=== PATIENT | male | born 1980 | race Caucasian/White ===

== ENCOUNTER 2020-07-13 15:04 | Emergency (ER) | payer MEDICAID, SELFPAY ==
[2020-07-13] VITALS (23 sets, daily range): BP systolic 122–146; BP diastolic 86–110; PULSE 111–144; RESP 13–23; TEMP 36.7; O2SAT 95–99
--- NOTE | 2020-07-13 15:00 | RT.EKG_ITS ---
APPROVED REPORT Exam: Resting ECG Patient Location: E HR:130 bpm ECG Measurements Heart Rate 130 AXIS IA 132 P 51 QRSd 95 QRS 12 QT 308 T 76 QTc 454 Conclusion Sinus tachycardia...rate> 99 I have reviewed and interpreted ECG and agree with software generated interpretation.
--- NOTE | 2020-07-13 15:04 | ED.GENADUL_ITS ---
Discharge Plan Disposition Patient Disposition: HOME Condition: Stable Discharge Details Clinical Impression: New onset seizure, Tachycardia Primary Care Provider: Unknown,Unknown ED Provider: Kylie Clark Home Meds and New Rx's Prescriptions: New permethrin 5 % cream 1 applic topical Q14D Qty: 60 RF: 0 Continued multivitamin Tablet 1 tab PO DAILY RF: 0 omeprazole 40 mg Capsule,Delayed Release(Dr/Ec) 40 mg PO DAILY RF: 0 escitalopram oxalate [Lexapro] 20 mg Tablet 20 mg PO DAILY RF: 0 emtricitabine-tenofovir (TDF) [Truvada] 200-300 mg Tablet 1 tab PO DAILY RF: 0 amitriptyline 25 mg Tablet 25 mg PO HS PRNRF: 0 Discharge Instructions Instructions: Epilepsy (ED), Tachycardia (ED) Additional Instructions: It appears that you likely had a seizure today. Drink plenty of fluids and get plenty of rest. You can take the Ativan as needed for sleep or if you have any further seizure activity. Stop taking the Lexapro today as that may have been a cause of your seizure. It is sometimes better for your depression to wean off of the lexapro by taking 1 tab every other day for the next week. Your amitriptyline may also be a cause of seizures but you should follow up with your doctor before stopping this medication. Call your primary care doctor at [facility] for referral to a neurology clinic for reevaluation and for outpatient EEG and possibly MRI of your brain. Your liver function tests were also elevated which may be a result of your medication Truvada. Follow-up with your primary care doctor for recheck of your liver enzymes. Return the Zio patch media monitor to the hospital as directed by respiratory therapy. Return immediately to the emergency department if you develop any worsening or new concerning symptoms. Referrals: Yoanna Cloud MD [ [facility] STAFF PHYSICIAN] - Discharge Data Discharge Date/Time-TO BE ENTERED AT DEPARTURE: 07/13/20 19:48 Discharge Physician: Kylie Clark Medical Decision Making 1510 -- 39-year-old male with a history of depression on Lexapro who presents to the ED status post new onset seizure. EKG on arrival notes a rate of 130, sinus tach, no-STEMI. Heart rate 130s. Blood pressure within normal limits. He is afebrile and appears nontoxic. He is answering questions appropriately. He has a hematoma to the right side of his head with a professional tongue laceration. He has a diffuse body rash which she states has been present for the past month. No cell ulitis. No evidence of extremity, chest, abdomen or back trauma. Will obtain screening labs, CT head and cervical spine, CT chest to rule out acute process. Presentation does not appear consistent with alcohol withdrawal seizure as patient and mom deny any heavy alcohol use. Review of patient's medications notes that Lexapro could be a cause of seizures. Patient later endorsed that he is on Truvada for preventative medication as he engages in same sex relationships. He later also endorses that he is on amitriptyline for sleep. Review of amitriptyline note that this could be a possible cause of seizures. Labs and imaging reviewed. Normal white blood cell count. Anion gap elevated at 17. Bicarb normal. Elevation of LFTs compared to previous which may be due to Truvada. Troponin normal. Salicylate and acetaminophen negative. CT head, cervical spine CT chest negative. 1620 -- Patient reassessed and he is still complaining of headache. Will give a dose of Toradol and additional fluids. 1730 -- Case discussed with [facility] neurology who did not recommend anticonvulsant medications at this time. If patient continues to do well, can plan for outpatient follow-up to the neuro clinic with plan for outpatient EEG and possible MRI. Also consider Zio patch for possible convulsive syncope. Recommend patient not drive and continue seizure and fall precautions. Also consider an HIV test for possible exposure. Patient denies any known HIV exposures. Patient is afebrile and appears nontoxic with a normal CT head, do not feel indication for LP at this time. 1800 -- Patient reassessed and he feels much better. He states he would prefer to go home. Heart rate remains low 100s and he appears anxious. He states he has not eaten all day. Will give patient something to eat, Ativan and place a media monitor. If patient continues to do well, will plan for outpatient neurology follow-up, outpatient EEG and possibly MRI. He states he will follow up with neurology at [facility] as he lives in [place]. 1920 -- Patient reassessed and he feels much better and is requesting to go home. His heart rate still remains tachycardic into the mid 100s. He states he is mainly anxious being in the emergency department. Patient offered to stay for admission overnight but declined. He expressed concern about his chronic pruritic rash to his entire body. He states he has been seen by dermatology and had a punch biopsy and diagnosed with contact dermatitis. He states his son has a similar rash. Will consider possible scabies and given a prescription for permethrin. Usual and customary return precautions given prior to discharge. Medical Records Medical records reviewed: Yes I reviewed the patient's medical records. Imaging Data Radiologic Study: Radiologist's impression: CT HEAD CERVICAL SPINE WO CLINICAL HISTORY: s/p fall, r/o acute skull fx, neck fx, bleed. TECHNIQUE: Imaging Protocol: Axial computed tomography images with coronal and sagittal reformatted images were created and reviewed COMPARISON: No exams were available for comparison FINDINGS: Head CT Ventricles and Extra axial spaces: Normal in size and morphology for the patient's age. Hemorrhage: None. Cerebral parenchyma: Normal. Midline shift: None. Brainstem/Cerebellum: Normal. Calvarium: Normal. Soft tissue swelling right parietal scalp Visualized Paranasal sinuses/Mastoids: Clear. Cervical Spine CT BONES: Vertebral body heights are maintained. Alignment is normal. There is no evidence of acute fracture. No significant degenerative disc changes and facet degenerative changes are seen . SOFT TISSUES: No paraspinal hematoma. The airway appears intact. No pneumothorax is seen at the lung apices. IMPRESSION: Head CT: Normal. C-spine CT: Normal. CT CHEST PE CTA CLINICAL HISTORY: seizure, syncopal episode, r/o PE, pneumonia. TECHNIQUE: Imaging Protocol: Axial CT angiography was performed with multi- slice acquisition and multi-planar and/or 3D reconstructions. CONTRAST MATERIAL: Intravenous: Omnipaque 350 Contrast volume:structured data in ml COMPARISON: No exams were available for comparison FINDINGS: Pulmonary Arteries: No evidence of filling defect to suggest pulmonary emboli. Tracheobronchial tree: Patent where visualized. Mediastinum and Madai: No dominant adenopathy or fluid collection. Pulmonary parenchyma: No consolidation or dominant measurable mass. No architectural distortion. Pleura: No effusion or pneumothorax. Heart: The heart is not dilated. No coronary artery calcifications are seen. Aorta: Thoracic aorta non-dilated. Upper abdomen: Enlarged liver with severe fatty infiltration. Status post cholecystectomy. Surgical clips near the GE junction and body of the stomach. Bones: Mild degenerative changes. IMPRESSION: No evidence of pulmonary embolism or other acute abnormality. Enlarged fatty liver.. Lab Data Lab results reviewed: Yes I reviewed the patient's lab results. Labs: Laboratory Tests Range/Units 07/13/20 07/13/20 07/13/20 15:25 15:25 15:25 WBC (4.4-10.8) 10^3/uL 6.71 RBC (4.36-5.78) 10^6/uL 4.16 L Hgb (13.5-17.5) g/dL 15.1 Hct (40.0-50.0) % 43.3 MCV (80-95) fL 104.1 H MCH (27.0-33.0) pg 36.3 H MCHC (32.0-36.0) % 34.9 RDW (11.8-14.1) % 14.1 Plt Count (130-400) 10^3/uL 221 MPV (8.0-11.0) fL 10.5 Immature Gran % 0.4 Neutrophils % 44.6 Lymphocytes % 37.7 Monocytes % 13.6 Eosinophils % 2.5 Basophils % 1.2 Nucleated RBC % % 0 Absolute Neutrophils (1.2-6.7) 10^3/uL 2.99 Absolute Lymphocytes (1.2-3.4) 10^3/uL 2.53 Absolute Monocytes (0.1-0.8) 10^3/uL 0.91 H Absolute Eosinophils (0.0-0.7) 10^3/uL 0.17 Absolute Basophils (0.0-0.2) 10^3/uL 0.08 PT (9.3-11.0) sec INR (0.9-1.1) APTT (21.0-27.5) sec Sodium (136-145) mmol/L 136 Potassium (3.5-5.1) mmol/L 3.5 Chloride (98-107) mmol/L 96 L Carbon Dioxide (21.0-32.0) mmol/L 22.2 Anion Gap (3-11) mmol/L 17.8 H BUN (7-18) mg/dL 9 Creatinine (0.70-1.30) mg/dL 1.2 Estimated GFR/1.73 m2 (mL/min/1.73m2) >= 60.00 Glucose (74-106) mg/dL 124 H Calcium (8.5-10.1) mg/dL 9.3 Magnesium (1.8-2.4) mg/dL 1.7 L Total Bilirubin (0.2-1.0) mg/dL 1.1 H AST (15-37) U/L 186 H ALT (16-63) U/L 120 H Alkaline Phosphatase (46-116) U/L 125 H Troponin I (<0.06) ng/mL < 0.05 Total Protein (6.4-8.2) g/dL 8.0 Albumin (3.4-5.0) g/dL 4.0 Urine Color (Yellow) Urine Clarity (Clear) Urine pH (5-8) Ur Specific [place] (1.005-1.025) Urine Protein (Negative) mg/dL Urine Ketones (Negative) mg/dL Urine Blood (Negative) Urine Nitrite (Negative) Urine Bilirubin (Negative) Urine Urobilinogen (Up TO 0.2) EU/dL Ur Leukocyte Esterase (Negative) Urine RBC (0-2) HPF Urine WBC (0-5) HPF Ur Epithelial Cells (Negative) HPF Urine Crystals (Negative) HPF Urine Bacteria (Negative) HPF Urine Casts (Negative) LPF Urine Mucus (Negative) Ur Culture Indicated? Urine Glucose (Negative) mg/dL Salicylates (<2.8) mg/dL < 2.8 Urine Opiates Screen (Negative) Urine Methadone Screen (Negative) Acetaminophen (10-30) ug/mL < 2 Ur Barbiturates Screen (Negative) Ur Tricyclics Screen (Negative) Ur Amphetamines Screen (Negative) U Benzodiazepines Scrn (Negative) Urine Cocaine Screen (Negative) Ur THC Screen (Negative) Range/Units 07/13/20 07/13/20 07/13/20 15:25 17:06 17:06 WBC (4.4-10.8) 10^3/uL RBC (4.36-5.78) 10^6/uL Hgb (13.5-17.5) g/dL Hct (40.0-50.0) % MCV (80-95) fL MCH (27.0-33.0) pg MCHC (32.0-36.0) % RDW (11.8-14.1) % Plt Count (130-400) 10^3/uL MPV (8.0-11.0) fL Immature Gran % Neutrophils % Lymphocytes % Monocytes % Eosinophils % Basophils % Nucleated RBC % % Absolute Neutrophils (1.2-6.7) 10^3/uL Absolute Lymphocytes (1.2-3.4) 10^3/uL Absolute Monocytes (0.1-0.8) 10^3/uL Absolute Eosinophils (0.0-0.7) 10^3/uL Absolute Basophils (0.0-0.2) 10^3/uL PT (9.3-11.0) sec 11.5 H INR (0.9-1.1) 1.1 APTT (21.0-27.5) sec 24.3 Sodium (136-145) mmol/L Potassium (3.5-5.1) mmol/L Chloride (98-107) mmol/L Carbon Dioxide (21.0-32.0) mmol/L Anion Gap (3-11) mmol/L BUN (7-18) mg/dL Creatinine (0.70-1.30) mg/dL Estimated GFR/1.73 m2 (mL/min/1.73m2) Glucose (74-106) mg/dL Calcium (8.5-10.1) mg/dL Magnesium (1.8-2.4) mg/dL Total Bilirubin (0.2-1.0) mg/dL AST (15-37) U/L ALT (16-63) U/L Alkaline Phosphatase (46-116) U/L Troponin I (<0.06) ng/mL Total Protein (6.4-8.2) g/dL Albumin (3.4-5.0) g/dL Urine Color (Yellow) Yellow Urine Clarity (Clear) Clear Urine pH (5-8) 7.0 Ur Specific [place] (1.005-1.025) 1.015 Urine Protein (Negative) mg/dL Negative Urine Ketones (Negative) mg/dL Negative Urine Blood (Negative) Trace-intact H Urine Nitrite (Negative) Negative Urine Bilirubin (Negative) Negative Urine Urobilinogen (Up TO 0.2) EU/dL 4.0 H Ur Leukocyte Esterase (Negative) Negative Urine RBC (0-2) HPF 0-2 Urine WBC (0-5) HPF Negative Ur Epithelial Cells (Negative) HPF Negative Urine Crystals (Negative) HPF Negative Urine Bacteria (Negative) HPF Negative Urine Casts (Negative) LPF 3-5 hyaline Urine Mucus (Negative) Negative Ur Culture Indicated? No Urine Glucose (Negative) mg/dL Negative Salicylates (<2.8) mg/dL Urine Opiates Screen (Negative) Negative Urine Methadone Screen (Negative) Negative Acetaminophen (10-30) ug/mL Ur Barbiturates Screen (Negative) Negative Ur Tricyclics Screen (Negative) Positive A Ur Amphetamines Screen (Negative) Negative U Benzodiazepines Scrn (Negative) Negative Urine Cocaine Screen (Negative) Negative Ur THC Screen (Negative) Negative ECG Data Attestation: I personally reviewed and interpreted this ECG (s) as follows: Interpretation: Rate of 130, sinus, no acute ST ovation or depression. MT 132. QRS 95. QTc 452. HPI General Mode of arrival: EMS . Date/Time Provider Initiated Documentation: 07/13/20 15:11 . Limitations to Documentation: no limitations . Information obtained by: patient and family . HPI Narrative: Patient is a 39-year-old male with a history of depression who presents for a seizure at [facility]. Patient does not recall the event but does remember coming into the ED by ambulance. Patient states he felt fine today. He denies any recent illnesses, new medications, alcohol or drug use. He denies any fever, recent travel, recent known sick contacts. He denies chest pain, shortness of breath, abdominal pain, neck pain, extremity pain. He did hit his head on the floor during the seizure and is complaining of headache. Case discussed with patient's mom over the phone who states that she was with patient in [facility] when she heard him call her name and she looked towards him and his eyes were rolling in the back of his head, his arm was twitching and he suddenly dropped to the ground hitting his head on the hard floor. She denies any known LOC. She states he then had full tonic-clonic body jerking for approximately 2 minutes. EMS states upon their arrival, patient appeared postictal but does appear more alert since arrival to the ED. Related Data Home Medications Medication Instructions Recorded Confirmed amitriptyline 25 mg PO HS PRN 07/13/20 07/13/20 emtricitabine-tenofovir (TDF) 1 tab PO DAILY 07/13/20 07/13/20 [Truvada] escitalopram oxalate [Lexapro] 20 mg PO DAILY 07/13/20 07/13/20 multivitamin 1 tab PO DAILY 07/13/20 07/13/20 omeprazole 40 mg PO DAILY 07/13/20 07/13/20 permethrin 1 applic TOPICAL Q14D #60 g 07/13/20 Previous Rx's Medication Instructions Recorded permethrin 1 applic TOPICAL Q14D #60 g 07/13/20 Allergies Allergy/AdvReac Type Severity Reaction Status Date / Time No Known Allergies Allergy Unverified 07/13/20 15:19 Review of Systems All systems reviewed & are unremarkable except as noted in HPI and below Constitutional Constitutional: Reports as per HPI, Denies chills and Denies fever(s) Eyes Eyes: Denies blurry vision ENT Ears, Nose, Mouth, and Throat: Denies dizziness, Denies sore throat and Denies throat swelling Cardiovascular Cardiovascular: Denies chest pain and Denies dyspnea Respiratory Respiratory: Denies cough and Denies dyspnea Gastrointestinal Gastrointestinal: Denies abdominal pain, Denies diarrhea and Denies vomiting Genitourinary Genitourinary: Denies hematuria and Denies dysuria Musculoskeletal Musculoskeletal: Denies back pain and Denies numbness Integumentary/Breasts Skin/Breast: Denies lesions and Denies rash Neurologic Neurologic: Denies dizziness, Denies localized weakness, Denies numbness and Reports convulsions Allergic/Immunologic Allergic/Immunologic: Denies throat swelling FORMERLY [facility], [facility]–1983 Medical History (Updated 07/13/20 @ 19:31 by Kylie Clark DO) Depression Surgical History (Updated 07/13/20 @ 15:38 by Kylie Clark DO) History of gastric bypass Gastric sleeve Social History Smoking/Tobacco Use Status: Never Smoking risk assessment performed?: Yes Substance use type: does not use Exam Const General: cooperative and healthy appearing Orientation: alert and awake HENDC Head: no raccoon eyes and No periorbital ecchymosis Head images: 1. 4 x 4 centimeter area of edema consistent with hematoma with superficial abrasion. Ears: hearing grossly normal bilaterally, external ears normal and TM's normal bilaterally General nose exam: external nose normal Face and sinus: normal facial exam Mouth: oral mucosae normal Mouth/tongue images: 1. Superficial tongue lacerations, ecchymoses. No gapping wounds. Teeth and gingiva: dentition normal Throat: posterior oropharynx normal Eyes General: appearance normal, both eyes and all related structures Eyelids: eyelids normal Pupils: PERRL EOM: EOM intact bilaterally Neck Neck: normal visual inspection Lymphatic: no lymphadenopathy noted Chest Chest: normal inspection of the chest Resp Effort & Inspection: normal respiratory effort and able to speak in complete sentences Auscultation: clear to auscultation bilaterally Cardio Rate: regular rate Rhythm: regular rhythm GI Inspection: normal to inspection Palpation: soft, not firm, no guarding, no hepatosplenomegaly, no masses and nontender Auscultation: normal bowel sounds Back/Spine/Pelvis Thoracic/Lumbar Spine: thoracic and lumbar spine normal to inspection, No thoracic spinal tenderness and No lumbar spinal tenderness Pelvis: no pain with anterior-posterior compression Skin General skin exam: excoriation (abdomen, back) Neuro General: patient alert, patient awake, patient oriented x3, moves all extremities, no meningeal signs and no focal motor deficits Cognition: normal cognition Speech: speech normal Gait: normal gait Motor: muscle tone normal throughout Sensory Exam: no sensory deficits noted Extrem General: normal to inspection, full ROM and capillary refill normal Other: no deformities Psych Appearance: grossly normal Mental Status: mental status grossly normal Speech and Movement: speech and movement normal Affect: normal affect Thought Process: normal
[2020-07-13 15:41] LABS: Abs Immature Grans 0.03 10^3/uL (0.0-0.06); Absolute Basophil Count 0.08 10^3/uL (0.0-0.2); Absolute Eosinophil Count 0.17 10^3/uL (0.0-0.7); Absolute Lymphocyte Count 2.53 10^3/uL (1.2-3.4); Absolute Monocyte Count 0.91 10^3/uL (0.1-0.8); Absolute Neutrophil Count 2.99 10^3/uL (1.2-6.7); Basophils % 1.2; Eosinophils % 2.5; HCT 43.3 % (40.0-50.0); HGB 15.1 g/dL (13.5-17.5); Immature Grans % 0.4; Lymphocytes % 37.7; MCH 36.3 pg (27.0-33.0); MCHC 34.9 % (32.0-36.0); MCV 104.1 fL (80-95); MPV 10.5 fL (8.0-11.0); Monocytes % 13.6; Neutrophils % 44.6; Nucleated RBC 0 %; Platelet Count 221 10^3/uL (130-400); RBC 4.16 10^6/uL (4.36-5.78); RDW 14.1 % (11.8-14.1); RDW-SD 54.8 fL; WBC 6.71 10^3/uL (4.4-10.8)
[2020-07-13 15:47] LABS: INR 1.1 (0.9-1.1); PTT Activated 24.3 sec (21.0-27.5); Prothrombin Time 11.5 sec (9.3-11.0)
[2020-07-13 15:50] LABS: ALT 120 U/L (16-63); AST 186 U/L (15-37); Alkaline Phosphatase 125 U/L (46-116); Anion Gap 17.8 mmol/L (3-11); BUN 9 mg/dL (7-18); Bilirubin, Total 1.1 mg/dL (0.2-1.0); CO2 22.2 mmol/L (21.0-32.0); CREATININE 1.2 mg/dL (0.70-1.30); Calcium 9.3 mg/dL (8.5-10.1); Chloride 96 mmol/L (98-107); Glucose 124 mg/dL (74-106); Magnesium 1.7 mg/dL (1.8-2.4); Potassium 3.5 mmol/L (3.5-5.1); Sodium 136 mmol/L (136-145)
[2020-07-13 15:52] LABS: Salicylate < 2.8 mg/dL (<2.8); Troponin I < 0.05 ng/mL (<0.06)
[2020-07-13 15:53] LABS: Acetaminophen < 2 ug/mL (10-30)
[2020-07-13] MEDS: ACETAMINOPHEN 1,000 MG/100 ML BTL 400 MG IVPB (16:02)
[2020-07-13] MEDS: Normal Saline 1,000 ML 1000 ML IV ×2 (16:02→17:05)
--- NOTE | 2020-07-13 16:04 | DI.CT_ITS ---
EXAM: CT CHEST PE CTA CLINICAL HISTORY: seizure, syncopal episode, r/o PE, pneumonia. TECHNIQUE: Imaging Protocol: Axial CT angiography was performed with multi-slice acquisition and mu lti-planar and/or 3D reconstructions. CONTRAST MATERIAL: Intravenous: Omnipaque 350 Contrast volume:structured data in ml COMPARISON: No exams were available for comparison FINDINGS: Pulmonary Arteries: No evidence of filling defect to suggest pulmonary emboli. Tracheobronchial tree: Patent where visualized. Mediastinum and Madai: No dominant adenopathy or fluid collection. Pulmonary parenchyma: No consolidation or dominant measurable mass. No architectural distortion. Pleura: No effusion or pneumothorax. Heart: The heart is not dilated. No coronary artery calcifications are seen. Aorta: Thoracic aorta non-dilated. Upper abdomen: Enlarged liver with severe fatty infiltration. Status post cholecystectomy. Surgica l clips near the GE junction and body of the stomach. Bones: Mild degenerative changes. IMPRESSION: No evidence of pulmonary embolism or other acute abnormality. Enlarged fatty liver.. RADIATION DOSE DELIVERED: 399.26mGy.cm Total DLP DATA REPOSITORY: All CT scans at this facility are submitted to the National Radiology Data Registry (NRDR) Dose Index Registry (DIR) with the [employer] ([employer]). RADIATION OPTIMIZATION: All CT scans at this facility use at least one of these dose optimization te chniques: automated exposure control; mA and/or kV adjustment per patient size (includes targeted exa ms where dose is matched to clinical indication); or iterative reconstruction.
--- NOTE | 2020-07-13 16:04 | DI.CT_ITS ---
EXAM: CT HEAD CERVICAL SPINE WO CLINICAL HISTORY: s/p fall, r/o acute skull fx, neck fx, bleed. TECHNIQUE: Imaging Protocol: Axial computed tomography images with coronal and sagittal reformatted images were created and reviewed COMPARISON: No exams were available for comparison FINDINGS: Head CT Ventricles and Extra axial spaces: Normal in size and morphology for the patient's age. Hemorrhage: None. Cerebral parenchyma: Normal. Midline shift: None. Brainstem/Cerebellum: Normal. Calvarium: Normal. Soft tissue swelling right parietal scalp Visualized Paranasal sinuses/Mastoids: Clear. Cervical Spine CT BONES: Vertebral body heights are maintained. Alignment is normal. There is no evidence of acute frac ture. No significant degenerative disc changes and facet degenerative changes are seen . SOFT TISSUES: No paraspinal hematoma. The airway appears intact. No pneumothorax is seen at the lung apices. IMPRESSION: Head CT: Normal. C-spine CT: Normal. RADIATION DOSE DELIVERED: LINK-TO-SR Total DLP DATA REPOSITORY: All CT scans at this facility are submitted to the National Radiology Data Registry (NRDR) Dose Index Registry (DIR) with the [employer] (ACR). RADIATION OPTIMIZATION: All CT scans at this facility use at least one of these dose optimization te chniques: automated exposure control; mA and/or kV adjustment per patient size (includes targeted exa ms where dose is matched to clinical indication); or iterative reconstruction.
[2020-07-13] MEDS: Omnipaque 350 MG/ML 100 ML BTL IJ (16:05)
[2020-07-13] MEDS: Normal Saline - Diluent 50 ML VIAL IV (16:05)
[2020-07-13] MEDS: Ketorolac 30 MG/ML VIAL IVP (16:42)
[2020-07-13 17:21] LABS: Bilirubin Negative (Negative); Blood Trace-intact (Negative); Clarity Clear (Clear); Glucose Negative (Negative); Ketones Negative (Negative); Leukocyte Esterase Negative (Negative); Nitrite Negative (Negative); Specific Gravity 1.015 (1.005-1.025)
[2020-07-13 17:31] LABS: Bacteria Negative HPF (Negative); C & S Indicated? No; Casts 3-5 Hyaline LPF (Negative); Crystals Negative HPF (Negative); Epithelial Cells Negative HPF (Negative); Mucus Negative (Negative); RBC 0-2 HPF (0-2); WBC Negative HPF (0-5)
[2020-07-13 17:32] LABS: *AMPHETAMINES SCREEN URINE Negative (Negative); *BARBITURATES SCREEN URINE Negative (Negative); *BENZODIAZEPINES SCREEN URINE Negative (Negative); Cannabinoids THC Negative (Negative); Cocaine Screen,Urine Negative (Negative); METHADONE URINE SCREEN Negative (Negative); OPIATES URINE SCREEN Negative (Negative)
[2020-07-13 17:37] LABS: Tricyclic Antidepressants POSITIVE (Negative)
[2020-07-13] MEDS: LORazepam 2 MG/ML VIAL 1 MG IVP ×2 (18:05→19:14)
[2020-07-13] MEDS: LORazepam 0.5 MG TAB 1 MG PO (19:44)
--- NOTE | 2020-07-14 10:10 | NUR.NOTE ---
Addendum entered by Miri Álvarez 07/14/20 10:13: [facility] Neurology Original Note: Nursing Note: Theresa Canales, mother, called with patient in the room. Asking about follow up with Neurology. Our neurologist is going on vacation as of today. They did state that they would follow up with [facility]. After speaking with Dr. Clark I called [facility] Neurology and faxed all the visit information to them along with sending the images electronically. They will call [facility] for the appt. Miri Álvarez
--- NOTE | 2020-07-15 08:54 | NUR.NOTE ---
Nursing Note: Patient called stating that he called [facility] Neurology to try and get an appt. and was told that they had not received the referral yet. I called [facility] Neurology and they stated that it takes 24 hrs. to get the information into the system, it has to be reviewed, and then they will call the patient with an appt. They stated to put urgent on the request. I refaxed all the information again to [facility] Neurology with URGENT on the fax cover sheet. Patient was called and given this information. Miri Álvarez
[2020-07-15 10:11] LABS: HIV-1/2 Ag & Ab Screen Negative (Negative)
--- NOTE | 2020-08-12 09:11 | W.ZIOMONITOR ---
Date of service: 08/12/20 Time of Service: 09:11 14 Day Social Work Job Titles Referring Provider:: jolly Indications:: syncope Note: This is a 14-day monitor order for indication of syncope. ?The patient was in normal sinus rhythm for the majority of the recording with an average heart rate of 85 bpm. ?There were no PVCs and rare PACs. There were 2 episodes of supraventricular tachycardia the longest lasting 4 beats. Neither of these were symptomatic. ?There were no episodes of atrial fibrillation, no pauses greater than 3 seconds and no evidence of high degree heart block. ?There were 5 patient triggered events none of which were associated with any significant arrhythmia.
== END 2020-07-13 19:48 | disposition home or self-care (01) ==
PROVIDERS: Emergency Provider Physician Assistant
DX: R56.9 Unspecified convulsions (principal); R00.0 Tachycardia, unspecified; R51.9 Headache, unspecified; R21 Rash and other nonspecific skin eruption; Z79.811 Long term (current) use of aromatase inhibitors; Z79.899 Other long term (current) drug therapy
CPT/HCPCS: 36416; 71275; 80053; 80307; 82962; 87389; 90471; 93005; 93246; 96361; 96365; 96375; 99285; 70450; 72125; 80329; 81003; 81015; 83735; 84484; 85025; 85610; 85730; 93010; 99284; J0131; J1885; J2060; J3490

== ENCOUNTER 2020-12-29 10:03 | Outpatient (REF) | payer MEDICAID, SELFPAY ==
[2020-12-29 14:19] LABS: Abs Immature Grans 0.01 10^3/uL (0.0-0.06); Absolute Basophil Count 0.05 10^3/uL (0.0-0.2); Absolute Eosinophil Count 0.06 10^3/uL (0.0-0.7); Absolute Lymphocyte Count 1.71 10^3/uL (1.2-3.4); Absolute Monocyte Count 0.64 10^3/uL (0.1-0.8); Absolute Neutrophil Count 1.72 10^3/uL (1.2-6.7); Basophils % 1.2; Eosinophils % 1.4; HCT 42.6 % (40.0-50.0); HGB 14.1 g/dL (13.5-17.5); Immature Grans % 0.2; Lymphocytes % 40.8; MCH 34.9 pg (27.0-33.0); MCHC 33.1 % (32.0-36.0); MCV 105.4 fL (80-95); MPV 11.6 fL (8.0-11.0); Monocytes % 15.3; Neutrophils % 41.1; Nucleated RBC 0 %; Platelet Count 321 10^3/uL (130-400); RBC 4.04 10^6/uL (4.36-5.78); RDW 12.5 % (11.8-14.1); RDW-SD 49.1 fL; WBC 4.19 10^3/uL (4.4-10.8)
[2020-12-29 14:31] LABS: ALT 54 U/L (16-63); AST 39 U/L (15-37); Albumin 4.1 g/dL (3.4-5.0); Alkaline Phosphatase 48 U/L (46-116); Anion Gap 9.9 mmol/L (3-11); BUN 14 mg/dL (7-18); Bilirubin, Total 0.3 mg/dL (0.2-1.0); CO2 27.1 mmol/L (21.0-32.0); CREATININE 0.8 mg/dL (0.70-1.30); Calcium 9.7 mg/dL (8.5-10.1); Calculated LDL 79 mg/dL (<100); Chloride 107 mmol/L (98-107); Cholesterol 153 mg/dL (<200); Glucose 79 mg/dL (74-106); HDL Cholesterol 56 mg/dL (40-60); Potassium 4.8 mmol/L (3.5-5.1); Sodium 144 mmol/L (136-145); Total Protein 7.4 g/dL (6.4-8.2); Triglyceride 90 mg/dL (<150)
== END 2020-12-29 10:04 | disposition home or self-care (01) ==
LOC: NCHCN 10:03
PROVIDERS: Visit Provider Physician Assistant
DX: K21.9 Gastro-esophageal reflux disease without esophagitis (principal); R56.9 Unspecified convulsions; Z13.220 Encounter for screening for lipoid disorders
CPT/HCPCS: 80053; 80061; 85025

== ENCOUNTER 2021-04-29 15:19 | Emergency (ER) | payer MEDICAID, SELFPAY ==
[2021-04-29] VITALS (58 sets, daily range): BP systolic 115–137; BP diastolic 79–101; PULSE 102–158; RESP 18–58; TEMP 36.8–37.8; O2SAT 87–97
--- NOTE | 2021-04-29 15:15 | RT.EKG_ITS ---
APPROVED REPORT Exam: Resting ECG Reason for Exam: seizure Patient Location: E HR:128 bpm ECG Measurements Heart Rate 128 AXIS AK 144 P 42 QRSd 86 QRS -1 QT 313 T 18 QTc 458 Conclusion Sinus tachycardia...rate> 99. Sinus. No STEMI. I have reviewed and interpreted ECG and agree with software generated interpretation.
--- NOTE | 2021-04-29 15:30 | ED.GENADUL_ITS ---
Discharge Plan Disposition Patient Disposition: HOME Condition: Improving Discharge Details Clinical Impression: Seizure, Hypokalemia, Vomiting and diarrhea, Transaminitis, Tongue laceration Primary Care Provider: Unknown,Unknown ED Provider: Kylie Clark Home Meds and New Rx's Prescriptions: New penicillin V potassium 500 mg tablet 500 mg PO QID 7 Days Qty: 28 RF: 0 levetiracetam [Keppra] 500 mg tablet 1,000 mg PO BID 30 Days Qty: 120 RF: 0 ondansetron 4 mg tablet,disintegrating 4 mg PO TID PRN (Reason: nausea and vomiting) Qty: 6 RF: 0 Continued omeprazole 40 mg Capsule,Delayed Release(Dr/Ec) 40 mg PO DAILY RF: 0 Discontinued cholecalciferol (vitamin D3) 25 mcg (1,000 unit) capsule 25 mcg PO DAILY RF: 0 cyanocobalamin (vitamin B-12) 500 mcg lozenge 500 mcg PO DAILY RF: 0 levetiracetam [Keppra] 500 mg tablet 500 mg PO BID RF: 0 multivitamin Tablet 1 tab PO DAILY RF: 0 amitriptyline 25 mg Tablet 25 mg PO HS PRNRF: 0 Discharge Instructions Instructions: Hypokalemia (ED), Gastroenteritis (ED), Recurrent Seizures in Adults (ED) Additional Instructions: Your lab work today showed evidence of low potassium and magnesium. This likely could be associated with diet in addition to your vomiting and diarrhea. You were given potassium here in the emergency department and will be sent home with 3 tabs of potassium to take 1 tab once daily for the next 3 days. Your liver function tests were also elevated today. It is important to follow- up with your primary care doctor for recheck of these in the next 1 to 2 weeks. Drink plenty of fluids and get plenty of rest. [facility] neurology is recommending increasing your Keppra from 500 mg twice daily to 1000 mg twice daily. A prescription for Keppra 1000 mg twice daily has been sent electronically to your pharmacy to start tomorrow. Call [facility] neurology on Sunday morning to schedule a follow-up appointment for reevaluation. Prescriptions for Keppra for your seizures, Zofran for your nausea and vomiting and Penicillin to prevent infection at the site of your tongue laceration have been sent electronically to your pharmacy. You do not need to take your next dose of Keppra until tomorrow morning. Follow-up with your primary care doctor in 1 week for re-evaluation and for recheck of your liver function tests. Return to the emergency department with any worsening or new concerning symptoms. Referrals: Bandar Richardson [ CONSULTING PHYSICIAN] - Discharge Data Discharge Physician: Kylie Clark Medical Decision Making 1545 -- 40-year-old male with a history of seizure disorder diagnosed in June 2020 started on Keppra at a hospital in [place] status post seizure presents today for 3 unwitnessed seizures in addition to vomiting and diarrhea since this morning. EMS reported a temp of 101.3. Oral temp 100.1 here. Heart rate 130s, may be a combination postictal, anxiety, fever. Patient is awake and alert and oriented x3 but no meningeal signs. He has a tremor to his right hand and tongue with tension which he states is new today. He has been taking his Keppra as directed. He is no longer taking Truvada as of a few months ago. He states he has only taking omeprazole and Keppra at this time. Consider viral illness which may be lowered his seizure threshold. As he has no focal deficits and had a previous normal CT head in June and no report of head injury, do not see an indication for repeat head imaging. Report from neurology in July 2020 noted that he had a normal EEG. He was referred for outpatient MRI brain but per [facility] records does not appear to have been completed. We will place an IV, bolus IV fluids, screening labs, Keppra level, Covid, fluids, Ativan and continue to monitor. Will consult [facility] neurology for recommendations. 1630 --labs reviewed. Normal white blood cell count at 7. Lactate 2. Potassium 3.6 and magnesium 1.3, will replete. Elevation of LFTs compared to previous baseline. Troponin negative. Covid swab negative. 170 --Case discussed with [facility] neurology --recommend loading patient with 1 g of Keppra and increasing his Keppra from 500 mg twice daily to 1000 mg twice daily. 1844 --patient reassessed and he feels better. Heart rate 100s. Patient states he would like to go home. We will send a urine and stool sample. 2044 --repeat lactate normalized. Repeat potassium level only reported minimally improved at 2.7 but nurse reported that pt took the oral potassium only shortly before repeat lab draw. Liver enzymes improved on repeat lab draw. Pt appears much more comfortable and would like to go home. Will send with a few tabs of potassium to go for the next 3 days. Advised he could supplement potassium in the diet as well. We will also start penicillin prophylactically for tongue laceration. A prescription for zofran and a new prescription for Keppra 1000 mg twice daily also provided. Advised to follow-up with [facility] neurology for reevaluation and with his PCP for reevaluation and recheck of his liver enzymes. Usual and customary return precautions given prior to discharge. Medical Records Medical records reviewed: Yes I reviewed the patient's medical records. Lab Data Lab results reviewed: Yes I reviewed the patient's lab results. Labs: 04/29/21 16:03 Blood Blood Culture - Pending 04/29/21 15:55 Blood Blood Culture - Pending Laboratory Tests Range/Units 04/29/21 04/29/21 04/29/21 15:26 15:40 15:40 WBC (4.4-10.8) 10^3/uL 7.90 RBC (4.36-5.78) 10^6/uL 3.94 L Hgb (13.5-17.5) g/dL 13.8 Hct (40.0-50.0) % 39.2 L MCV (80-95) fL 99.5 H MCH (27.0-33.0) pg 35.0 H MCHC (32.0-36.0) % 35.2 RDW (11.8-14.1) % 11.9 Plt Count (130-400) 10^3/uL 143 MPV (8.0-11.0) fL 9.9 Immature Gran % 0.3 Neutrophils % 77.0 Lymphocytes % 12.9 Monocytes % 9.1 Eosinophils % 0.1 Basophils % 0.6 Nucleated RBC % % 0 Absolute Neutrophils (1.2-6.7) 10^3/uL 6.08 Absolute Lymphocytes (1.2-3.4) 10^3/uL 1.02 L Absolute Monocytes (0.1-0.8) 10^3/uL 0.72 Absolute Eosinophils (0.0-0.7) 10^3/uL 0.01 Absolute Basophils (0.0-0.2) 10^3/uL 0.05 VBG Lactate (0.6-1.4) mmol/L 2.0 H Sodium (136-145) mmol/L 138 Potassium (3.5-5.1) mmol/L 2.6 L* Chloride (98-107) mmol/L 98 Carbon Dioxide (21.0-32.0) mmol/L 22.4 Anion Gap (3-11) mmol/L 17.6 H BUN (7-18) mg/dL 9 Creatinine (0.70-1.30) mg/dL 0.5 L Estimated GFR/1.73 m2 (mL/min/1.73m2) >= 60.00 Glucose (74-106) mg/dL 124 H Calcium (8.5-10.1) mg/dL 8.0 L Magnesium (1.8-2.4) mg/dL 1.3 L Total Bilirubin (0.2-1.0) mg/dL 1.7 H AST (15-37) U/L 321 H ALT (16-63) U/L 105 H Alkaline Phosphatase (46-116) U/L 148 H Troponin I (<0.06) ng/mL < 0.05 Total Protein (6.4-8.2) g/dL 7.6 Albumin (3.4-5.0) g/dL 4.0 Urine Color (Yellow) Urine Clarity (Clear) Urine pH (5-8) Ur Specific [place] (1.005-1.025) Urine Protein (Negative) mg/dL Urine Ketones (Negative) mg/dL Urine Blood (Negative) Urine Nitrite (Negative) Urine Bilirubin (Negative) Urine Urobilinogen (Up TO 0.2) EU/dL Ur Leukocyte Esterase (Negative) Urine RBC (0-2) HPF Urine WBC (0-5) HPF Ur Epithelial Cells (Negative) HPF Urine Crystals (Negative) HPF Urine Bacteria (Negative) HPF Urine Casts (Negative) LPF Urine Mucus (Negative) Urine Other (Negative) Ur Culture Indicated? Urine Glucose (Negative) mg/dL Stl C.difficile Tox PCR (Negative) COVID-19 Source SARS-CoV-2 (PCR) (Negative) Range/Units 04/29/21 04/29/21 04/29/21 16:05 19:30 19:30 WBC (4.4-10.8) 10^3/uL RBC (4.36-5.78) 10^6/uL Hgb (13.5-17.5) g/dL Hct (40.0-50.0) % MCV (80-95) fL MCH (27.0-33.0) pg MCHC (32.0-36.0) % RDW (11.8-14.1) % Plt Count (130-400) 10^3/uL MPV (8.0-11.0) fL Immature Gran % Neutrophils % Lymphocytes % Monocytes % Eosinophils % Basophils % Nucleated RBC % % Absolute Neutrophils (1.2-6.7) 10^3/uL Absolute Lymphocytes (1.2-3.4) 10^3/uL Absolute Monocytes (0.1-0.8) 10^3/uL Absolute Eosinophils (0.0-0.7) 10^3/uL Absolute Basophils (0.0-0.2) 10^3/uL VBG Lactate (0.6-1.4) mmol/L Sodium (136-145) mmol/L 139 Potassium (3.5-5.1) mmol/L 2.7 L* Chloride (98-107) mmol/L 102 Carbon Dioxide (21.0-32.0) mmol/L 25.4 Anion Gap (3-11) mmol/L 11.6 H BUN (7-18) mg/dL 5 L Creatinine (0.70-1.30) mg/dL 0.5 L Estimated GFR/1.73 m2 (mL/min/1.73m2) >= 60.00 Glucose (74-106) mg/dL 90 Calcium (8.5-10.1) mg/dL 7.1 L Magnesium (1.8-2.4) mg/dL Total Bilirubin (0.2-1.0) mg/dL 1.6 H AST (15-37) U/L 255 H ALT (16-63) U/L 86 H Alkaline Phosphatase (46-116) U/L 123 H Troponin I (<0.06) ng/mL Total Protein (6.4-8.2) g/dL 6.5 Albumin (3.4-5.0) g/dL 3.4 Urine Color (Yellow) Urine Clarity (Clear) Urine pH (5-8) Ur Specific [place] (1.005-1.025) Urine Protein (Negative) mg/dL Urine Ketones (Negative) mg/dL Urine Blood (Negative) Urine Nitrite (Negative) Urine Bilirubin (Negative) Urine Urobilinogen (Up TO 0.2) EU/dL Ur Leukocyte Esterase (Negative) Urine RBC (0-2) HPF Urine WBC (0-5) HPF Ur Epithelial Cells (Negative) HPF Urine Crystals (Negative) HPF Urine Bacteria (Negative) HPF Urine Casts (Negative) LPF Urine Mucus (Negative) Urine Other (Negative) Ur Culture Indicated? Urine Glucose (Negative) mg/dL Stl C.difficile Tox PCR (Negative) Negative COVID-19 Source Nasal/Nares SARS-CoV-2 (PCR) (Negative) Negative Range/Units 04/29/21 04/29/21 19:30 20:15 WBC (4.4-10.8) 10^3/uL RBC (4.36-5.78) 10^6/uL Hgb (13.5-17.5) g/dL Hct (40.0-50.0) % MCV (80-95) fL MCH (27.0-33.0) pg MCHC (32.0-36.0) % RDW (11.8-14.1) % Plt Count (130-400) 10^3/uL MPV (8.0-11.0) fL Immature Gran % Neutrophils % Lymphocytes % Monocytes % Eosinophils % Basophils % Nucleated RBC % % Absolute Neutrophils (1.2-6.7) 10^3/uL Absolute Lymphocytes (1.2-3.4) 10^3/uL Absolute Monocytes (0.1-0.8) 10^3/uL Absolute Eosinophils (0.0-0.7) 10^3/uL Absolute Basophils (0.0-0.2) 10^3/uL VBG Lactate (0.6-1.4) mmol/L 0.8 Sodium (136-145) mmol/L Potassium (3.5-5.1) mmol/L Chloride (98-107) mmol/L Carbon Dioxide (21.0-32.0) mmol/L Anion Gap (3-11) mmol/L BUN (7-18) mg/dL Creatinine (0.70-1.30) mg/dL Estimated GFR/1.73 m2 (mL/min/1.73m2) Glucose (74-106) mg/dL Calcium (8.5-10.1) mg/dL Magnesium (1.8-2.4) mg/dL Total Bilirubin (0.2-1.0) mg/dL AST (15-37) U/L ALT (16-63) U/L Alkaline Phosphatase (46-116) U/L Troponin I (<0.06) ng/mL Total Protein (6.4-8.2) g/dL Albumin (3.4-5.0) g/dL Urine Color (Yellow) Yellow Urine Clarity (Clear) Clear Urine pH (5-8) 7.0 Ur Specific [place] (1.005-1.025) 1.025 Urine Protein (Negative) mg/dL 30 H Urine Ketones (Negative) mg/dL 80 H Urine Blood (Negative) Trace-intact H Urine Nitrite (Negative) Negative Urine Bilirubin (Negative) Small H Urine Urobilinogen (Up TO 0.2) EU/dL 0.2 Ur Leukocyte Esterase (Negative) Negative Urine RBC (0-2) HPF 3-5 H Urine WBC (0-5) HPF 3-5 Ur Epithelial Cells (Negative) HPF Few Urine Crystals (Negative) HPF Negative Urine Bacteria (Negative) HPF Negative Urine Casts (Negative) LPF Negative Urine Mucus (Negative) Negative Urine Other (Negative) Negative Ur Culture Indicated? No Urine Glucose (Negative) mg/dL Negative Stl C.difficile Tox PCR (Negative) COVID-19 Source SARS-CoV-2 (PCR) (Negative) HPI General Mode of arrival: ambulatory . Date/Time Provider Initiated Documentation: 04/29/21 15:22 . Limitations to Documentation: no limitations . Information obtained by: patient . HPI Narrative: Patient is a 40-year-old male with a history of depression and seizure disorder diagnosed in June 2020 currently on Keppra presents for fever and 3 seizures today. EMS reported a temp of 101.3 in route. Patient states that he felt his normal self yesterday but since awakening this morning he has had 6 episodes of bilious vomiting and a few episodes of watery brown diarrhea. He states he had 3 seizures within a 2- hour period while laying in bed today. He states the last time it thinks he may pass out. He states he has visual abnormalities/aura prior to the seizure episode which happened this time today. He states he now has a left-sided headache which is his usual after a seizure. Patient was first seen here for seizures in June 2020 and after speaking with neurology at that time, was no t started on anticonvulsant medication. Patient was evaluated by [facility] neurology in July 2020 and had a normal EEG and not started on seizure medication. Patient reports that 3 months ago while driving down to [place] he had a seizure on the highway and was taken to a local hospital where he remained for 1 week. He was started on Keppra at that time and has been on 500 mg twice daily since then. He states he has been having 1 seizure monthly occurring over the last few months. He states seizure today is similar to previous seizures but has never had more than 1 and 1.. Patient was unaware of having a fever. Patient states he is fully vaccinated for Covid and denies any known exposure to coronavirus but states his young nephew lives with him where there have been cases at his school. He was unaware of having a fever. He denies any chest pain, shortness of breath, abdominal pain, urinary symptoms. Patient denies any recent alcohol or drug use, new medications or prescriptions or change in his medications. He had been taking Truvada for prophylactic HIV medication but st opped this 3 months ago on his own. He states he is currently only taking Keppra and omeprazole. Related Data Home Medications Medication Instructions Recorded Confirmed omeprazole 40 mg PO DAILY 07/13/20 04/29/21 levetiracetam [Keppra] 1,000 mg PO BID 30 Days #120 tab 04/29/21 ondansetron 4 mg PO TID PRN #6 tab 04/29/21 penicillin V potassium 500 mg PO QID 7 Days #28 tab 04/29/21 Previous Rx's Medication Instructions Recorded levetiracetam [Keppra] 1,000 mg PO BID 30 Days #120 tab 04/29/21 ondansetron 4 mg PO TID PRN #6 tab 04/29/21 penicillin V potassium 500 mg PO QID 7 Days #28 tab 04/29/21 Allergies Allergy/AdvReac Type Severity Reaction Status Date / Time No Known Allergies Allergy Unverified 04/29/21 15:30 General Stated Complaint: Seizure EMIL: 3 Review of Systems All systems reviewed & are unremarkable except as noted in HPI and below Constitutional Constitutional: Reports as per HPI, Denies chills and Reports fever(s) Eyes Eyes: Denies blurry vision ENT Ears, Nose, Mouth, and Throat: Denies dizziness, Denies sore throat and Denies throat swelling Cardiovascular Cardiovascular: Denies chest pain and Denies dyspnea Respiratory Respiratory: Denies cough and Denies dyspnea Gastrointestinal Gastrointestinal: Denies abdominal pain, Denies diarrhea and Denies vomiting Genitourinary Genitourinary: Denies hematuria and Denies dysuria Musculoskeletal Musculoskeletal: Denies back pain and Denies numbness Integumentary/Breasts Skin/Breast: Denies lesions and Denies rash Neurologic Neurologic: Denies dizziness, Denies localized weakness, Denies numbness and Reports seizure-like activity Allergic/Immunologic Allergic/Immunologic: Denies throat swelling PFSH All Active Problems (Updated 04/29/21 @ 20:13 by Kylie Clark DO) Seizure (Acute) Hypokalemia (Acute) Vomiting and diarrhea (Acute) Transaminitis (Acute) Tongue laceration (Acute) Medical History (Updated 04/29/21 @ 20:13 by Kylie Clark DO) Anxiety disorder Depression GERD (gastroesophageal reflux disease) Lipid screening Mood disorder Seizure disorder Surgical History (Updated 01/03/21 @ 13:42 by Aubree Darden) History of appendectomy History of cholecystectomy History of gastric bypass Gastric sleeve Social History Smoking/Tobacco Use Status: Never Smoking risk assessment performed?: Yes Substance use type: does not use Do you feel safe at home: Yes Do you feel safe in your relationship?: Yes Exam Const General: cooperative and no acute distress HENMT Head: normal to inspection Ears: hearing grossly normal bilaterally and external ears normal Face and sinus: normal facial exam Mouth: moist mucous membranes Mouth/tongue images: 1. 2cm Superficial laceration, bleeding controlled 2. 1cm Superficial laceration, bleeding controlled Throat: posterior oropharynx normal Eyes General: appearance normal, both eyes and all related structures Pupils: PERRL EOM: EOM intact bilaterally Neck Neck: normal visual inspection and No submandibular swelling Lymphatic: no lymphadenopathy noted Chest Chest: normal inspection of the chest and no tenderness Resp Effort & Inspection: normal respiratory effort and able to speak in complete sentences Auscultation: clear to auscultation bilaterally Cardio Rate: regular rate Rhythm: regular rhythm GI Inspection: normal to inspection Palpation: soft, not firm, not rigid and nontender Auscultation: normal bowel sounds Back/Spine/Pelvis Thoracic/Lumbar Spine: thoracic and lumbar spine normal to inspection, No thoracic spinal tenderness and No lumbar spinal tenderness Pelvis: no pain with anterior-posterior compression Skin General skin exam: no rashes or lesions noted Neuro General: patient alert, patient awake and patient oriented x3 Cognition: normal cognition Speech: speech normal Motor: muscle tone normal throughout and tremor (Right hand/upper extremity, tongue, with intention) Sensory Exam: no sensory deficits noted Extrem General: normal to inspection, full ROM, capillary refill normal, no calf tenderness bilaterally and no edema Psych Appearance: grossly normal Mental Status: mental status grossly normal Speech and Movement: speech and movement normal Affect: normal affect Course Vital Signs Vital signs: Vital Signs Temperature 98.2 F 04/29/21 15:27 Pulse 131 H 04/29/21 15:27 Respiratory Rate 20 04/29/21 15:27 Blood Pressure 137/91 H 04/29/21 15:27 Pulse Oximetry 96 04/29/21 15:27 Temperature 98.2 F 04/29/21 15:27 Temperature Source Temporal Artery Scan 04/29/21 15:27 Pulse 131 H 04/29/21 15:27 Respiratory Rate 20 04/29/21 15:27 Blood Pressure 137/91 H 04/29/21 15:27 Pulse Oximetry 96 04/29/21 15:27 Pain Level 2 04/29/21 15:27 Lab/Test Results Lab/Test Results: 04/29/21 15:26 Blood Blood Culture - Pending 04/29/21 15:26 Blood Blood Culture - Pending
[2021-04-29 15:47] LABS: Abs Immature Grans 0.02 10^3/uL (0.0-0.06); Absolute Basophil Count 0.05 10^3/uL (0.0-0.2); Absolute Eosinophil Count 0.01 10^3/uL (0.0-0.7); Absolute Lymphocyte Count 1.02 10^3/uL (1.2-3.4); Absolute Monocyte Count 0.72 10^3/uL (0.1-0.8); Absolute Neutrophil Count 6.08 10^3/uL (1.2-6.7); Basophils % 0.6; Eosinophils % 0.1; HCT 39.2 % (40.0-50.0); HGB 13.8 g/dL (13.5-17.5); Immature Grans % 0.3; Lymphocytes % 12.9; MCHC 35.2 % (32.0-36.0); MCV 99.5 fL (80-95); MPV 9.9 fL (8.0-11.0); Monocytes % 9.1; Nucleated RBC 0 %; Platelet Count 143 10^3/uL (130-400); RBC 3.94 10^6/uL (4.36-5.78); RDW 11.9 % (11.8-14.1); RDW-SD 43.6 fL
[2021-04-29 16:03] LABS: ALT 105 U/L (16-63); AST 321 U/L (15-37); Alkaline Phosphatase 148 U/L (46-116); Anion Gap 17.6 mmol/L (3-11); BUN 9 mg/dL (7-18); Bilirubin, Total 1.7 mg/dL (0.2-1.0); CO2 22.4 mmol/L (21.0-32.0); CREATININE 0.5 mg/dL (0.70-1.30); Chloride 98 mmol/L (98-107); Glucose 124 mg/dL (74-106); Magnesium 1.3 mg/dL (1.8-2.4); Sodium 138 mmol/L (136-145); Total Protein 7.6 g/dL (6.4-8.2); Troponin I < 0.05 ng/mL (<0.06)
[2021-04-29 16:04] LABS: Potassium 2.6 mmol/L (3.5-5.1)
[2021-04-29] MEDS: LORazepam 2 MG/ML VIAL 0.5 MG IVP (16:07)
[2021-04-29] MEDS: Normal Saline 1,000 ML 1000 ML IV ×2 (16:09→18:36)
[2021-04-29 16:10] LABS: Source Nasal/Nares
[2021-04-29 17:03] LABS: COVID-19 PCR Negative (Negative)
[2021-04-29] MEDS: MAGNESIUM SULFATE 2 GM/50 ML BAG IVPB (17:15)
[2021-04-29] MEDS: POTASSIUM CHLORIDE 20 MEQ/100 ML BAG 50 MEQ IVPB (17:31)
[2021-04-29] MEDS: ACETAMINOPHEN 1,000 MG/100 ML BTL 400 MG IVPB (17:38)
[2021-04-29] MEDS: levETIRAcetam 1,000 MG in Normal Saline 100 ML 400 MG IVPB (18:09)
[2021-04-29] MEDS: LORazepam 1 MG TAB PO (18:30)
[2021-04-29] MEDS: Potassium Chloride 20 MEQ TABCR 40 MEQ PO (19:11)
[2021-04-29 19:53] LABS: Bilirubin Small (Negative); Blood Trace-intact (Negative); Clarity Clear (Clear); Glucose Negative (Negative); Ketones 80 mg/dL (Negative); Leukocyte Esterase Negative (Negative); Nitrite Negative (Negative); Specific Gravity 1.025 (1.005-1.025); Urobilinogen 0.2 EU/dL (Up TO 0.2)
[2021-04-29 19:56] LABS: ALT 86 U/L (16-63); AST 255 U/L (15-37); Albumin 3.4 g/dL (3.4-5.0); Alkaline Phosphatase 123 U/L (46-116); Anion Gap 11.6 mmol/L (3-11); BUN 5 mg/dL (7-18); Bilirubin, Total 1.6 mg/dL (0.2-1.0); CO2 25.4 mmol/L (21.0-32.0); CREATININE 0.5 mg/dL (0.70-1.30); Calcium 7.1 mg/dL (8.5-10.1); Chloride 102 mmol/L (98-107); Glucose 90 mg/dL (74-106); Sodium 139 mmol/L (136-145); Total Protein 6.5 g/dL (6.4-8.2)
[2021-04-29 19:58] LABS: Bacteria Negative HPF (Negative); C & S Indicated? No; Casts Negative LPF (Negative); Crystals Negative HPF (Negative); Epithelial Cells Few HPF (Negative); Mucus Negative (Negative); Other Cells Negative (Negative); Potassium 2.7 mmol/L (3.5-5.1)
[2021-04-29 20:19] LABS: Lactate 0.8 mmol/L (0.6-1.4)
[2021-04-29 20:29] LABS: C Diff PCR Negative (Negative)
[2021-04-29] MEDS: Penicillin V POTASSIUM 500 MG TAB, 4 TABS/BTL PO (21:19)
[2021-04-29] MEDS: Ondansetron O.D.T. 4 MG TABEF, 3 TABS/BTL PO (21:19)
[2021-04-29] MEDS: Potassium Chloride 10 MEQ TABCR 30 MEQ PO (21:20)
[2021-05-01 22:19] LABS: Campylobacter PCR Negative (Negative); Salmonella PCR Negative (Negative); Shiga Toxin PCR Negative (Negative); Shigella/Enteroinvasive Ecoli Negative (Negative)
[2021-05-03 11:44] LABS: Levetiracetam 7.7 mcg/mL
== END 2021-04-29 21:24 | disposition home or self-care (01) ==
PROVIDERS: Emergency Provider Physician Assistant
DX: G40.909 Epilepsy, unspecified, not intractable, without status epilepticus (principal); R11.2 Nausea with vomiting, unspecified; E87.6 Hypokalemia; R74.01 Elevation of levels of liver transaminase levels; S01.512A Laceration without foreign body of oral cavity, initial encounter; X58.XXXA Exposure to other specified factors, initial encounter; R50.9 Fever, unspecified; R19.7 Diarrhea, unspecified
CPT/HCPCS: 36415; 80053; 87040; 87493; 87505; 87635; 93005; 96361; 96365; 96366; 96368; 96375; 99284; 80177; 81003; 81015; 83605; 83735; 84132; 84484; 85025; 93010; J0131; J1953; J2060; J3480

== ENCOUNTER 2021-09-24 01:58 | Emergency (ER) | payer MEDICAID, SELFPAY ==
[2021-09-24] VITALS (22 sets, daily range): BP systolic 107–147; BP diastolic 75–101; PULSE 74–109; RESP 12–35; TEMP 37.4; O2SAT 94–98
--- NOTE | 2021-09-24 02:00 | RT.EKG_ITS ---
APPROVED REPORT Exam: Resting ECG Reason for Exam: CHEST PAIN Patient Location: E HR:82 bpm ECG Measurements Heart Rate 82 AXIS NV 143 P 43 QRSd 102 QRS -3 QT 357 T 46 QTc 417 Conclusion Sinus rhythm...normal P axis, V-rate 60- 99
--- NOTE | 2021-09-24 02:15 | DI.RAD_ITS ---
Exam(s) XR RIBS LT W PA LAT CHEST EXAM: XR RIBS LT W PA LAT CHEST CLINICAL HISTORY: pain left chest, fall 2 days ago TECHNIQUE: COMPARISON: No exams were available for comparison FINDINGS: PA and lateral views of the chest and 4 additional views of the ribs were obtained. The heart is not enlarged and the lungs are clear. No pleural effusion or pneumothorax seen. A marker is placed over the lower ribs. There is no evidence of fracture. IMPRESSION: RADIATION DOSE DELIVERED: Total DLP
--- NOTE | 2021-09-24 02:18 | ED.GENADUL_ITS ---
Discharge Plan Disposition Patient Disposition: HOME Condition: Stable Discharge Details Clinical Impression: Contusion of rib on left side, Conjunctivitis, Fall Primary Care Provider: Shekhar Lanza ED Provider: Teo York Home Meds and New Rx's Prescriptions: New erythromycin 5 mg/gram (0.5 %) ointment 0.5 inch ophthalmic (eye) QID Qty: 3.5 0RF Rx Instructions: both eyes Continued ondansetron 4 mg tablet,disintegrating 4 mg PO TID PRN (Reason: nausea and vomiting) Qty: 6 0RF omeprazole 40 mg Capsule,Delayed Release(Dr/Ec) 40 mg PO DAILY Discharge Instructions Instructions: Erythromycin (Into the eye), Rib Contusion (ED), Conjunctivitis (ED) Additional Instructions: Please take ibuprofen over the counter. Take 600mg by mouth every 6 hours as needed for pain. Apply 0.5 inch ribbon to both eyes 4 times a day for the next week. Please follow-up with an eye field care advocate.. Please contact your primary care physician to arrange follow-up. Return to the ER immediately for any worsening or new concerning symptoms. Referrals: [facility] [Outside] Shekhar Lanza [Primary Care Provider] - Discharge Data Discharge Date/Time-TO BE ENTERED AT DEPARTURE: 09/24/21 04:43 Medical Decision Making 225 --40-year-old male here with worsening left-sided pleuritic chest pain that started today after falling down a hill. Patient is saturating well and in no respiratory distress. Pain is reproducible on palpation of anterior lateral chest as well as with deep inspiration. Abdominal exam benign. Concern for potential pneumothorax versus rib contusion versus other. Plan to obtain chest x-ray with rib series. Will apply lidocaine patch. -- Chest x-ray was reviewed and interpreted by me: No pneumothorax, no apparent rib fracture. I will treat for rib contusion with Toradol 30 mg IM. -- Patient also noting bilateral eye discharge for the past 1.5 weeks. No known exposure. Has tried eye drops for allergy without relief. He does not wear contacts. Plan to initiate treatment with erythrmycin and advised him follow-up with technical training specialist. Imaging Data Radiologic Study: Imaging: X-Ray (chest) Radiologist's impression: IMPRESSION: No acute findings HPI General Mode of arrival: ambulatory . Date/Time Provider Initiated Documentation: 09/24/21 02:15 . Limitations to Documentation: no limitations . Information obtained by: patient . HPI Narrative: 40-year-old male with history of epilepsy presents with chief complaint of left- sided chest pain. Patient notes that 2 days ago on he was carrying a heavy object and fell and tumbled down a hill. He notes that during this episode he had a seizure and was unconscious for a couple minutes. Fall was witnessed. He did not have any immediate pain post fall that day but developed pain in his left anterior chest the following day around 12 PM. Pain was initially mild and has progressed and is now severe. Pain is described as a stabbing and localized to left anterior chest. Pain is worse on palpation and also with deep breath. Patient denies abdominal pain. No shortness of breath. No headache. Related Data Home Medications Medication Instructions Recorded Confirmed omeprazole 40 mg capsule,delayed 40 mg PO DAILY 07/13/20 04/29/21 release ondansetron 4 mg disintegrating 4 mg PO TID PRN nausea and 04/29/21 tablet vomiting #6 tabs erythromycin 5 mg/gram (0.5 %) eye 0.5 inch ophthalmic (eye) QID #3.5 09/24/21 ointment grams Previous Rx's Medication Instructions Recorded ondansetron 4 mg disintegrating 4 mg PO TID PRN nausea and 04/29/21 tablet vomiting #6 tabs erythromycin 5 mg/gram (0.5 %) eye 0.5 inch ophthalmic (eye) QID #3.5 09/24/21 ointment grams Allergies Allergy/AdvReac Type Severity Reaction Status Date / Time No Known Allergies Allergy Unverified 04/29/21 15:30 General Stated Complaint: Chest/Rib EMIL: 2 Review of Systems All systems reviewed & are unremarkable except as noted in HPI and below Cardiovascular Cardiovascular: Reports as per HPI and Denies dyspnea Respiratory Respiratory: Denies dyspnea PFSH All Active Problems (Updated 09/24/21 @ 04:19 by Teo York MD) Seizure (Acute) Hypokalemia (Acute) Vomiting and diarrhea (Acute) Transaminitis (Acute) Tongue laceration (Acute) Contusion of rib on left side (Acute) Conjunctivitis (Acute) Fall (Acute) Medical History Anxiety disorder Depression GERD (gastroesophageal reflux disease) Lipid screening Mood disorder Seizure disorder Surgical History History of appendectomy History of cholecystectomy History of gastric bypass Gastric sleeve Social History Smoking/Tobacco Use Status: Never Smoking risk assessment performed?: Yes Alcohol Intake: former Substance use type: does not use Do you feel safe at home: Yes Do you feel safe in your relationship?: Yes Exam Const General: cooperative and no acute distress HENMT Head: normocephalic and atraumatic Mouth: moist mucous membranes Eyes Conjunctivae: conjunctival abnormality bilaterally discharge purulent Sclera: normal sclerae Pupils: PERRL EOM: EOM intact bilaterally Neck Neck: trachea midline and supple Resp Auscultation: clear to auscultation bilaterally, no rales, no rhonchi and no wheezes Cardio Rate: regular rate and not tachycardic Rhythm: regular rhythm Heart Sounds: no gallops, no murmurs and no rubs GI Palpation: soft, not firm, no guarding, no masses, not rigid and nontender Skin General skin exam: no rashes or lesions noted Neuro General: patient alert, patient awake and tone normal Speech: speech normal Extrem General: no calf tenderness and no edema Psych Appearance: grossly normal Mental Status: mental status grossly normal Course Vital Signs Vital signs: Vital Signs Temperature 37.4 C 09/24/21 02:03 Pulse 97 H 09/24/21 02:03 Respiratory Rate 35 H 09/24/21 02:03 Blood Pressure 147/101 H 09/24/21 02:03 Pulse Oximetry 97 09/24/21 02:03 Temperature 37.4 C 09/24/21 02:03 Temperature Source Oral 09/24/21 02:03 Pulse 97 H 09/24/21 02:03 Respiratory Rate 35 H 09/24/21 02:03 Blood Pressure 147/101 H 09/24/21 02:03 Blood Pressure Position Sitting 09/24/21 02:03 Pulse Oximetry 97 09/24/21 02:03 Oxygen Delivery Method Room Air 09/24/21 02:03 Oxygen Flow Rate 0 09/24/21 02:03 Pain Level 10 09/24/21 02:03
[2021-09-24] MEDS: Lidocaine 5% Patch 1 PATCH TP (02:49)
--- NOTE | 2021-09-24 04:15 | DI.VRAD_ITS ---
PROCEDURE INFORMATION: Exam: XR Left Ribs Exam date and time: 09/24/2021 2:47 AM Age: 40 years old Clinical indication: Left-sided; Chest wall pain; Additional info: Left chest pain, fall 2 days ago TECHNIQUE: Imaging protocol: XR Left ribs. Views: 2 views. COMPARISON: CT CHEST PE CTA 07/13/2020 3:46 PM FINDINGS: Bones/joints: No displaced rib fractures. Soft tissues: Normal. IMPRESSION: No acute findings. PROCEDURE INFORMATION: Exam: XR Chest Exam date and time: 09/24/2021 2:47 AM Age: 40 years old Clinical indication: Left-sided; Chest wall pain; Additional info: Left chest pain, fall 2 days ago TECHNIQUE: Imaging protocol: XR of the chest. Views: 2 views. COMPARISON: CT CHEST PE CTA 07/13/2020 3:46 PM FINDINGS: Lungs: Unremarkable. No consolidation. Pleural spaces: Unremarkable. No pleural effusion. No pneumothorax. Heart/Mediastinum: Unremarkable. No cardiomegaly. Bones/joints: Mild degenerative changes of the thoracic spine. Intraperitoneal space: Surgical clips in the upper abdomen. IMPRESSION: No acute findings. Dictated and Authenticated by: Kathleen Shankar MD. Ordering:HEIDI Bruce MD
[2021-09-24] MEDS: Ketorolac 30 MG/ML VIAL IM (04:19)
[2021-09-24] MEDS: Erythromycin Ophth Oint 3.5 GM TUBE OU (04:20)
== END 2021-09-24 04:43 | disposition home or self-care (01) ==
PROVIDERS: Emergency Provider Student in an Organized Health Care Education/Training Program; PCP Physician Assistant
DX: S20.212A Contusion of left front wall of thorax, initial encounter (principal); W17.81XA Fall down embankment (hill), initial encounter; R07.9 Chest pain, unspecified; H10.33 Unspecified acute conjunctivitis, bilateral
CPT/HCPCS: 93005; 96372; 99284; 71046; 71100; 93010; 99283; J1885

== ENCOUNTER 2021-09-26 16:29 | Outpatient (REF) | payer MEDICAID, SELFPAY ==
[2021-09-28 11:19] LABS: Hepatitis B Surface Ag Negative (Negative)
[2021-09-28 11:29] LABS: HIV-1/2 Ag & Ab Screen Negative (Negative)
[2021-09-28 11:51] LABS: Hepatitis C Ab w Rflx HCV PCR Negative (Negative)
== END 2021-09-26 16:30 | disposition home or self-care (01) ==
LOC: NCHCN 16:29
PROVIDERS: PCP Physician Assistant; Visit Provider Physician Assistant
DX: Z20.2 Contact with and (suspected) exposure to infections with a predominantly sexual mode of transmission (principal); Z11.4 Encounter for screening for human immunodeficiency virus [HIV]; Z11.59 Encounter for screening for other viral diseases
CPT/HCPCS: 86803; 87340; 87389

== ENCOUNTER → 2021-11-23 01:40 | Outpatient (CLI) | payer MEDICAID, SELFPAY ==
--- NOTE | 2021-11-23 | DI.MRI_ITS ---
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 Pre and post contrast images were also performed. 16 mL Dotarem IV COMPARISON: No exams were available for comparison FINDINGS: VENTRICLES AND EXTRA AXIAL SPACES: Normal in size and morphology for the patient's age. HEMORRHAGE: Subdural collection over the right frontal parietal lobes is of CSF attenuation, consiste nt old subdural hematoma. It measures 11 millimeters in maximal thickness. There is some mass effec t on adjacent sulci. CEREBRAL PARENCHYMA: There is atrophy which is somewhat disproportionate to the patient's age. No foc us of restricted diffusion to suggest acute infarct. No mass lesion identified. MIDLINE SHIFT: 2-3 millimeter [id number] midline shift BRAINSTEM/CEREBELLUM: Normal. VISUALIZED PARANASAL SINUSES/MASTOIDS: Clear. Vascular flow voids: Intact. ORBITS: The globes are intact. The retrobulbar fat is unremarkable. Extraocular muscles are unremark able. No abnormal signal in the intraconal fat. OPTIC NERVES: The intracranial and extracranial portions of the optic nerves are within normal limits . Optic chiasm is within normal limits. No MRI evidence of optic neuritis identified. SOFT TISSUES: The superior opthalmic veins are unremarkable. Remaining soft tissues are unremarkable. IMPRESSION: Old right-sided subdural hematoma causing mild right to left midline shift.. No evidence of optic ne rve abnormality. Results of this exam have been verbally communicated with Dr. Shekhar Lanza. The patient apparentl y has history of previous trauma and imaging at outside institution.. DATA REPOSITORY:
[2021-11-23] MEDS: Normal Saline Flush 10 ML SYR IVP (13:50)
== END ==
PROVIDERS: PCP Physician Assistant; Visit Provider Physician Assistant
DX: H47.093 Other disorders of optic nerve, not elsewhere classified, bilateral (principal)
CPT/HCPCS: 70553; 70543

== ENCOUNTER 2021-12-05 10:57 | Emergency (ER) | payer MEDICAID, SELFPAY ==
[2021-12-05 11:11] VITALS: BP 129/91; PULSE 117; TEMP 37.2; O2SAT 97
[2021-12-05 11:14] VITALS: BP 129/87; PULSE 110; RESP 18; TEMP 37.7; O2SAT 95
--- NOTE | 2021-12-05 11:15 | RT.EKG_ITS ---
APPROVED REPORT Exam: Resting ECG Reason for Exam: tachycardia Patient Location: E HR:106 bpm ECG Measurements Heart Rate 106 AXIS GA 135 P 61 QRSd 101 QRS -11 QT 341 T 25 QTc 454 Conclusion Sinus tachycardia...rate> 99 sinus tachycardia at 106, normal axis, no STEMI
[2021-12-05 11:29] LABS: Abs Immature Grans 0.02 10^3/uL (0.0-0.06); Absolute Basophil Count 0.03 10^3/uL (0.0-0.2); Absolute Monocyte Count 0.56 10^3/uL (0.1-0.8); Absolute Neutrophil Count 3.92 10^3/uL (1.2-6.7); Basophils % 0.6; HCT 39.1 % (40.0-50.0); HGB 13.9 g/dL (13.5-17.5); Immature Grans % 0.4; Lymphocytes % 9.9; MCH 37.3 pg (27.0-33.0); MCHC 35.5 % (32.0-36.0); MCV 105 fL (80-95); MPV 10.3 fL (8.0-11.0); Monocytes % 11.1; Platelet Count 153 10^3/uL (130-400); RBC 3.73 10^6/uL (4.36-5.78); RDW 13.7 % (11.8-14.1); WBC 5.03 10^3/uL (4.4-10.8)
[2021-12-05 11:42] LABS: ALT 159 U/L (16-63); AST 380 U/L (15-37); Albumin 3.6 g/dL (3.4-5.0); Alkaline Phosphatase 215 U/L (46-116); BUN 7 mg/dL (7-18); Bilirubin, Total 4.5 mg/dL (0.2-1.0); CREATININE 0.7 mg/dL (0.70-1.30); Calcium 8.8 mg/dL (8.5-10.1); Chloride 96 mmol/L (98-107); Glucose 115 mg/dL (74-106); Magnesium 1.4 mg/dL (1.8-2.4); Potassium 3.4 mmol/L (3.5-5.1); Sodium 133 mmol/L (136-145); Total Protein 7.6 g/dL (6.4-8.2)
--- NOTE | 2021-12-05 11:45 | DI.US_ITS ---
Exam(s) US ABDOMEN LIMITED EXAM: US ABDOMEN LIMITED CLINICAL HISTORY: elevated LFTs TECHNIQUE: Ultrasound abdomen performed using standard protocol. COMPARISON: CT CT CHEST PE CTA from 07/13/2020 FINDINGS: LIVER: Enlarged. Severe fatty infiltration. Posterior portions of the liver are not well seen.. No fo glenna liver lesions are seen.. GALLBLADDER: Status post cholecystectomy.. BILIARY SYSTEM: No intrahepatic or extrahepatic biliary ductal dilation. RIGHT KIDNEY: Normal size. No evidence of renal calculi. No evidence of hydronephrosis. No suspicious renal mass. No cyst identified. PANCREAS: Normal where visualized. ABDOMINAL AORTA AND IVC: Visualized portions normal caliber. ASCITES: None seen. IMPRESSION: Enlarged liver with severe fatty infiltration. No biliary dilatation. Status post cholecystectomy. DATA REPOSITORY:
[2021-12-05 12:00] VITALS: BP 120/78; PULSE 109; RESP 16; O2SAT 97
[2021-12-05 12:12] LABS: TSH (W/Ref FT4) 2.73 uIU/mL (0.36-3.74)
[2021-12-05 12:28] LABS: INR 1.3 (0.9-1.1); Prothrombin Time 13.1 sec (9.3-11.0)
[2021-12-05] MEDS: Ondansetron 4 MG/2 ML VIAL IVP (12:37)
[2021-12-05] MEDS: MAGNESIUM SULFATE 2 GM/50 ML BAG IVPB (12:38)
[2021-12-05] MEDS: Normal Saline 1,000 ML 1000 ML IV (12:39)
[2021-12-05] MEDS: LORazepam 20 MG/10 ML VIAL IVP (12:46)
--- NOTE | 2021-12-05 13:31 | ED.GENADUL_ITS ---
Discharge Plan Disposition Patient Disposition: HOME Condition: Stable Discharge Details Clinical Impression: Seizure, Transaminitis Primary Care Provider: Shekhar Lanza ED Provider: Ariane York Home Meds and New Rx's Prescriptions: Discontinued emtricitabine-tenofovir (TDF) [Truvada] 200-300 mg Tablet 1 tab PO DAILY No Action omeprazole 40 mg Capsule,Delayed Release(Dr/Ec) 40 mg PO DAILY erythromycin 5 mg/gram (0.5 %) ointment 0.5 inch ophthalmic (eye) QID Qty: 3.5 0RF Rx Instructions: both eyes allopurinol 100 mg Tablet levetiracetam [Keppra] 1,000 mg Tablet 1,000 mg PO BID Discharge Instructions Instructions: Epilepsy (ED) Additional Instructions: Please return immediately to the emergency department if you develop any new or worsening symptoms, if your condition does not improve as expected, or if you become otherwise concerned. It is extremely important that you call soon as possible to make an appointment to be seen in follow-up for this visit by your primary care doctor and with the gastroenterology clinic at [facility]. Please stop taking your Truvada until you are cleared to do so by either your primary care doctor or gastroenterology department. Referrals: Shekhar Lanza [Primary Care Provider] - Discharge Data Discharge Date/Time-TO BE ENTERED AT DEPARTURE: 12/05/21 15:20 Medical Decision Making Rasta Canales is a 41-year-old man with h/o epilepsy, transaminitis presenting to the emergency department with seizure. Pt reports that he is taking keppra and has occasional breakthrough seizures. He states that he had a breathrough seizure last night, and most recent seizure prior to last night was three weeks ago. Pt reports that after his seizure 3 weeks ago his keppra was increased from 500mg BID to 1000mg BID by his PCP. Pt reports that he has been taking this medication as prescribed. Pt states that he has not seen his neurologist at [facility] in approximately one year. Pt reports that last night at 11pm he was laying in bed watching TV when he had his typical pre-seizure aura, consisting of seeing brown rings of light and then head deviation to the left, followed by loss of consciousness. When Pt woke up he was in bed and had bitten his tongue. No incontinence. He states that after regaining consciousness he had several episodes of vomiting, which typically occurs for him after seizures. He states that he then went to bed. Pt reports that upon waking this am he felt tremulous all over, which has also been occurring after he has seizures. Pt reports that with his last few seizures vomiting and tremulousness seem to be worsening. He denies any current pain other than to his tongue, any known recent seizure trigger, fever, diarrhea, constipation, numbness, weakness, current vision changes, SOB, cough. Pt reports that yesterday he was well and in his usual state of health. Pt reports that he presented to the ED today because tremulousness was concerning him and because he feels overall somewhat generally unwell. Has been eating and drinking as usual. Denies recent EtOH. On exam Pt is well and non-toxic appearing. Tachycardia 110. Non-focal neuro exam. Fine tremor throughout. Concern for dehydration, metabolic/lyte derangement, breakthrough seizure of unclear etiology, other. Exam/hx at this time not c/w sepsis, ACS, acute emergent intracranial bleed, intracranial mass, encephalitis, meningitis, CVA. Plan for IV placement, IVF hydration, IV ativan, screening labs, EKG neuro consult. Will monitor and reassess. Labs reviewed, WBC 5.03, Hgb 13.9, Plt 153, Na 133, K 3.4, AG 13, Mg 1.4, Tbili 4.5, AST 380, ALT 159, Alk Phos 215. Will add lactate, INR. Plan for RUQ US, neuro, GI consults. US shows hepatic steatosis. Pt reassessed, states that he feels improved and back to baseline after fluids, meds. 1332: [facility] transfer center contacted 1350: discussed Pt presentation and results with Dr. Snow of neurology at [facility], who states unclear reason for breakthrough seizure, possibly related to abnormal LFTs but unclear at this time, recommends no med changes, outpt f/u with neuro. I discussed Pt presention and results with Dr. Del Real of GI. He recommends acute viral panel, hold truvada, outpt f/u with PCP and GI clinic at [facility], no further recommendations at this time, no admission indicated from their perspective. I discussed results at length with Pt. Pt takes truvada as prep, plan to hold this med until cleared by GI. Plan for outpt f/u with PCP, neuro, GI. Pt is amenable to this plan. Pt placed on care management list for PCP/GI/neuro f/u. Pt taking PO in ED without issue. I had a discussion with Patient regarding return to emergency department precautions, home care, and importance of outpatient follow-up. Pt verbalizes understanding of the plan and is amenable. Patient discharged to home with clear plan for outpatient follow-up. All questions were answered. Disposition decision was made weighing the risks and benefits of hospitalization versus outpatient treatment, the risk for further decompensation, and the patient's wishes. Medical Records Medical records reviewed: Yes I reviewed the patient's medical records. Lab Data Lab results reviewed: Yes I reviewed the patient's lab results. Labs: Laboratory Tests Range/Units 12/05/21 12/05/21 12/05/21 11:15 11:15 11:15 WBC (4.4-10.8) 10^3/uL 5.03 RBC (4.36-5.78) 10^6/uL 3.73 L Hgb (13.5-17.5) g/dL 13.9 Hct (40.0-50.0) % 39.1 L MCV (80-95) fL 105 H MCH (27.0-33.0) pg 37.3 H MCHC (32.0-36.0) % 35.5 RDW (11.8-14.1) % 13.7 Plt Count (130-400) 10^3/uL 153 MPV (8.0-11.0) fL 10.3 Immature Gran % 0.4 Neutrophils % 78.0 Lymphocytes % 9.9 Monocytes % 11.1 Eosinophils % 0.0 Basophils % 0.6 Nucleated RBC % (0.0-0.3) % 0.0 Absolute Neutrophils (1.2-6.7) 10^3/uL 3.92 Absolute Lymphocytes (1.2-3.4) 10^3/uL 0.50 L Absolute Monocytes (0.1-0.8) 10^3/uL 0.56 Absolute Eosinophils (0.0-0.7) 10^3/uL 0.00 Absolute Basophils (0.0-0.2) 10^3/uL 0.03 PT (9.3-11.0) sec INR (0.9-1.1) VBG Lactate (0.6-1.4) mmol/L Sodium (136-145) mmol/L 133 L Potassium (3.5-5.1) mmol/L 3.4 L Chloride (98-107) mmol/L 96 L Carbon Dioxide (21.0-32.0) mmol/L 24.0 Anion Gap (3-11) mmol/L 13.0 H BUN (7-18) mg/dL 7 Creatinine (0.70-1.30) mg/dL 0.7 Estimated GFR/1.73 m2 (mL/min/1.73m2) >= 60.00 Glucose (74-106) mg/dL 115 H Calcium (8.5-10.1) mg/dL 8.8 Magnesium (1.8-2.4) mg/dL 1.4 L Cancelled Total Bilirubin (0.2-1.0) mg/dL 4.5 H AST (15-37) U/L 380 H ALT (16-63) U/L 159 H Alkaline Phosphatase (46-116) U/L 215 H Ammonia (11-32) umol/L Total Protein (6.4-8.2) g/dL 7.6 Albumin (3.4-5.0) g/dL 3.6 TSH (0.36-3.74) uIU/mL Urine Color (Yellow) Urine Clarity (Clear) Urine pH (5-8) Ur Specific [place] (1.005-1.025) Urine Protein (Negative) mg/dL Urine Ketones (Negative) mg/dL Urine Blood (Negative) Urine Nitrite (Negative) Urine Bilirubin (Negative) Urine Urobilinogen (Up TO 0.2) EU/dL Ur Leukocyte Esterase (Negative) Urine Glucose (Negative) mg/dL COVID-19 Source SARS-CoV-2 (PCR) Hepatitis A IgM Ab (Negative) Hep Bs Antigen (Negative) Hep B Core Total Ab (Negative) Hepatitis C Antibody (Negative) Range/Units 12/05/21 12/05/21 12/05/21 11:15 11:44 12:10 WBC (4.4-10.8) 10^3/uL RBC (4.36-5.78) 10^6/uL Hgb (13.5-17.5) g/dL Hct (40.0-50.0) % MCV (80-95) fL MCH (27.0-33.0) pg MCHC (32.0-36.0) % RDW (11.8-14.1) % Plt Count (130-400) 10^3/uL MPV (8.0-11.0) fL Immature Gran % Neutrophils % Lymphocytes % Monocytes % Eosinophils % Basophils % Nucleated RBC % (0.0-0.3) % Absolute Neutrophils (1.2-6.7) 10^3/uL Absolute Lymphocytes (1.2-3.4) 10^3/uL Absolute Monocytes (0.1-0.8) 10^3/uL Absolute Eosinophils (0.0-0.7) 10^3/uL Absolute Basophils (0.0-0.2) 10^3/uL PT (9.3-11.0) sec 13.1 H INR (0.9-1.1) 1.3 H VBG Lactate (0.6-1.4) mmol/L Sodium (136-145) mmol/L Potassium (3.5-5.1) mmol/L Chloride (98-107) mmol/L Carbon Dioxide (21.0-32.0) mmol/L Anion Gap (3-11) mmol/L BUN (7-18) mg/dL Creatinine (0.70-1.30) mg/dL Estimated GFR/1.73 m2 (mL/min/1.73m2) Glucose (74-106) mg/dL Calcium (8.5-10.1) mg/dL Magnesium (1.8-2.4) mg/dL Total Bilirubin (0.2-1.0) mg/dL AST (15-37) U/L ALT (16-63) U/L Alkaline Phosphatase (46-116) U/L Ammonia (11-32) umol/L Total Protein (6.4-8.2) g/dL Albumin (3.4-5.0) g/dL TSH (0.36-3.74) uIU/mL 2.73 Urine Color (Yellow) Urine Clarity (Clear) Urine pH (5-8) Ur Specific [place] (1.005-1.025) Urine Protein (Negative) mg/dL Urine Ketones (Negative) mg/dL Urine Blood (Negative) Urine Nitrite (Negative) Urine Bilirubin (Negative) Urine Urobilinogen (Up TO 0.2) EU/dL Ur Leukocyte Esterase (Negative) Urine Glucose (Negative) mg/dL COVID-19 Source Cancelled SARS-CoV-2 (PCR) Cancelled Hepatitis A IgM Ab (Negative) Hep Bs Antigen (Negative) Hep B Core Total Ab (Negative) Hepatitis C Antibody (Negative) Range/Units 12/05/21 12/05/21 12/05/21 13:29 13:49 13:49 WBC (4.4-10.8) 10^3/uL RBC (4.36-5.78) 10^6/uL Hgb (13.5-17.5) g/dL Hct (40.0-50.0) % MCV (80-95) fL MCH (27.0-33.0) pg MCHC (32.0-36.0) % RDW (11.8-14.1) % Plt Count (130-400) 10^3/uL MPV (8.0-11.0) fL Immature Gran % Neutrophils % Lymphocytes % Monocytes % Eosinophils % Basophils % Nucleated RBC % (0.0-0.3) % Absolute Neutrophils (1.2-6.7) 10^3/uL Absolute Lymphocytes (1.2-3.4) 10^3/uL Absolute Monocytes (0.1-0.8) 10^3/uL Absolute Eosinophils (0.0-0.7) 10^3/uL Absolute Basophils (0.0-0.2) 10^3/uL PT (9.3-11.0) sec INR (0.9-1.1) VBG Lactate (0.6-1.4) mmol/L 1.3 Sodium (136-145) mmol/L Potassium (3.5-5.1) mmol/L Chloride (98-107) mmol/L Carbon Dioxide (21.0-32.0) mmol/L Anion Gap (3-11) mmol/L BUN (7-18) mg/dL Creatinine (0.70-1.30) mg/dL Estimated GFR/1.73 m2 (mL/min/1.73m2) Glucose (74-106) mg/dL Calcium (8.5-10.1) mg/dL Magnesium (1.8-2.4) mg/dL Total Bilirubin (0.2-1.0) mg/dL AST (15-37) U/L ALT (16-63) U/L Alkaline Phosphatase (46-116) U/L Ammonia (11-32) umol/L < 10 L Total Protein (6.4-8.2) g/dL Albumin (3.4-5.0) g/dL TSH (0.36-3.74) uIU/mL Urine Color (Yellow) Dark Yellow Urine Clarity (Clear) Clear Urine pH (5-8) 8.5 H Ur Specific [place] (1.005-1.025) 1.015 Urine Protein (Negative) mg/dL Negative Urine Ketones (Negative) mg/dL Negative Urine Blood (Negative) Negative Urine Nitrite (Negative) Negative Urine Bilirubin (Negative) Small H Urine Urobilinogen (Up TO 0.2) EU/dL 4.0 H Ur Leukocyte Esterase (Negative) Negative Urine Glucose (Negative) mg/dL Negative COVID-19 Source SARS-CoV-2 (PCR) Hepatitis A IgM Ab (Negative) Hep Bs Antigen (Negative) Hep B Core Total Ab (Negative) Hepatitis C Antibody (Negative) Range/Units 12/05/21 14:40 WBC (4.4-10.8) 10^3/uL RBC (4.36-5.78) 10^6/uL Hgb (13.5-17.5) g/dL Hct (40.0-50.0) % MCV (80-95) fL MCH (27.0-33.0) pg MCHC (32.0-36.0) % RDW (11.8-14.1) % Plt Count (130-400) 10^3/uL MPV (8.0-11.0) fL Immature Gran % Neutrophils % Lymphocytes % Monocytes % Eosinophils % Basophils % Nucleated RBC % (0.0-0.3) % Absolute Neutrophils (1.2-6.7) 10^3/uL Absolute Lymphocytes (1.2-3.4) 10^3/uL Absolute Monocytes (0.1-0.8) 10^3/uL Absolute Eosinophils (0.0-0.7) 10^3/uL Absolute Basophils (0.0-0.2) 10^3/uL PT (9.3-11.0) sec INR (0.9-1.1) VBG Lactate (0.6-1.4) mmol/L Sodium (136-145) mmol/L Potassium (3.5-5.1) mmol/L Chloride (98-107) mmol/L Carbon Dioxide (21.0-32.0) mmol/L Anion Gap (3-11) mmol/L BUN (7-18) mg/dL Creatinine (0.70-1.30) mg/dL Estimated GFR/1.73 m2 (mL/min/1.73m2) Glucose (74-106) mg/dL Calcium (8.5-10.1) mg/dL Magnesium (1.8-2.4) mg/dL Total Bilirubin (0.2-1.0) mg/dL AST (15-37) U/L ALT (16-63) U/L Alkaline Phosphatase (46-116) U/L Ammonia (11-32) umol/L Total Protein (6.4-8.2) g/dL Albumin (3.4-5.0) g/dL TSH (0.36-3.74) uIU/mL Urine Color (Yellow) Urine Clarity (Clear) Urine pH (5-8) Ur Specific [place] (1.005-1.025) Urine Protein (Negative) mg/dL Urine Ketones (Negative) mg/dL Urine Blood (Negative) Urine Nitrite (Negative) Urine Bilirubin (Negative) Urine Urobilinogen (Up TO 0.2) EU/dL Ur Leukocyte Esterase (Negative) Urine Glucose (Negative) mg/dL COVID-19 Source SARS-CoV-2 (PCR) Hepatitis A IgM Ab (Negative) Negative Hep Bs Antigen (Negative) Negative Hep B Core Total Ab (Negative) Negative Hepatitis C Antibody (Negative) Negative ECG Data Attestation: I personally reviewed and interpreted this ECG (s) as follows: Interpretation: EKG shows sinus tachycardia at 106, normal axis, no STEMI HPI General Mode of arrival: EMS . Date/Time Provider Initiated Documentation: 12/05/21 11:21 . Limitations to Documentation: no limitations . Information obtained by: patient, RN notes reviewed and old records reviewed . HPI Narrative: Rasta Canales is a 41-year-old man with h/o epilepsy, transaminitis presenting to the emergency department with seizure. Pt reports that he is taking keppra and has occasional breakthrough seizures. He states that he had a breathrough seizure last night, and most recent seizure prior to last night was three weeks ago. Pt reports that after his seizure 3 weeks ago his keppra was increased from 500mg BID to 1000mg BID by his PCP. Pt reports that he has been taking this medication as prescribed. Pt states that he has not seen his neurologist at [facility] in approximately one year. Pt reports that last night at 11pm he was laying in bed watching TV when he had his typical pre-seizure aura, consisting of seeing brown rings of light and then head deviation to the left, followed by loss of consciousness. When Pt woke up he was in bed and had bitten his tongue. No incontinence. He states that after regaining consciousness he had several episodes of vomiting, which typically occurs for him after seizures. He states that he then went to bed. Pt reports that upon waking this am he felt tremulous all over, which has also been occurring after he has seizures. Pt reports that with his last few seizures vomiting and tremulousness seem to be worsening. He denies any current pain other than to his tongue, any known recent seizure trigger, fever, diarrhea, constipation, numbness, weakness, current vision changes, SOB, cough. Pt reports that yesterday he was well and in his usual state of health. Pt reports that he presented to the ED today because tremulousness was concerning him and because he feels overall somewhat generally unwell. Has been eating and drinking as usual. Denies recent EtOH. Related Data Home Medications Medication Instructions Recorded Confirmed omeprazole 40 mg capsule,delayed 40 mg PO DAILY 07/13/20 12/05/21 release erythromycin 5 mg/gram (0.5 %) eye 0.5 inch ophthalmic (eye) QID #3.5 09/24/21 12/05/21 ointment grams allopurinol 100 mg tablet mg 12/05/21 levetiracetam 1,000 mg tablet 1,000 mg PO BID 12/05/21 12/05/21 (Keppra) Previous Rx's Medication Instructions Recorded erythromycin 5 mg/gram (0.5 %) eye 0.5 inch ophthalmic (eye) QID #3.5 09/24/21 ointment grams Allergies Allergy/AdvReac Type Severity Reaction Status Date / Time No Known Allergies Allergy Unverified 12/05/21 11:21 General Stated Complaint: Seizure EMIL: 3 Review of Systems Narrative: Constitutional: denies fevers Eyes: denies eye pain ENT: denies ear pain, dental pain, sore throat, reports tongue pain at site of laceration Cardiovascular: denies chest pain, edema Respiratory: denies SOB, cough GI: denies abdominal pain, vomiting, diarrhea : denies flank pain MSK: denies back pain, neck pain, arthralgias, myalgias Skin: denies rash Neuro: denies headaches, numbness, weakness, reports tremulousness PFSH All Active Problems Seizure (Acute) Hypokalemia (Acute) Vomiting and diarrhea (Acute) Transaminitis (Acute) Tongue laceration (Acute) Medical History Anxiety disorder Depression GERD (gastroesophageal reflux disease) Lipid screening Mood disorder Seizure disorder Surgical History History of appendectomy History of cholecystectomy History of gastric bypass Gastric sleeve Social History Smoking/Tobacco Use Status: Never Smoking risk assessment performed?: Yes Alcohol Intake: former Substance use type: does not use Do you feel safe at home: Yes (living in hotel) Do you feel safe in your relationship?: Yes Exam Narrative Exam Narrative: Constitutional: well and [id number], pleasant, conversing normally HENT: head atraumatic/normocephalic/normal inspection, mucous membranes somewhat dry, superficial tongue laceration to right lateral aspect, no active bleeding, no other intra-oral lesion Eyes: conjunctiva normal, sclera normal, pupils 3mm b/l ERRLA, EOMI, no nystagmus Neck: no stridor, normal ROM, trachea midline Chest: normal inspection Resp: normal work of breathing, speaking in full sentences Cardio: tachycardic rate, normal rhythm, no murmur appreciated GI: abdomen soft, non-tender, non-distended Skin: warm, dry, normal color, no rash Neuro: alert, not altered, crimper operator 2/12 intact, motor 5/5 throughout, normal tone, fine tremor of the upper extremities, fine tremor of the lower extremities (with legs raised in air), no asterixis Ext: no edema Psych: normal mood, normal affect, normal behavior Course Vital Signs Vital signs: Vital Signs Temperature 37.2 C 12/05/21 11:11 Pulse 117 H 12/05/21 11:11 Blood Pressure 129/91 H 12/05/21 11:11 Pulse Oximetry 97 12/05/21 11:11 Temperature 37.7 C H 12/05/21 11:14 Temperature Source Skin 12/05/21 11:14 Pulse 110 H 12/05/21 11:14 Respiratory Rate 18 12/05/21 11:14 Respiratory Effort Non-Labored 12/05/21 11:27 Respiratory Depth Normal 12/05/21 11:27 Respiratory Pattern Normal 12/05/21 11:27 Blood Pressure 129/87 12/05/21 11:14 Blood Pressure Position Supine 12/05/21 11:14 Pulse Oximetry 95 12/05/21 11:14 Oxygen Delivery Method Room Air 12/05/21 11:14 Oxygen Flow Rate 0 12/05/21 11:14 Pain Level 0 12/05/21 11:14 Lab/Test Results Lab/Test Results: Laboratory Tests Range/Units 12/05/21 12/05/21 12/05/21 11:15 11:15 11:15 WBC (4.4-10.8) 10^3/uL 5.03 RBC (4.36-5.78) 10^6/uL 3.73 L Hgb (13.5-17.5) g/dL 13.9 Hct (40.0-50.0) % 39.1 L MCV (80-95) fL 105 H MCH (27.0-33.0) pg 37.3 H MCHC (32.0-36.0) % 35.5 RDW (11.8-14.1) % 13.7 Plt Count (130-400) 10^3/uL 153 MPV (8.0-11.0) fL 10.3 Immature Gran % 0.4 Neutrophils % 78.0 Lymphocytes % 9.9 Monocytes % 11.1 Eosinophils % 0.0 Basophils % 0.6 Nucleated RBC % (0.0-0.3) % 0.0 Absolute Neutrophils (1.2-6.7) 10^3/uL 3.92 Absolute Lymphocytes (1.2-3.4) 10^3/uL 0.50 L Absolute Monocytes (0.1-0.8) 10^3/uL 0.56 Absolute Eosinophils (0.0-0.7) 10^3/uL 0.00 Absolute Basophils (0.0-0.2) 10^3/uL 0.03 PT (9.3-11.0) sec INR (0.9-1.1) Sodium (136-145) mmol/L 133 L Potassium (3.5-5.1) mmol/L 3.4 L Chloride (98-107) mmol/L 96 L Carbon Dioxide (21.0-32.0) mmol/L 24.0 Anion Gap (3-11) mmol/L 13.0 H BUN (7-18) mg/dL 7 Creatinine (0.70-1.30) mg/dL 0.7 Estimated GFR/1.73 m2 (mL/min/1.73m2) >= 60.00 Glucose (74-106) mg/dL 115 H Calcium (8.5-10.1) mg/dL 8.8 Magnesium (1.8-2.4) mg/dL 1.4 L Cancelled Total Bilirubin (0.2-1.0) mg/dL 4.5 H AST (15-37) U/L 380 H ALT (16-63) U/L 159 H Alkaline Phosphatase (46-116) U/L 215 H Total Protein (6.4-8.2) g/dL 7.6 Albumin (3.4-5.0) g/dL 3.6 TSH (0.36-3.74) uIU/mL Range/Units 12/05/21 12/05/21 11:15 12:10 WBC (4.4-10.8) 10^3/uL RBC (4.36-5.78) 10^6/uL Hgb (13.5-17.5) g/dL Hct (40.0-50.0) % MCV (80-95) fL MCH (27.0-33.0) pg MCHC (32.0-36.0) % RDW (11.8-14.1) % Plt Count (130-400) 10^3/uL MPV (8.0-11.0) fL Immature Gran % Neutrophils % Lymphocytes % Monocytes % Eosinophils % Basophils % Nucleated RBC % (0.0-0.3) % Absolute Neutrophils (1.2-6.7) 10^3/uL Absolute Lymphocytes (1.2-3.4) 10^3/uL Absolute Monocytes (0.1-0.8) 10^3/uL Absolute Eosinophils (0.0-0.7) 10^3/uL Absolute Basophils (0.0-0.2) 10^3/uL PT (9.3-11.0) sec 13.1 H INR (0.9-1.1) 1.3 H Sodium (136-145) mmol/L Potassium (3.5-5.1) mmol/L Chloride (98-107) mmol/L Carbon Dioxide (21.0-32.0) mmol/L Anion Gap (3-11) mmol/L BUN (7-18) mg/dL Creatinine (0.70-1.30) mg/dL Estimated GFR/1.73 m2 (mL/min/1.73m2) Glucose (74-106) mg/dL Calcium (8.5-10.1) mg/dL Magnesium (1.8-2.4) mg/dL Total Bilirubin (0.2-1.0) mg/dL AST (15-37) U/L ALT (16-63) U/L Alkaline Phosphatase (46-116) U/L Total Protein (6.4-8.2) g/dL Albumin (3.4-5.0) g/dL TSH (0.36-3.74) uIU/mL 2.73
[2021-12-05 13:39] LABS: Bilirubin Small (Negative); Blood Negative (Negative); Clarity Clear (Clear); Glucose Negative (Negative); Ketones Negative (Negative); Leukocyte Esterase Negative (Negative); Nitrite Negative (Negative); Specific Gravity 1.015 (1.005-1.025); pH 8.5 (5-8)
[2021-12-05 13:54] LABS: Lactate 1.3 mmol/L (0.6-1.4)
[2021-12-05 14:06] LABS: Ammonia < 10 umol/L (11-32)
--- NOTE | 2021-12-05 14:56 | NUR.NOTE ---
Nursing Note: Referral given to Care Management for [facility]; elevated liver enzyme tests, in 1 week.
[2021-12-05 15:17] VITALS: BP 120/78; PULSE 109; RESP 16; O2SAT 97
[2021-12-06 10:20] LABS: Hepatitis A Antibody IgM Negative (Negative); Hepatitis B Core Antibody Negative (Negative); Hepatitis B surface Ag Negative (Negative); Hepatitis C Ab w Rflx HCV PCR Negative (Negative)
--- NOTE | 2022-02-21 13:00 | CMACTNOTE_ITS ---
- If Service Date Differs Date of service: 02/21/22 Time of Service: 13:00 Care Management Activity Note Rasta was seen in the ED on 12/05/21 for transaminitis. At the request of ED provider, CM coordinated a referral to [facility] on 12/06/2021. A follow-up call to [facility] reveals that patient was given an appointment on 02/14/2022, which patient later cancelled and did not wish to reschedule.
--- NOTE | 2022-02-21 13:00 | PDOC.ERCMACT ---
- If Service Date Differs Date of service: 02/21/22 Time of Service: 13:00 Care Management Activity Note Rasta was seen in the ED on 12/05/21 for transaminitis. At the request of ED provider, CM coordinated a referral to [facility] on 12/06/2021. A follow-up call to [facility] reveals that patient was given an appointment on 02/14/2022, which patient later cancelled and did not wish to reschedule.
== END 2021-12-05 15:20 | disposition home or self-care (01) ==
PROVIDERS: Emergency Provider Student in an Organized Health Care Education/Training Program; PCP Physician Assistant
DX: G40.909 Epilepsy, unspecified, not intractable, without status epilepticus (principal); R74.01 Elevation of levels of liver transaminase levels; R79.89 Other specified abnormal findings of blood chemistry; R00.0 Tachycardia, unspecified
CPT/HCPCS: 36415; 80053; 86704; 86709; 86803; 87340; 87635; 93005; 96361; 96365; 96375; 99284; 76705; 81003; 82140; 83605; 83735; 84443; 85025; 85610; 93010; J2405; J3490

== ENCOUNTER 2022-01-02 14:57 | Outpatient (REF) | payer MEDICAID, SELFPAY ==
[2022-01-02 18:25] LABS: ALT 60 U/L (16-63); AST 107 U/L (15-37); Albumin 3.1 g/dL (3.4-5.0); Alkaline Phosphatase 146 U/L (46-116); Bilirubin, Direct 0.3 mg/dL (0.0-0.2); Bilirubin, Total 0.7 mg/dL (0.2-1.0)
== END 2022-01-02 14:58 | disposition home or self-care (01) ==
LOC: NCHCN 14:57
PROVIDERS: PCP Physician Assistant; Visit Provider Physician Assistant
DX: F10.20 Alcohol dependence, uncomplicated (principal)
CPT/HCPCS: 80076

== ENCOUNTER 2022-03-13 10:12 | Emergency (ER) | payer MEDICAID, SELFPAY ==
[2022-03-13] VITALS (24 sets, daily range): BP systolic 110–123; BP diastolic 76–86; PULSE 89–132; RESP 12–21; TEMP 37.2; O2SAT 97–100
--- NOTE | 2022-03-13 11:13 | ED.GENADUL_ITS ---
Discharge Plan Disposition Patient Disposition: HOME Condition: Improving Discharge Details Clinical Impression: Alcohol withdrawal, History of alcohol abuse Primary Care Provider: Shekahr Lanza ED Provider: Kylie Clark Home Meds and New Rx's Prescriptions: Continued omeprazole 40 mg Capsule,Delayed Release(Dr/Ec) 40 mg PO DAILY erythromycin 5 mg/gram (0.5 %) ointment 0.5 inch ophthalmic (eye) QID Qty: 3.5 0RF Rx Instructions: both eyes allopurinol 100 mg Tablet levetiracetam [Keppra] 1,000 mg Tablet 1,000 mg PO BID Discharge Instructions Instructions: Alcohol Withdrawal (ED) Additional Instructions: Your blood tests today are reassuring and show no evidence of acute concerning or significant findings. Follow-up with leadership coach and [facility] for their rehabilitation program. Follow-up with your primary care doctor in 1 week. Return to the emergency department with any worsening or new concerning symptoms. Discharge Data Discharge Date/Time-TO BE ENTERED AT DEPARTURE: 03/13/22 16:12 Discharge Physician: Kylie Clark Medical Decision Making 1040 -- 41-year-old male with a history of daily alcohol abuse, seizure disorder, history of alcohol withdrawal seizures, GERD, anxiety and depression presents for concern for alcohol withdrawal and requesting to go to [place]. Last drink at 2 AM. Heart rate 130s and appears sinus on the monitor. Remainder of vitals within normal limits. Patient is moderately tremulous. Suspect alcohol withdrawal. Will obtain screening labs, and give IV fluids, banana bag, IV Ativan and reassess. Labs reviewed. White blood cell count 3. AST elevated 111. Normal ALT. Lipase within normal limits. Alcohol 52. 1300 --patient evaluated by leadership coach and referrals to [facility] have been placed. They potentially have a bed available today. 1500 --patient reassessed and he feels much better and would like to go home. His heart rate and blood pressure are within normal limits. quality assurance coach will be in contact with patient regarding transfer to [facility]. Case was discussed with care management who asked that the providers note and test results here today for [facility]. We will give 3 tabs of Ativan to go for home as needed for withdrawal symptoms. Advised to follow up with the primary care doctor for re-evaluation. Usual and customary return precautions given prior to discharge. 1600 --spoke with Fransisco Hein with care management --likely no bed available at [facility] today but they will be in contact with him for potential bed tomorrow. Medical Records Medical records reviewed: Yes I reviewed the patient's medical records. Lab Data Lab results reviewed: Yes I reviewed the patient's lab results. Labs: Laboratory Tests Range/Units 03/13/22 03/13/22 03/13/22 11:37 11:37 11:37 WBC (4.4-10.8) 10^3/uL 3.07 L RBC (4.36-5.78) 10^6/uL 4.07 L Hgb (13.5-17.5) g/dL 13.7 Hct (40.0-50.0) % 37.3 L MCV (80-95) fL 92 MCH (27.0-33.0) pg 33.7 H MCHC (32.0-36.0) % 36.7 H RDW (11.8-14.1) % 12.9 Plt Count (130-400) 10^3/uL 126 L MPV (8.0-11.0) fL 10.3 Immature Gran % 0.0 Neutrophils % 43.6 Lymphocytes % 40.4 Monocytes % 14.3 Eosinophils % 1.0 Basophils % 0.7 Nucleated RBC % (0.0-0.3) % 0.0 Absolute Neutrophils (1.2-6.7) 10^3/uL 1.34 Absolute Lymphocytes (1.2-3.4) 10^3/uL 1.24 Absolute Monocytes (0.1-0.8) 10^3/uL 0.44 Absolute Eosinophils (0.0-0.7) 10^3/uL 0.03 Absolute Basophils (0.0-0.2) 10^3/uL 0.02 Sodium Cancelled 141 Potassium Cancelled 3.6 Chloride Cancelled 102 Carbon Dioxide Cancelled 26.0 Anion Gap Cancelled 13.0 H BUN Cancelled 5 L Creatinine Cancelled 0.8 Est GFR (CKD-EPI 2020) Cancelled 112.61 Glucose Cancelled 98 Calcium Cancelled 9.4 Total Bilirubin Cancelled 0.7 AST Cancelled 111 H ALT Cancelled 51 Alkaline Phosphatase Cancelled 147 H Total Protein Cancelled 8.3 H Albumin Cancelled 4.3 Lipase (73-393) U/L 124 Ethyl Alcohol (<10) mg/dL 52.7 H ECG Data Attestation: I personally reviewed and interpreted this ECG (s) as follows: Interpretation: Rate of 95, sinus, peaked T waves anterior leads, no STEMI. HPI General Mode of arrival: ambulatory . Date/Time Provider Initiated Documentation: 03/13/22 10:40 . Limitations to Documentation: no limitations . Information obtained by: patient . HPI Narrative: Patient is a 41-year-old male with a history of daily alcohol abuse and seizures with history of previous alcohol withdrawal seizure, anxiety, depression, GERD who presents for concern for alcohol withdrawal. He states he usually drinks a half bottle of vodka daily. He states his last drink was 2 AM. He states he called his primary care doctor's office today with concern for withdrawal due to shaking, nausea and vomiting and [facility] Patient states he often does vomit approximately 5 times which is mainly bilious while drinking alcohol and when stopping drinking. He denies any drug use. He states he has been taking his Keppra and his last dose was this morning. His mother at bedside states that he has missed some doses of his Keppra. His mother also states that he has voiced thoughts of wanting to harm himself when he is intoxicated the patient denies this at present. Patient states he would like to go to [place] for rehabilitation. Related Data Home Medications Medication Instructions Recorded Confirmed omeprazole 40 mg capsule,delayed 40 mg PO DAILY 07/13/20 12/05/21 release erythromycin 5 mg/gram (0.5 %) eye 0.5 inch ophthalmic (eye) QID #3.5 09/24/21 12/05/21 ointment grams allopurinol 100 mg tablet mg 12/05/21 levetiracetam 1,000 mg tablet 1,000 mg PO BID 12/05/21 12/05/21 (Keppra) Previous Rx's Medication Instructions Recorded erythromycin 5 mg/gram (0.5 %) eye 0.5 inch ophthalmic (eye) QID #3.5 09/24/21 ointment grams Allergies Allergy/AdvReac Type Severity Reaction Status Date / Time No Known Allergies Allergy Unverified 12/05/21 11:21 General Stated Complaint: ETOHWithdr EMIL: 3 Review of Systems All systems reviewed & are unremarkable except as noted in HPI and below Constitutional Constitutional: Reports as per HPI, Denies chills and Denies fever(s) Eyes Eyes: Denies blurry vision ENT Ears, Nose, Mouth, and Throat: Denies dizziness, Denies sore throat and Denies throat swelling Cardiovascular Cardiovascular: Denies chest pain and Denies dyspnea Respiratory Respiratory: Denies cough and Denies dyspnea Gastrointestinal Gastrointestinal: Denies abdominal pain, Denies diarrhea, Reports nausea and Reports vomiting Genitourinary Genitourinary: Denies hematuria and Denies dysuria Musculoskeletal Musculoskeletal: Denies back pain and Denies numbness Integumentary/Breasts Skin/Breast: Denies lesions and Denies rash Neurologic Neurologic: Denies dizziness, Denies localized weakness and Denies numbness Allergic/Immunologic Allergic/Immunologic: Denies throat swelling PFSH All Active Problems (Updated 03/13/22 @ 15:58 by Kylie Clark DO) Seizure (Acute) Hypokalemia (Acute) Vomiting and diarrhea (Acute) Transaminitis (Acute) Tongue laceration (Acute) Alcohol withdrawal (Acute) History of alcohol abuse (Acute) Medical History Anxiety disorder Depression GERD (gastroesophageal reflux disease) Lipid screening Mood disorder Seizure disorder Surgical History History of appendectomy History of cholecystectomy History of gastric bypass Gastric sleeve Social History Smoking/Tobacco Use Status: Never Smoking risk assessment performed?: Yes Alcohol Intake: current Alcohol Intake frequency: 0-2 drinks per day Alcohol type: hard liquor Drug use: Never Substance use type: does not use Do you feel safe at home: Yes (living in hotel) Do you feel safe in your relationship?: Yes Exam Const General: cooperative and anxious Orientation: alert, awake and oriented x3 HENMT Head: normal to inspection Face and sinus: normal facial exam Eyes General: appearance normal, both eyes and all related structures Pupils: PERRL EOM: EOM intact bilaterally Neck Neck: normal visual inspection and No submandibular swelling Lymphatic: no lymphadenopathy noted Chest Chest: normal inspection of the chest and no tenderness Resp Effort & Inspection: normal respiratory effort and able to speak in complete sentences Auscultation: clear to auscultation bilaterally Cardio Rate: tachycardic Rhythm: regular rhythm GI Inspection: normal to inspection Palpation: soft, not firm, not rigid and nontender Auscultation: normal bowel sounds Skin General skin exam: no rashes or lesions noted Neuro General: patient alert, patient awake, patient oriented x3, moves all extremities, no meningeal signs and other (mild shaking, tremulous) Cranial Nerves: CN's II-XI intact bilaterally Cognition: normal cognition Speech: speech normal Motor: muscle tone normal throughout and strength 5/5 throughout Sensory Exam: no sensory deficits noted Extrem General: normal to inspection, full ROM, capillary refill normal, no calf tenderness bilaterally and no edema Psych Appearance: grossly normal Mental Status: mental status grossly normal Speech and Movement: speech and movement normal Affect: normal affect Course Vital Signs Vital signs: Vital Signs Temperature 99.0 F 03/13/22 10:27 Pulse 132 H 03/13/22 10:27 Respiratory Rate 20 03/13/22 10:27 Blood Pressure 122/85 03/13/22 10:27 Pulse Oximetry 97 03/13/22 10:27 Temperature 99.0 F 03/13/22 10:27 Temperature Source Tympanic 03/13/22 10:27 Pulse 132 H 03/13/22 10:27 Respiratory Rate 20 03/13/22 10:27 Respiratory Effort Non-Labored 03/13/22 10:31 Blood Pressure 122/85 03/13/22 10:27 Blood Pressure Position Sitting 03/13/22 10:27 Pulse Oximetry 97 03/13/22 10:27 Oxygen Delivery Method Room Air 03/13/22 10:27 Oxygen Flow Rate 0 03/13/22 10:27 PAWSS Have you Been Recently Intoxicated or Drunk Within the Last 30 days?: Yes Have you Ever Experienced Previous Episodes of Alcohol Withdrawal?: Yes Have you ever Experienced Withdrawal Seizures?: Yes Have you ever Experienced Delirium Tremens(DT)s?: Yes Have you ever undergone Alcohol Rehabilitation Treatment (i.e, inpt ot outpatient treatment programs)?: Yes Have you ever Experienced Blackouts?: Yes Have you ever Combined Alcohol with other Downers within the last 90 days?: No Have you ever Combined Alcohol with any other Substance of Abuse during the last 90 days?: Yes Positive Blood Alcohol level on Presentation? [PCS.BAL]: No Evidence of Increased Autonomic Activity (i.e. HR>120, tremor, sweating, agitation, nausea)?: Yes Result: 9
[2022-03-13] MEDS: Normal Saline 1,000 ML 1000 ML IV ×2 (11:47→13:50)
[2022-03-13] MEDS: LORazepam 2 MG/ML VIAL 0.5 MG IVP ×2 (11:47→13:20)
[2022-03-13 11:48] LABS: Absolute Basophil Count 0.02 10^3/uL (0.0-0.2); Absolute Eosinophil Count 0.03 10^3/uL (0.0-0.7); Absolute Lymphocyte Count 1.24 10^3/uL (1.2-3.4); Absolute Monocyte Count 0.44 10^3/uL (0.1-0.8); Absolute Neutrophil Count 1.34 10^3/uL (1.2-6.7); Basophils % 0.7; HCT 37.3 % (40.0-50.0); HGB 13.7 g/dL (13.5-17.5); Lymphocytes % 40.4; MCH 33.7 pg (27.0-33.0); MCHC 36.7 % (32.0-36.0); MCV 92 fL (80-95); MPV 10.3 fL (8.0-11.0); Monocytes % 14.3; Neutrophils % 43.6; Platelet Count 126 10^3/uL (130-400); RBC 4.07 10^6/uL (4.36-5.78); RDW 12.9 % (11.8-14.1); RDW-SD 42.5 fL; WBC 3.07 10^3/uL (4.4-10.8)
--- NOTE | 2022-03-13 12:00 | RT.EKG_ITS ---
APPROVED REPORT Exam: Resting ECG Reason for Exam: tachycardia Patient Location: E HR:95 bpm ECG Measurements Heart Rate 95 AXIS [place] 134 P 50 QRSd 89 QRS -9 QT 348 T 53 QTc 438 Conclusion Sinus rhythm...normal P axis, V-rate 60- 99. Sinus. No STEMI. I have reviewed and interpreted ECG and agree with software generated interpretation.
[2022-03-13 12:04] LABS: ALT 51 U/L (16-63); AST 111 U/L (15-37); Albumin 4.3 g/dL (3.4-5.0); Alkaline Phosphatase 147 U/L (46-116); BUN 5 mg/dL (7-18); Bilirubin, Total 0.7 mg/dL (0.2-1.0); CREATININE 0.8 mg/dL (0.70-1.30); Calcium 9.4 mg/dL (8.5-10.1); Chloride 102 mmol/L (98-107); ETHANOL BLOOD 52.7 mg/dL (<10); Estimated GFR 112.61 (mL/min/1.73m2); Glucose 98 mg/dL (74-106); Lipase 124 U/L (73-393); Potassium 3.6 mmol/L (3.5-5.1); Sodium 141 mmol/L (136-145); Total Protein 8.3 g/dL (6.4-8.2)
[2022-03-13] MEDS: MAGNESIUM SULFATE 8.12 MEQ, MULTIVITAMIN 10 ML, THIAMINE 100 MG, FOLIC ACID 1 MG in Nor... 168.867 MG IV (12:25)
[2022-03-13] MEDS: Pantoprazole 40 MG VIAL IVP (13:38)
[2022-03-13] MEDS: Ondansetron 4 MG/2 ML VIAL IVP (14:10)
[2022-03-13] MEDS: LORazepam 0.5 MG TAB 2 MG PO (16:18)
== END 2022-03-13 16:12 | disposition home or self-care (01) ==
PROVIDERS: Emergency Provider Physician Assistant; PCP Physician Assistant
DX: F10.239 Alcohol dependence with withdrawal, unspecified (principal); R00.0 Tachycardia, unspecified; Y90.2 Blood alcohol level of 40-59 mg/100 ml
CPT/HCPCS: 80053; 83690; 93005; 96361; 96365; 96366; 96375; 96376; 99284; 80320; 85025; 93010; J2060; J2405

== ENCOUNTER 2022-04-03 15:18 | Emergency (ER) | payer MEDICAID, SELFPAY ==
--- NOTE | 2022-04-03 15:00 | RT.EKG_ITS ---
APPROVED REPORT Exam: Resting ECG Reason for Exam: seizure? Patient Location: E HR:73 bpm ECG Measurements Heart Rate 73 AXIS [place] 149 P 33 QRSd 98 QRS -15 QT 391 T 4 QTc 431 Conclusion Sinus rhythm...normal P axis, V-rate 60- 99
[2022-04-03 15:18] VITALS: BP 113/76; PULSE 77; RESP 18; O2SAT 98
--- NOTE | 2022-04-03 15:30 | DI.CT_ITS ---
Exam(s) CT HEAD WO EXAM: CT HEAD WO CLINICAL HISTORY: seizure. TECHNIQUE: Imaging Protocol: Axial computed tomography images with coronal and sagittal reformatted images were created and reviewed COMPARISON: CT CT HEAD CERVICAL SPINE WO from 07/13/2020 MR MR BRAIN ORBIT FACE NECK WO/W from 11/23/2021 FINDINGS: Ventricles and Extra axial spaces: Normal in size and morphology for the patient's age. Hemorrhage: No acute hemorrhage. Small old subdural hematoma over the right superior parietal region . This is not cause significant mass effect. It measures 8 millimeters in maximal thickness by 4.5 cm AP by roughly 7 cm AP. Cerebral parenchyma: Normal. Midline shift: None. Brainstem/Cerebellum: Normal. Calvarium: Normal. Visualized Paranasal sinuses/Mastoids: Mild mucosal thickening floor right maxillary and left sphenoi d sinuses. Soft Tissues: Unremarkable. IMPRESSION: Old high right parietal subdural collection without mass effect. No acute intracranial process. The findings were called to Dr. Ruffin of the emergency department. RADIATION DOSE DELIVERED: 854.53mGy.cm Total DLP DATA REPOSITORY: All CT scans at this facility are submitted to the National Radiology Data Registry (NRDR) Dose Index Registry (DIR) with the [employer] (ACR). RADIATION OPTIMIZATION: All CT scans at this facility use at least one of these dose optimization te chniques: automated exposure control; mA and/or kV adjustment per patient size (includes targeted exa ms where dose is matched to clinical indication); or iterative reconstruction.
[2022-04-03] MEDS: LORazepam 2 MG/ML VIAL (15:31)
--- NOTE | 2022-04-03 15:40 | ED.GENADUL_ITS ---
Discharge Plan Disposition Patient Disposition: HOME Condition: Stable Discharge Details Clinical Impression: Seizure, Alcohol abuse Primary Care Provider: Shekhar Lanza ED Provider: Nahid Ruffin Home Meds and New Rx's Prescriptions: Continued omeprazole 40 mg Capsule,Delayed Release(Dr/Ec) 40 mg PO DAILY levetiracetam [Keppra] 1,000 mg Tablet 1,000 mg PO BID Discharge Instructions Instructions: Abuse of Alcohol (ED), Recurrent Seizures in Adults (ED) Additional Instructions: follow up with your primary care provider within a week if you feel more ill, have repeated seizures or severe headache return to the emergency department do not drive or operative heavy machinery or swim/bathe by your self until cleared by your primary care provider Medical Decision Making 41 yo male with hx of epilepsy on levetiracetam comes in with ems after a reported seizure. He was in the parking lot of a theater in the area when he started to have visual auras which he states he gets before seizures, then reportedly per ems after talking with bystanders had what sounds like tonic clonic seizure lasting a few minutes. He was stable on ems transport but then when he arrived he reportedly had a seizure witnessed by nursing but had stopped by the time I arrived in the room, they also report tonic clonic seizure lasting approximately 30 seconds. He has a history of alcohol abuse but states it's been well over a week since having a drink as he got out of [facility] yesterday for alcohol addiction treatment. He denies any falls, trauma, fevers, chills, chest pain, headaches, abdominal pain, weakness. He is caox4 on my exam, mildly drowsy but had been given 2mg of IV ativan. He has no focal motor or sensation deficit, CN II-XII intact, clear speech. Given the presentation seems consistent with likely break through seizures, he denies missing any doses of his keppra. 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 Suspect his chronic alcohol use is contributing to it taking long to resolve. He is ambulating without assistance, caox4 and clinically sober requesting d/c. I did discuss trying to refrain from drinking, he will f/u with his pcp, return precautions given Differential Diagnosis Differential Diagnosis: seizure, epilepsy, electrolyte abnormality Medical Records Medical records reviewed: Yes I reviewed the patient's medical records. Imaging Data Radiologic Study: Attestation: I personally reviewed and interpreted this imaging study as follows: Imaging: CT Scan Lab Data Lab results reviewed: Yes I reviewed the patient's lab results. ECG Data Attestation: I personally reviewed and interpreted this ECG (s) as follows: Prior ECG tracings: available for review Interpretation: sinus rhythm, rate of 73, qtc 431, no acute ischemic findings HPI General Mode of arrival: EMS . Date/Time Provider Initiated Documentation: 04/03/22 15:26 . Limitations to Documentation: no limitations . Information obtained by: patient . History of Present Illness 41 year old M presents to the emergency department with the chief complaint of seizure, described as moderate, Patient started experiencing this hour(s) (1) and it has been constant. No relieving factors improve symptom(s), No exacerbating factors reported . Patient notes denies chest pain, headaches and nausea/vomiting. Patient did receive the following treatments prior to arrival, none Related Data Home Medications Medication Instructions Recorded Confirmed omeprazole 40 mg capsule,delayed 40 mg PO DAILY 07/13/20 04/03/22 release levetiracetam 1,000 mg tablet 1,000 mg PO BID 12/05/21 04/03/22 (Keppra) Allergies Allergy/AdvReac Type Severity Reaction Status Date / Time No Known Allergies Allergy Unverified 04/03/22 15:39 General Stated Complaint: Seizure EMIL: 3 Review of Systems All systems reviewed & are unremarkable except as noted in HPI and below Constitutional Constitutional: Denies chills, Denies fever(s) and Denies weakness Eyes Eyes: Denies loss of vision Cardiovascular Cardiovascular: Denies chest pain and Denies dyspnea Respiratory Respiratory: Denies cough and Denies dyspnea Gastrointestinal Gastrointestinal: Denies abdominal pain, Denies nausea and Denies vomiting Musculoskeletal Musculoskeletal: Denies joint swelling Neurologic Neurologic: Denies loss of vision and Denies weakness PFSH All Active Problems Seizure (Acute) Hypokalemia (Acute) Vomiting and diarrhea (Acute) Transaminitis (Acute) Tongue laceration (Acute) Alcohol withdrawal (Acute) History of alcohol abuse (Acute) Alcohol abuse (Chronic) Medical History Anxiety disorder Depression GERD (gastroesophageal reflux disease) Lipid screening Mood disorder Seizure disorder Surgical History History of appendectomy History of cholecystectomy History of gastric bypass Gastric sleeve Social History Smoking/Tobacco Use Status: Never Smoking risk assessment performed?: Yes Alcohol Intake: current Alcohol Intake frequency: a few times a month Alcohol type: hard liquor Drug use: Never Substance use type: does not use Do you feel safe at home: Yes (living in hotel) Do you feel safe in your relationship?: Yes Exam Const General: no acute distress Orientation: alert HENMT Head: normal to inspection Ears: external ears normal General nose exam: external nose normal Mouth: moist mucous membranes Eyes General: appearance normal, both eyes and all related structures Neck Neck: normal visual inspection Resp Effort & Inspection: normal respiratory effort and able to speak in complete sentences Cardio Rate: regular rate Skin General skin exam: no rashes or lesions noted Neuro General: patient alert, patient oriented x3 and moves all extremities Cranial Nerves: CN's II-XI intact bilaterally and PERRL Speech: speech normal Gait: normal gait Motor: muscle tone normal throughout Sensory Exam: no sensory deficits noted Extrem General: normal to inspection Psych Mental Status: mental status grossly normal Course Vital Signs Vital signs: Vital Signs Pulse 77 04/03/22 15:18 Respiratory Rate 18 04/03/22 15:18 Blood Pressure 113/76 04/03/22 15:18 Pulse Oximetry 98 04/03/22 15:18 Temperature Source Tympanic 04/03/22 15:18 Pulse 77 04/03/22 15:18 Respiratory Rate 18 04/03/22 15:18 Blood Pressure 113/76 04/03/22 15:18 Blood Pressure Position Supine 04/03/22 15:18 Pulse Oximetry 98 04/03/22 15:18 Oxygen Delivery Method Nasal Cannula 04/03/22 15:18 Oxygen Flow Rate 3 04/03/22 15:18
[2022-04-03] MEDS: Normal Saline 1,000 ML 1000 ML IV (15:58)
[2022-04-03] MEDS: levETIRAcetam 1,000 MG in Normal Saline 100 ML 400 MG IVPB (15:58)
[2022-04-03 16:00] LABS: Abs Immature Grans 0.02 10^3/uL (0.0-0.06); Absolute Basophil Count 0.06 10^3/uL (0.0-0.2); Absolute Eosinophil Count 0.02 10^3/uL (0.0-0.7); Absolute Lymphocyte Count 2.63 10^3/uL (1.2-3.4); Absolute Monocyte Count 0.79 10^3/uL (0.1-0.8); Absolute Neutrophil Count 1.86 10^3/uL (1.2-6.7); Basophils % 1.1; Eosinophils % 0.4; HGB 12.1 g/dL (13.5-17.5); Immature Grans % 0.4; Lactate 1.4 mmol/L (0.6-1.4); Lymphocytes % 48.9; MCH 33.8 pg (27.0-33.0); MCHC 34.6 % (32.0-36.0); MCV 98 fL (80-95); MPV 10.2 fL (8.0-11.0); Monocytes % 14.7; Neutrophils % 34.5; Platelet Count 264 10^3/uL (130-400); RBC 3.58 10^6/uL (4.36-5.78); RDW 13.7 % (11.8-14.1); RDW-SD 49.6 fL; WBC 5.38 10^3/uL (4.4-10.8)
[2022-04-03 16:02] LABS: BE (Venous) 5 mmol/L (-2-3); HCO3 (Venous) 30 mmol/L (23-28); O2 Sat (Venous) 74 %; TCO2 (Venous) 28 mmol/L (24-29); pCO2 (Venous) 53 mmHg (41-51); pH (Venous) 7.36 (7.31-7.41); pO2 (Venous) 44 mmHg
[2022-04-03 16:33] LABS: ALT 46 U/L (16-63); AST 63 U/L (15-37); Alkaline Phosphatase 102 U/L (46-116); Anion Gap 5.8 mmol/L (3-11); BUN 11 mg/dL (7-18); Bilirubin, Total 0.3 mg/dL (0.2-1.0); CO2 31.2 mmol/L (21.0-32.0); CREATININE 0.7 mg/dL (0.70-1.30); Calcium 8.3 mg/dL (8.5-10.1); Chloride 109 mmol/L (98-107); ETHANOL BLOOD 279.9 mg/dL (<10); Estimated GFR 117.25 (mL/min/1.73m2); Glucose 95 mg/dL (74-106); Magnesium 1.4 mg/dL (1.8-2.4); Potassium 3.8 mmol/L (3.5-5.1); Sodium 146 mmol/L (136-145); TSH (W/Ref FT4) 0.71 uIU/mL (0.36-3.74); Total Protein 6.6 g/dL (6.4-8.2); Troponin I < 50 ng/L (<or=60)
[2022-04-03 16:51] LABS: Salicylate < 2.8 mg/dL (<2.8)
[2022-04-03 16:52] LABS: Acetaminophen < 2 ug/mL (10-30)
[2022-04-03] MEDS: MAGNESIUM SULFATE 2 GM/50 ML BAG IVPB (16:55)
== END 2022-04-03 18:58 | disposition home or self-care (01) ==
PROVIDERS: Emergency Provider Emergency Medicine; PCP Physician Assistant
DX: F10.10 Alcohol abuse, uncomplicated (principal); G40.909 Epilepsy, unspecified, not intractable, without status epilepticus; Y90.8 Blood alcohol level of 240 mg/100 ml or more
CPT/HCPCS: 80053; 82805; 93005; 96361; 96365; 96366; 96367; 99284; 70450; 80320; 80329; 83605; 83735; 84443; 84484; 85025; 93010; 99285; J1953; J2060

== ENCOUNTER 2022-04-19 22:17 | Emergency (ER) | payer MEDICAID, SELFPAY ==
[2022-04-19] VITALS (12 sets, daily range): BP systolic 123–133; BP diastolic 72–96; PULSE 90–107; RESP 0–21; TEMP 37; O2SAT 92–96
--- NOTE | 2022-04-19 22:30 | DI.CT_ITS ---
Exam(s) CT HEAD WO EXAM: CT HEAD WO CLINICAL HISTORY: ams. TECHNIQUE: Imaging Protocol: Axial computed tomography images with coronal and sagittal reformatted images were created and reviewed COMPARISON: CT CT HEAD WO from 04/03/2022 FINDINGS: There is mild cerebral atrophy unusual for this age group.. A previously described right subdural hematoma measuring up to about 9 millimeters in thickness is ag ain seen and unchanged in size in comparison with prior examination of April 03.. The orbital structures are unremarkable. The temporal bone structures appear intact. Calvarium: Normal. Visualized Paranasal sinuses/Mastoids: Clear. IMPRESSION: No change in right-sided subdural hematoma since April 03 scan. RADIATION DOSE DELIVERED: 825.54mGy.cm Total DLP 825.54mGy.cm Total DLP DATA REPOSITORY: All CT scans at this facility are submitted to the National Radiology Data Registry (NRDR) Dose Index Registry (DIR) with the [employer] (ACR). RADIATION OPTIMIZATION: All CT scans at this facility use at least one of these dose optimization te chniques: automated exposure control; mA and/or kV adjustment per patient size (includes targeted exa ms where dose is matched to clinical indication); or iterative reconstruction.
[2022-04-19] MEDS: LORazepam 2 MG/ML VIAL (22:35)
--- NOTE | 2022-04-19 22:46 | NUR.NOTE ---
Nursing Note: 2237: PT BEGAN SEIZING, PT PLACED ON SIDE, 2 MG ATIVAN GIVEN IV
[2022-04-19] MEDS: Normal Saline 1,000 ML 1000 ML IV (23:12)
[2022-04-19] MEDS: Ondansetron 4 MG/2 ML VIAL IVP (23:13)
[2022-04-19] MEDS: levETIRAcetam 1,000 MG in Normal Saline 100 ML 400 MG IVPB (23:13)
[2022-04-19 23:31] LABS: ETHANOL BLOOD 302.5 mg/dL (<10)
--- NOTE | 2022-04-19 23:58 | DI.VRAD_ITS ---
PROCEDURE INFORMATION: Exam: CT Head Without Contrast Exam date and time: 04/19/2022 11:39 PM Age: 41 years old Clinical indication: Altered mental status/memory loss; Confusion or disorientation; Additional info: AMS TECHNIQUE: Imaging protocol: Computed tomography of the head without contrast. Radiation optimization: All CT scans at this facility use at least one of these dose optimization techniques: automated exposure control; mA and/or kV adjustment per patient size (includes targeted exams where dose is matched to clinical indication); or iterative reconstruction. COMPARISON: CT HEAD WO 04/03/2022 4:15 PM FINDINGS: Brain: There is continued evolution of right subdural hematoma measuring up to 9 mm, similar to prior examination. Cerebral ventricles: No ventriculomegaly. Paranasal sinuses: Visualized sinuses are unremarkable. No fluid levels. Mastoid air cells: Visualized mastoid air cells are well aerated. Bones/joints: No acute fracture. Soft tissues: Unremarkable. IMPRESSION: Similar appearance of right subdural hematoma. No significant mass effect or midline shift. No new hemorrhage. Dictated and Authenticated by: Mary Ann Mccarthy MD. Ordering:PRECIOUS Suresh MD
[2022-04-20] VITALS (53 sets, daily range): BP systolic 106–124; BP diastolic 67–89; PULSE 80–103; RESP 2–25; O2SAT 89–98
--- NOTE | 2022-04-20 00:34 | W.ED.GENAD ---
Discharge Plan Disposition Patient Disposition: Home Condition: Improving Discharge Details Clinical Impression: Alcoholism, Seizure, Noncompliance with medication regimen Primary Care Provider: Shekhar Lanza ED Provider: Kylie Clark Home Meds and New Rx's Prescriptions: Continued omeprazole 40 mg Capsule,Delayed Release(Dr/Ec) 40 mg PO DAILY levetiracetam [Keppra] 1,000 mg Tablet 1,000 mg PO BID Discharge Instructions Instructions: Recurrent Seizures in Adults (ED), Alcohol Use Disorder (ED) Additional Instructions: Drink plenty of fluids and get plenty of rest. Follow-up with tin recovery worker regarding referrals for outpatient rehab. Follow-up with your primary care doctor in 1 week. Return to the emergency department with any worsening or new concerning symptoms. Discharge Data Discharge Date/Time-TO BE ENTERED AT DEPARTURE: 04/20/22 08:33 Discharge Physician: Kylie Clark Medical Decision Making <JENNIFER Mauricio - Last Filed: 04/22/22 15:01> Patient is pleasant, he smells of alcohol Has a history of alcohol withdrawal He is not exhibiting signs or symptoms right now on his blood alcohol is [address] scan secondary to a reported episode of unresponsiveness and for CT shows a chronic subdural hematoma that is similar to prior assessment, patient denies any headache Patient denies any chest pain, shortness of breath Unfortunately patient did have a seizure while in the emergency department, he received Ativan and seizure resolved immediately He received thousand of Keppra which is his reported dose Has not had a repeat seizure since that time, he is alert and oriented and has slightly slurred speech but is otherwise neurologically intact at this time He will need to be observed for period of time as he does not have transportation home He will need to be monitored from a [facility] perspective, but will likely be stable for discharge home when clinically sober Care be transitioned to pending possible behavioral health/umbrella assessment and observation Medical Records Medical records reviewed: Yes I reviewed the patient's medical records. Lab Data Lab results reviewed: Yes I reviewed the patient's lab results. <Kylie Clark DO - Last Filed: 04/20/22 07:57> JENNIFER Hightower Patient is pleasant, he smells of alcohol Has a history of alcohol withdrawal He is not exhibiting signs or symptoms right now on his blood alcohol is [address] scan secondary to a reported episode of unresponsiveness and for CT shows a chronic subdural hematoma that is similar to prior assessment, patient denies any headache Patient denies any chest pain, shortness of breath Unfortunately patient did have a seizure while in the emergency department, he received Ativan and seizure resolved immediately He received thousand of Keppra which is his reported dose Has not had a repeat seizure since that time, he is alert and oriented and has slightly slurred speech but is otherwise neurologically intact at this time He will need to be observed for period of time as he does not have transportation home He will need to be monitored from a [facility] perspective, but will likely be stable for discharge home when clinically sober Care be transitioned to pending possible behavioral health/umbrella assessment and observation. Dr. Clark 0030 -- Please see JENNIFER Hightower note for initial presentation, exam and plan. Case endorsed to follow up on labs with likely plan for home in the later morning once pt able to get a ride home. 0130 -- labs and imaging reviewed. Magnesium 1.5, will replete. Liver enzymes elevated but decreased compared to prior. 0500 -- patient sleeping most of the night. He appears to desaturate to mid 80s while sleeping and was placed on nasal cannula oxygen. Nursing was having to continue to adjust his mouth and nasal cannula so respiratory called and they applied CPAP at bedside which patient is tolerating well. 0700 -- Pt still sleeping. Will continue to monitor until more awake and able to ambulate and get a ride home. 0745 -- Patient able to ambulate and appears clinically sober and would like to go home. Patient states he has information at home regarding tin recovery worker and rehabilitation centers. He is advised to follow-up with his primary care doctor for reevaluation and for referral for sleep study for diagnosis of sleep apnea and to consider CPAP at home. Usual and customary return precautions given prior to discharge. Imaging Data Radiologic Study: Radiologist's impression: CT Head Without Contrast Exam date and time: 04/19/2022 11:39 PM Age: 41 years old Clinical indication: Altered mental status/memory loss; Confusion or disorientation; Additional info: AMS TECHNIQUE: Imaging protocol: Computed tomography of the head without contrast. Radiation optimization: All CT scans at this facility use at least one of these dose optimization techniques: automated exposure control; mA and/or kV adjustment per patient size (includes targeted exams where dose is matched to clinical indication); or iterative reconstruction. COMPARISON: CT HEAD WO 04/03/2022 4:15 PM FINDINGS: Brain: There is continued evolution of right subdural hematoma measuring up to 9 mm, similar to prior examination. Cerebral ventricles: No ventriculomegaly. Paranasal sinuses: Visualized sinuses are unremarkable. No fluid levels. Mastoid air cells: Visualized mastoid air cells are well aerated. Bones/joints: No acute fracture. Soft tissues: Unremarkable. IMPRESSION: Similar appearance of right subdural hematoma.? No significant mass effect or midline shift.? No new hemorrhage. Lab Data Labs: Laboratory Tests Range/Units 04/19/22 04/20/22 04/20/22 23:06 00:50 00:50 WBC (4.4-10.8) 10^3/uL 4.55 RBC (4.36-5.78) 10^6/uL 3.85 L Hgb (13.5-17.5) g/dL 12.8 L Hct (40.0-50.0) % 36.6 L MCV (80-95) fL 95 MCH (27.0-33.0) pg 33.2 H MCHC (32.0-36.0) % 35.0 RDW (11.8-14.1) % 13.6 Plt Count (130-400) 10^3/uL 141 MPV (8.0-11.0) fL 10.1 Immature Gran % 0.0 Neutrophils % 46.5 Lymphocytes % 42.9 Monocytes % 7.7 Eosinophils % 2.2 Basophils % 0.7 Nucleated RBC % (0.0-0.3) % 0.0 Absolute Neutrophils (1.2-6.7) 10^3/uL 2.12 Absolute Lymphocytes (1.2-3.4) 10^3/uL 1.95 Absolute Monocytes (0.1-0.8) 10^3/uL 0.35 Absolute Eosinophils (0.0-0.7) 10^3/uL 0.10 Absolute Basophils (0.0-0.2) 10^3/uL 0.03 Sodium (136-145) mmol/L 138 Potassium (3.5-5.1) mmol/L 3.5 Chloride (98-107) mmol/L 101 Carbon Dioxide (21.0-32.0) mmol/L 26.6 Anion Gap (3-11) mmol/L 10.4 BUN (7-18) mg/dL 6 L Creatinine (0.70-1.30) mg/dL 0.7 Est GFR (CKD-EPI 2020) (mL/min/1.73m2) 117.25 Glucose (74-106) mg/dL 86 Calcium (8.5-10.1) mg/dL 7.7 L Magnesium (1.8-2.4) mg/dL Total Bilirubin (0.2-1.0) mg/dL 0.4 AST (15-37) U/L 99 H ALT (16-63) U/L 67 H Alkaline Phosphatase (46-116) U/L 134 H Total Protein (6.4-8.2) g/dL 6.9 Albumin (3.4-5.0) g/dL 3.4 Ethyl Alcohol (<10) mg/dL 302.5 H Range/Units 04/20/22 00:50 WBC (4.4-10.8) 10^3/uL RBC (4.36-5.78) 10^6/uL Hgb (13.5-17.5) g/dL Hct (40.0-50.0) % MCV (80-95) fL MCH (27.0-33.0) pg MCHC (32.0-36.0) % RDW (11.8-14.1) % Plt Count (130-400) 10^3/uL MPV (8.0-11.0) fL Immature Gran % Neutrophils % Lymphocytes % Monocytes % Eosinophils % Basophils % Nucleated RBC % (0.0-0.3) % Absolute Neutrophils (1.2-6.7) 10^3/uL Absolute Lymphocytes (1.2-3.4) 10^3/uL Absolute Monocytes (0.1-0.8) 10^3/uL Absolute Eosinophils (0.0-0.7) 10^3/uL Absolute Basophils (0.0-0.2) 10^3/uL Sodium (136-145) mmol/L Potassium (3.5-5.1) mmol/L Chloride (98-107) mmol/L Carbon Dioxide (21.0-32.0) mmol/L Anion Gap (3-11) mmol/L BUN (7-18) mg/dL Creatinine (0.70-1.30) mg/dL Est GFR (CKD-EPI 2020) (mL/min/1.73m2) Glucose (74-106) mg/dL Calcium (8.5-10.1) mg/dL Magnesium (1.8-2.4) mg/dL 1.5 L Total Bilirubin (0.2-1.0) mg/dL AST (15-37) U/L ALT (16-63) U/L Alkaline Phosphatase (46-116) U/L Total Protein (6.4-8.2) g/dL Albumin (3.4-5.0) g/dL Ethyl Alcohol (<10) mg/dL <Timbo Birmingham MD - Last Filed: 04/20/22 09:07> JENNIFER Hightower Patient is pleasant, he smells of alcohol Has a history of alcohol withdrawal He is not exhibiting signs or symptoms right now on his blood alcohol is [address] scan secondary to a reported episode of unresponsiveness and for CT shows a chronic subdural hematoma that is similar to prior assessment, patient denies any headache Patient denies any chest pain, shortness of breath Unfortunately patient did have a seizure while in the emergency department, he received Ativan and seizure resolved immediately He received thousand of Keppra which is his reported dose Has not had a repeat seizure since that time, he is alert and oriented and has slightly slurred speech but is otherwise neurologically intact at this time He will need to be observed for period of time as he does not have transportation home He will need to be monitored from a [facility] perspective, but will likely be stable for discharge home when clinically sober Care be transitioned to pending possible behavioral health/umbrella assessment and observation. Dr. Clark 0030 -- Please see JENNIFER Hightower note for initial presentation, exam and plan. Case endorsed to follow up on labs with likely plan for home in the later morning once pt able to get a ride home. 0130 -- labs and imaging reviewed. Magnesium 1.5, will replete. Liver enzymes elevated but decreased compared to prior. 0500 -- patient sleeping most of the night. He appears to desaturate to mid 80s while sleeping and was placed on nasal cannula oxygen. Nursing was having to continue to adjust his mouth and nasal cannula so respiratory called and they applied CPAP at bedside which patient is tolerating well. 0700 -- Pt still sleeping. Will continue to monitor until more awake and able to ambulate and get a ride home. 0745 -- Patient able to ambulate and appears clinically sober and would like to go home. Patient states he has information at home regarding tin recovery worker and rehabilitation centers. He is advised to follow-up with his primary care doctor for reevaluation and for referral for sleep study for diagnosis of sleep apnea and to consider CPAP at home. Usual and customary return precautions given prior to discharge. Pt not seen by me. RTaylor Sign Out No HPI <JENNIFER Mauricio - Last Filed: 04/22/22 15:01> General Date/Time Provider Initiated Documentation: 04/19/22 22:37. HPI Narrative: This 41-year-old male presents with EMS for report of an unresponsive episode likely secondary to acute alcohol intoxication, found by his mom. History of seizures, history of alcoholism but states he has not drank for the past month. He has been on alcohol binge for the past 3 weeks per patient. He denies any vomiting today. He denies any headache. He denies any vision change. He is unsure as to when he last took his Keppra, he thinks a couple days ago per patient. He denies any additional illicit drug use. He states that he has been depressed. Denies suicidal ideation at this time. Does not recall the events of today per patient. Related Data Home Medications Medication Instructions Recorded Confirmed omeprazole 40 mg capsule,delayed 40 mg PO DAILY 07/13/20 04/03/22 release levetiracetam 1,000 mg tablet 1,000 mg PO BID 12/05/21 04/03/22 (Keppra) Allergies Allergy/AdvReac Type Severity Reaction Status Date / Time No Known Allergies Allergy Unverified 04/03/22 15:39 General Stated Complaint: Seizure EMIL: 3 Review of Systems <JENNIFER Mauricio - Last Filed: 04/22/22 15:01> All systems reviewed & are unremarkable except as noted in HPI and below PFSH <JENNIFER Mauricio - Last Filed: 04/22/22 15:01> All Active Problems (Updated 04/20/22 @ 07:10 by Kylie Clark DO) Seizure (Acute) Hypokalemia (Acute) Vomiting and diarrhea (Acute) Transaminitis (Acute) Tongue laceration (Acute) Alcohol abuse (Chronic) Alcoholism (Acute) Seizure (Acute) Noncompliance with medication regimen (Acute) Medical History Anxiety disorder Depression GERD (gastroesophageal reflux disease) Lipid screening Mood disorder Seizure disorder Surgical History History of appendectomy History of cholecystectomy History of gastric bypass Gastric sleeve Social History Smoking/Tobacco Use Status: Never Smoking risk assessment performed?: Yes Alcohol Intake: current Alcohol Intake frequency: a few times a month Alcohol type: hard liquor Drug use: Never Substance use type: does not use Do you feel safe at home: Yes (living in hotel) Do you feel safe in your relationship?: Yes Exam <JENNIFER Mauricio - Last Filed: 04/22/22 15:01> Const General: cooperative, comfortable and no acute distress HENMT Head: normal to inspection Mouth: oral mucosae normal Other: Uvula midline Eyes Pupils: PERRL Neck Other: No midline tenderness Resp Effort & Inspection: normal respiratory effort Auscultation: clear to auscultation bilaterally Other: No visible sign of trauma Cardio Rate: regular rate Rhythm: regular rhythm GI Inspection: normal to inspection Skin General skin exam: no rashes or lesions noted Neuro General: patient alert, patient oriented x3 and CN's II-XI intact bilaterally Cranial Nerves: CN's II-XI intact bilaterally and tongue midline Cognition: normal cognition Speech: speech normal Sensory Exam: no sensory deficits noted Extrem General: normal to inspection Course <JENNIFER Mauricio - Last Filed: 04/22/22 15:01> Vital Signs Vital signs: Vital Signs Temperature 37 C 04/19/22 22:18 Pulse 107 H 04/19/22 22:18 Respiratory Rate 18 04/19/22 22:18 Blood Pressure 127/72 04/19/22 22:18 Pulse Oximetry 96 04/19/22 22:18 Temperature 37 C 04/19/22 22:18 Temperature Source Oral 04/19/22 22:18 Pulse 96 H 04/20/22 00:01 Pulse 96 H 04/20/22 00:01 Respiratory Rate 18 04/20/22 00:01 Respiratory Effort 04/19/22 22:34 Respiratory Depth Normal 04/19/22 22:34 Respiratory Pattern Normal 04/19/22 22:34 Blood Pressure 119/89 04/20/22 00:01 Blood Pressure Mean 96 04/20/22 00:01 Blood Pressure Position Sitting 04/19/22 22:18 Pulse Oximetry 93 04/20/22 00:01 Oxygen Delivery Method Room Air 04/19/22 22:18 Oxygen Flow Rate 0 04/19/22 22:18 Pain Level 0 04/19/22 22:18 Lab/Test Results Lab/Test Results: Laboratory Tests Range/Units 04/19/22 23:06 Ethyl Alcohol (<10) mg/dL 302.5 H PAWSS <JENNIFER Mauricio - Last Filed: 04/22/22 15:01> Have you Been Recently Intoxicated or Drunk Within the Last 30 days?: Yes Have you Ever Experienced Previous Episodes of Alcohol Withdrawal?: Yes Have you ever Experienced Withdrawal Seizures?: Yes Have you ever Experienced Delirium Tremens(DT)s?: Yes Have you ever undergone Alcohol Rehabilitation Treatment (i.e, inpt ot outpatient treatment programs)?: Yes Have you ever Experienced Blackouts?: Yes Have you ever Combined Alcohol with other Downers within the last 90 days?: Yes Have you ever Combined Alcohol with any other Substance of Abuse during the last 90 days?: No Positive Blood Alcohol level on Presentation? [PCS.BAL]: Yes Evidence of Increased Autonomic Activity (i.e. HR>120, tremor, sweating, agitation, nausea)?: No Result: 7 <Kylie Clark DO - Last Filed: 04/20/22 07:57> Result: 7 <Timbo Birmingham MD - Last Filed: 04/20/22 09:07> Result: 7
[2022-04-20 00:56] LABS: Absolute Basophil Count 0.03 10^3/uL (0.0-0.2); Absolute Lymphocyte Count 1.95 10^3/uL (1.2-3.4); Absolute Monocyte Count 0.35 10^3/uL (0.1-0.8); Absolute Neutrophil Count 2.12 10^3/uL (1.2-6.7); Basophils % 0.7; Eosinophils % 2.2; HCT 36.6 % (40.0-50.0); HGB 12.8 g/dL (13.5-17.5); Lymphocytes % 42.9; MCH 33.2 pg (27.0-33.0); MCV 95 fL (80-95); MPV 10.1 fL (8.0-11.0); Monocytes % 7.7; Neutrophils % 46.5; Platelet Count 141 10^3/uL (130-400); RBC 3.85 10^6/uL (4.36-5.78); RDW 13.6 % (11.8-14.1); RDW-SD 47.4 fL; WBC 4.55 10^3/uL (4.4-10.8)
[2022-04-20 01:11] LABS: ALT 67 U/L (16-63); AST 99 U/L (15-37); Albumin 3.4 g/dL (3.4-5.0); Alkaline Phosphatase 134 U/L (46-116); Anion Gap 10.4 mmol/L (3-11); BUN 6 mg/dL (7-18); Bilirubin, Total 0.4 mg/dL (0.2-1.0); CO2 26.6 mmol/L (21.0-32.0); CREATININE 0.7 mg/dL (0.70-1.30); Calcium 7.7 mg/dL (8.5-10.1); Chloride 101 mmol/L (98-107); Estimated GFR 117.25 (mL/min/1.73m2); Glucose 86 mg/dL (74-106); Potassium 3.5 mmol/L (3.5-5.1); Sodium 138 mmol/L (136-145); Total Protein 6.9 g/dL (6.4-8.2)
[2022-04-20 01:19] LABS: Magnesium 1.5 mg/dL (1.8-2.4)
[2022-04-20] MEDS: MAGNESIUM SULFATE 2 GM/50 ML BAG IVPB (01:57)
--- NOTE | 2022-04-20 03:57 | NUR.NOTE ---
Nursing Note: CPAP applied by RT
[2022-04-20 07:25] LABS: Bilirubin Negative (Negative); Blood Negative (Negative); Clarity Clear (Clear); Glucose Negative (Negative); Ketones Negative (Negative); Leukocyte Esterase Negative (Negative); Nitrite Negative (Negative); Specific Gravity >= 1.030 (1.005-1.025); Urobilinogen 0.2 EU/dL (Up TO 0.2)
[2022-04-20 07:35] LABS: *AMPHETAMINES SCREEN URINE Negative (Negative); *BARBITURATES SCREEN URINE Negative (Negative); *BENZODIAZEPINES SCREEN URINE Positive (Negative); Cannabinoids THC Negative (Negative); Cocaine Screen,Urine Negative (Negative); METHADONE URINE SCREEN Negative (Negative); OPIATES URINE SCREEN Negative (Negative)
[2022-04-20 07:37] LABS: Tricyclic Antidepressants Negative (Negative)
--- NOTE | 2022-04-20 17:32 | NUR.NOTE ---
Nursing Note: Accessed patient chart to determine how many EKG orders were in the chart from the ED. There was an outstanding EKG in ordered status. There are no EKG's in the [facility] system that are outstanding. EKG order was deleted.
== END 2022-04-20 08:33 | disposition home or self-care (01) ==
PROVIDERS: Physician Assistant; Emergency Provider Physician Assistant; PCP Physician Assistant
DX: F10.20 Alcohol dependence, uncomplicated (principal); Y90.8 Blood alcohol level of 240 mg/100 ml or more; R56.9 Unspecified convulsions; Z91.14 Patient's other noncompliance with medication regimen; R41.82 Altered mental status, unspecified; I62.03 Nontraumatic chronic subdural hemorrhage
CPT/HCPCS: 36416; 80053; 80307; 82962; 96361; 96365; 96366; 96367; 99284; 70450; 80320; 81003; 83735; 85025; J1953; J2060; J2405

== ENCOUNTER 2022-07-16 11:59 | Emergency (ER) | payer MEDICAID, SELFPAY ==
[2022-07-16 15:32] LABS: BUN 11 mg/dL (7-18); CREATININE 0.8 mg/dL (0.70-1.30); Calcium 8.7 mg/dL (8.5-10.1); Estimated GFR 112.61 (mL/min/1.73m2); Glucose 89 mg/dL (74-106); Potassium 3.5 mmol/L (3.5-5.1); Sodium 146 mmol/L (136-145)
[2022-07-16 15:33] LABS: Anion Gap 8.1 mmol/L (3-11); CO2 29.9 mmol/L (21.0-32.0); Chloride 108 mmol/L (98-107); ETHANOL BLOOD 307.8 mg/dL (<10); HGB 15.8 g/dL (13.5-17.5); MCH 33.8 pg (27.0-33.0); MCHC 34.3 % (32.0-36.0); MCV 99 fL (80-95); RBC 4.67 10^6/uL (4.36-5.78); RDW-SD 47.4 fL; WBC 5.44 10^3/uL (4.4-10.8)
[2022-07-16 15:34] LABS: Abs Immature Grans 0.02 10^3/uL (0.0-0.06); Absolute Basophil Count 0.05 10^3/uL (0.0-0.2); Absolute Eosinophil Count 0.04 10^3/uL (0.0-0.7); Absolute Lymphocyte Count 1.96 10^3/uL (1.2-3.4); Absolute Monocyte Count 0.29 10^3/uL (0.1-0.8); Absolute Neutrophil Count 3.08 10^3/uL (1.2-6.7); Basophils % 0.9; Eosinophils % 0.7; Immature Grans % 0.4; MPV 10.2 fL (8.0-11.0); Monocytes % 5.3; Neutrophils % 56.7; Platelet Count 328 10^3/uL (130-400); RDW 13.1 % (11.8-14.1)
--- NOTE | 2022-07-19 11:38 | NUR.NOTE ---
Nursing Note: Patient called asking if we had his wallet and citation here in the ED. I asked [employer] and they do not have the wallet. I told the patient and he is going to call P.
== END 2022-07-16 13:50 ==
PROVIDERS: Emergency Provider Emergency Medicine; PCP Physician Assistant
DX: Z53.21 Procedure and treatment not carried out due to patient leaving prior to being seen by health care provider (principal)
CPT/HCPCS: 80048; 80320; 85025

== ENCOUNTER 2022-10-16 19:31 | Inpatient (IN) | payer MEDICAID, SELFPAY ==
[2022-10-16] VITALS (45 sets, daily range): BP systolic 89–136; BP diastolic 64–104; PULSE 79–130; RESP 7–26; TEMP 36–36.5; O2SAT 81–100
--- NOTE | 2022-10-16 19:30 | RT.EKG_ITS ---
APPROVED REPORT Exam: Resting ECG Reason for Exam: seizure Patient Location: E HR:101 bpm ECG Measurements Heart Rate 101 AXIS MN 172 P 44 QRSd 105 QRS -19 QT 351 T 45 QTc 456 Conclusion Sinus tachycardia...rate> 99 Physician: no stemI
--- NOTE | 2022-10-16 19:30 | DI.CT_ITS ---
Exam(s) CT HEAD WO EXAM: CT HEAD WO CLINICAL HISTORY: Seizure, AMS. TECHNIQUE: Imaging Protocol: Axial computed tomography images with coronal and sagittal reformatted images were created and reviewed COMPARISON: CT CT HEAD WO from 04/19/2022 FINDINGS: There are no skull fractures. There is no fluid in the visualized paranasal sinuses. There is no evidence of acute intracranial hemorrhage, new mass effect, or shift of midline structure s. Previously present right convexity subdural hematoma has mostly resolved. A very thin stripe of hyperdensity over the right convexity is noted noted measuring only 2 millimeters thick. No intra-ax ial hemorrhage. IMPRESSION: Significant improvement from 04/19/2022 with almost complete resolution of the right convexity subdur al hematoma. No new significant intracranial findings. RADIATION DOSE DELIVERED: 912.92mGy.cm Total DLP DATA REPOSITORY: All CT scans at this facility are submitted to the National Radiology Data Registry (NRDR) Dose Index Registry (DIR) with the [employer] ([employer]). RADIATION OPTIMIZATION: All CT scans at this facility use at least one of these dose optimization te chniques: automated exposure control; mA and/or kV adjustment per patient size (includes targeted exa ms where dose is matched to clinical indication); or iterative reconstruction.
--- NOTE | 2022-10-16 19:37 | DI.RAD_ITS ---
Exam(s) XR CHEST 1V IN DI DEPT EXAM: XR CHEST 1V IN DI DEPT CLINICAL HISTORY: Seizure. TECHNIQUE: 2D digital imaging was performed. COMPARISON: CR,XR XR RIBS LT W PA LAT CHEST from 09/24/2021 FINDINGS: Single AP portable view. Heart size is upper normal. The mediastinum is not widened. Left lung is clear. Increased markings in the medial aspect of the lower right lung noted but may ju st represent vascular markings. No pleural effusions. IMPRESSION: As above. Recommend nonportable PA and lateral views when clinically possible. DATA REPOSITORY: RADIATION DOSE DELIVERED:
[2022-10-16] MEDS: LORazepam 2 MG/ML VIAL 1 MG IVP (19:44)
[2022-10-16] MEDS: Ondansetron 4 MG/2 ML VIAL IVP (19:45)
[2022-10-16 19:46] LABS: Abs Immature Grans 0.01 10^3/uL (0.0-0.06); Absolute Basophil Count 0.05 10^3/uL (0.0-0.2); Absolute Eosinophil Count 0.03 10^3/uL (0.0-0.7); Absolute Lymphocyte Count 3.01 10^3/uL (1.2-3.4); Absolute Monocyte Count 0.55 10^3/uL (0.1-0.8); Absolute Neutrophil Count 1.93 10^3/uL (1.2-6.7); Basophils % 0.9; Eosinophils % 0.5; HCT 42.9 % (40.0-50.0); HGB 15.2 g/dL (13.5-17.5); Immature Grans % 0.2; Lymphocytes % 53.9; MCH 34.9 pg (27.0-33.0); MCHC 35.4 % (32.0-36.0); MCV 98 fL (80-95); MPV 10.3 fL (8.0-11.0); Monocytes % 9.9; Neutrophils % 34.6; Platelet Count 161 10^3/uL (130-400); RBC 4.36 10^6/uL (4.36-5.78); RDW 12.4 % (11.8-14.1); RDW-SD 45.1 fL; WBC 5.58 10^3/uL (4.4-10.8)
[2022-10-16] MEDS: levETIRAcetam 2,000 MG in Normal Saline 100 ML 400 MG IVPB (20:01)
[2022-10-16] MEDS: LORazepam 2 MG/ML VIAL (20:08)
[2022-10-16 20:14] LABS: ALT 80 U/L (16-63); AST 209 U/L (15-37); Albumin 4.3 g/dL (3.4-5.0); Alkaline Phosphatase 166 U/L (46-116); BUN 4 mg/dL (7-18); Bilirubin, Total 1.1 mg/dL (0.2-1.0); CREATININE 0.8 mg/dL (0.70-1.30); Calcium 8.4 mg/dL (8.5-10.1); Chloride 103 mmol/L (98-107); Estimated GFR 112.61 (mL/min/1.73m2); Glucose 100 mg/dL (74-106); Magnesium 1.4 mg/dL (1.8-2.4); Sodium 146 mmol/L (136-145)
[2022-10-16 20:18] LABS: ETHANOL BLOOD 460.5 mg/dL (<10)
[2022-10-16 20:19] LABS: Potassium 2.9 mmol/L (3.5-5.1)
[2022-10-16 20:33] LABS: Bilirubin Negative (Negative); Blood Negative (Negative); Clarity Clear (Clear); Glucose Negative (Negative); Ketones Negative (Negative); Leukocyte Esterase Negative (Negative); Nitrite Negative (Negative)
[2022-10-16] MEDS: POTASSIUM CHLORIDE 20 MEQ/100 ML BAG 50 MEQ IVPB (20:47)
[2022-10-16 20:48] LABS: *AMPHETAMINES SCREEN URINE Negative (Negative); *BARBITURATES SCREEN URINE Negative (Negative); *BENZODIAZEPINES SCREEN URINE Negative (Negative); Cannabinoids THC Negative (Negative); Cocaine Screen,Urine Negative (Negative); METHADONE URINE SCREEN Negative (Negative); OPIATES URINE SCREEN Negative (Negative)
[2022-10-16 20:50] LABS: Tricyclic Antidepressants Negative (Negative)
--- NOTE | 2022-10-16 20:58 | DI.VRAD_ITS ---
PROCEDURE INFORMATION: Exam: CT Head Without Contrast Exam date and time: 10/16/2022 8:31 PM Age: 41 years old Clinical indication: Altered mental status/memory loss and other: Seizure; Patient HX: Seizure, AMS TECHNIQUE: Imaging protocol: Computed tomography of the head without contrast. COMPARISON: CT HEAD WO 04/19/2022 11:39 PM FINDINGS: Brain: Cerebrum is unremarkable. Campbell-white matter differentiation is intact. No mass lesion is seen. No mass effect or midline shift. Thalamus is unremarkable. No evidence of hemorrhage. Cerebellum is unremarkable. No posterior fossa mass lesion or mass effect. No pathologic edema. No evidence of cerebellar hemorrhage. Brainstem is unremarkable. No evidence of pontine hemorrhage. No mass effect on the brainstem. Cerebral ventricles: No ventriculomegaly. Paranasal sinuses: Visualized sinuses are unremarkable. No fluid levels. Mastoid air cells: Visualized mastoid air cells are well aerated. Bones/joints: Unremarkable. No acute fracture. Soft tissues: Unremarkable. IMPRESSION: No evidence of pathology. Dictated and Authenticated by: Pamela Ramos MD. Ordering:KELSI Feldman MD
--- NOTE | 2022-10-16 21:01 | DI.VRAD_ITS ---
PROCEDURE INFORMATION: Exam: XR Chest Exam date and time: 10/16/2022 8:37 PM Age: 41 years old Clinical indication: Other: Seizure, AMS TECHNIQUE: Imaging protocol: Radiologic exam of the chest. Views: 1 view. COMPARISON: CR XR RIBS LT W PA LAT CHEST 09/24/2021 2:47 AM FINDINGS: Lungs: No infiltrates. No mass lesion or nodule seen. Pleural spaces: Unremarkable. No pleural effusion. No pneumothorax. Heart/Mediastinum: Unremarkable. No cardiomegaly. Bones/joints: Unremarkable. IMPRESSION: No evidence of pathology. Dictated and Authenticated by: Pamela Ramos MD. Ordering:KELSI Feldman MD
[2022-10-16] MEDS: MAGNESIUM SULFATE 2 GM/50 ML BAG IVPB (21:27)
--- NOTE | 2022-10-16 21:37 | ED.GENADUL_ITS ---
Discharge Plan Disposition Patient Disposition: Admit to [facility] Condition: Serious Discharge Details Clinical Impression: Seizure, Acute hypokalemia, Hypomagnesemia, Elevated ETOH level, History of medication noncompliance Primary Care Provider: Shekhar Lanza ED Provider: Pantera Penaloza Home Meds and New Rx's Prescriptions: No Action omeprazole 40 mg Capsule,Delayed Release(Dr/Ec) 40 mg PO DAILY levetiracetam [Keppra] 1,000 mg Tablet 1,000 mg PO BID Medical Decision Making 41-year-old male with a past medical history of daily alcohol abuse, seizure disorder on Keppra, alcohol withdrawal seizures as well, GERD, depression, anxiety, who presents today for evaluation of seizure. Per the patient he has been drinking regularly and heavily over the last few days. He has not taken any of his Keppra over the last 2 to 3 days secondary to the pharmacy being out. He was found by family having a seizure, which includes symptoms of tension, and diminished responsiveness for brief periods of time which is standard for his normal seizures. Family called EMS, patient was brought here for further assessment. Patient is notably intoxicated but otherwise has no other complaints. Exam demonstrates an intoxicated male. No focal neurologic deficits though. After my initial assessment he did have 1 brief seizure here. Notable tension, brief episode of unresponsiveness with the tension. Tension and spasm state that resolved and he was able to interact in a postictal manner. Concern for alcohol related seizure as well as medical noncompliance seizure. However due to the events that he has been having we will evaluate for electrolyte abnormality, aspiration or intracranial etiology. We will monitor closely and reassess. We will give 2 g of Keppra and 2 mg of IV Ativan 9:49 PM Laboratory work-up shows evidence of no white count. Sodium 146, potassium low at 2.9, magnesium slightly low at 1.4. Minimal anion gap. Transaminases are elevated which is chronic for the patient. Urinalysis negative for drugs. Alcohol level 460 which is fairly high. CT scan is negative for acute process. Patient has been stable since his last seizure. I do feel that with his alcoholism, his medication noncompliance, that he would benefit from admission and continued monitoring and treatment of his seizures. We will admit to the ICU, monitor closely. 10:51 PM I discussed the case with the hospitalist. He agrees with the assessment and plan. I have extensively reviewed the treatment plan with the patient. I have addressed all patient concerns at this time. I have also discussed the plan with the admitting physician and they agree with the current assessment and plan and have agreed to assume responsibility for the patient. All parties demonstrate verbal understanding and agreement with our assessment and plan at this time. The documentation in this chart was dictated using [employer] dictation software. Please excuse any dictation errors. FINDINGS: Lungs: No infiltrates. No mass lesion or nodule seen. Pleural spaces: Unremarkable. No pleural effusion. No pneumothorax. Heart/Mediastinum: Unremarkable. No cardiomegaly. Bones/joints: Unremarkable. IMPRESSION: No evidence of pathology. Thank you for allowing us to participate in the care of your patient. Dictated and Authenticated by: Pamela Ramos MD 10/16/2022 9:00 PM Eastern Time ([place] & [place]) FINDINGS: Brain: Cerebrum is unremarkable. Campbell-white matter differentiation is intact. No mass lesion is seen. No mass effect or midline shift. Thalamus is unremarkable. No evidence of hemorrhage. Cerebellum is unremarkable. No posterior fossa mass lesion or mass effect. No pathologic edema. No evidence of cerebellar hemorrhage. Brainstem is unremarkable. No evidence of pontine hemorrhage. No mass effect on the brainstem. Cerebral ventricles: No ventriculomegaly. Paranasal sinuses: Visualized sinuses are unremarkable. No fluid levels. Mastoid air cells: Visualized mastoid air cells are well aerated. Bones/joints: Unremarkable. No acute fracture. Soft tissues: Unremarkable. IMPRESSION: No evidence of pathology. Thank you for allowing us to participate in the care of your patient. Dictated and Authenticated by: Pamela Ramos MD [facility] General Date/Time Provider Initiated Documentation: 10/16/22 19:37 . HPI Narrative: 41-year-old male with a past medical history of daily alcohol abuse, seizure disorder on Keppra, alcohol withdrawal seizures as well, GERD, depression, anxiety, who presents today for evaluation of seizure. Per the patient he has been drinking regularly and heavily over the last few days. He has not taken any of his Keppra over the last 2 to 3 days secondary to the pharmacy being out. He was found by family having a seizure, which includes symptoms of tension, and diminished responsiveness for brief periods of time which is standard for his normal seizures. Family called EMS, patient was brought here for further assessment. Patient is notably intoxicated but otherw ise has no other complaints. Related Data Home Medications Medication Instructions Recorded Confirmed omeprazole 40 mg capsule,delayed 40 mg PO DAILY 07/13/20 10/16/22 release levetiracetam 1,000 mg tablet 1,000 mg PO BID 12/05/21 10/16/22 (Keppra) Allergies Allergy/AdvReac Type Severity Reaction Status Date / Time No Known Allergies Allergy Unverified 10/16/22 19:38 General Stated Complaint: Seizure EMIL: 3 Review of Systems All systems reviewed & are unremarkable except as noted in HPI and below PFSH All Active Problems (Updated 10/16/22 @ 21:54 by Pantera Penaloza DO) Seizure (Acute) Hypokalemia (Acute) Vomiting and diarrhea (Acute) Transaminitis (Acute) Tongue laceration (Acute) Acute hypokalemia (Acute) Hypomagnesemia (Acute) Elevated ETOH level (Acute) History of medication noncompliance (Acute) Medical History Anxiety disorder Depression GERD (gastroesophageal reflux disease) Lipid screening Mood disorder Seizure disorder Surgical History History of appendectomy History of cholecystectomy History of gastric bypass Gastric sleeve Social History Smoking/Tobacco Use Status: Never Smoking risk assessment performed?: Yes Alcohol Intake: current Alcohol Intake frequency: a few times a month Alcohol type: hard liquor Drug use: Never Substance use type: does not use Do you feel safe at home: Yes (living in hotel) Do you feel safe in your relationship?: Yes Exam Narrative Exam Narrative: 1.Const: Well-nourished, Well-developed, appearing stated age 2.Eyes: PERRL, no conjunctival injection, and symmetrical lids. 3.ENT: Atraumatic external nose and ears. Dry MM. Neck: Symmetric, trachea midline, No thyromegaly. There is no evidence of raccoon eyes, melendez sign, CSF rhinorrhea, mastoid tenderness, cranial crepitus, hemotympanum, exophthalmos, or hyphema. Patient demonstrates intact dentition with no signs of tooth avulsion or fracture, no signs of jaw deformity, no evidence of a LeFort's fracture, with an intact palate, nose and orbital region. There is no evidence of a nasal septal hematoma. No proptosis. Jaw closes symmetrically. Airway is clear. 4.CVS: +S1/S2, No murmurs or gallops. Peripheral pulses 2+ and equal in all extremities. Brisk capillary refill in all extremities. 5.RESP: Unlabored respiratory effort. Clear to auscultation bilaterally. No wheezes rales or rhonchi 6.GI: Soft, Nontender/Nondistended, No hepatosplenomegaly. No guarding or rebound. 7.MSK: Normocephalic/Atraumatic, Extremities w/o deformity or ttp No cyanosis or clubbing, Normal movement of all extremities 8.Skin: Warm, Dry. No rashes or lesions. 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 Sensation grossly intact, no focal neurologic deficits. 10.Psych: (AAO) x2. Notably intoxicated Course Vital Signs Vital signs: Vital Signs Pulse 110 H 10/16/22 19:34 Respiratory Rate 18 10/16/22 19:34 Blood Pressure 135/104 H 10/16/22 19:34 Pulse Oximetry 96 10/16/22 19:34 Temperature 36.0 C L 10/16/22 19:48 Temperature Source Skin 10/16/22 19:48 Pulse 95 H 10/16/22 20:52 Pulse 107 H 10/16/22 21:00 Respiratory Rate 25 H 10/16/22 21:00 Respiratory Effort Normal, Non-Labored 10/16/22 19:45 Respiratory Depth Normal 10/16/22 19:45 Respiratory Pattern Normal 10/16/22 19:45 Blood Pressure 109/81 10/16/22 20:52 Blood Pressure Mean 87 10/16/22 20:52 Pulse Oximetry 98 10/16/22 20:52 Oxygen Delivery Method Room Air 10/16/22 19:34 Oxygen Flow Rate 0 10/16/22 19:34 Lab/Test Results Lab/Test Results: Laboratory Tests Range/Units 10/16/22 10/16/22 10/16/22 19:37 19:37 20:15 WBC (4.4-10.8) 10^3/uL 5.58 RBC (4.36-5.78) 10^6/uL 4.36 Hgb (13.5-17.5) g/dL 15.2 Hct (40.0-50.0) % 42.9 MCV (80-95) fL 98 H MCH (27.0-33.0) pg 34.9 H MCHC (32.0-36.0) % 35.4 RDW (11.8-14.1) % 12.4 Plt Count (130-400) 10^3/uL 161 MPV (8.0-11.0) fL 10.3 Immature Gran % 0.2 Neutrophils % 34.6 Lymphocytes % 53.9 Monocytes % 9.9 Eosinophils % 0.5 Basophils % 0.9 Nucleated RBC % (0.0-0.3) % 0.0 Absolute Neutrophils (1.2-6.7) 10^3/uL 1.93 Absolute Lymphocytes (1.2-3.4) 10^3/uL 3.01 Absolute Monocytes (0.1-0.8) 10^3/uL 0.55 Absolute Eosinophils (0.0-0.7) 10^3/uL 0.03 Absolute Basophils (0.0-0.2) 10^3/uL 0.05 Sodium (136-145) mmol/L 146 H Potassium (3.5-5.1) mmol/L 2.9 L Chloride (98-107) mmol/L 103 Carbon Dioxide (21.0-32.0) mmol/L 31.0 Anion Gap (3-11) mmol/L 12.0 H BUN (7-18) mg/dL 4 L Creatinine (0.70-1.30) mg/dL 0.8 Est GFR (CKD-EPI 2020) (mL/min/1.73m2) 112.61 Glucose (74-106) mg/dL 100 Calcium (8.5-10.1) mg/dL 8.4 L Magnesium (1.8-2.4) mg/dL 1.4 L Total Bilirubin (0.2-1.0) mg/dL 1.1 H AST (15-37) U/L 209 H ALT (16-63) U/L 80 H Alkaline Phosphatase (46-116) U/L 166 H Total Protein (6.4-8.2) g/dL 8.0 Albumin (3.4-5.0) g/dL 4.3 Urine Color (Yellow) Urine Clarity (Clear) Urine pH (5-8) Ur Specific [place] (1.005-1.025) Urine Protein (Negative) mg/dL Urine Ketones (Negative) mg/dL Urine Blood (Negative) Urine Nitrite (Negative) Urine Bilirubin (Negative) Urine Urobilinogen (Up to 0.2) mg/dL Ur Leukocyte Esterase (Negative) Urine Glucose (Negative) mg/dL Urine Opiates Screen (Negative) Negative Urine Methadone Screen (Negative) Negative Ur Barbiturates Screen (Negative) Negative Ur Tricyclics Screen (Negative) Negative Ur Amphetamines Screen (Negative) Negative U Benzodiazepines Scrn (Negative) Negative Urine Cocaine Screen (Negative) Negative Ur THC Screen (Negative) Negative Ethyl Alcohol (<10) mg/dL 460.5 H Range/Units 10/16/22 20:15 WBC (4.4-10.8) 10^3/uL RBC (4.36-5.78) 10^6/uL Hgb (13.5-17.5) g/dL Hct (40.0-50.0) % MCV (80-95) fL MCH (27.0-33.0) pg MCHC (32.0-36.0) % RDW (11.8-14.1) % Plt Count (130-400) 10^3/uL MPV (8.0-11.0) fL Immature Gran % Neutrophils % Lymphocytes % Monocytes % Eosinophils % Basophils % Nucleated RBC % (0.0-0.3) % Absolute Neutrophils (1.2-6.7) 10^3/uL Absolute Lymphocytes (1.2-3.4) 10^3/uL Absolute Monocytes (0.1-0.8) 10^3/uL Absolute Eosinophils (0.0-0.7) 10^3/uL Absolute Basophils (0.0-0.2) 10^3/uL Sodium (136-145) mmol/L Potassium (3.5-5.1) mmol/L Chloride (98-107) mmol/L Carbon Dioxide (21.0-32.0) mmol/L Anion Gap (3-11) mmol/L BUN (7-18) mg/dL Creatinine (0.70-1.30) mg/dL Est GFR (CKD-EPI 2020) (mL/min/1.73m2) Glucose (74-106) mg/dL Calcium (8.5-10.1) mg/dL Magnesium (1.8-2.4) mg/dL Total Bilirubin (0.2-1.0) mg/dL AST (15-37) U/L ALT (16-63) U/L Alkaline Phosphatase (46-116) U/L Total Protein (6.4-8.2) g/dL Albumin (3.4-5.0) g/dL Urine Color (Yellow) Yellow Urine Clarity (Clear) Clear Urine pH (5-8) 7.0 Ur Specific [place] (1.005-1.025) 1.010 Urine Protein (Negative) mg/dL Negative Urine Ketones (Negative) mg/dL Negative Urine Blood (Negative) Negative Urine Nitrite (Negative) Negative Urine Bilirubin (Negative) Negative Urine Urobilinogen (Up to 0.2) mg/dL 1.0 H Ur Leukocyte Esterase (Negative) Negative Urine Glucose (Negative) mg/dL Negative Urine Opiates Screen (Negative) Urine Methadone Screen (Negative) Ur Barbiturates Screen (Negative) Ur Tricyclics Screen (Negative) Ur Amphetamines Screen (Negative) U Benzodiazepines Scrn (Negative) Urine Cocaine Screen (Negative) Ur THC Screen (Negative) Ethyl Alcohol (<10) mg/dL Critical Care Time Critical Care Time Critical Care Time: Yes Total Critical Care Time: 45 Attestation: Upon my evaluation, this patient had a high probability of imminent or life- threatening deterioration, which required my direct attention, intervention, and personal management. I have personally provided 45 minutes of critical care time exclusive of time spent on separately billable procedures. Time includes review of laboratory data, radiology results, discussion with consultants, and monitoring for potential decompensation. Interventions were performed as documented. PAWSS Have you Been Recently Intoxicated or Drunk Within the Last 30 days?: Yes Have you Ever Experienced Previous Episodes of Alcohol Withdrawal?: Yes Have you ever Experienced Withdrawal Seizures?: Unable to Obtain Have you ever Experienced Delirium Tremens(DT)s?: Unable to Obtain Have you ever undergone Alcohol Rehabilitation Treatment (i.e, inpt ot outpatient treatment programs)?: Unable to Obtain Have you ever Experienced Blackouts?: Yes Have you ever Combined Alcohol with other Downers within the last 90 days?: Unable to Obtain Have you ever Combined Alcohol with any other Substance of Abuse during the last 90 days?: Unable to Obtain Positive Blood Alcohol level on Presentation? [PCS.BAL]: Yes Evidence of Increased Autonomic Activity (i.e. HR>120, tremor, sweating, agitation, nausea)?: No Result: 4
--- NOTE | 2022-10-16 22:41 | W.PM.HP.N ---
Date of service: 10/16/22 Time of Service: 22:41 Assessment and Plan Assessment and plan (1) Seizure: Status: Acute Assessment and plan: These seizures are probably related to his noncompliance with taking his Keppra for the last few days. He has been given a loading dose of Keppra here in the department. he will be admitted to intensive care unit for further monitoring tonight. (2) Hypokalemia: Status: Acute Assessment and plan: He has been given intravenous potassium supplementation. This will be continued and the potassium level be rechecked tomorrow. (3) Hypomagnesemia: Status: Acute Assessment and plan: He is receiving magnesium intravenously and this level be rechecked tomorrow. (4) Elevated ETOH level: Status: Acute Assessment and plan: He will be monitored for alcohol withdrawal. Lorazepam has been ordered to be used as needed. I do not suspect he will have a alcohol withdrawal seizures tonight because of his elevated alcohol level at this time. History of Present Illness History of Present Illness Chief Complaint: seizure and alcohol intoxication Narrative: This 41-year-old male was brought into the hospital because of seizure. He had a seizure at home and has a history of seizure disorder. He apparently has not been taking his Keppra for the last few days because it was reported that the pharmacy was out of this medicine. It is not known if this was a trigger situation. He has a history of alcohol abuse and he presented here with alcohol level of 460. He had another seizure here and was given 2 g of Keppra intravenously. He was found to have hypokalemia and hypomagnesemia. His brother recently of an apparent overdose and his brothers son is approximately 17 years old and he is to help take care of his nephew. He lives with his nephew at the present time. Patient cannot give me any history at this time because of his somnolence due to his alcohol intoxication and postictal state. He was also given lorazepam intravenously to treat the seizure. Review of systems is not possible at this time due to the somnolence. It is not clear at this time if he has sought any treatment for his alcohol addiction. PFSH All Active Problems (Updated 10/16/22 @ 21:54 by Pantera Penaloza DO) Seizure (Acute) Hypokalemia (Acute) Vomiting and diarrhea (Acute) Transaminitis (Acute) Tongue laceration (Acute) Acute hypokalemia (Acute) Hypomagnesemia (Acute) Elevated ETOH level (Acute) History of medication noncompliance (Acute) Medical History Anxiety disorder Depression GERD (gastroesophageal reflux disease) Lipid screening Mood disorder Seizure disorder Surgical History History of appendectomy History of cholecystectomy History of gastric bypass Gastric sleeve Social History Smoking/Tobacco Use Status: Never Smoking risk assessment performed?: Yes Alcohol Intake: current Alcohol Intake frequency: a few times a month Alcohol type: hard liquor Drug use: Never Substance use type: does not use Do you feel safe at home: Yes (living in hotel) Do you feel safe in your relationship?: Yes Meds Allergies and Home Medications Allergies Allergy/AdvReac Type Severity Reaction Status Date / Time No Known Allergies Allergy Unverified 10/16/22 19:38 Home Medications Medication Instructions Recorded Confirmed Type omeprazole 40 mg capsule,delayed 40 mg PO DAILY 07/13/20 10/16/22 History release levetiracetam 1,000 mg tablet 1,000 mg PO BID 12/05/21 10/16/22 History (Nehemias) Exam Const General: no acute distress, intoxicated appearing and lethargic Nutritional Appearance: overweight Eyes General: appearance normal, both eyes and all related structures Neck Neck: normal visual inspection, no lymphadenopathy and no JVD Resp Auscultation: clear to auscultation bilaterally, no rales, no rhonchi and no wheezes Cardio Rate: regular rate Rhythm: regular rhythm GI Palpation: soft, no hepatosplenomegaly, not firm, no guarding and nontender Skin Other: Multiple areas of first-degree sunburn on his arms. Neuro General: not oriented x3, moves all extremities and unable to assess gait Extrem General: normal to inspection and no clubbing, cyanosis or edema Results Labs 10/16/22 19:37 10/16/22 19:37 Labs: Laboratory Results - last 24 hr 10/16/22 10/16/22 10/16/22 19:37 19:37 20:15 WBC 5.58 RBC 4.36 Hgb 15.2 Hct 42.9 MCV 98 H MCH 34.9 H MCHC 35.4 RDW 12.4 Plt Count 161 MPV 10.3 Immature Gran % 0.2 Neutrophils % 34.6 Lymphocytes % 53.9 Monocytes % 9.9 Eosinophils % 0.5 Basophils % 0.9 Nucleated RBC % 0.0 Absolute Neutrophils 1.93 Absolute Lymphocytes 3.01 Absolute Monocytes 0.55 Absolute Eosinophils 0.03 Absolute Basophils 0.05 Sodium 146 H Potassium 2.9 L Chloride 103 Carbon Dioxide 31.0 Anion Gap 12.0 H BUN 4 L Creatinine 0.8 Est GFR (CKD-EPI 2020) 112.61 Glucose 100 Calcium 8.4 L Magnesium 1.4 L Total Bilirubin 1.1 H AST 209 H ALT 80 H Alkaline Phosphatase 166 H Total Protein 8.0 Albumin 4.3 Urine Color Urine Clarity Urine pH Ur Specific [place] Urine Protein Urine Ketones Urine Blood Urine Nitrite Urine Bilirubin Urine Urobilinogen Ur Leukocyte Esterase Urine Glucose Urine Opiates Screen Negative Urine Methadone Screen Negative Ur Barbiturates Screen Negative Ur Tricyclics Screen Negative Ur Amphetamines Screen Negative U Benzodiazepines Scrn Negative Urine Cocaine Screen Negative Ur THC Screen Negative Ethyl Alcohol 460.5 H 10/16/22 20:15 WBC RBC Hgb Hct MCV MCH MCHC RDW Plt Count MPV Immature Gran % Neutrophils % Lymphocytes % Monocytes % Eosinophils % Basophils % Nucleated RBC % Absolute Neutrophils Absolute Lymphocytes Absolute Monocytes Absolute Eosinophils Absolute Basophils Sodium Potassium Chloride Carbon Dioxide Anion Gap BUN Creatinine Est GFR (CKD-EPI 2020) Glucose Calcium Magnesium Total Bilirubin AST ALT Alkaline Phosphatase Total Protein Albumin Urine Color Yellow Urine Clarity Clear Urine pH 7.0 Ur Specific [place] 1.010 Urine Protein Negative Urine Ketones Negative Urine Blood Negative Urine Nitrite Negative Urine Bilirubin Negative Urine Urobilinogen 1.0 H Ur Leukocyte Esterase Negative Urine Glucose Negative Urine Opiates Screen Urine Methadone Screen Ur Barbiturates Screen Ur Tricyclics Screen Ur Amphetamines Screen U Benzodiazepines Scrn Urine Cocaine Screen Ur THC Screen Ethyl Alcohol Last Vital Signs Temp 36.0 C L 10/16/22 19:48 Pulse 83 10/16/22 22:16 Resp 16 10/16/22 22:23 BP 112/78 10/16/22 22:16 Pulse Ox 100 10/16/22 22:23 PAWSS Have you Been Recently Intoxicated or Drunk Within the Last 30 days?: Yes Have you Ever Experienced Previous Episodes of Alcohol Withdrawal?: Yes Have you ever Experienced Withdrawal Seizures?: Unable to Obtain Have you ever Experienced Delirium Tremens(DT)s?: Unable to Obtain Have you ever undergone Alcohol Rehabilitation Treatment (i.e, inpt ot outpatient treatment programs)?: Unable to Obtain Have you ever Experienced Blackouts?: Yes Have you ever Combined Alcohol with other Downers within the last 90 days?: Unable to Obtain Have you ever Combined Alcohol with any other Substance of Abuse during the last 90 days?: Unable to Obtain Positive Blood Alcohol level on Presentation? [PCS.BAL]: Yes Evidence of Increased Autonomic Activity (i.e. HR>120, tremor, sweating, agitation, nausea)?: No Result: 4 Time Spent Time spent with Patient: 40-54 minutes Time was spent: preparing to see the patient(eg.review tests), ordering medications,tests, procedures and referring, communicating with other health long term care pharmacist
[2022-10-17] VITALS (71 sets, daily range): BP systolic 91–117; BP diastolic 58–82; PULSE 74–108; RESP 9–25; TEMP 36.1–36.6; O2SAT 84–99
[2022-10-17] MEDS: THIAMINE 100 MG in Normal Saline 100 ML 200 MG IVPB (00:38)
[2022-10-17] MEDS: POTASSIUM CHLORIDE/D5-0.45NACL 1,000 ML 150 MEQ IV ×2 (00:39→06:52)
[2022-10-17] MEDS: Enoxaparin 40 MG/0.4 ML SYR SC (00:39)
[2022-10-17] MEDS: Normal Saline Flush 10 ML SYR IVP (00:43)
[2022-10-17] MEDS: LORazepam 2 MG/ML VIAL IVP (03:34)
--- NOTE | 2022-10-17 04:10 | NUR.NOTE ---
Nursing Note: Patient spontaneously sat up in bed stating he wanted to sign out AMA. Although patient is now alert and oriented, he remains in the ICU under close observation, and treatment. Education provided regarding plan of care, and current status. Dr. Linder came to bedside to reiterate plan of care, and recommend patient to remain in ICU at this time. CIWA noted to be 11. Patient was agreeable to remain in ICU until the am. Ativan prn, based on CIWA score was discussed with patient, and he requested same be given. After 3 mg Ativan IVP, per CIWA protocol, patient is calm, relaxed, and resting with eyes closed.
--- NOTE | 2022-10-17 08:33 | INITIAL_ITS ---
Date of service: 10/17/22 Time of Service: 08:34 Care Management Initial Assmt Initial Assessment REASON FOR HOSPITALIZATION:: Elevated ETOH level, Hypomagnesemia, Hypokalemia PREVIOUS FUNCTIONAL STATUS/SOCIAL/FAMILY SUPPORTS:: Rasta resides at the [facility] in [facility] with his 14 year old son. His mother is very supportive, lives locally and is staying with his son while he is in the hospital. He does not drive and uses [facility] or his family for transportation. Rasta shares that prior to moving to [facility] he was homeless and found a lot of support by going to the [facility]. He is now connected to food and housing and is working on getting disability through his PCP. CURRENT FUNCTIONAL STATUS:: Rasta was lying in bed when CM met with him. He is awake and engages in conversation. He is agreeable to meeting with a baseball coach to learn more about community supports. Per pt, he's gone to [facility] in the past and would not go back. Per pt, it's his Birthday and he is ready to go home. ADVANCE DIRECTIVES:: None on file Has patient been provided with info about the portal/API?: Yes Did the patient sign up for the portal?: Yes (Prior to admission) CODE STATUS:: Full Code INSURANCE COVERAGE / FINANCIAL ISSUES:: Medicaid CURRENT HOME/COMMUNITY SERVICES/EQUIPMENT:: [facility] [employer] Applying for SSDI PRIMARY CARE PHYSICIAN:: Shekhar Lanza POTENTIAL DISCHARGE NEEDS:: Outpatient follow up with [facility] and PCP PATIENT/FAMILY EDUCATION NEEDS:: Review discharge instructions, limitations and plan to follow up with community providers and [facility]. Discuss ask me three. ANTICIPATED BARRIERS TO DISCHARGE:: None identified TRANSPORTATION:: Walk PLAN:: Anticipate, Rasta will walk home when medically ready for discharge. He will follow up with community providers and [facility], as discussed. PFSH All Active Problems (Updated 10/17/22 @ 12:18 by Iam Braun MD) Seizure (Acute) Vomiting and diarrhea (Acute) Transaminitis (Acute) Tongue laceration (Acute) Acute hypokalemia (Acute) Hypomagnesemia (Acute) Elevated ETOH level (Acute) History of medication noncompliance (Acute) Medical History Anxiety disorder Depression GERD (gastroesophageal reflux disease) Lipid screening Mood disorder Seizure disorder Surgical History History of appendectomy History of cholecystectomy History of gastric bypass Gastric sleeve Social History Smoking/Tobacco Use Status: Never Smoking risk assessment performed?: Yes Alcohol Intake: current Alcohol Intake frequency: a few times a month Alcohol type: hard liquor Drug use: Never Substance use type: does not use Do you feel safe at home: Yes (living in hotel) Do you feel safe in your relationship?: Yes
[2022-10-17] MEDS: Multivitamin TAB 1 TAB PO (08:51)
[2022-10-17] MEDS: Thiamine 100 MG TAB PO (08:51)
[2022-10-17] MEDS: Folic Acid 1 MG TAB PO (08:51)
[2022-10-17] MEDS: levETIRAcetam 500 MG TAB 1000 MG PO (08:51)
[2022-10-17] MEDS: Omeprazole 20 MG CAPCR 40 MG PO (08:51)
[2022-10-17 10:07] LABS: HCT 36.4 % (40.0-50.0); HGB 12.8 g/dL (13.5-17.5); MCH 35.2 pg (27.0-33.0); MCHC 35.2 % (32.0-36.0); MCV 100 fL (80-95); MPV 10.6 fL (8.0-11.0); Platelet Count 125 10^3/uL (130-400); RBC 3.64 10^6/uL (4.36-5.78); RDW 12.5 % (11.8-14.1); RDW-SD 46.4 fL; WBC 2.45 10^3/uL (4.4-10.8)
[2022-10-17 10:43] LABS: ALT 70 U/L (16-63); AST 192 U/L (15-37); Albumin 3.4 g/dL (3.4-5.0); Alkaline Phosphatase 135 U/L (46-116); Anion Gap 10.5 mmol/L (3-11); BUN 4 mg/dL (7-18); Bilirubin, Total 1.1 mg/dL (0.2-1.0); CO2 28.5 mmol/L (21.0-32.0); CREATININE 0.5 mg/dL (0.70-1.30); Calcium 7.7 mg/dL (8.5-10.1); Chloride 107 mmol/L (98-107); Estimated GFR 128.98 (mL/min/1.73m2); Glucose 103 mg/dL (74-106); Magnesium 1.7 mg/dL (1.8-2.4); Potassium 3.5 mmol/L (3.5-5.1); Sodium 146 mmol/L (136-145); Total Protein 6.7 g/dL (6.4-8.2)
--- NOTE | 2022-10-17 11:08 | W.PM.PROGNOT ---
Date of Service Date of service: 10/17/22 Time of Service: 11:08 Assessment and Plan Assessment and plan (1) Seizure: Status: Acute Assessment and plan: These seizures are probably related to his noncompliance with taking his Keppra for the last few days. Patient had 2 gm loading dose of Keppra last night and currently is back on his home dose of Keppra 1 gm po bid. He has not required any further lorazepam since last night around 3 am. I ordered an EEG however, RT tech not available to perform today. I have also put in a consult to Dr. Cloud to assist w/ managment, but I think that his case is rather straight forward. As he was very intoxicated at AMANDO of 460 at the time, it is unlikely his seizures yesterday were from withdrawal but more likely med noncompliance (although he says that the pharmaccy had to order in his Keppra, but I reminded him that it is his responsibility to check his supply and to not run out before requesting refills. (2) Hypokalemia: Status: Resolved Assessment and plan: He has been repleted and K now at 3.5.. (3) Hypomagnesemia: Status: Acute Assessment and plan: Patient was given iv magnesium last night for level of 1.4 which is now up to 1.7. I have added oral magnesium to his medications (4) Elevated ETOH level: Status: Acute Assessment and plan: Patient had CIWA score of up to 11 last night which resulted in additional lorazepam 3 mg IV, however, none since then and his CIWA is now 3. He does not seem to be exhibiting acute withdrawal symptoms now, however, if he remains hospitalized beyond today, he may withdraw. his AMANDO is still in the intoxicated range at 143. I will repeat his level later this afternoon and if below 80 and still not withdrawing then I will dc him. Alcohol rehab cryolite recovery operator has been assigned to him per . Subjective Subjective Interval history since last seen: Patient feels much better. He states that he ran out of his Keppra and missed couple days worth. He admits to drinking heavily over the weekend, consuming at least as much as 4 large hard ciders per day. His last seizure was about 8 months ago. He voluntarily gave up his drivers license d/t his seizures. He is unsure how much of his seizures is from his alcohol abuse and how much is from a remote TBI. He currently denies anxiousness, hallucinations, tremors or sweats. Exam Narrative Exam Narrative: Rasta is calm. He just got off the phone w/ his mother who is taking care of his adopted 14 yr old while Rasta is hospitalized He has no tremors, no asterixis, and no diaphoresis. He is alert, oriented and w/ appropriate conversation Objective Last Vital Signs Temp 36.1 C L 10/17/22 03:55 Pulse 84 10/17/22 10:01 Resp 18 10/17/22 10:01 BP 91/63 L 10/17/22 10:01 Pulse Ox 91 L 10/17/22 10:01 Laboratory Results - last 24 hr 10/16/22 10/16/22 10/16/22 19:37 19:37 20:15 WBC 5.58 RBC 4.36 Hgb 15.2 Hct 42.9 MCV 98 H MCH 34.9 H MCHC 35.4 RDW 12.4 Plt Count 161 MPV 10.3 Immature Gran % 0.2 Neutrophils % 34.6 Lymphocytes % 53.9 Monocytes % 9.9 Eosinophils % 0.5 Basophils % 0.9 Nucleated RBC % 0.0 Absolute Neutrophils 1.93 Absolute Lymphocytes 3.01 Absolute Monocytes 0.55 Absolute Eosinophils 0.03 Absolute Basophils 0.05 Sodium 146 H Potassium 2.9 L Chloride 103 Carbon Dioxide 31.0 Anion Gap 12.0 H BUN 4 L Creatinine 0.8 Est GFR (CKD-EPI 2020) 112.61 Glucose 100 Calcium 8.4 L Magnesium 1.4 L Total Bilirubin 1.1 H AST 209 H ALT 80 H Alkaline Phosphatase 166 H Total Protein 8.0 Albumin 4.3 Urine Color Urine Clarity Urine pH Ur Specific [place] Urine Protein Urine Ketones Urine Blood Urine Nitrite Urine Bilirubin Urine Urobilinogen Ur Leukocyte Esterase Urine Glucose Urine Opiates Screen Negative Urine Methadone Screen Negative Ur Barbiturates Screen Negative Ur Tricyclics Screen Negative Ur Amphetamines Screen Negative U Benzodiazepines Scrn Negative Urine Cocaine Screen Negative Ur THC Screen Negative Ethyl Alcohol 460.5 H 10/16/22 10/17/22 10/17/22 20:15 09:30 09:30 WBC 2.45 L RBC 3.64 L Hgb 12.8 L D Hct 36.4 L MCV 100 H MCH 35.2 H MCHC 35.2 RDW 12.5 Plt Count 125 L MPV 10.6 Immature Gran % Neutrophils % Lymphocytes % Monocytes % Eosinophils % Basophils % Nucleated RBC % Absolute Neutrophils Absolute Lymphocytes Absolute Monocytes Absolute Eosinophils Absolute Basophils Sodium 146 H Potassium 3.5 Chloride 107 Carbon Dioxide 28.5 Anion Gap 10.5 BUN 4 L Creatinine 0.5 L Est GFR (CKD-EPI 2020) 128.98 Glucose 103 Calcium 7.7 L Magnesium 1.7 L Total Bilirubin 1.1 H AST 192 H ALT 70 H Alkaline Phosphatase 135 H Total Protein 6.7 Albumin 3.4 Urine Color Yellow Urine Clarity Clear Urine pH 7.0 Ur Specific [place] 1.010 Urine Protein Negative Urine Ketones Negative Urine Blood Negative Urine Nitrite Negative Urine Bilirubin Negative Urine Urobilinogen 1.0 H Ur Leukocyte Esterase Negative Urine Glucose Negative Urine Opiates Screen Urine Methadone Screen Ur Barbiturates Screen Ur Tricyclics Screen Ur Amphetamines Screen U Benzodiazepines Scrn Urine Cocaine Screen Ur THC Screen Ethyl Alcohol PAWSS Have you Been Recently Intoxicated or Drunk Within the Last 30 days?: Yes Have you Ever Experienced Previous Episodes of Alcohol Withdrawal?: Yes Have you ever Experienced Withdrawal Seizures?: Yes Have you ever Experienced Delirium Tremens(DT)s?: Unable to Obtain Have you ever undergone Alcohol Rehabilitation Treatment (i.e, inpt ot outpatient treatment programs)?: Unable to Obtain Have you ever Experienced Blackouts?: Unable to Obtain Have you ever Combined Alcohol with other Downers within the last 90 days?: Unable to Obtain Have you ever Combined Alcohol with any other Substance of Abuse during the last 90 days?: Unable to Obtain Positive Blood Alcohol level on Presentation? [PCS.BAL]: Yes Evidence of Increased Autonomic Activity (i.e. HR>120, tremor, sweating, agitation, nausea)?: No Result: 4 Time Spent with Patient Time Spent with Patient: 35-49 minutes Time was spent: preparing to see the patient(eg.review tests), ordering medications,tests, procedures, referring, communicating with other health medication care manager, indepentently interpreting results, counseling the patient and care coordination
[2022-10-17 11:35] LABS: ETHANOL BLOOD 143.7 mg/dL (<10)
[2022-10-17] MEDS: Magnesium Gluconate 500 MG TAB PO (13:49)
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
[2022-10-17 16:35] LABS: ETHANOL BLOOD < 3.0 mg/dL (<10)
--- NOTE | 2022-10-17 18:52 | W.PM.DS.N ---
Date of service: 10/17/22 Time of Service: 18:52 DS: Diagnosis Discharge Diagnosis (1) Seizure: Status: Acute (2) Hypokalemia: Status: Resolved (3) Hypomagnesemia: Status: Acute (4) Elevated ETOH level: Status: Acute Discharge Plan Disposition Patient Disposition: Home Condition: Serious Condition: Good Discharge Details Reason For Visit: Alcohol Intoxication,Seizures Admit Date/Time: 10/16/22 22:27 Admit Provider: Yovany Linder Attending Provider: Yovany Linder Primary Care Provider: Shekhar Lanza Hospital Course Hospital Course: 42 yr old male w/ known seizure disorder who has hx of alcoholism and presented to the ED from home after family found him to be post ictal after seizure disorder. Patient reportedly has not had seizure for past several months. He ran out of his Keppra and when he requested refills states he was told that it would have to be reordered into the pharmacy . He estimates he was off his Keppra for couple days. He had been drinking more heavily over the weekend in celebration of his birthday. When he was brought to the E.D. his blood alcohol level (AMANDO) was 460 mg/dL. While in the ED he had another seizure. CT head noncontrast was done and showed no acute abnormalities. His prior right subdural hematoma from 04/19/22 was resolved. He was loaded w/ iv Keppra 2 gm and admitted to the hospital . He received further ativan for agitation. He was monitored overnight for acute alcohol withdrawal but exhibited none. Repeat AMANDO the next morning was still elevated at 143 although he was thinking clearly and showing no signs or symptoms of either intoxication nor alcohol withdrawal. An EEG was ordered but could not be completed d/t staffing/scheduliing issues. Neurology consult was requested from Dr. Cloud who saw him later in the day of 10/17/22. She recommended an increase of his depakote to 1500 mg bid. His repeat AMANDO in the afternoon of 09/3022 was now down to <3. He was cleared for discharge home. He was told that he should not drive nor participate in any tub baths or swimming nor any other activities that could jeopardize his condition should he have another seizure. He is recommended to follow up w/ Dr. Cloud in the next month. She will arrange office follow up and outpatient EEG. Magnesium and potassium levels were low on admission but were corrected w/ supplements. A repeat BMP and magnesium is recommended but has not been ordered, left to PCP to follow up. Home Meds and New Rx's Prescriptions: New magnesium citrate 125 mg capsule 125 mg PO DAILY Qty: 30 0RF Continued omeprazole 40 mg Capsule,Delayed Release(Dr/Ec) 40 mg PO DAILY Changed levetiracetam [Keppra] 1,000 mg Tablet 1,500 mg PO BID Qty: 90 0RF Discharge Instructions Instructions: Alcohol Use Disorder (DC), Generalized Tonic Clonic Seizures (DC) Additional Instructions: Please increase your Keppra to 1,500 mg twice a day (that is 1 and 1/2 of your 1000 mg tablets twice a day). Follow up w/ your PCP in the next week; follow up w/ Dr. Cloud in the next month Activity:: Activity as Tolerated Equipment/Supplies:: No Equipment Needed Diet:: As Tolerated Discharge Orders Discharge Orders: Discharge Order (Routine); Ordered 10/17/22 Ordered By: Iam Braun Discharge Data Discharge Date/Time-TO BE ENTERED AT DEPARTURE: 10/17/22 19:30 Discharge Comment: Patient left by wheelchair. Discharge Physician: Iam Braun DS: Summary Time Spent with Patient providing and/or coordinating discharge services: Greater than 30 minutes Status at Discharge Functional status at discharge: independent ambulation Overall status at discharge: patient is back to baseline Mental Status: mental status grossly normal Speech and Movement: speech and movement normal Mood: congruent mood Affect: normal affect Exam Narrative Exam Narrative: Rasta is alert and oriented, no signs of acute alcohol withdrawal, i.e. no tremors, shakes, diaphoresis, agitation or tachycardia and no hallucinations. He wants to return home tonight. Dr. Cloud saw him and recommended increasing his Keppra to 1500 mg bid. EEG could not be done in house today d/t staffing issues. She indicated she will order as outpatient upon follow up w/ her. Psych Mental Status: mental status grossly normal Speech and Movement: speech and movement normal Mood: congruent mood Affect: normal affect DS: Data Vitals/I&O Vitals and I&O: Vital Signs Temperature 36.1 C L 10/17/22 03:55 Temperature Source Temporal Artery Scan 10/17/22 08:30 Pulse 94 H 10/17/22 13:39 Pulse Rhythm Regular 10/16/22 23:20 Pulse 96 H 10/17/22 13:39 Respiratory Rate 23 10/17/22 13:39 Respiratory Effort Normal, Non-Labored 10/17/22 08:30 Respiratory Depth Normal 10/17/22 08:30 Respiratory Pattern Normal 10/17/22 08:30 Blood Pressure 117/75 10/17/22 13:39 Blood Pressure Mean 85 10/17/22 13:39 Pulse Oximetry 95 10/17/22 13:39 Oxygen Delivery Method Room Air 10/17/22 08:30 Oxygen Flow Rate 0 10/17/22 08:30 Pain Level 0 10/17/22 08:30 Intake & Output 10/16/22 10/17/22 10/17/22 23:59 11:59 23:59 Intake Total 120 / 120 1533.5 / 2533.5 1000 / 2533.5 Output Total 350 / 350 Balance 120 / 120 1183.5 / 2183.5 1000 / 2183.5 Weight 81.5 kg 81.5 kg Intake: IV 120 / 120 1033.5 / 2033.5 1000 / 2033.5 Oral 500 / 500 Output: Urine 350 / 350 Other: Urine Color Dark Brit Urine Appearance Clear Urine Odor Normal Comment No void at this assesment. Voiding Methods Urinal Data Completed and Pending Labs on day of discharge: Labs from last 24 hours 10/17/22 10/17/22 10/17/22 16:02 09:30 09:30 WBC 2.45 L RBC 3.64 L Hgb 12.8 L D Hct 36.4 L MCV 100 H MCH 35.2 H MCHC 35.2 RDW 12.5 Plt Count 125 L MPV 10.6 Immature Gran % Neutrophils % Lymphocytes % Monocytes % Eosinophils % Basophils % Nucleated RBC % Absolute Neutrophils Absolute Lymphocytes Absolute Monocytes Absolute Eosinophils Absolute Basophils Sodium Potassium Chloride Carbon Dioxide Anion Gap BUN Creatinine Est GFR (CKD-EPI 2020) Glucose Calcium Magnesium Total Bilirubin AST ALT Alkaline Phosphatase Total Protein Albumin Urine Color Urine Clarity Urine pH Ur Specific [place] Urine Protein Urine Ketones Urine Blood Urine Nitrite Urine Bilirubin Urine Urobilinogen Ur Leukocyte Esterase Urine Glucose Urine Opiates Screen Urine Methadone Screen Ur Barbiturates Screen Ur Tricyclics Screen Ur Amphetamines Screen U Benzodiazepines Scrn Urine Cocaine Screen Ur THC Screen Ethyl Alcohol < 3.0 143.7 H 10/17/22 10/16/22 10/16/22 09:30 20:15 20:15 WBC RBC Hgb Hct MCV MCH MCHC RDW Plt Count MPV Immature Gran % Neutrophils % Lymphocytes % Monocytes % Eosinophils % Basophils % Nucleated RBC % Absolute Neutrophils Absolute Lymphocytes Absolute Monocytes Absolute Eosinophils Absolute Basophils Sodium 146 H Potassium 3.5 Chloride 107 Carbon Dioxide 28.5 Anion Gap 10.5 BUN 4 L Creatinine 0.5 L Est GFR (CKD-EPI 2020) 128.98 Glucose 103 Calcium 7.7 L Magnesium 1.7 L Total Bilirubin 1.1 H AST 192 H ALT 70 H Alkaline Phosphatase 135 H Total Protein 6.7 Albumin 3.4 Urine Color Yellow Urine Clarity Clear Urine pH 7.0 Ur Specific [place] 1.010 Urine Protein Negative Urine Ketones Negative Urine Blood Negative Urine Nitrite Negative Urine Bilirubin Negative Urine Urobilinogen 1.0 H Ur Leukocyte Esterase Negative Urine Glucose Negative Urine Opiates Screen Negative Urine Methadone Screen Negative Ur Barbiturates Screen Negative Ur Tricyclics Screen Negative Ur Amphetamines Screen Negative U Benzodiazepines Scrn Negative Urine Cocaine Screen Negative Ur THC Screen Negative Ethyl Alcohol 10/16/22 10/16/22 19:37 19:37 WBC 5.58 RBC 4.36 Hgb 15.2 Hct 42.9 MCV 98 H MCH 34.9 H MCHC 35.4 RDW 12.4 Plt Count 161 MPV 10.3 Immature Gran % 0.2 Neutrophils % 34.6 Lymphocytes % 53.9 Monocytes % 9.9 Eosinophils % 0.5 Basophils % 0.9 Nucleated RBC % 0.0 Absolute Neutrophils 1.93 Absolute Lymphocytes 3.01 Absolute Monocytes 0.55 Absolute Eosinophils 0.03 Absolute Basophils 0.05 Sodium 146 H Potassium 2.9 L Chloride 103 Carbon Dioxide 31.0 Anion Gap 12.0 H BUN 4 L Creatinine 0.8 Est GFR (CKD-EPI 2020) 112.61 Glucose 100 Calcium 8.4 L Magnesium 1.4 L Total Bilirubin 1.1 H AST 209 H ALT 80 H Alkaline Phosphatase 166 H Total Protein 8.0 Albumin 4.3 Urine Color Urine Clarity Urine pH Ur Specific [place] Urine Protein Urine Ketones Urine Blood Urine Nitrite Urine Bilirubin Urine Urobilinogen Ur Leukocyte Esterase Urine Glucose Urine Opiates Screen Urine Methadone Screen Ur Barbiturates Screen Ur Tricyclics Screen Ur Amphetamines Screen U Benzodiazepines Scrn Urine Cocaine Screen Ur THC Screen Ethyl Alcohol 460.5 H PFSH All Active Problems (Updated 10/17/22 @ 21:33 by Yoanna Cloud MD) H/O subdural hemorrhage (Acute) Seizure (Acute) Vomiting and diarrhea (Acute) Transaminitis (Acute) Tongue laceration (Acute) Acute hypokalemia (Acute) Hypomagnesemia (Acute) Elevated ETOH level (Acute) History of medication noncompliance (Acute) Medical History Anxiety disorder Depression GERD (gastroesophageal reflux disease) Lipid screening Mood disorder Seizure disorder Surgical History History of appendectomy History of cholecystectomy History of gastric bypass Gastric sleeve Social History Smoking/Tobacco Use Status: Never Smoking risk assessment performed?: Yes Alcohol Intake: current Alcohol Intake frequency: a few times a month Alcohol type: hard liquor Drug use: Never Substance use type: does not use Do you feel safe at home: Yes (living in hotel) Do you feel safe in your relationship?: Yes Time Spent with Patient Time Spent with Patient: <45 minutes Time was spent: preparing to see the patient(eg.review tests), ordering medications,tests, procedures, referring, communicating with other health urgent care physician assistant (Dr. Cloud), counseling the patient and care coordination
[2022-10-17] MEDS: levETIRAcetam 500 MG TAB 1500 MG PO (19:18)
== END 2022-10-17 19:30 | disposition home or self-care (01) | DRG 101 ==
LOC: ER 22:51 → ICU 23:06
PROVIDERS: Internal Medicine; Registered Nurse Emergency; Admitting Provider Family Medicine; Emergency Provider Student in an Organized Health Care Education/Training Program; PCP Physician Assistant; Visit Provider Family Medicine
DX: G40.909 Epilepsy, unspecified, not intractable, without status epilepticus (principal); K21.9 Gastro-esophageal reflux disease without esophagitis; F41.9 Anxiety disorder, unspecified; E83.42 Hypomagnesemia; E87.6 Hypokalemia; F10.229 Alcohol dependence with intoxication, unspecified; R74.01 Elevation of levels of liver transaminase levels; Z98.84 Bariatric surgery status; T42.6X6A Underdosing of other antiepileptic and sedative-hypnotic drugs, initial encounter; Y90.8 Blood alcohol level of 240 mg/100 ml or more; Z87.820 Personal history of traumatic brain injury; Z79.899 Other long term (current) drug therapy
CPT/HCPCS: 36415; 80053; 80307; 85027; 93005; J1650; 70450; 71045; 80320; 81003; 83735; 85025; 93010; 99223; 99232; 99239; J1953; J2060; J2405; J3480

== ENCOUNTER 2023-01-10 11:47 | Emergency (ER) | payer MEDICAID, SELFPAY ==
[2023-01-10 11:54] VITALS: BP 128/97; PULSE 125; RESP 25; TEMP 37.7; O2SAT 98
--- NOTE | 2023-01-10 13:15 | DI.RAD_ITS ---
Exam(s) XR HIP RT COMPLETE AP PELVIS EXAM: XR HIP RT COMPLETE AP PELVIS CLINICAL HISTORY: Fall, right hip pain. TECHNIQUE: 2D digital imaging was performed of the right hip. Two images were obtained. AP pelvis a nd lateral right hip views were obtained. COMPARISON: No exams were available for comparison FINDINGS: BONES: No acute fracture is present. No bony destructive lesion is seen. JOINTS: No dislocation present. SOFT TISSUE: Normal. IMPRESSION: Unremarkable radiographs of the right hip. Unremarkable radiographs of the pelvis. DATA REPOSITORY: RADIATION DOSE DELIVERED:
--- NOTE | 2023-01-10 13:15 | DI.CT_ITS ---
Exam(s) CT HEAD WO EXAM: CT HEAD WO CLINICAL HISTORY: Fall yesterday, LOC, [place]. TECHNIQUE: Imaging Protocol: Axial computed tomography images with coronal and sagittal reformatted images were created and reviewed COMPARISON: CT CT HEAD WO from 10/16/2022 FINDINGS: The examination is limited due to patient motion artifact. Ventricles and Extra axial spaces: Normal in size and morphology for the patient's age. Hemorrhage: None. Cerebral parenchyma: Normal. Midline shift: None. Brainstem/Cerebellum: Normal. Calvarium: Normal. Visualized Paranasal sinuses/Mastoids: Clear. Soft Tissues: Unremarkable. IMPRESSION: 1. No acute intracranial process. 2. Findings were discussed with the emergency department at 2:39 p.m. on 01/10/2023. RADIATION DOSE DELIVERED: 766mGy.cm Total DLP DATA REPOSITORY: All CT scans at this facility are submitted to the National Radiology Data Registry (NRDR) Dose Index Registry (DIR) with the [employer] ([employer]). RADIATION OPTIMIZATION: All CT scans at this facility use at least one of these dose optimization te chniques: automated exposure control; mA and/or kV adjustment per patient size (includes targeted exa ms where dose is matched to clinical indication); or iterative reconstruction.
--- NOTE | 2023-01-10 13:20 | W.ED.GENAD ---
Discharge Plan Disposition Patient Disposition: Home Condition: Improving Discharge Details Clinical Impression: Alcohol withdrawal syndrome, Hypomagnesemia Primary Care Provider: Shekhar Lanza ED Provider: Francia Whiteside Home Meds and New Rx's Prescriptions: New chlordiazepoxide HCl 25 mg capsule 25 mg PO Q6-12H PRN (Reason: alcohol withdrawal) Qty: 11 0RF Rx Instructions: Day 1:Take one tab 4 times a day as needed for symptoms. Day 2: Take one tab 3 times a day as needed. Day 3: Take one tab twice daily as needed. Then take one tab daily as needed x 2 days. No Action escitalopram oxalate [Lexapro] 10 mg tablet 10 mg PO DAILY zolpidem 10 mg tablet 10 mg PO QHS Patient Comments: TAKE ONE TABLET BY MOUTH AT BEDTIME levetiracetam [Keppra] 1,000 mg tablet 1,500 mg PO BID Qty: 270 3RF potassium 20 mg Tablet,Chewable 20 mg PO DAILY omeprazole 40 mg Capsule,Delayed Release(Dr/Ec) 40 mg PO DAILY magnesium citrate 125 mg capsule 125 mg PO DAILY Qty: 30 0RF Discharge Instructions Instructions: Alcohol Withdrawal (ED), Hypomagnesemia (ED) Additional Instructions: Please follow-up as discussed with a trampoline team coach. [facility] with [facility]. Take the Librium as instructed and as needed for symptoms. If you do not have symptoms you do not need to take the medication. Do not drink alcohol with the Librium. This may make you sleepy. Hold for any increased or moderate sedation. Follow up with primary care provider in 3-5 days. Return to ED sooner if any worsening or concerns. Increase oral fluids. May also take the nausea medication as prescribed as needed for vomiting. Please stay away from Tylenol. Please take Ibuprofen with food every 4-6 hours as needed for pain and swelling. Referrals: [facility] [Outside] - 3 days Shekhar Lanza [Primary Care Provider] - 3 days Discharge Data Discharge Date/Time-TO BE ENTERED AT DEPARTURE: 01/10/23 17:07 Medical Decision Making 42-year-old male presents to the ER with chief complaint of alcohol withdrawal symptoms. Patient last drink alcohol approximately 48 hours ago. He does have tremors noted to his upper and lower extremities he is complaining of nausea and vomiting bile with mild headache seeing tracers and spots. Denies any chest pain no diarrhea. Initial CIWA score calculated approximately 11. He is on Keppra he did take it this morning. He is complaining of nausea. He also reports that he fell yesterday he reports that he blacked out so unsure if he hit his head he does have bruising noted to his right arm. He is moving his right arm within normal limits. Denies any neck or back pain no chest pain. He is also complaining of some right hip pain pain with ambulation. CBC shows no leukocytosis, red blood cells 4.23, MCV MCH elevated, CMP shows an anion gap of 12.9 BUN to creatinine 0.5 which is low, magnesium 1.3 which is low patient is on a magnesium supplement however he has been vomiting. Bilirubin 1.9 AST is 168 ALT 126 alk phos is 231. Patient given 1 mg of Ativan IV, normal saline 1 L and Zofran 4 mg. Initial CIWA score 11. He is currently on Keppra. As per HPI. He reports that he is going to call the [facility] today for rehab. CT head without contrast ordered due to fall with loss of consciousness yesterday and hip and pelvis x-ray. 1559: assistant field hockey coach called Pamela Weems will come to speak with patient. He reports that he did speak with [facility] he has an appointment on the . I did discuss Librium taper with him and his mother who is at bedside they are comfortable going home with this. At this time he is not tachycardic blood pressure within normal limits. He reports feeling somewhat better after the milligram of Ativan. We will also send him home with some Zofran. This text was generated using [employer] system, please disregard any oddities of phrase or misspellings. Medical Records Medical records reviewed: Yes I reviewed the patient's medical records. Imaging Data Radiologic Study: Imaging: CT Scan Radiologist's impression: CLINICAL HISTORY: ? Fall yesterday, LOC, WEISS. ? TECHNIQUE:? Imaging Protocol: Axial computed tomography images with coronal and sagittal reformatted images were created and reviewed COMPARISON:? CT CT HEAD WO from 10/16/2022 FINDINGS: The examination is limited due to patient motion artifact. Ventricles and Extra axial spaces: Normal in size and morphology for the patient's age. Hemorrhage: None. Cerebral parenchyma: Normal. Midline shift: None. Brainstem/Cerebellum: Normal. Calvarium: Normal. Visualized Paranasal sinuses/Mastoids: Clear. Soft Tissues: Unremarkable. IMPRESSION: 1. No acute intracranial process.? 2. Findings were discussed with the emergency department at 2:39 p.m. on 01/10/2023. Radiologic Study #2: Imaging: X-Ray Radiologist's impression: EXAM:? XR HIP RT COMPLETE ? AP PELVIS CLINICAL HISTORY: ? Fall, right hip pain.? TECHNIQUE:? 2D digital imaging was performed of the right hip. Two images were obtained.? AP pelvis and lateral right hip? views were obtained. COMPARISON:? No exams were available for comparison FINDINGS: BONES: No acute fracture is present. No bony destructive lesion is seen. JOINTS: No dislocation present. SOFT TISSUE: Normal. IMPRESSION: Unremarkable radiographs of the right hip. Unremarkable radiographs of the pelvis. Lab Data Lab results reviewed: Yes I reviewed the patient's lab results. Labs: Laboratory Tests Range/Units 01/10/23 01/10/23 14:00 14:00 WBC (4.4-10.8) 10^3/uL 5.92 RBC (4.36-5.78) 10^6/uL 4.23 L Hgb (13.5-17.5) g/dL 14.7 Hct (40.0-50.0) % 41.6 MCV (80-95) fL 98 H MCH (27.0-33.0) pg 34.8 H MCHC (32.0-36.0) % 35.3 RDW (11.8-14.1) % 13.2 Plt Count (130-400) 10^3/uL 297 MPV (8.0-11.0) fL 9.7 Immature Gran % 0.2 Neutrophils % 70.8 Lymphocytes % 15.5 Monocytes % 12.2 Eosinophils % 0.5 Basophils % 0.8 Nucleated RBC % (0.0-0.3) % 0.0 Absolute Neutrophils (1.2-6.7) 10^3/uL 4.19 Absolute Lymphocytes (1.2-3.4) 10^3/uL 0.92 L Absolute Monocytes (0.1-0.8) 10^3/uL 0.72 Absolute Eosinophils (0.0-0.7) 10^3/uL 0.03 Absolute Basophils (0.0-0.2) 10^3/uL 0.05 Sodium (136-145) mmol/L 137 Potassium (3.5-5.1) mmol/L 3.5 Chloride (98-107) mmol/L 102 Carbon Dioxide (21.0-32.0) mmol/L 22.1 Anion Gap (3-11) mmol/L 12.9 H BUN (7-18) mg/dL 2 L Creatinine (0.70-1.30) mg/dL 0.5 L Est GFR (CKD-EPI 2020) (mL/min/1.73m2) 128.98 Glucose (74-106) mg/dL 97 Calcium (8.5-10.1) mg/dL 8.7 Magnesium (1.8-2.4) mg/dL 1.3 L Total Bilirubin (0.2-1.0) mg/dL 1.9 H AST (15-37) U/L 168 H ALT (16-63) U/L 126 H Alkaline Phosphatase (46-116) U/L 231 H Total Protein (6.4-8.2) g/dL 7.2 Albumin (3.4-5.0) g/dL 3.7 HPI General Mode of arrival: ambulatory. Date/Time Provider Initiated Documentation: 01/10/23 12:01. Limitations to Documentation: no limitations. Information obtained by: patient, RN notes reviewed and old records reviewed. HPI Narrative: 42-year-old male presents to the ER with chief complaint of alcohol withdrawal symptoms. Patient last drink alcohol approximately 48 hours ago. He does have tremors noted to his upper and lower extremities he is complaining of nausea and vomiting bile with mild headache seeing tracers and spots. Denies any chest pain no diarrhea. Initial CIWA score calculated approximately 11. He is on Keppra he did take it this morning. He is complaining of nausea. He also reports that he fell yesterday he reports that he blacked out so unsure if he hit his head he does have bruising noted to his right arm. He is moving his right arm within normal limits. Denies any neck or back pain no chest pain. He is also complaining of some right hip pain pain with ambulation. Related Data Home Medications Medication Instructions Recorded Confirmed omeprazole 40 mg capsule,delayed 40 mg PO DAILY 07/13/20 01/10/23 release magnesium citrate 125 mg capsule 125 mg PO DAILY #30 caps 10/17/22 01/10/23 escitalopram oxalate 10 mg tablet 10 mg PO DAILY 12/13/22 01/10/23 (Lexapro) levetiracetam 1,000 mg tablet 1,500 mg PO BID #270 tabs 12/13/22 01/10/23 (Keppra) zolpidem 10 mg tablet 10 mg PO QHS 12/13/22 01/10/23 chlordiazepoxide HCl 25 mg capsule 25 mg PO Q6-12H PRN alcohol 01/10/23 withdrawal #11 caps potassium 20 mg chewable tablet 20 mg PO DAILY 01/10/23 01/10/23 Previous Rx's Medication Instructions Recorded magnesium citrate 125 mg capsule 125 mg PO DAILY #30 caps 10/17/22 levetiracetam 1,000 mg tablet 1,500 mg PO BID #270 tabs 12/13/22 (Keppra) chlordiazepoxide HCl 25 mg capsule 25 mg PO Q6-12H PRN alcohol 01/10/23 withdrawal #11 caps Allergies Allergy/AdvReac Type Severity Reaction Status Date / Time No Known Allergies Allergy Unverified 01/10/23 11:52 General Stated Complaint: Fall/Non TraumaCriteria EMIL: 3 Review of Systems All systems reviewed & are unremarkable except as noted in HPI and below Constitutional Constitutional: Reports as per HPI and Reports headache(s) ENT Ears, Nose, Mouth, and Throat: Reports headache(s) and Reports disequilibrium Gastrointestinal Gastrointestinal: Denies diarrhea, Reports nausea and Reports vomiting Neurologic Neurologic: Reports as per HPI, Reports headache(s), Reports other visual disturbances and Reports disequilibrium PFSH All Active Problems (Updated 01/10/23 @ 16:11 by Francia Whiteside NP) Alcohol withdrawal syndrome (Acute) H/O subdural hemorrhage (Acute) Seizure (Acute) Vomiting and diarrhea (Acute) Transaminitis (Acute) Tongue laceration (Acute) Hypomagnesemia (Acute) Elevated ETOH level (Acute) History of medication noncompliance (Acute) Medical History Anxiety disorder Depression GERD (gastroesophageal reflux disease) Lipid screening Mood disorder Seizure disorder Surgical History History of appendectomy History of cholecystectomy History of gastric bypass Gastric sleeve Social History Smoking/Tobacco Use Status: Never Smoking risk assessment performed?: Yes Alcohol Intake: current Alcohol Intake frequency: 3 or more drinks per day Alcohol type: hard liquor Drug use: Never Substance use type: does not use Housing: house Do you feel safe at home: Yes (living in hotel) Do you feel safe in your relationship?: Yes Exam Narrative Exam Narrative: Constitutional: Alert and oriented x3. Appears stated age. Normal body habitus. Head: Normocephalic, no trauma. Eyes: Pupils PERRL, Red reflex noted, EOM's intact. Eyelids symmetrical without lesions, discharge, or swelling. ENT: Bilateral TM's WNL, External ear normal to inspection, no mastoid TTP, swelling, or erythema, Nasal turbinates WNL, no nasal discharge. Normal dentition, Posterior pharynx WNL, no exudate. Chest: RRR, Normal S1, S2, distal pulses intact. Resp: Lungs clear to auscultation bilaterally, no wheezes, rales, or rhonchi. Abdomen: Soft, non-distended, Normoactive bowel sounds all 4 quads. Musculoskeletal: 5/5 strength to all four extremities. Skin: No suspicious rashes or lesions. Capillary refill less than 2 sec. he does have a healing contusion noted to his right dorsal forearm full range of motion noted. Neurologic: Cranial nerves II-XII intact. Alert and oriented x 3. Motor: No deficits noted. Sensory: Intact bilaterally all 4 extremities. Tremors noted upper extremities and lower extremities upon initial presentation. Hematologic/Lymphatic: No ecchymosis, no lymphadenopathy. Course Vital Signs Vital signs: Vital Signs Temperature 37.7 C H 01/10/23 11:54 Pulse 125 H 01/10/23 11:54 Respiratory Rate 25 H 01/10/23 11:54 Blood Pressure 128/97 H 01/10/23 11:54 Pulse Oximetry 98 01/10/23 11:54 Temperature 37.7 C H 01/10/23 11:54 Temperature Source Temporal Artery Scan 01/10/23 11:54 Pulse 125 H 01/10/23 11:54 Respiratory Rate 25 H 01/10/23 11:54 Respiratory Effort Normal 01/10/23 12:02 Blood Pressure 128/97 H 01/10/23 11:54 Blood Pressure Position Sitting 01/10/23 11:54 Pulse Oximetry 98 01/10/23 11:54 Oxygen Delivery Method Room Air 01/10/23 11:54 Oxygen Flow Rate 0 01/10/23 11:54 Pain Level 8 01/10/23 11:54 PAWSS Have you Been Recently Intoxicated or Drunk Within the Last 30 days?: Yes Have you Ever Experienced Previous Episodes of Alcohol Withdrawal?: Yes Have you ever Experienced Withdrawal Seizures?: No Have you ever Experienced Delirium Tremens(DT)s?: Yes Have you ever undergone Alcohol Rehabilitation Treatment (i.e, inpt ot outpatient treatment programs)?: No Have you ever Experienced Blackouts?: Yes Have you ever Combined Alcohol with other Downers within the last 90 days?: No Have you ever Combined Alcohol with any other Substance of Abuse during the last 90 days?: No Result: 4
[2023-01-10] MEDS: LORazepam 1 MG TAB PO/SL (14:06)
[2023-01-10] MEDS: Ondansetron 4 MG/2 ML VIAL IVP (14:06)
[2023-01-10 14:08] LABS: Abs Immature Grans 0.01 10^3/uL (0.0-0.06); Absolute Basophil Count 0.05 10^3/uL (0.0-0.2); Absolute Eosinophil Count 0.03 10^3/uL (0.0-0.7); Absolute Lymphocyte Count 0.92 10^3/uL (1.2-3.4); Absolute Monocyte Count 0.72 10^3/uL (0.1-0.8); Absolute Neutrophil Count 4.19 10^3/uL (1.2-6.7); Basophils % 0.8; Eosinophils % 0.5; HCT 41.6 % (40.0-50.0); HGB 14.7 g/dL (13.5-17.5); Immature Grans % 0.2; Lymphocytes % 15.5; MCH 34.8 pg (27.0-33.0); MCHC 35.3 % (32.0-36.0); MCV 98 fL (80-95); MPV 9.7 fL (8.0-11.0); Monocytes % 12.2; Neutrophils % 70.8; Platelet Count 297 10^3/uL (130-400); RBC 4.23 10^6/uL (4.36-5.78); RDW 13.2 % (11.8-14.1); RDW-SD 47.5 fL; WBC 5.92 10^3/uL (4.4-10.8)
[2023-01-10] MEDS: Normal Saline 1,000 ML 1000 ML IV (14:15)
[2023-01-10 14:23] LABS: ALT 126 U/L (16-63); AST 168 U/L (15-37); Albumin 3.7 g/dL (3.4-5.0); Alkaline Phosphatase 231 U/L (46-116); Anion Gap 12.9 mmol/L (3-11); BUN 2 mg/dL (7-18); Bilirubin, Total 1.9 mg/dL (0.2-1.0); CO2 22.1 mmol/L (21.0-32.0); CREATININE 0.5 mg/dL (0.70-1.30); Calcium 8.7 mg/dL (8.5-10.1); Chloride 102 mmol/L (98-107); Estimated GFR 128.98 (mL/min/1.73m2); Glucose 97 mg/dL (74-106); Magnesium 1.3 mg/dL (1.8-2.4); Potassium 3.5 mmol/L (3.5-5.1); Sodium 137 mmol/L (136-145); Total Protein 7.2 g/dL (6.4-8.2)
[2023-01-10] MEDS: MAGNESIUM SULFATE 1 GM/100 ML BAG IVPB (15:10)
[2023-01-10 15:52] LABS: *AMPHETAMINES SCREEN URINE Negative (Negative); *BARBITURATES SCREEN URINE Negative (Negative); *BENZODIAZEPINES SCREEN URINE Negative (Negative); Cannabinoids THC Negative (Negative); Cocaine Screen,Urine Negative (Negative); METHADONE URINE SCREEN Negative (Negative); OPIATES URINE SCREEN Negative (Negative)
[2023-01-10 15:54] LABS: Tricyclic Antidepressants Negative (Negative)
[2023-01-10 16:58] VITALS: BP 125/90; PULSE 107; RESP 16; O2SAT 982
[2023-01-10] MEDS: Ondansetron O.D.T. 4 MG TABEF, 3 TABS/BTL PO (17:04)
== END 2023-01-10 17:07 | disposition home or self-care (01) ==
PROVIDERS: Emergency Provider Registered Nurse Emergency; PCP Physician Assistant
DX: R55 Syncope and collapse (principal); F10.130 Alcohol abuse with withdrawal, uncomplicated; E83.42 Hypomagnesemia; G40.909 Epilepsy, unspecified, not intractable, without status epilepticus; Z98.84 Bariatric surgery status; Z79.899 Other long term (current) drug therapy
CPT/HCPCS: 80053; 80307; 96361; 96374; 96375; 99284; 70450; 73502; 83735; 85025; J2405; J3475

== ENCOUNTER 2023-02-24 10:22 | Emergency (ER) | payer MEDICAID, SELFPAY ==
[2023-02-24] VITALS (31 sets, daily range): BP systolic 121–149; BP diastolic 85–109; PULSE 85–115; RESP 20; TEMP 36.5; O2SAT 82–99
--- NOTE | 2023-02-24 10:30 | DI.CT_ITS ---
Exam(s) CT BRAIN CTA EXAM: CT BRAIN CTA CLINICAL HISTORY: Hallucinations. TECHNIQUE: Imaging Protocol: Axial CT angiography was performed with multi-slice acquisition and mu lti-planar and/or 3D reconstructions. CONTRAST MATERIAL: Intravenous: Omnipaque 350 contrast volume:85 mL COMPARISON: CT CT HEAD WO from 01/10/2023 FINDINGS: CT Head W and w/O: Ventricles and Extra axial spaces: Normal in size and morphology for the patient's age. Hemorrhage: None. Cerebral parenchyma: Normal. Midline shift: None. Brainstem/Cerebellum: Normal. Calvarium: Normal. Visualized Paranasal sinuses/Mastoids: Clear. Soft Tissues: Unremarkable. Enhancement: Unremarkable. CTA Brain W: Internal Carotid Arteries: No aneurysm, occlusion or significant stenosis. Anterior Cerebral Arteries: Right: No aneurysm, occlusion or significant stenosis. Left: No aneurysm, occlusion or significant stenosis. Middle Cerebral Arteries: Right: No aneurysm, occlusion or significant stenosis. Left: No aneurysm, occlusion or significant stenosis. Posterior cerebral Arteries: Right: No aneurysm, occlusion or significant stenosis. Left: No aneurysm, occlusion or significant stenosis. Vertebral Arteries: Right: No aneurysm, occlusion or significant stenosis. There is a prominent right posterior communic ating artery. This is a normal variant. Left: No aneurysm, occlusion or significant stenosis. Basilar Artery: No aneurysm, occlusion or significant stenosis. IMPRESSION: 1. No evidence of large vessel occlusion or significant stenosis on the CT angiography of the head. 2. No acute intracranial process. RADIATION DOSE DELIVERED: 1,929.46mGy.cm Total DLP DATA REPOSITORY: All CT scans at this facility are submitted to the National Radiology Data Registry (NRDR) Dose Index Registry (DIR) with the [employer] (ACR). RADIATION OPTIMIZATION: All CT scans at this facility use at least one of these dose optimization te chniques: automated exposure control; mA and/or kV adjustment per patient size (includes targeted exa ms where dose is matched to clinical indication); or iterative reconstruction.
[2023-02-24] MEDS: Normal Saline 1,000 ML 1000 ML IV (10:58)
[2023-02-24 11:01] LABS: Abs Immature Grans 0.01 10^3/uL (0.0-0.06); Absolute Basophil Count 0.03 10^3/uL (0.0-0.2); Absolute Eosinophil Count 0.03 10^3/uL (0.0-0.7); Absolute Lymphocyte Count 1.35 10^3/uL (1.2-3.4); Absolute Monocyte Count 0.64 10^3/uL (0.1-0.8); Absolute Neutrophil Count 3.04 10^3/uL (1.2-6.7); Basophils % 0.6; Eosinophils % 0.6; HCT 37.4 % (40.0-50.0); HGB 13.5 g/dL (13.5-17.5); Immature Grans % 0.2; Lymphocytes % 26.5; MCH 33.5 pg (27.0-33.0); MCHC 36.1 % (32.0-36.0); MCV 93 fL (80-95); MPV 9.9 fL (8.0-11.0); Monocytes % 12.5; Neutrophils % 59.6; Platelet Count 155 10^3/uL (130-400); RBC 4.03 10^6/uL (4.36-5.78); RDW 12.4 % (11.8-14.1); RDW-SD 42.9 fL
[2023-02-24 11:08] LABS: Ammonia 44 umol/L (11-32)
[2023-02-24 11:13] LABS: ALT 42 U/L (16-63); AST 65 U/L (15-37); Albumin 3.9 g/dL (3.4-5.0); Alkaline Phosphatase 118 U/L (46-116); Anion Gap 10.3 mmol/L (3-11); BUN 9 mg/dL (7-18); CO2 26.7 mmol/L (21.0-32.0); CREATININE 0.7 mg/dL (0.70-1.30); Calcium 8.8 mg/dL (8.5-10.1); Chloride 99 mmol/L (98-107); Estimated GFR 116.52 (mL/min/1.73m2); Glucose 132 mg/dL (74-106); Magnesium 1.1 mg/dL (1.8-2.4); Sodium 136 mmol/L (136-145); Total Protein 7.3 g/dL (6.4-8.2)
[2023-02-24 11:14] LABS: ETHANOL BLOOD < 3.0 mg/dL (<10)
[2023-02-24 11:15] LABS: Potassium 2.9 mmol/L (3.5-5.1)
[2023-02-24] MEDS: Normal Saline - Diluent 50 ML VIAL IJ (11:19)
[2023-02-24] MEDS: Normal Saline Flush 10 ML SYR IVP (11:20)
[2023-02-24] MEDS: Omnipaque 350 MG/ML 100 ML BTL IJ (11:22)
[2023-02-24] MEDS: Potassium Chloride 20 MEQ TABCR 40 MEQ PO (11:50)
[2023-02-24] MEDS: MAGNESIUM SULFATE 4 GM/100 ML BAG IVPB (11:50)
--- NOTE | 2023-02-24 11:51 | ED.GENADUL_ITS ---
Discharge Plan Disposition Patient Disposition: Home Discharge Details Clinical Impression: Hallucination, visual, Hypomagnesemia, Hypokalemia Primary Care Provider: Shekhar Lanza ED Provider: Armando Cooley Home Meds and New Rx's Prescriptions: New magnesium oxide [MgO] 400 mg (241.3 mg magnesium) tablet 400 mg PO DAILY Qty: 14 0RF potassium chloride 20 mEq tablet,ER particles/crystals 20 meq PO DAILY Qty: 7 0RF Continued escitalopram oxalate [Lexapro] 10 mg tablet 10 mg PO DAILY levetiracetam [Keppra] 1,000 mg tablet 1,500 mg PO BID Qty: 270 3RF chlordiazepoxide HCl 25 mg capsule 25 mg PO Q6-12H PRN (Reason: alcohol withdrawal) Qty: 11 0RF Rx Instructions: Day 1:Take one tab 4 times a day as needed for symptoms. Day 2: Take one tab 3 times a day as needed. Day 3: Take one tab twice daily as needed. Then take one tab daily as needed x 2 days. omeprazole 40 mg Capsule,Delayed Release(Dr/Ec) 40 mg PO DAILY Held zolpidem 10 mg tablet 10 mg PO QHS Hold Instructions: Until follow-up with primary care provider Patient Comments: TAKE ONE TABLET BY MOUTH AT BEDTIME Discontinued potassium 20 mg Tablet,Chewable 20 mg PO DAILY magnesium citrate 125 mg capsule 125 mg PO DAILY Qty: 30 0RF Discharge Instructions Instructions: Hypokalemia (ED), Hypomagnesemia (ED) Additional Instructions: At this time it is recommended that you hold both your sertraline and your Ambien as they may be causing your hallucinations. Continue to monitor your symptoms and if you have any new or significant worsening of your condition retu rn to the emergency department for reassessment. It is important that you follow-up with your primary care provider for recheck of your symptoms and any further medication adjustments as needed and recheck of your labs given that you had low magnesium and potassium. Referrals: Shekhar Lanza [Primary Care Provider] - 1 week Discharge Data Discharge Date/Time-TO BE ENTERED AT DEPARTURE: 02/24/23 15:39 Medical Decision Making Patient presenting to the emergency department for chief complaint of visual hallucinations. He states that these have been going on for the past 3 days. Patient denies all other symptoms and states that he has been alcohol free for the past month, has not had any other drugs of abuse, was started on sertraline 2 weeks ago that has caused some diarrhea but otherwise has been taking all of his other meds as prescribed with no other changes noted. Patient denies any chest pain shortness of breath cold symptoms, severe anxiety or psychiatric complaints. Patient has no suicidal or homicidal ideations and states that hallucinations are only visual. Patient has past medical history of alcoholism but again just finished rehab does have history of anxiety and subdural hemorrhage. Physical exam is unremarkable for any focal findings. We will plan on checking patient's labs including toxicology screen and CT imaging of the head. Pending results will give IV fluids Reviewed patient's labs and CBC is overall nondiagnostic, CMP does show low potassium at 2.9, magnesium at 1.1 which we will replete IV and oral repletion for the potassium. Patient does have elevated bilirubin of 2.0 which is near his patient's baseline, AST is 65 and alk phos is 118 again all which have been elevated in the past. Ammonia is slightly elevated at 44 but I do not feel this is the direct cause of patient's hallucinations. Patient has no alcohol noted in system at this time. CT imaging of the head showed no acute findings. Still pending urinalysis and UDS Pending results did review patient's medications and did note that the on the sertraline he has also been taking Ambien. There is a potential interaction between these medications causing a slower metabolism of the Ambien. I did call and speak to the hospitalist in regards to potential observation of the patient while holding his medication. After full discussion of the case they recommended that patient be discharged with cessation of the sertraline and Ambien and monitoring symptoms with return precautions. Discussed this with patient and patient was agreeable to this plan of care. Was unable to obtain urinalysis or UDS but I do not feel that this is directly contributory to his hallucinations. Patient does state that he has family at home and that he feels safe in that environment. After discussion of diagnosis and plan of care patient has no further needs, questions, or concerns and states clear understanding to return to the emergency department for any worsening symptoms. This documentation was generated using [employer] system, please disregard any oddities of phrase or misspellings. Imaging Data Radiologic Study: Imaging: CT Scan Radiologist's impression: Exam(s) PROCEDURE INFORMATION: Exam: CTA Head With Contrast, Arteriography Exam date and time: 02/24/2023 11:30 AM Age: 42 years old Clinical indication: Other: Hallucinations TECHNIQUE: Imaging protocol: Computed tomographic angiography of the head with contrast. Exam focused on the arteries. 3D rendering (Not supervised by radiologist): MIP and/or 3D reconstructed images were created by the technologist. Contrast material: OMNI 350; Contrast volume: 85 ml; Contrast route: INTRAVENOUS (IV); COMPARISON: CT HEAD WO 01/10/2023 2:07 PM FINDINGS: ANTERIOR CIRCULATION: Right internal carotid artery: Intracranial segment is patent with no significant stenosis. No aneurysm. Ophthalmic artery identified. Prominent right PCOM Right middle cerebral artery: No occlusion or significant stenosis. No aneurysm. Right anterior cerebral artery: No occlusion or significant stenosis. No aneurysm. Left internal carotid artery: Intracranial segment is patent with no significant stenosis. No aneurysm. Left middle cerebral artery: No occlusion or significant stenosis. No aneurysm. Left anterior cerebral artery: No occlusion or significant stenosis. No aneurysm. POSTERIOR CIRCULATION: Right vertebral artery: No occlusion or significant stenosis. No aneurysm. Left vertebral artery: No occlusion or significant stenosis. No aneurysm. Basilar artery: No occlusion or significant stenosis. No aneurysm. Superior cerebellar arteries identified. Right posterior cerebral artery: No occlusion or significant stenosis. No aneurysm. Prominent right PCOM, small right P1 segment. Left posterior cerebral artery: No occlusion or significant stenosis. No aneurysm. There are no findings to suggest acute dural sinus thrombosis. Brain: Ventricles, sulci are within normal limits, unchanged. There is no evidence of hemorrhage. There is no mass or shift. There is no acute cortical or major vascular territory infarct. Cerebral ventricles: No significant ventricular enlargement/hydrocephalus.. Bones/joints: Unremarkable. No acute fracture. Soft tissues: Unremarkable. IMPRESSION: No acute findings No large vessel stenosis or occlusion. Lab Data Lab results reviewed: Yes I reviewed the patient's lab results. HPI General Mode of arrival: ambulatory . Date/Time Provider Initiated Documentation: 02/24/23 10:23 . Limitations to Documentation: no limitations . Information obtained by: patient and RN notes reviewed . History of Present Illness 42 year old M presents to the emergency department with the chief complaint of Visual hallucinations, described as moderate and severe, Patient started experiencing this day(s) (3) and it has been constant. No relieving factors improve symptom(s), No exacerbating factors reported . Patient notes no other symptoms.. Patient did receive the following treatments prior to arrival, none Related Data Home Medications Medication Instructions Recorded Confirmed omeprazole 40 mg capsule,delayed 40 mg PO DAILY 07/13/20 02/24/23 release escitalopram oxalate 10 mg tablet 10 mg PO DAILY 12/13/22 02/24/23 (Lexapro) levetiracetam 1,000 mg tablet 1,500 mg PO BID #270 tabs 12/13/22 02/24/23 (Keppra) zolpidem 10 mg tablet 10 mg PO QHS 12/13/22 02/24/23 chlordiazepoxide HCl 25 mg capsule 25 mg PO Q6-12H PRN alcohol 01/10/23 02/24/23 withdrawal #11 caps magnesium oxide 400 mg (241.3 mg 400 mg PO DAILY #14 tabs 02/24/23 magnesium) tablet (MgO) potassium chloride 20 mEq 20 meq PO DAILY #7 tabs 02/24/23 tablet,extended release(part/cryst) Previous Rx's Medication Instructions Recorded levetiracetam 1,000 mg tablet 1,500 mg PO BID #270 tabs 12/13/22 (Keppra) chlordiazepoxide HCl 25 mg capsule 25 mg PO Q6-12H PRN alcohol 01/10/23 withdrawal #11 caps magnesium oxide 400 mg (241.3 mg 400 mg PO DAILY #14 tabs 02/24/23 magnesium) tablet (MgO) potassium chloride 20 mEq 20 meq PO DAILY #7 tabs 02/24/23 tablet,extended release(part/cryst) Allergies Allergy/AdvReac Type Severity Reaction Status Date / Time No Known Allergies Allergy Unverified 01/10/23 11:52 General Stated Complaint: GenMedical EMIL: 3 Review of Systems Constitutional Constitutional: Denies chills and Denies fever(s) ENT Ears, Nose, Mouth, and Throat: Denies neck pain Cardiovascular Cardiovascular: Denies chest pain and Denies dyspnea Respiratory Respiratory: Denies dyspnea Gastrointestinal Gastrointestinal: Reports diarrhea (After starting sertraline) Musculoskeletal Musculoskeletal: Denies back pain, Denies myalgias, Denies muscle cramps and Denies neck pain Neurologic Neurologic: Denies paresthesias Psychiatric Psychiatric: Reports as per HPI, Denies anxiety, Denies paranoia, Reports visual hallucinations, Reports hallucinations, Denies tactile hallucinations, Denies homicidal ideation and Denies suicidal ideation PFSH All Active Problems (Updated 02/24/23 @ 15:09 by Armando Cooley NP) Hallucination, visual (Acute) Hypokalemia (Acute) H/O subdural hemorrhage (Acute) Seizure (Acute) Vomiting and diarrhea (Acute) Transaminitis (Acute) Tongue laceration (Acute) Hypomagnesemia (Acute) Elevated ETOH level (Acute) History of medication noncompliance (Acute) Medical History Anxiety disorder Depression GERD (gastroesophageal reflux disease) Lipid screening Mood disorder Seizure disorder Surgical History History of appendectomy History of cholecystectomy History of gastric bypass Gastric sleeve Social History Smoking/Tobacco Use Status: Never Smoking risk assessment performed?: Yes Alcohol Intake: current Alcohol Intake frequency: 3 or more drinks per day Alcohol type: hard liquor Drug use: Never Substance use type: does not use Housing: house Do you feel safe at home: Yes (living in hotel) Do you feel safe in your relationship?: Yes Exam Const General: cooperative, healthy appearing, no acute distress and well groomed Orientation: alert, awake and oriented x3 HENMT Head: normal to inspection Ears: hearing grossly normal bilaterally and TM's normal bilaterally Mouth: oral mucosae normal and moist mucous membranes Throat: posterior oropharynx normal Eyes Visual Contreras: normal visual contreras by confrontation Alignment and Position: alignment normal Periorbital: periorbital findings normal Eyelids: eyelids normal Sclera: sclerae normal Cornea: corneas normal Pupils: PERRL EOM: EOM intact bilaterally Neck Neck: normal visual inspection, full ROM and no meningeal signs Resp Effort & Inspection: normal respiratory effort and able to speak in complete sentences Auscultation: clear to auscultation bilaterally Cardio Rate: regular rate Rhythm: regular rhythm Heart Sounds: S1 normal and S2 normal Neuro General: patient alert, patient awake, patient oriented x3, gait normal, tone normal, moves all extremities, CN's II-XI intact bilaterally and not confused Cognition: normal cognition Speech: speech normal Motor: muscle tone normal throughout, strength 5/5 throughout, no pronator drift, no movement abnormalities noted and no fasciculations Sensory Exam: no sensory deficits noted Coordination: [id number] test normal, Does not sway with eyes open, rapid alternating movement UE normal and rapid alternating movement LE normal Course Vital Signs Vital signs: Vital Signs Temperature 36.5 C 02/24/23 10:24 Pulse 115 H 02/24/23 10:24 Respiratory Rate 20 02/24/23 10:24 Blood Pressure 141/109 H 02/24/23 10:24 Pulse Oximetry 97 02/24/23 10:24 Temperature 36.5 C 02/24/23 10:24 Pulse 115 H 02/24/23 10:24 Respiratory Rate 20 02/24/23 10:24 Respiratory Effort Normal 02/24/23 10:56 Respiratory Depth Normal 02/24/23 10:56 Respiratory Pattern Normal 02/24/23 10:56 Blood Pressure 141/109 H 02/24/23 10:24 Pulse Oximetry 97 02/24/23 10:24 Oxygen Delivery Method Room Air 02/24/23 10:24 Oxygen Flow Rate 0 02/24/23 10:24 Lab/Test Results Lab/Test Results: Laboratory Tests Range/Units 02/24/23 02/24/23 02/24/23 10:40 10:53 10:53 WBC (4.4-10.8) 10^3/uL RBC (4.36-5.78) 10^6/uL Hgb (13.5-17.5) g/dL Hct (40.0-50.0) % MCV (80-95) fL MCH (27.0-33.0) pg MCHC (32.0-36.0) % RDW (11.8-14.1) % Plt Count (130-400) 10^3/uL MPV (8.0-11.0) fL Immature Gran % Neutrophils % Lymphocytes % Monocytes % Eosinophils % Basophils % Nucleated RBC % (0.0-0.3) % Absolute Neutrophils (1.2-6.7) 10^3/uL Absolute Lymphocytes (1.2-3.4) 10^3/uL Absolute Monocytes (0.1-0.8) 10^3/uL Absolute Eosinophils (0.0-0.7) 10^3/uL Absolute Basophils (0.0-0.2) 10^3/uL Sodium Cancelled 136 Potassium Cancelled 2.9 L Chloride Cancelled 99 Carbon Dioxide Cancelled 26.7 Anion Gap Cancelled 10.3 BUN Cancelled 9 Creatinine Cancelled 0.7 Est GFR (CKD-EPI 2020) Cancelled 116.52 Glucose Cancelled 132 H Calcium Cancelled 8.8 Magnesium Cancelled 1.1 L Total Bilirubin Cancelled 2.0 H AST Cancelled 65 H ALT Cancelled 42 Alkaline Phosphatase Cancelled 118 H Ammonia (11-32) umol/L 44 H Total Protein Cancelled 7.3 Albumin Cancelled 3.9 Ethyl Alcohol (<10) mg/dL < 3.0 Range/Units 02/24/23 10:53 WBC (4.4-10.8) 10^3/uL 5.10 RBC (4.36-5.78) 10^6/uL 4.03 L Hgb (13.5-17.5) g/dL 13.5 Hct (40.0-50.0) % 37.4 L MCV (80-95) fL 93 MCH (27.0-33.0) pg 33.5 H MCHC (32.0-36.0) % 36.1 H RDW (11.8-14.1) % 12.4 Plt Count (130-400) 10^3/uL 155 MPV (8.0-11.0) fL 9.9 Immature Gran % 0.2 Neutrophils % 59.6 Lymphocytes % 26.5 Monocytes % 12.5 Eosinophils % 0.6 Basophils % 0.6 Nucleated RBC % (0.0-0.3) % 0.0 Absolute Neutrophils (1.2-6.7) 10^3/uL 3.04 Absolute Lymphocytes (1.2-3.4) 10^3/uL 1.35 Absolute Monocytes (0.1-0.8) 10^3/uL 0.64 Absolute Eosinophils (0.0-0.7) 10^3/uL 0.03 Absolute Basophils (0.0-0.2) 10^3/uL 0.03 Sodium Potassium Chloride Carbon Dioxide Anion Gap BUN Creatinine Est GFR (CKD-EPI 2020) Glucose Calcium Magnesium Total Bilirubin AST ALT Alkaline Phosphatase Ammonia (11-32) umol/L Total Protein Albumin Ethyl Alcohol (<10) mg/dL
--- NOTE | 2023-02-24 12:02 | DI.VRAD_ITS ---
PROCEDURE INFORMATION: Exam: CTA Head With Contrast, Arteriography Exam date and time: 02/24/2023 11:30 AM Age: 42 years old Clinical indication: Other: Hallucinations TECHNIQUE: Imaging protocol: Computed tomographic angiography of the head with contrast. Exam focused on the arteries. 3D rendering (Not supervised by radiologist): MIP and/or 3D reconstructed images were created by the technologist. Contrast material: OMNI 350; Contrast volume: 85 ml; Contrast route: INTRAVENOUS (IV); COMPARISON: CT HEAD WO 01/10/2023 2:07 PM FINDINGS: ANTERIOR CIRCULATION: Right internal carotid artery: Intracranial segment is patent with no significant stenosis. No aneurysm. Ophthalmic artery identified. Prominent right PCOM Right middle cerebral artery: No occlusion or significant stenosis. No aneurysm. Right anterior cerebral artery: No occlusion or significant stenosis. No aneurysm. Left internal carotid artery: Intracranial segment is patent with no significant stenosis. No aneurysm. Left middle cerebral artery: No occlusion or significant stenosis. No aneurysm. Left anterior cerebral artery: No occlusion or significant stenosis. No aneurysm. POSTERIOR CIRCULATION: Right vertebral artery: No occlusion or significant stenosis. No aneurysm. Left vertebral artery: No occlusion or significant stenosis. No aneurysm. Basilar artery: No occlusion or significant stenosis. No aneurysm. Superior cerebellar arteries identified. Right posterior cerebral artery: No occlusion or significant stenosis. No aneurysm. Prominent right PCOM, small right P1 segment. Left posterior cerebral artery: No occlusion or significant stenosis. No aneurysm. There are no findings to suggest acute dural sinus thrombosis. Brain: Ventricles, sulci are within normal limits, unchanged. There is no evidence of hemorrhage. There is no mass or shift. There is no acute cortical or major vascular territory infarct. Cerebral ventricles: No significant ventricular enlargement/hydrocephalus.. Bones/joints: Unremarkable. No acute fracture. Soft tissues: Unremarkable. IMPRESSION: No acute findings No large vessel stenosis or occlusion. Dictated and Authenticated by: Dayna Lockhart MD. Ordering:MITCHEL Roberts MD
--- NOTE | 2023-02-24 15:25 | NUR.NOTE ---
Pt referred to Primary Care due to Hallucinations, Low Magnesium, and Low Potassium. Would like Pt to be seen within a week.
== END 2023-02-24 15:39 | disposition home or self-care (01) ==
PROVIDERS: Emergency Provider Nurse Practitioner Family; PCP Physician Assistant
DX: R44.1 Visual hallucinations (principal); E87.6 Hypokalemia; E83.42 Hypomagnesemia
CPT/HCPCS: 36415; 70496; 80053; 96361; 96365; 99285; 80320; 82140; 83735; 85025; 99284; J3475; J3490

== ENCOUNTER 2023-05-09 21:26 | Inpatient (IN) | payer MEDICAID, SELFPAY ==
--- NOTE | 2023-05-09 21:15 | RT.EKG_ITS ---
APPROVED REPORT Exam: Resting ECG Reason for Exam: seizure Patient Location: E HR:141 bpm ECG Measurements Heart Rate 141 AXIS NJ 126 P 40 QRSd 90 QRS -18 QT 303 T 151 QTc 463 Conclusion Sinus tachycardia...rate> 99 Inferior infarct, old...Q >35mS, II III aVF Nonspecific T abnormalities, lateral leads...T <-0.10mV, I aVL V5 V6
[2023-05-09 21:25] VITALS: BP 147/94; PULSE 146; RESP 16; TEMP 36.6; O2SAT 97
[2023-05-09 21:30] VITALS: PULSE 139; RESP 33; O2SAT 100
[2023-05-09 21:31] VITALS: BP 147/90; PULSE 140; PULSE 141; RESP 22; O2SAT 99
[2023-05-09 21:36] VITALS: BP 132/88; PULSE 133; PULSE 136; RESP 16; O2SAT 97
--- NOTE | 2023-05-09 21:41 | ED.GENADUL_ITS ---
HPI <Fernando Kyle MD - Last Filed: 05/10/23 22:37> General Stated Complaint: Seizure EMIL: 2 Date/Time Provider Initiated Documentation: 05/09/23 21:41. HPI Narrative: Patient presents emergency department after a tonic-clonic seizure. Patient states that he takes Keppra for seizures but states that he stopped drinking alcohol 2 days ago which she drinks a bottle of vodka daily. Reports he is very tremulous and thinks he had at this 3 weeks of alcohol withdrawal Related Data Home Medications Medication Instructions Recorded Confirmed omeprazole 40 mg capsule,delayed 40 mg PO DAILY 07/13/20 05/09/23 release levetiracetam 1,000 mg tablet 1,500 mg (1.5 x 1,000 mg) PO BID 12/13/22 05/09/23 (Keppra) #270 tabs magnesium oxide 400 mg (241.3 mg 400 mg PO DAILY #14 tabs 02/24/23 05/09/23 magnesium) tablet (MgO) potassium chloride 20 mEq 20 meq PO DAILY #7 tabs 02/24/23 05/09/23 tablet,extended release(part/cryst) sertraline 100 mg tablet 100 mg PO DAILY 03/14/23 05/09/23 trazodone 50 mg tablet 50 mg PO QHS #30 tabs 03/14/23 05/09/23 Previous Rx's Medication Instructions Recorded levetiracetam 1,000 mg tablet 1,500 mg (1.5 x 1,000 mg) PO BID 12/13/22 (Keppra) #270 tabs magnesium oxide 400 mg (241.3 mg 400 mg PO DAILY #14 tabs 02/24/23 magnesium) tablet (MgO) potassium chloride 20 mEq 20 meq PO DAILY #7 tabs 02/24/23 tablet,extended release(part/cryst) trazodone 50 mg tablet 50 mg PO QHS #30 tabs 03/14/23 Allergies Allergy/AdvReac Type Severity Reaction Status Date / Time No Known Allergies Allergy Unverified 05/09/23 21:32 Review of Systems <Fernando Kyle MD - Last Filed: 05/10/23 22:37> Narrative: Review of Systems: Constitutional: No fevers, chills, sweats Eye: No recent visual problems ENT: No ear pain, nasal congestion, sore throat Respiratory: No shortness of breath, cough Cardiovascular: No Chest pain, palpitations, syncope Gastrointestinal: No nausea, vomiting, diarrhea Genitourinary: No hematuria Hebert/Lymph: Negative for bruising tendency, swollen lymph glands Endocrine: Negative for excessive thirst, excessive hunger Musculoskeletal: No back pain, neck pain, joint pain, muscle pain, decreased range of motion Integumentary: No rash, pruritus, abrasions Neurologic: Alert & oriented X 4 Psychiatric: No anxiety, depression PFSH <Fernando Kyle MD - Last Filed: 05/10/23 22:37> All Active Problems (Updated 05/10/23 @ 12:35 by Silvia Swenson MD) Rhabdomyolysis (Acute) Discharge planning issues (Acute) DVT prophylaxis (Acute) Hypokalemia (Acute) Hypomagnesemia (Acute) Alcohol withdrawal (Acute) H/O subdural hemorrhage (Acute) Seizure (Acute) Vomiting and diarrhea (Acute) Transaminitis (Acute) Tongue laceration (Acute) Hypomagnesemia (Acute) Elevated ETOH level (Acute) History of medication noncompliance (Acute) Medical History Mood disorder GERD (gastroesophageal reflux disease) Lipid screening Seizure disorder Anxiety disorder Depression Surgical History History of cholecystectomy History of appendectomy History of gastric bypass Gastric sleeve Social History Smoking/Tobacco Use Status: Never Smoking risk assessment performed?: Yes Alcohol Intake: current Alcohol Intake frequency: 3 or more drinks per day Alcohol type: hard liquor Drug use: Never Substance use type: does not use Housing: apartment Do you feel safe at home: Yes (living in hotel) Do you feel safe in your relationship?: Yes PAWSS <Fernando Kyle MD - Last Filed: 05/10/23 22:37> Have you Been Recently Intoxicated or Drunk Within the Last 30 days?: Yes Have you Ever Experienced Previous Episodes of Alcohol Withdrawal?: Yes Have you ever Experienced Withdrawal Seizures?: Yes Have you ever Experienced Delirium Tremens(DT)s?: Yes Have you ever undergone Alcohol Rehabilitation Treatment (i.e, inpt ot outpatient treatment programs)?: Yes Have you ever Experienced Blackouts?: Yes Have you ever Combined Alcohol with other Downers within the last 90 days?: No Have you ever Combined Alcohol with any other Substance of Abuse during the last 90 days?: No Positive Blood Alcohol level on Presentation? [PCS.BAL]: No Evidence of Increased Autonomic Activity (i.e. HR>120, tremor, sweating, agitation, nausea)?: Yes Result: 7 <Nader Willis MD - Last Filed: 05/10/23 07:30> Result: 7 Exam <Fernando Kyle MD - Last Filed: 05/10/23 22:37> Narrative Exam Narrative: Exam; vitals signs as reported above normal Constitutional; In no acute distress, afebrile General: cooperative, healthy appearing, comfortable and no acute distress HEENT: Head: normal to inspection, no palpable skull fracture and normocephalic atraumatic Eyes: : appearance normal, both eyes and all related structures EOM intact b ilaterally Pupils: PERRL : conjunctiva normal Direct ophthalmoscopy: normal light reflex, normal conjunctiva, normal visual acuity Ears: Normal TM, normal external canal Nose: normal no rhinorreha Neck no JVD, supple non tender Neck: normal visual inspection, full ROM and no lymphadenopathy Chest: normal inspection of the chest Respiratory : normal respiratory effort and able to speak in complete sentences no wheezing no rales Cardio Rate: Tachycardic rate, rhythm: regular rhythm normal heart sounds S1 and S2 no murmurs, gallops, or rubs GI : normal to inspection, normal bowel sounds, soft, non tender, non distended, no organomegaly Back/Spine/ no CVA tenderness Thoracic/Lumbar Spine: no tenderness or deformities Skin no rashes or lesions Neuro: patient alert oriented x 4 and no meningeal signs, very tremulous cranial Nerves: CN's II-XI intact bilaterally, Cognition: normal cognition, Speech: speech normal, Gait: normal gait, Depp tendon reflexes normal 2+ muscle strength 5/5 bilaterally Extremities, no edema, full range of motion, normal strength Course <Fernando Kyle MD - Last Filed: 05/10/23 22:37> Vital Signs Vital signs: Vital Signs Temperature 36.6 C 05/09/23 21:25 Pulse 146 H 05/09/23 21:25 Respiratory Rate 16 05/09/23 21:25 Blood Pressure 147/94 H 05/09/23 21:25 Pulse Oximetry 97 05/09/23 21:25 Temperature 36.6 C 05/09/23 21:25 Temperature Source Temporal Artery Scan 05/09/23 21:25 Pulse 136 H 05/09/23 21:36 Pulse 133 H 05/09/23 21:36 Respiratory Rate 16 05/09/23 21:36 Respiratory Effort Normal 05/09/23 21:30 Blood Pressure 132/88 05/09/23 21:36 Blood Pressure Mean 99 05/09/23 21:36 Blood Pressure Position Sitting 05/09/23 21:25 Pulse Oximetry 97 05/09/23 21:36 Oxygen Delivery Method Room Air 05/09/23 21:25 Oxygen Flow Rate 0 05/09/23 21:25 Pain Level 0 05/09/23 21:25 Medical Decision Making <Fernando Kyle MD - Last Filed: 05/10/23 22:37> 7: 28 patient remained stable overnight. Loaded with Librium, given another dose of Ativan to IV. Tremors and mild agitation resolving. Sleeping comfortably. Medical Records Medical records reviewed: Yes I reviewed the patient's medical records. <Nader Willis MD - Last Filed: 05/10/23 07:30> 7: 28 patient remained stable overnight. Loaded with Librium, given another dose of Ativan to IV. Tremors and mild agitation resolving. Sleeping comfortably. Discharge Plan Disposition Patient Disposition: Admit to [facility] Condition: Fair Discharge Details Clinical Impression: Alcohol withdrawal, Seizure, Hypomagnesemia, Hypokalemia Admit Date/Time: 05/10/23 08:05 Admit Provider: Silvia Swenson Attending Provider: Silvia Swenson Primary Care Provider: Shekhar Lanza ED Provider: Yovany Smith Discharge Data Discharge Date/Time-TO BE ENTERED AT DEPARTURE: 05/10/23 11:56 Medical Decision Making <Fernando Kyle MD - Last Filed: 05/10/23 22:37> Medical Decision Making MDM: Summary: Patient drinks vodka daily who comes in after he stopped drinking complaining of tremors and states he had a seizure. Patient had labs done he was hypokalemic hypomagnesemic received Ativan for the CIWA scale of 11 and will be admitted to the hospital for alcohol withdrawal syndrome Data Review Analysis All the data on this patient was reviewed by me including laboratory and imaging studies as well as bedside studies performed by me Independent review of Studies Imaging Lab: Labs show hypomagnesemia and hypokalemia Risk Stratification: Patient high risk of alcohol withdrawal syndrome who will be admitted for continuation of alcohol withdrawal therapy Differential Diagnosis: 1. Alcohol withdrawal 2. Delirium tremens 3. Warnicke's encephalopathy 4. Seizure disorder 5. Alcohol withdrawal seizure Consultants: I spoke with the hospitalist who will make sure the patient gets stabilized in the ER and then will be admitted to the ICU or better to the regular che Shared disposition: Patient and mom understand disposition and agree that he needs to be hospitalized. Impression:
[2023-05-09 21:55] LABS: Abs Immature Grans 0.03 10^3/uL (0.0-0.06); HCT 42.8 % (40.0-50.0); HGB 14.9 g/dL (13.5-17.5); MCH 34.4 pg (27.0-33.0); MCHC 34.8 % (32.0-36.0); MCV 99 fL (80-95); MPV 10.3 fL (8.0-11.0); Platelet Count 207 10^3/uL (130-400); RBC 4.33 10^6/uL (4.36-5.78); RDW 13.4 % (11.8-14.1); RDW-SD 49.1 fL; WBC 9.91 10^3/uL (4.4-10.8)
[2023-05-09 22:08] LABS: ETHANOL BLOOD 71.6 mg/dL (<10); Lipase 49 U/L (16-77)
[2023-05-09 22:09] LABS: Absolute Neutrophil Count 4.26 10^3/uL (1.2-6.7)
[2023-05-09 22:10] LABS: Absolute Lymphocyte Count 4.96 10^3/uL (1.2-3.4); Absolute Monocyte Count 0.69 10^3/uL (0.1-0.8); Atypical Lymphocytes % 5
[2023-05-09 22:11] LABS: ALT 92 U/L (16-63); AST 274 U/L (15-37); Albumin 4.4 g/dL (3.4-5.0); Alkaline Phosphatase 173 U/L (46-116); Anion Gap 28.6 mmol/L (3-11); BUN 6 mg/dL (7-18); Bilirubin, Total 1.1 mg/dL (0.2-1.0); CO2 14.4 mmol/L (21.0-32.0); Chloride 96 mmol/L (98-107); Diff Comment Diff Reviewed; Estimated GFR 95.18 (mL/min/1.73m2); Glucose 87 mg/dL (74-106); Magnesium 1.2 mg/dL (1.8-2.4); RBC Morphology Normal; Sodium 139 mmol/L (136-145); Total Protein 7.9 g/dL (6.4-8.2)
[2023-05-09 22:14] LABS: Potassium 2.5 mmol/L (3.5-5.1)
[2023-05-09] MEDS: levETIRAcetam 1,000 MG in Normal Saline 100 ML 400 MG IVPB (22:51)
[2023-05-09] MEDS: POTASSIUM CHLORIDE 10 MEQ/100 ML BAG 100 MEQ IVPB (22:51)
[2023-05-09] MEDS: LORazepam 2 MG/ML VIAL IVP (22:52)
[2023-05-09] MEDS: MULTIVITAMIN 10 ML, THIAMINE 100 MG, FOLIC ACID 1 MG in DEXTROSE 5%-0.45% SALINE 1,000 ML 42 ML IV (22:53)
[2023-05-09] MEDS: MAGNESIUM SULFATE 8.12 MEQ, MULTIVITAMIN 10 ML, THIAMINE 100 MG, FOLIC ACID 1 MG in Nor... 168.867 MG IV (22:53)
[2023-05-09] MEDS: MAGNESIUM SULFATE 1 GM/100 ML BAG IVPB (22:54)
[2023-05-10] VITALS (192 sets, daily range): BP systolic 97–144; BP diastolic 70–112; PULSE 79–192; RESP 0–30; TEMP 36.7–36.9; O2SAT 84–100
[2023-05-10] MEDS: chlordiazePOXIDE 25 MG CAP 50 MG PO (00:25)
[2023-05-10] MEDS: LORazepam 2 MG/ML VIAL IVP (00:25)
[2023-05-10 05:05] LABS: *AMPHETAMINES SCREEN URINE Negative (Negative); *BARBITURATES SCREEN URINE Negative (Negative); *BENZODIAZEPINES SCREEN URINE Negative (Negative); Cannabinoids THC Negative (Negative); Cocaine Screen,Urine Negative (Negative); METHADONE URINE SCREEN Negative (Negative); OPIATES URINE SCREEN Negative (Negative)
[2023-05-10 05:06] LABS: Tricyclic Antidepressants Negative (Negative)
--- NOTE | 2023-05-10 07:45 | DI.CT_ITS ---
Exam(s) CT HEAD WO EXAM: CT HEAD WO CLINICAL HISTORY: Altered mental status history of subdural. TECHNIQUE: Imaging Protocol: Axial computed tomography images with coronal and sagittal reformatted images were created and reviewed COMPARISON: CT CT HEAD WO from 10/16/[address] BRAIN CTA from 02/24/2023 FINDINGS: Ventricles and Extra axial spaces: Normal in size and morphology for the patient's age. Hemorrhage: None. Cerebral parenchyma: Normal. Midline shift: None. Brainstem/Cerebellum: Normal. Calvarium: Normal. Visualized Paranasal sinuses/Mastoids: Clear. Soft Tissues: Unremarkable. IMPRESSION: 1. No acute intracranial process. 2. Findings were discussed with the emergency department at 8:35 a.m. on 05/10/2023. RADIATION DOSE DELIVERED: Total DLP DATA REPOSITORY: All CT scans at this facility are submitted to the National Radiology Data Registry (NRDR) Dose Index Registry (DIR) with the [employer] (ACR). RADIATION OPTIMIZATION: All CT scans at this facility use at least one of these dose optimization te chniques: automated exposure control; mA and/or kV adjustment per patient size (includes targeted exa ms where dose is matched to clinical indication); or iterative reconstruction.
--- NOTE | 2023-05-10 08:00 | DI.US_ITS ---
Exam(s) US ABDOMEN EXAM: US ABDOMEN CLINICAL HISTORY: transaminitis TECHNIQUE: Ultrasound abdomen performed using standard protocol. COMPARISON: CT CT CHEST PE CTA from 07/13/2020 US US ABDOMEN LIMITED from 12/05/2021 FINDINGS: ABDOMINAL AORTA AND IVC: Visualized portions normal caliber. PANCREAS: Normal where visualized. LIVER: There is a nodular contour of the liver. The liver measures 16.4 cm long. There is increased echogenicity of the liver consistent with fatty infiltration. Hepatopedal flow in the Portal Vein. GALLBLADDER:Status post cholecystectomy. BILIARY SYSTEM: Common bile duct measures < 7 mm. No intrahepatic biliary ductal dilation. KIDNEYS: Kidneys are symmetric in size. No evidence of renal calculi. No evidence of hydronephrosis. No renal mass or cyst identified. SPLEEN: Not enlarged. ASCITES: None seen. IMPRESSION: 1. Fatty infiltration of the liver. The liver has a somewhat nodular contour raising the question of hepatic cirrhosis. Please correlate clinically. 2. Status post cholecystectomy. No biliary ductal dilatation. DATA REPOSITORY:
--- NOTE | 2023-05-10 08:02 | ED.PROG_ITS ---
Date of service: 05/10/23 Time of Service: 08:02 Medical Decision Making I received signout on this 42-year-old male pending hospitalization. I spoke with Dr. Swenson from the hospitalist team. He requested a repeat comprehensive metabolic panel which I ordered given marked hypokalemia and hypomagnesemia. Given the patient had bit his tongue I assessed the patient's airway. He had no respiratory distress. No significant tongue swelling. GCS 15. Out of abundance of caution given remote prior history of subdural hemorrhage we will complete a dry CT scan. I have reordered the patient's home sertraline and levetiracetam. Dr. Swenson will place orders to hospitalize. Discharge Plan Disposition Patient Disposition: Admit to [facility] Condition: Fair Discharge Details Clinical Impression: Alcohol withdrawal, Seizure, Hypomagnesemia, Hypokalemia Admit Date/Time: 05/10/23 08:05 Admit Provider: Silvia Swenson Attending Provider: Silvia Swenson Primary Care Provider: Shekhar Lanza ED Provider: Yovany Smith Discharge Data Discharge Date/Time-TO BE ENTERED AT DEPARTURE: 05/10/23 11:56
[2023-05-10] MEDS: levETIRAcetam 500 MG TAB 1500 MG PO ×2 (08:40→20:12)
[2023-05-10] MEDS: Sertraline 100 MG TAB PO (08:41)
[2023-05-10] MEDS: THIAMINE 100 MG in Normal Saline 100 ML 200 MG IVPB (08:41)
[2023-05-10 08:59] LABS: Lab Add On Test DONE
[2023-05-10 09:09] LABS: INR 1.2 (0.9-1.1); Prothrombin Time 12.1 sec (9.1-11.1)
[2023-05-10 09:15] LABS: ALT 78 U/L (16-63); AST 254 U/L (15-37); Albumin 3.8 g/dL (3.4-5.0); Alkaline Phosphatase 132 U/L (46-116); Anion Gap 16.2 mmol/L (3-11); BUN 3 mg/dL (7-18); Bilirubin, Total 1.9 mg/dL (0.2-1.0); CO2 22.8 mmol/L (21.0-32.0); CREATININE 0.7 mg/dL (0.70-1.30); Calcium 7.2 mg/dL (8.5-10.1); Chloride 99 mmol/L (98-107); Estimated GFR 116.52 (mL/min/1.73m2); Glucose 67 mg/dL (74-106); Magnesium 1.5 mg/dL (1.8-2.4); Sodium 138 mmol/L (136-145)
--- NOTE | 2023-05-10 09:15 | RT.EKG_ITS ---
APPROVED REPORT Exam: Resting ECG Reason for Exam: Hypokalemia Patient Location: E HR:90 bpm ECG Measurements Heart Rate 90 AXIS WV 149 P 26 QRSd 101 QRS -11 QT 387 T 9 QTc 474 Conclusion Sinus rhythm...normal P axis, V-rate 60- 99 Normal sinus rhythm at a rate of 90 with left axis deviation no signs of LVH based on voltage criteri a. Interventricular conduction delay QRS 101 ms. WV and QTc within normal limits. Compared to prio r dated yesterday QRS interval has widened slightly. Tachycardia has resolved. Left axis deviation is persistent. QTc is similar. No ischemic changes beyond mild ST segment depressions V3 through V6 . These appear improved compared to prior.
[2023-05-10 09:17] LABS: Potassium 2.8 mmol/L (3.5-5.1)
[2023-05-10 09:26] LABS: Creatine Kinase 3124 U/L (39-308)
--- NOTE | 2023-05-10 11:24 | W.PC.ACHO ---
Registration Status: REG ER Primary Language: Preferred Language: Yi ED Information & Data Chief Complaint Seizure 05/09/23 21:51 Triage Note pt arrives via EMS. EMS 05/09/23 21:25 states pt had 1 minute tonic clonic seizure. pt has hx of tonic clonic seizures and is on keppra. EMS states pt drank 1/3 gallon of vodka. Pt states he has not drank for 2 days. Patient bit tongue. pt incontinent of urine. + tremors, nystagmus. oriented to place, but not date. Medical / Surgical History (Last Reviewed 05/09/23 @ 21:48 by Fernando Kyle MD) Mood disorder GERD (gastroesophageal reflux disease) Lipid screening Seizure disorder Anxiety disorder Depression (Last Reviewed 05/09/23 @ 21:48 by Fernando Kyle MD) History of cholecystectomy History of appendectomy History of gastric bypass Most Recent Vital Signs Temperature 36.6 C 05/09/23 21:25 Temperature Source Temporal Artery Scan 05/09/23 21:25 Pulse 90 05/10/23 06:31 Pulse 93 H 05/10/23 06:40 Respiratory Rate 27 H 05/10/23 06:40 Respiratory Effort Normal, Non-Labored 05/09/23 21:40 Respiratory Depth Normal 05/10/23 05:17 Respiratory Pattern Normal 05/10/23 00:15 Blood Pressure 121/89 05/10/23 06:31 Blood Pressure Mean 98 05/10/23 06:31 Blood Pressure Position Sitting 05/09/23 21:25 Pulse Oximetry 98 05/10/23 06:40 Oxygen Delivery Method Room Air 05/10/23 05:17 Oxygen Flow Rate 0 05/10/23 05:17 Pain Level 0 05/09/23 21:25 Allergies No Known Allergies Allergy (Unverified 05/09/23 21:32) Active Medications Generic Name Dose Route Start Last Admin Trade Name Freq PRN Reason Stop Dose Admin Multivitamins 10 ml/ Thiamine 1,011.2 mls @ 42 mls/hr 05/10/23 08:30 05/10/23 08:19 HCl 100 mg/ Folic Acid 1 mg/ IV 0 mls/hr Dextrose/Sodium Chloride DAILY RICARDO Infusion Lorazepam 0 mg 05/09/23 21:43 05/09/23 22:52 Lorazepam 2 Mg/Ml Vial IVP 3 mg DIRECTED PRN Administration Sertraline HCl 100 mg 05/10/23 08:30 05/10/23 08:41 Sertraline 100 Mg Tab PO 100 mg DAILY RICARDO Administration IV IV Catheter Type [Left Forearm Peripheral IV ] IV Catheter Type [Left Peripheral IV Antecubital] IV Catheter Gauge [Left 20 Forearm] IV Catheter Gauge [Left 18 Antecubital] Diet Orders Category Date Time Status Regular/Normal [DIET] Nutrition 05/10/23 Lunch Active Diagnostics 05/10/23 05/10/23 05/09/23 Range/Units 08:55 04:04 21:30 WBC 9.91 (4.4-10.8) 10^3/uL RBC 4.33 L (4.36-5.78) 10^6/uL Hgb 14.9 (13.5-17.5) g/dL Hct 42.8 (40.0-50.0) % MCV 99 H (80-95) fL MCH 34.4 H (27.0-33.0) pg MCHC 34.8 (32.0-36.0) % RDW 13.4 (11.8-14.1) % Plt Count 207 (130-400) 10^3/uL MPV 10.3 (8.0-11.0) fL Immature Gran % 0.0 Neutrophils % 43.0 Lymphocytes % 45.0 Atypical Lymphs % 5 Monocytes % 7.0 Eosinophils % 0.0 Basophils % 0.0 Nucleated RBC % 0.0 (0.0-0.3) % Absolute Neutrophils 4.26 (1.2-6.7) 10^3/uL Absolute Lymphocytes 4.96 H (1.2-3.4) 10^3/uL Absolute Monocytes 0.69 (0.1-0.8) 10^3/uL Absolute Eosinophils 0.00 (0.0-0.7) 10^3/uL Absolute Basophils 0.00 (0.0-0.2) 10^3/uL RBC Morphology Normal PT 12.1 H (9.1-11.1) sec INR 1.2 H (0.9-1.1) Sodium 138 139 (136-145) mmol/L Potassium 2.8 L* 2.5 L* (3.5-5.1) mmol/L Chloride 99 96 L (98-107) mmol/L Carbon Dioxide 22.8 14.4 L (21.0-32.0) mmol/L Anion Gap 16.2 H 28.6 H (3-11) mmol/L BUN 3 L 6 L (7-18) mg/dL Creatinine 0.7 1.0 (0.70-1.30) mg/dL Est GFR (CKD-EPI 2020) 116.52 95.18 (mL/min/1.73m2) Glucose 67 L 87 (74-106) mg/dL Calcium 7.2 L 8.0 L (8.5-10.1) mg/dL Magnesium 1.5 L 1.2 L (1.8-2.4) mg/dL Total Bilirubin 1.9 H 1.1 H (0.2-1.0) mg/dL AST 254 H 274 H (15-37) U/L ALT 78 H 92 H (16-63) U/L Alkaline Phosphatase 132 H 173 H (46-116) U/L Creatine Kinase 3124 H (39-308) U/L Total Protein 7.0 7.9 (6.4-8.2) g/dL Albumin 3.8 4.4 (3.4-5.0) g/dL Lipase 49 (16-77) U/L Urine Opiates Screen Negative (Negative) Urine Methadone Screen Negative (Negative) Ur Barbiturates Screen Negative (Negative) Ur Tricyclics Screen Negative (Negative) Ur Amphetamines Screen Negative (Negative) U Benzodiazepines Scrn Negative (Negative) Urine Cocaine Screen Negative (Negative) Ur THC Screen Negative (Negative) Ethyl Alcohol 71.6 H (<10) mg/dL Add-On Test Request DONE Intake and Output - 24 Hour Total 05/09/23 21:22 thru 05/10/23 09:10 Intake Total 1840.4 Balance 1840.4 Weight 77.111 kg Intake: IV 1840.4 Falls Risk Assessment History of Falls Previous History 05/09/23 21:40 Contributing Factors Medications 05/09/23 21:40 Ambulatory Aids Independent 05/09/23 21:40 Tubes/Lines W/no contributing factors 05/09/23 21:40 Gait Evaluation No gait disturbance 05/09/23 21:40 Cognition Cognitive impairment 05/09/23 21:40 Fall Total Score 43 12/20/23 21:40 Level of Risk Moderate Risk 05/09/23 21:40 Problems (Last Reviewed 05/09/23 @ 21:48 by Fernando Kyle MD) Hypokalemia (Acute) Hypomagnesemia (Acute) Alcohol withdrawal (Acute) Seizure (Acute) v v v v v v v v v Sending and/or Receiving Nurses: Please use comment section below to note any information pertinent to the patient hand-off not included above. Information / Comments: Report received from: Richelle Cook RN
--- NOTE | 2023-05-10 12:15 | W.PM.HP.N ---
Date of service: 05/10/23 Time of Service: 12:15 Assessment and Plan Assessment and plan (1) Seizure: Status: Acute Assessment and plan: In setting of EtOH w/d but also known medication noncompliance. Resume home keppra. Treat w/ scheduled librium + prn lorazepam Monitor in the ICU. (2) Alcohol withdrawal: Status: Acute Assessment and plan: As above (3) Rhabdomyolysis: Status: Acute Assessment and plan: Due to seizure. Monitor CPK on IVF. (4) Hypokalemia: Status: Acute Assessment and plan: Replete; also replete magnesium (5) Hypomagnesemia: Status: Acute Assessment and plan: Replete (6) Tongue laceration: Status: Acute Assessment and plan: Monitor for airway issues/dysphagia (7) DVT prophylaxis: Status: Acute Assessment and plan: SCDs Chemical DVT ppx is not required in an ambulatory male (w/ history of a subdural hemorrhage) (8) Discharge planning issues: Status: Acute Assessment and plan: Full code Admit to the ICU History of Present Illness History of Present Illness Chief Complaint: seizure Narrative: Mr Canales is a 42 year old male with PMHx of seizure disorder, alcohol abuse w/ h/o alcohol withdrawal seizures in the past, h/o subdural hemorrhage, medication noncompliance who was brought to [facility] ED after a tonic clonic seizures accompanied by an episode of urinary incontinence and a tongue bite. Per ER documentation, the patient usually drinks a bottle of vodka daily (the patient thinks it might be a gallon bottle), but had stopped drinking 2-3 days prior. He also states he ran out of his keppra 3-4 days ago. In the ED, he was loaded with librium and treated with prn lorazepam in the ED. His CIWA score was as high as 21 last night in the ED is now recorded as 4. He does have evidence of both hypokalemia and hypomagnesemia. Hospitalist admission was requested. The patient reports pain in his B calves since the seizure. He also has been noted to be sneezing. He has chronic orange diarrhea. Review of Systems All systems reviewed & are unremarkable except as noted in HPI and below PFSH All Active Problems (Updated 05/10/23 @ 12:35 by Silvia Swenson MD) Rhabdomyolysis (Acute) Discharge planning issues (Acute) DVT prophylaxis (Acute) Hypokalemia (Acute) Hypomagnesemia (Acute) Alcohol withdrawal (Acute) H/O subdural hemorrhage (Acute) Seizure (Acute) Vomiting and diarrhea (Acute) Transaminitis (Acute) Tongue laceration (Acute) Hypomagnesemia (Acute) Elevated ETOH level (Acute) History of medication noncompliance (Acute) Medical History Mood disorder GERD (gastroesophageal reflux disease) Lipid screening Seizure disorder Anxiety disorder Depression Surgical History History of cholecystectomy History of appendectomy History of gastric bypass Gastric sleeve Social History Smoking/Tobacco Use Status: Never Smoking risk assessment performed?: Yes Alcohol Intake: current Alcohol Intake frequency: 3 or more drinks per day Alcohol type: hard liquor Drug use: Never Substance use type: does not use Housing: apartment Do you feel safe at home: Yes (living in hotel) Do you feel safe in your relationship?: Yes Meds Allergies and Home Medications Allergies Allergy/AdvReac Type Severity Reaction Status Date / Time No Known Allergies Allergy Unverified 05/09/23 21:32 Home Medications Medication Instructions Recorded Confirmed Type omeprazole 40 mg capsule,delayed 40 mg PO DAILY 07/13/20 05/09/23 History release levetiracetam 1,000 mg tablet 1,500 mg (1.5 x 1,000 mg) PO BID 12/13/22 05/09/23 Rx (Keppra) #270 tabs magnesium oxide 400 mg (241.3 mg 400 mg PO DAILY #14 tabs 02/24/23 05/09/23 Rx magnesium) tablet (MgO) potassium chloride 20 mEq 20 meq PO DAILY #7 tabs 02/24/23 05/09/23 Rx tablet,extended release(part/cryst) sertraline 100 mg tablet 100 mg PO DAILY 03/14/23 05/09/23 History trazodone 50 mg tablet 50 mg PO QHS #30 tabs 03/14/23 05/09/23 Rx Exam Narrative Exam Narrative: General: Pleasant middle-aged male who is tremulous in bed, A&Ox3, not hallucinating, cooperative, good history provider Neurological: A&Ox3, mildly tremulous, no focal deficits Psychiatric: Appropriate speech pattern/content Skin: Visible skin intact HEENT: Atraumatic, normocephalic, EOMI, MMM, bite on the L lateral tongue without evidence of active bleeding Cardiovascular: RRR, mildly tachycardic, no m/r/g Lungs: CTAB Gastrointestinal: soft, nontender, nondistended Genitourinary: deferred Extremities: no edema BLEs, 2+ pedal pulses B, able to move BLEs Results Imaging Imaging Studies: CT head w/o contrast: 1. No acute intracranial process. US abdomen: 1. Fatty infiltration of the liver. The liver has a somewhat nodular contour raising the question of hepatic cirrhosis. Please correlate clinically. 2. Status post cholecystectomy. No biliary ductal dilatation Labs 05/09/23 21:30 05/10/23 08:55 Labs: Laboratory Results - last 24 hr 05/09/23 05/10/23 05/10/23 21:30 04:04 08:55 WBC 9.91 RBC 4.33 L Hgb 14.9 Hct 42.8 MCV 99 H MCH 34.4 H MCHC 34.8 RDW 13.4 Plt Count 207 MPV 10.3 Immature Gran % 0.0 Neutrophils % 43.0 Lymphocytes % 45.0 Atypical Lymphs % 5 Monocytes % 7.0 Eosinophils % 0.0 Basophils % 0.0 Nucleated RBC % 0.0 Absolute Neutrophils 4.26 Absolute Lymphocytes 4.96 H Absolute Monocytes 0.69 Absolute Eosinophils 0.00 Absolute Basophils 0.00 RBC Morphology Normal PT 12.1 H INR 1.2 H Sodium 139 138 Potassium 2.5 L* 2.8 L* Chloride 96 L 99 Carbon Dioxide 14.4 L 22.8 Anion Gap 28.6 H 16.2 H BUN 6 L 3 L Creatinine 1.0 0.7 Est GFR (CKD-EPI 2020) 95.18 116.52 Glucose 87 67 L Calcium 8.0 L 7.2 L Magnesium 1.2 L 1.5 L Total Bilirubin 1.1 H 1.9 H AST 274 H 254 H ALT 92 H 78 H Alkaline Phosphatase 173 H 132 H Creatine Kinase 3124 H Total Protein 7.9 7.0 Albumin 4.4 3.8 Lipase 49 Urine Opiates Screen Negative Urine Methadone Screen Negative Ur Barbiturates Screen Negative Ur Tricyclics Screen Negative Ur Amphetamines Screen Negative U Benzodiazepines Scrn Negative Urine Cocaine Screen Negative Ur THC Screen Negative Ethyl Alcohol 71.6 H Add-On Test Request DONE Last Vital Signs Temp 36.9 C 05/10/23 11:58 Pulse 96 H 05/10/23 11:58 Resp 18 05/10/23 11:58 BP 137/92 H 05/10/23 11:58 Pulse Ox 99 05/10/23 11:58 PAWSS Have you Been Recently Intoxicated or Drunk Within the Last 30 days?: Yes Have you Ever Experienced Previous Episodes of Alcohol Withdrawal?: Yes Have you ever Experienced Withdrawal Seizures?: No Have you ever Experienced Delirium Tremens(DT)s?: Yes Have you ever undergone Alcohol Rehabilitation Treatment (i.e, inpt ot outpatient treatment programs)?: Yes Have you ever Experienced Blackouts?: Yes Have you ever Combined Alcohol with other Downers within the last 90 days?: No Have you ever Combined Alcohol with any other Substance of Abuse during the last 90 days?: No Positive Blood Alcohol level on Presentation? [PCS.BAL]: Yes Evidence of Increased Autonomic Activity (i.e. HR>120, tremor, sweating, agitation, nausea)?: No Result: 6 Time Spent Time spent with Patient: 55-74 minutes Time was spent: preparing to see the patient(eg.review tests), obtaining and/or reviewing separately otained hiistory, ordering medications,tests, procedures, referring, communicating with other health care transition manager, indepentently interpreting results, counseling the patient and care coordination
[2023-05-10] MEDS: Normal Saline Flush 10 ML SYR IVP ×2 (12:30→20:12)
[2023-05-10] MEDS: Acetaminophen 325 MG TAB PO ×2 (12:41→20:22)
[2023-05-10] MEDS: Potassium Chloride 20 MEQ TABCR PO (12:42)
[2023-05-10] MEDS: Multivitamin TAB 1 TAB PO (12:42)
[2023-05-10] MEDS: LORazepam 1 MG TAB PO/SL ×2 (12:42→20:22)
[2023-05-10] MEDS: Omeprazole 20 MG CAPCR 40 MG PO (12:42)
[2023-05-10] MEDS: POTASSIUM CHLORIDE 20 MEQ/100 ML BAG 50 MEQ IVPB ×2 (12:43→15:45)
[2023-05-10] MEDS: MAGNESIUM SULFATE 4 GM/100 ML BAG IVPB (12:43)
[2023-05-10] MEDS: Thiamine 100 MG TAB PO (12:43)
[2023-05-10] MEDS: Folic Acid 1 MG TAB PO (12:43)
[2023-05-10] MEDS: chlordiazePOXIDE 25 MG CAP PO ×2 (13:47→20:12)
[2023-05-10] MEDS: Potassium Chloride 20 MEQ TABCR 40 MEQ PO (14:21)
[2023-05-10] MEDS: Loperamide 2 MG CAP PO ×2 (14:25→20:22)
[2023-05-10 14:45] LABS: COVID-19 PCR Negative (Negative); Influenza A PCR Negative (Negative); Influenza B PCR Negative (Negative); RSV PCR Negative (Negative)
[2023-05-10 14:46] LABS: Source Nasopharynx
[2023-05-10 15:04] LABS: C Diff PCR Negative (Negative)
[2023-05-10] MEDS: Lactated Ringers 1,000 ML 150 ML IV ×2 (15:45→22:29)
[2023-05-10] MEDS: traZODone 50 MG TAB PO (22:26)
[2023-05-11] VITALS (22 sets, daily range): BP systolic 105–120; BP diastolic 85–97; PULSE 77–132; RESP 14–23; TEMP 36.7; O2SAT 98–100
[2023-05-11] MEDS: Normal Saline Flush 10 ML SYR IVP (00:52)
[2023-05-11] MEDS: LORazepam 1 MG TAB PO/SL (02:06)
--- NOTE | 2023-05-11 04:18 | NUR.NOTE ---
Nursing Note: Patient requested to leave against medical advice earlier @ 0342. Explained to patient that it was very cold outside and he did not have appropriate clothing to leave. Patient had no ride but stated it was a short walk to his apartment [address] Right Antecubital 18 G saline lock was discontinued and dry sterile dressing was applied. Patient was agreeable and signed AMA form. Patient was provided with Sweat pants and Corduroy shirt to protect from the elements. Patient left with his wallet, phone and tobacco sieve operator. Patient did have one pair of black sweat pants that were sent to the laundry earlier in the evening and suggested he could pick them up at the front of house manager after Sunday the 14 of May. Patient was escorted to front door by Hong from Security.
--- NOTE | 2023-05-11 09:45 | DSE_ITS ---
Date of service: 05/11/23 Time of Service: 05:50 DS: Diagnosis Discharge Diagnosis (1) Seizure: Status: Acute Asessment and Plan: Patient restarted on Keppra and hopefully will continue this at home but left AMA without having coordinated care of medication refills. Patient had no seizure activity during his hospital stay. (2) Alcohol withdrawal: Status: Acute Asessment and Plan: Patient was still scoring and received Ativan more than an hour prior to discharge but was awake and ambulating without sedation leaving AMA and not being able to be convinced to stay by nursing staff. (3) Rhabdomyolysis: Status: Acute Asessment and Plan: Lab not followed the patient hydrated during short stay. (4) Hypokalemia: Status: Acute Asessment and Plan: Lab not followed up with the patient on oral potassium at home hopefully to continue off alcohol. (5) Hypomagnesemia: Status: Acute Asessment and Plan: Lab not followed up after repletion with patient hoping to stop alcohol use. (6) Tongue laceration: Status: Acute Asessment and Plan: Stable not requiring intervention surgically during hospital stay. (7) Discharge planning issues: Status: Acute Asessment and Plan: Patient is noncompliant with meds at home and that he did drink alcohol heavily leaving AMA which is a poor prognosis. Discharge Plan Disposition Patient Disposition: Against Medical Advice Condition: Stable Discharge Details Reason For Visit: Alcohol withdrawl seizure Admit Date/Time: 05/10/23 08:05 Admit Provider: Silvia Swenson Attending Provider: Silvia Swenson Primary Care Provider: Shekhar Lanza Hospital Course Hospital Course: This is a 42-year-old gentleman admitted after tonic-clonic seizure at home with incontinence and biting his tongue. He was off his Keppra for chronic seizures for several days as well as had not had his usual gallon of vodka for about 2 days. Is uncertain whether he has separate diagnoses of tonic-clonic seizures and alcohol withdrawal seizures. He is not going to stop drinking. He was being hydrated for rhabdomyolysis and labs were to be done prior to patient signing out AMA stated that he needs to go home to his 14-year-old son. He lives close enough to walk several blocks and despite negotiations with the ICU nurse and general warehouse worker, the patient left AMA. I was being called into the hospital but upon reviewing during my drive with the nurse general warehouse worker, patient was able to state his wishes clearly though he had received Ativan hours prior to discharge and he was not planning to stay despite any further conversation. I did not see the patient prior to his leaving the hospital. He denied care and was made aware of consequences. Any discharge planning was not be able to be performed with patient resisting usual care. He is a full code. Home Meds and New Rx's Prescriptions: Continued levetiracetam [Keppra] 1,000 mg tablet 1,500 mg PO BID Qty: 270 3RF Patient Comments: pt states ran out and last time he took was about 3 days ago 05/09/23 MG sertraline 100 mg tablet 100 mg PO DAILY trazodone 50 mg tablet 50 mg PO QHS Qty: 30 5RF magnesium oxide [MgO] 400 mg (241.3 mg magnesium) tablet 400 mg PO DAILY Qty: 14 0RF potassium chloride 20 mEq tablet,ER particles/crystals 20 meq PO DAILY Qty: 7 0RF omeprazole 40 mg Capsule,Delayed Release(Dr/Ec) 40 mg PO DAILY Discharge Instructions Instructions: Against Medical Advice (DC) Care Plan Goals: AMA Referrals: None,None [ NON-[facility] STAFF PHYSICIAN] - None Activity:: Activity as Tolerated Equipment/Supplies:: No Equipment Needed Diet:: Normal Diet Discharge Orders Discharge Orders: Discharge Order (Routine); Ordered 05/11/23 Ordered By: Blade Ames Discharge Data Discharge Date/Time-TO BE ENTERED AT DEPARTURE: 05/11/23 04:00 Discharge Comment: Patient left AMA, Dr Ames informed @ 03:42 DS: Summary Time Spent with Patient providing and/or coordinating discharge services: Less than 30 minutes Status at Discharge Functional status at discharge: independent ambulation Overall status at discharge: patient is progressing back to baseline Mental Status: other (Refusing advice and further care leaving AMA) Speech and Movement: pressured speech Mood: other (Refusing advice and further care leaving AMA) Affect: irritable affect Exam Narrative Exam Narrative: Patient not examined leaving AMA. Psych Mental Status: other (Refusing advice and further care leaving AMA) Speech and Movement: pressured speech Mood: other (Refusing advice and further care leaving AMA) Affect: irritable affect DS: Data Vitals/I&O Vitals and I&O: Vital Signs Temperature 36.7 C 05/11/23 03:06 Temperature Source Temporal Artery Scan 05/11/23 00:30 Pulse 108 H 05/11/23 01:55 Pulse 132 H 05/11/23 02:50 Respiratory Rate 20 05/11/23 02:50 Respiratory Effort Normal, Non-Labored 05/11/23 00:30 Respiratory Depth Normal 05/11/23 00:30 Respiratory Pattern Normal 05/11/23 00:30 Blood Pressure 105/85 05/11/23 01:55 Blood Pressure Mean 93 05/11/23 01:55 Blood Pressure Position Supine 05/10/23 22:50 Pulse Oximetry 100 05/11/23 03:06 Oxygen Delivery Method Room Air 05/11/23 00:30 Oxygen Flow Rate 0 05/11/23 00:30 Pain Level 0 05/11/23 04:25 Intake & Output 05/10/23 05/10/23 05/11/23 11:59 23:59 11:59 Intake Total 1820.4 / 4500.4 2680 / 4500.4 1628.7 / 1628.7 Patient be coding as well time spent coding CV fever, popping and once aphasia although the pain patient is able to have less limited this okay is acting slightly he does is like to not let me track down okay thank you and is her direct number From the [facility] [id number] and urinating and do not get things done yet patient d oes a review reeducation processing Output Total 1600 / 2200 1250 / 1250 Balance 1820.4 / 2300.4 1080 / 2300.4 378.7 / 378.7 Weight 82.9 kg Intake: IV 1820.4 / 3220.4 1400 / 3220.4 748.7 / 748.7 Oral 1280 / 1280 880 / 880 Output: Urine 1400 / 1999 1250 / 1250 Stool 200 / 200 Other: Urine Color Pale Light Brit Yellow Urine Appearance Clear Clear Urine Odor Normal None Comment mixed with stool-est only Stool Size Small Stool Characteristics Liquid Voiding Methods Bedside Commode Bedside Commode Data Completed and Pending Labs on day of discharge: Labs from last 24 hours 12/22/23 12/21/23 12/21/23 05:35 13:40 13:31 WBC Cancelled RBC Cancelled Hgb Cancelled Hct Cancelled MCV Cancelled MCH Cancelled MCHC Cancelled RDW Cancelled Plt Count Cancelled MPV Cancelled Immature Gran % Cancelled Neutrophils % Cancelled Band Neutrophils % Cancelled Lymphocytes % Cancelled Atypical Lymphs % Cancelled Monocytes % Cancelled Eosinophils % Cancelled Basophils % Cancelled Metamyelocytes % Cancelled Myelocytes % Cancelled Promyelocytes % Cancelled Other Cells % Cancelled Nucleated RBC % Cancelled Absolute Neutrophils Cancelled Absolute Lymphocytes Cancelled Absolute Monocytes Cancelled Absolute Eosinophils Cancelled Absolute Basophils Cancelled RBC Morphology Cancelled Polychromasia Cancelled Hypochromasia Cancelled Poikilocytosis Cancelled Basophilic Stippling Cancelled Anisocytosis Cancelled Microcytosis Cancelled Macrocytosis Cancelled Spherocytes Cancelled Tear Drop Cells Cancelled Ovalocytes Cancelled Stomatocytes Cancelled [place] Bodies Cancelled [place] Cells/Echinocytes Cancelled Acanthocytes (Spur) Cancelled Schistocytes Cancelled Sodium Cancelled Potassium Cancelled Chloride Cancelled Carbon Dioxide Cancelled Anion Gap Cancelled BUN Cancelled Creatinine Cancelled Est GFR (CKD-EPI 2020) Cancelled Glucose Cancelled Calcium Cancelled Magnesium Cancelled Total Bilirubin Cancelled Conjugated Bilirubin Cancelled AST Cancelled ALT Cancelled Alkaline Phosphatase Cancelled Creatine Kinase Cancelled Total Protein Cancelled Albumin Cancelled Stl C.difficile Tox PCR Negative COVID-19 Source Nasopharynx SARS-CoV-2 (PCR) Negative Influenza Type A (PCR) Negative Influenza Type B (PCR) Negative RSV (PCR) Negative PFSH All Active Problems (Updated 05/10/23 @ 12:35 by Silvia Swenson MD) Rhabdomyolysis (Acute) Discharge planning issues (Acute) DVT prophylaxis (Acute) Hypokalemia (Acute) Hypomagnesemia (Acute) Alcohol withdrawal (Acute) H/O subdural hemorrhage (Acute) Seizure (Acute) Vomiting and diarrhea (Acute) Transaminitis (Acute) Tongue laceration (Acute) Hypomagnesemia (Acute) Elevated ETOH level (Acute) History of medication noncompliance (Acute) Medical History Mood disorder GERD (gastroesophageal reflux disease) Lipid screening Seizure disorder Anxiety disorder Depression Surgical History History of cholecystectomy History of appendectomy History of gastric bypass Gastric sleeve Social History Smoking/Tobacco Use Status: Never Smoking risk assessment performed?: Yes Alcohol Intake: current Alcohol Intake frequency: 3 or more drinks per day Alcohol type: hard liquor Drug use: Never Substance use type: does not use Housing: apartment Do you feel safe at home: Yes (living in hotel) Do you feel safe in your relationship?: Yes Time Spent with Patient Time Spent with Patient: <45 minutes Time was spent: preparing to see the patient(eg.review tests), referring, communicating with other health primary care nurse practitioner, indepentently interpreting results and other (Patient left AMA with chart review and review with nurses at discharge as to care plan and limitations with patient advised through health dietary supervisor.)
== END 2023-05-11 04:00 | disposition left against medical advice (07) | DRG 894 ==
LOC: ER 05-10 09:17 → ICU 05-10 11:49
PROVIDERS: Emergency Medicine Emergency Medical Services; Admitting Provider Internal Medicine; Emergency Provider Emergency Medicine; PCP Physician Assistant; Visit Provider Internal Medicine
DX: F10.139 Alcohol abuse with withdrawal, unspecified; M62.82 Rhabdomyolysis; G40.909 Epilepsy, unspecified, not intractable, without status epilepticus; E87.6 Hypokalemia; E83.42 Hypomagnesemia; S01.512A Laceration without foreign body of oral cavity, initial encounter; R74.01 Elevation of levels of liver transaminase levels; Z91.148 Patient's other noncompliance with medication regimen for other reason; R19.7 Diarrhea, unspecified; R11.10 Vomiting, unspecified; K21.9 Gastro-esophageal reflux disease without esophagitis; F41.9 Anxiety disorder, unspecified; F32.A Depression, unspecified
CPT/HCPCS: 00123; 36415; 80048; 80053; 80076; 80307; 82550; 83690; 87493; 87637; 93005; 96365; 96366; 96367; 96368; 96375; 99285; 70450; 76700; 80320; 83735; 85025; 85610; 93010; 99223; 99238; J1953; J2060; J3475; J3480

== ENCOUNTER 2023-07-11 04:06 | Inpatient (IN) | payer MEDICAID, SELFPAY ==
[2023-07-11] VITALS (91 sets, daily range): BP systolic 109–165; BP diastolic 68–107; PULSE 60–98; RESP 4–28; TEMP 35.8–36.9; O2SAT 87–100
--- NOTE | 2023-07-11 04:11 | W.ED.GENAD ---
Discharge Plan Disposition Patient Disposition: Admit to [facility] Discharge Details Clinical Impression: Alcohol intoxication Admit Date/Time: 07/11/23 08:19 Admit Provider: Silvia Swenson Attending Provider: Silvia Swenson Primary Care Provider: Shekhar Lanza ED Provider: Yovany Smith Discharge Data Discharge Date/Time-TO BE ENTERED AT DEPARTURE: 07/11/23 11:21 HPI General Mode of arrival: EMS. Date/Time Provider Initiated Documentation: 07/11/23 04:11. Limitations to Documentation: altered mental status (intoxicated). Information obtained by: patient and EMS. HPI Narrative: Time seen was 4:04 AM. The patient is a 42-year-old male who called EMS requesting detox. The patient is a chronic alcoholic who was brought in by [facility] ambulance. The patient does have a history of a seizure disorder and is on Keppra. According to EMS he lives with his 14-year-old son. Before he called EMS, he called his mother who advised that he called 911. His mother was on her way to his house to care for his son when the ambulance arrived. When EMS arrived they found him lying face down in the hallway. He was awake and able to walk to the stretcher. He was complaining of headache and neck and back pain but did not have any point tenderness step-off or deformity and they did not immobilize his neck prior to arrival. In the field he had a blood sugar of 98 and temperature of 98 ?F. His blood pressure was 144/92. The patient states that he is an alcoholic and drinks vodka about a liter a day and also drinks wine. He tells me that his longest period of sobriety was 30 days. He also states he does have a history of DTs. He tells me he has had an EEG in the past somewhere in [place] but cannot recall the city or hospital. He tells me this is about 2 years ago. He does admit to missing doses of his Keppra. He is complaining of mild neck discomfort but denies any numbness tingling or weakness. He is complaining of low back pain. No bowel or bladder incontinence or retention. No saddle anesthesia. No numbness or tingling. He denies any chest pain or shortness of breath. He denies using illicit drugs. He denies any aggravating or alleviating factors. He denies suicidal or homicidal ideation. Related Data Home Medications Medication Instructions Recorded Confirmed omeprazole 40 mg capsule,delayed 40 mg PO DAILY 07/13/20 07/11/23 release levetiracetam 1,000 mg tablet 1,500 mg (1.5 x 1,000 mg) PO BID 12/13/22 07/11/23 (Keppra) #270 tabs magnesium oxide 400 mg (241.3 mg 400 mg PO DAILY #14 tabs 02/24/23 07/11/23 magnesium) tablet (MgO) potassium chloride 20 mEq 20 meq PO DAILY #7 tabs 02/24/23 07/11/23 tablet,extended release(part/cryst) sertraline 100 mg tablet 100 mg PO DAILY 03/14/23 07/11/23 trazodone 50 mg tablet 50 mg PO QHS #30 tabs 03/14/23 07/11/23 multivitamin (Daily Multi-Vitamin 1 tab PO DAILY 07/11/23 07/11/23 tablet) Previous Rx's Medication Instructions Recorded levetiracetam 1,000 mg tablet 1,500 mg (1.5 x 1,000 mg) PO BID 12/13/22 (Keppra) #270 tabs magnesium oxide 400 mg (241.3 mg 400 mg PO DAILY #14 tabs 02/24/23 magnesium) tablet (MgO) potassium chloride 20 mEq 20 meq PO DAILY #7 tabs 02/24/23 tablet,extended release(part/cryst) trazodone 50 mg tablet 50 mg PO QHS #30 tabs 03/14/23 Allergies Allergy/AdvReac Type Severity Reaction Status Date / Time No Known Allergies Allergy Unverified 05/09/23 21:32 General EMIL: 2 Review of Systems Narrative: see hpi Exam Narrative Exam Narrative: The patient is a well-developed well-nourished male clearly clinically intoxicated and smells of alcohol. Initially he was mildly hypertensive with a blood pressure of 137/101. He is not tachycardic tachypneic or febrile. His room air O2 sat was 98%. I did observe him have several episodes of unresponsiveness that were not associated with tonic-clonic movements. They only lasted a few seconds. During the episodes his eyes were open and but he stopped moving and was staring into space. The nursing staff thought that he stop breathing momentarily but I did not notice any apnea during the short episodes. He did not become cyanotic. He did not appear postictal during the episodes. He was not incontinent of urine or stool. He returned to his baseline within a minute of regaining responsiveness. He did not appear in acute distress. The patient is clearly intoxicated and does not appear to have capacity to make medical decisions. Const General: cooperative, healthy appearing, comfortable, no acute distress, well developed, not diaphoretic and well hydrated Nutritional Appearance: average body habitus and well nourished Orientation: alert, awake, oriented to person, oriented to place and not oriented to time Limitations: altered mental status Other: The patient is clinically intoxicated [facility] Head: normal to inspection, normocephalic and atraumatic Ears: hearing grossly normal bilaterally and external ears normal General nose exam: external nose normal, nares normal and no nasal discharge Face and sinus: normal facial exam, sinuses nontender and face symmetric Mouth: oral mucosae normal, lip normal, tongue normal, oropharynx normal, moist mucous membranes and other (Normal phonation. The patient is handling secretions.) Throat: posterior oropharynx normal and uvula midline Other: No hemotympanum, otorrhea, or rhinorrhea, or Gonsalez sign or raccoon's eyes. Eyes General: appearance normal, both eyes and all related structures Eyelids: eyelids normal Conjunctivae: conjunctivae normal Sclera: sclerae normal Cornea: corneas normal Pupils: PERRL EOM: EOM intact bilaterally and No nystagmus Neck Neck: normal visual inspection, full ROM, no lymphadenopathy, no meningeal signs, trachea midline and supple Lymphatic: no lymphadenopathy noted Other: No midline tenderness, bony crepitus, point tenderness or step-off. Chest Chest: normal inspection of the chest Resp Effort & Inspection: normal respiratory effort, able to speak in complete sentences, no audible wheezes, no nasal flaring, no respiratory distress, no retractions, no stridor, not tachypneic, no tracheal deviation, no use of accessory muscles, No prolonged expiratory phase and other (Normal inspiratory to expiratory ratio.) Auscultation: clear to auscultation bilaterally, no rales, no rhonchi, no wheezes and no rubs Tactile Fremitus: tactile fremitus absent Cardio Jugular venous pressure: no JVD Palpation: normal PMI Rate: regular rate Rhythm: regular rhythm Heart Sounds: S1 normal, S2 normal, no gallops, no murmurs and no rubs GI Inspection: normal to inspection and non-distended Palpation: soft, no hepatosplenomegaly, no guarding and nontender Percussion: normal to percussion Auscultation: normal bowel sounds General: No CVA tenderness Back/Spine/Pelvis Back: no CVA tenderness and No back tenderness Cervical Spine: normal cervical lordosis, cervical ROM normal, No cervical muscular tenderness, No pain with cervical ROM, No cervical spinal tenderness and No step off deformity Thoracic/Lumbar Spine: thoracic and lumbar spine normal to inspection, No thoracic spinal tenderness and No lumbar spinal tenderness Pelvis: no pain with anterior-posterior compression and no pain with lateral compression Skin General skin exam: no rashes or lesions noted, turgor normal, no petechiae, no purpura and other (Skin is normal for ethnicity.) Lesions: no lesions Rashes: no rashes Trauma: no lacerations or abrasions Neuro General: patient awake, not oriented x3 (The patient was not oriented to time and gait was not tested), moves all extremities, no meningeal signs, no focal motor deficits and CN's II-XI intact bilaterally Cranial Nerves: CN's II-XI intact bilaterally, PERRL, accommodation normal, EOM intact bilaterally, no nystagmus, facial strength normal, tongue midline, hearing normal and no nystagmus Motor: muscle tone normal throughout and strength 5/5 throughout Sensory Exam: no sensory deficits noted DTR's: Rt Biceps: 2+, Lt Biceps: 2+, Rt Brachioradialis: 1+, Lt Brachioradialis: 1+, Rt Patellar: 2+, Lt Patellar: 2+, Rt Ankle: 1+ and Lt Ankle: 1+ Plantar Reflexes: Downgoing: bilateral Pupils: Normal pupillary reactivity/response: bilateral Extrem General: normal to inspection, full ROM, capillary refill normal, no clubbing, cyanosis or edema and no calf tenderness Psych Appearance: other (Clinically intoxicated) Speech and Movement: slowed movement and slurred speech Mood: congruent mood Affect: normal affect Attitude: cooperative Thought Process: normal and impoverished Thought Content: no delusions, no hallucinations, no homicidality and suicidality Insight: limited Judgment: limited Course The patient was stable and was signed out to the oncoming provider. Seizure precautions were taken. Medical Decision Making This is an unfortunate 42-year-old male who is a chronic alcoholic who came in requesting detox. He does have a history of DTs as well as a seizure disorder and does take Keppra but by his own admission, has been noncompliant. He presents today requesting detox but will likely require admission because he is not medically clear. He has been having episodes of unresponsiveness lasting several seconds but then returns to baseline. If this is his seizure it is atypical and certainly not tonic-clonic. Because he was found facedown on the ground we will obtain a CT of his head and cervical spine. I will obtain a plain film of his chest and LS-spine to rule out fracture and/or aspiration. We will check his blood work and alcohol level. He will likely require admission. I will give him IV fluids and a banana bag. I will initiate seizure precautions. We will check a CBC to evaluate for leukocytosis anemia and left shift. I will check a comprehensive metabolic panel to evaluate his electrolytes acid-base status, renal function glucose and liver function test. He is certainly a candidate for alcoholic hepatitis given the amount of alcohol he tells me he ingests daily. We will check an alcohol level. Differential Diagnosis Differential Diagnosis: Alcohol intoxication, atypical seizure disorder Medical Records Medical records reviewed: Yes I reviewed the patient's medical records. Imaging Data Radiologic Study: Imaging: X-Ray (Chest) Radiologist's impression: IMPRESSION: No acute pulmonary findings. Radiologic Study #2: Imaging: X-Ray (LS spine) Radiologist's impression: IMPRESSION: 1. No acute fracture detected. 2. Severe chronic L4-L5 degenerative disc disease. Radiologic Study #3: Imaging: CT Scan (head noncon) Radiologist's impression: IMPRESSION: 1. No intracranial sequelae of trauma appreciated. 2. Additional studies dictated separately. Radiologic Study #4: Imaging: CT Scan (c spine non con) Radiologist's impression: IMPRESSION: 1. No cervical spine fracture seen. 2. Additional studies dictated separately. Lab Data Lab results reviewed: Yes I reviewed the patient's lab results. Lab results narrative: Elevated transaminases, acute alcohol intoxication, normal renal function, hypocalcemia ECG Data Attestation: I personally reviewed and interpreted this ECG (s) as follows: Prior ECG tracings: available for review Quality:[facility] Health Related Social Needs: No Data to Display Critical Care Time Critical Care Time Total Critical Care Time: 66 Attestation: This includes time at the bedside, review of labs and radiographs and old records. Review and interpretation of EKG, signout to oncoming provider and multiple reassessments at the bedside. PFSH All Active Problems Alcohol abuse (Chronic) Grief reaction (Acute) Discharge planning issues (Acute) DVT prophylaxis (Acute) Hypocalcemia (Acute) Alcohol withdrawal seizure (Acute) Alcoholic hepatitis (Acute) Macrocytosis (Acute) Alcohol intoxication (Acute) Rhabdomyolysis (Acute) Hypokalemia (Acute) Hypomagnesemia (Acute) Alcohol withdrawal (Acute) H/O subdural hemorrhage (Acute) Seizure (Acute) Vomiting and diarrhea (Acute) Transaminitis (Acute) Tongue laceration (Acute) Hypomagnesemia (Acute) Elevated ETOH level (Acute) History of medication noncompliance (Acute) Medical History Mood disorder GERD (gastroesophageal reflux disease) Lipid screening Seizure disorder Anxiety disorder Depression Surgical History History of cholecystectomy History of appendectomy History of gastric bypass Gastric sleeve Family History Maternal Grandmother Diabetes Maternal Grandfather Diabetes Mother Breast cancer Other Hypertension Social History Smoking/Tobacco Use Status: Never Smoking risk assessment performed?: Yes Alcohol Intake: current Alcohol Intake frequency: 3 or more drinks per day Alcohol type: hard liquor Drug use: Never Substance use type: does not use Housing: apartment Do you feel safe at home: Yes (living in hotel) Do you feel safe in your relationship?: Yes
--- NOTE | 2023-07-11 04:15 | DI.RAD_ITS ---
Exam(s) XR LUMBAR SPINE AP, LAT EXAM: XR LUMBAR SPINE AP, LAT CLINICAL HISTORY: fall back pain. TECHNIQUE: 2D digital imaging was performed. COMPARISON: No exams were available for comparison FINDINGS: 3 views No evidence of fracture, listhesis, or pars defects. There is advanced disc space narrowing at L4-5 level. There is moderate disc space narrowing at L5-S 1. Other disc spaces unremarkable. No scoliosis. No osseous lesions. IMPRESSION: No fractures. Degenerative disc disease. DATA REPOSITORY: RADIATION DOSE DELIVERED:
--- NOTE | 2023-07-11 04:15 | RT.EKG_ITS ---
APPROVED REPORT Exam: Resting ECG Reason for Exam: altered mental status Patient Location: E HR:76 bpm ECG Measurements Heart Rate 76 AXIS ME 154 P 39 QRSd 99 QRS -17 QT 411 T -9 QTc 462 Conclusion Sinus rhythm...normal P axis, V-rate 60- 99 NSR, LAD, Normal intervals, no STEMI, minor changes noted from previous.
--- NOTE | 2023-07-11 04:15 | DI.RAD_ITS ---
Exam(s) XR CHEST 2V PA LATERAL EXAM: XR CHEST 2V PA LATERAL CLINICAL HISTORY: rule out aspiration. TECHNIQUE: 2D digital imaging was performed. COMPARISON: CR,XR XR CHEST 1V IN DI DEPT from 10/16/2022 FINDINGS: 2 views: Heart size is normal. The mediastinum is not widened. Lungs are clear. No infiltrates nor pleural effusions. IMPRESSION: No acute pulmonary findings. DATA REPOSITORY: RADIATION DOSE DELIVERED:
--- NOTE | 2023-07-11 04:17 | DI.CT_ITS ---
Exam(s) CT HEAD CERVICAL SPINE WO EXAM: CT HEAD CERVICAL SPINE WO CLINICAL HISTORY: altered mental status. TECHNIQUE: Imaging Protocol: Axial computed tomography images with coronal and sagittal reformatted images were created and reviewed COMPARISON: CT CT HEAD WO from 05/10/2023 FINDINGS: BRAIN: There are no skull fractures nor fluid in the visualized paranasal sinuses. There is no evidence of intracranial hemorrhage, mass effect, or shift of midline structures. There are no extra-axial fluid collections. The ventricles are not enlarged or shifted and there is no blo od within the ventricular system nor within the basal cisterns. CERVICAL SPINE: There is no evidence of fracture nor listhesis. No significant prevertebral soft tissue swelling. There is no significant facet joint malalignment. No significant osseous lesions evident. IMPRESSION: No acute intracranial findings on this noninfused CT scan of the brain. No evidence of cervical spine fracture, malalignment, nor acute compromise of the cervical spinal can al. RADIATION DOSE DELIVERED: 1,160.21mGy.cm Total DLP DATA REPOSITORY: All CT scans at this facility are submitted to the National Radiology Data Registry (NRDR) Dose Index Registry (DIR) with the [employer] ([employer]). RADIATION OPTIMIZATION: All CT scans at this facility use at least one of these dose optimization te chniques: automated exposure control; mA and/or kV adjustment per patient size (includes targeted exa ms where dose is matched to clinical indication); or iterative reconstruction.
[2023-07-11 04:53] LABS: Absolute Basophil Count 0.07 10^3/uL (0.0-0.2); Absolute Eosinophil Count 0.03 10^3/uL (0.0-0.7); Absolute Lymphocyte Count 3.03 10^3/uL (1.2-3.4); Absolute Monocyte Count 0.56 10^3/uL (0.1-0.8); Absolute Neutrophil Count 0.67 10^3/uL (1.2-6.7); Basophils % 1.6; Eosinophils % 0.7; HCT 39.2 % (40.0-50.0); HGB 13.7 g/dL (13.5-17.5); Lymphocytes % 69.5; MCH 35.1 pg (27.0-33.0); MCHC 34.9 % (32.0-36.0); MCV 101 fL (80-95); MPV 9.6 fL (8.0-11.0); Monocytes % 12.8; Neutrophils % 15.4; Platelet Count 218 10^3/uL (130-400); RDW 13.5 % (11.8-14.1); RDW-SD 50.1 fL; WBC 4.36 10^3/uL (4.4-10.8)
[2023-07-11 05:18] LABS: ALT 170 U/L (16-63); AST 463 U/L (15-37); Albumin 3.2 g/dL (3.4-5.0); Alkaline Phosphatase 178 U/L (46-116); Anion Gap 12.3 mmol/L (3-11); BUN 3 mg/dL (7-18); Bilirubin, Total 0.5 mg/dL (0.2-1.0); CO2 25.7 mmol/L (21.0-32.0); CREATININE 0.6 mg/dL (0.70-1.30); Calcium 7.7 mg/dL (8.5-10.1); Chloride 106 mmol/L (98-107); Estimated GFR 122.07 (mL/min/1.73m2); Glucose 96 mg/dL (74-106); Magnesium 1.5 mg/dL (1.8-2.4); Potassium 3.8 mmol/L (3.5-5.1); Sodium 144 mmol/L (136-145); TSH (W/Ref FT4) 6.51 uIU/mL (0.36-3.74); Total Protein 6.8 g/dL (6.4-8.2)
[2023-07-11 05:22] LABS: ETHANOL BLOOD 434.5 mg/dL (<10)
[2023-07-11 05:24] LABS: Troponin I < 50 ng/L (< or =60)
[2023-07-11 05:27] LABS: Diff Comment Agrees w/ Instrument; RBC Morphology Normal
[2023-07-11 05:42] LABS: FREE T4 0.61 ng/dL (0.76-1.46)
[2023-07-11 06:01] LABS: Bilirubin Negative (Negative); Blood Negative (Negative); Clarity Clear (Clear); Glucose Negative (Negative); Ketones Negative (Negative); Leukocyte Esterase Negative (Negative); Nitrite Negative (Negative); Urobilinogen 0.2 mg/dL (Up to 0.2)
--- NOTE | 2023-07-11 06:04 | DI.VRAD_ITS ---
PROCEDURE INFORMATION: Exam: CT Head Without Contrast Exam date and time: 07/11/2023 4:54 AM Age: 42 years old Clinical indication: Injury or trauma; Blunt trauma (contusions or hematomas); With loss of consciousness; Not specified; Injury date: 07/11/23; Injury details: Fall, altered, loc TECHNIQUE: Imaging protocol: Computed tomography of the head without contrast. Radiation optimization: All CT scans at this facility use at least one of these dose optimization techniques: automated exposure control; mA and/or kV adjustment per patient size (includes targeted exams where dose is matched to clinical indication); or iterative reconstruction. COMPARISON: CT HEAD WO 05/10/2023 8:19 AM FINDINGS: Limitations: Mild motion artifact. Brain: No intracranial hemorrhage appreciated. No significant focal mass effect or significant midline shift. Generalized parenchymal volume loss. Mild chronic ischemic changes. Cerebral ventricles: No disproportionate ventriculomegaly. Paranasal sinuses: No air-fluid levels seen. Mastoid air cells: No mastoid effusion. Bones/joints: No acute cranial vault fracture seen. Soft tissues: No acute findings. Vasculature: Arterial calcifications. IMPRESSION: 1. No intracranial sequelae of trauma appreciated. 2. Additional studies dictated separately. PROCEDURE INFORMATION: Exam: CT Cervical Spine Without Contrast Exam date and time: 07/11/2023 4:54 AM Age: 42 years old Clinical indication: Injury or trauma; Blunt trauma (contusions or hematomas); With loss of consciousness; Not specified; Injury date: 07/11/23; Injury details: Fall, altered, loc TECHNIQUE: Imaging protocol: Computed tomography of the cervical spine without contrast. Radiation optimization: All CT scans at this facility use at least one of these dose optimization techniques: automated exposure control; mA and/or kV adjustment per patient size (includes targeted exams where dose is matched to clinical indication); or iterative reconstruction. COMPARISON: No relevant prior studies are available for comparison. FINDINGS: Bones/joints: No cervical spine fracture identified. Mild degenerative changes. Straightening of the normal cervical lordosis may reflect positioning or muscle spasm; correlate clinically. Lungs: No acute findings. Lymph nodes: Bilateral cervical lymph nodes. Vasculature: Arterial calcifications. Soft tissues: See Bones/joints finding. IMPRESSION: 1. No cervical spine fracture seen. 2. Additional studies dictated separately. Dictated and Authenticated by: Jennifer Barrientos MD. Ordering:NICHOLAS Reynaga MD
[2023-07-11 06:13] LABS: *AMPHETAMINES SCREEN URINE Negative (Negative); *BARBITURATES SCREEN URINE Negative (Negative); *BENZODIAZEPINES SCREEN URINE Negative (Negative); Cannabinoids THC Negative (Negative); Cocaine Screen,Urine Negative (Negative); METHADONE URINE SCREEN Negative (Negative); OPIATES URINE SCREEN Negative (Negative)
[2023-07-11 06:16] LABS: Tricyclic Antidepressants Negative (Negative)
[2023-07-11] MEDS: MAGNESIUM SULFATE 8.12 MEQ, MULTIVITAMIN 10 ML, THIAMINE 100 MG, FOLIC ACID 1 MG in Nor... 168.867 MG IV (06:46)
[2023-07-11] MEDS: Normal Saline 1,000 ML 1000 ML IV (06:48)
--- NOTE | 2023-07-11 06:49 | DI.VRAD_ITS ---
PROCEDURE INFORMATION: Exam: XR Chest Exam date and time: 07/11/2023 5:35 AM Age: 42 years old Clinical indication: Other: Altered, R/O aspiration TECHNIQUE: Imaging protocol: Radiologic exam of the chest. Views: 2 views. COMPARISON: CR XR CHEST 1V IN DI DEPT 10/16/2022 8:37 PM FINDINGS: Lungs: No focal consolidation. Pleural spaces: No significant pleural fluid. No pneumothorax detected. Heart/Mediastinum: Heart size within normal range. No pulmonary vascular congestion. Bones/joints: No obvious acute abnormality. IMPRESSION: No active chest disease identified. Dictated and Authenticated by: Dirk Mehta MD. Ordering:NICHOLAS Reynaga MD
--- NOTE | 2023-07-11 06:50 | DI.VRAD_ITS ---
PROCEDURE INFORMATION: Exam: XR Lumbosacral Spine Exam date and time: 07/11/2023 5:26 AM Age: 42 years old Clinical indication: Low back pain following Injury or trauma; Blunt trauma (contusions or hematomas); Injury date: 07/11/23; Injury details: Fall, back pain TECHNIQUE: Imaging protocol: Radiologic exam of the lumbosacral spine. Views: 2 or 3 views. COMPARISON: CR XR HIP RT COMPLETE AP PELVIS 01/10/2023 2:12 PM FINDINGS: Bones/joints: Severe degenerative disc space narrowing is present at L4-L5. Very narrow disc space at L5-S1 may be acquired and/or developmental. No spondylolysis, spondylolisthesis, or evidence of acute fracture. Soft tissues: Psoas margins are preserved. IMPRESSION: 1. No acute fracture detected. 2. Severe chronic L4-L5 degenerative disc disease. Dictated and Authenticated by: Dirk Mehta MD. Ordering:NICHOLAS Reynaga MD
[2023-07-11 07:16] LABS: Ammonia 22 umol/L (11-32)
[2023-07-11 07:20] LABS: INR 1.2 (0.9-1.1); Prothrombin Time 12.1 sec (9.1-11.1)
--- NOTE | 2023-07-11 07:36 | NUR.NOTE ---
Nursing Note: LATE ENTRY BIBA FROM HOME, THE PT STATES HE TAKES KEPPRA ON A DAILY BASIS BUT HAS NOT BEEN TALKING HIS MEDS DUE TO HEAVY DRINKING. APORX 15MIN AFTER TRIAGE THE PT WENT UNRESPONSIVE AND WAS POSTURING WITH CLENCHED JAW AND NOT BREATHING, THE PT WOULD HAVE EXTENSIVE JVD AND LONG PERIODS OF APNEA, MD HAD BEEN CALLED TO THE ROOM, THE PT THEN WOULD GASP AND BEGIN TO WAKE, HE WAS ABLE TO STATE WHERE HE WAS, BUT STATES THAT HE TENDS TO SEE SPOTS IN HIS EYES AND WOULD HAVE EPISODES THAT HE STATES HIS SON WITNESSED AND WERE THE SAME IN THE ED. IV ESTABLISHED BUT UNABLE TO DRAW BLOOD, LAB CALLED AND SOME OF THE BLOOD WORK WAS OBTAINED. ns INFUSING. THE PT REMAINED ON NRM 100% DUE TO NUMEROUS EPISODES. WHILE IN CT THE PT WAS UNRESPONSIVE, DID NOT RESPOND TO PAINFULL STIMULI AND WHEN ARM WAS LIFTED IT WOULD FALL ONTO THE PTS FACE WITH NO RESPONSE, THE PTS BREATHING WOULD BE SHALLOW, HE WOULD THEN RESPOND SLOWLY AFTER STERNAL OR TOUCH STIMULATION TO HIS SIDE. THE PT HAD X2 EPISODES IN X-RAY WITNESSED BY STAFF AND THIS NURSE. LAB CALLED TO DRAW THE REST OF THE LABS AFTER HE RECEIVED FLUIDS. PT MADE AWARE OF HIS ETOH LEVEL AND THAT HE WILL NEED TO BE ADMITTED. DURING HIS STAY THE PT DID NOT HAVE ANY ELEVATED CIWA AND WAS ABLE TO CONVERSE WITH STAFF APPROPRIATELY.
[2023-07-11 07:39] LABS: Troponin I < 50 ng/L (< or =60)
--- NOTE | 2023-07-11 08:18 | ED.PROG_ITS ---
Date of service: 07/11/23 Time of Service: 08:18 Medical Decision Making I received signout on this 42-year-old male with a history of alcohol withdrawal requiring hospitalization. He was also not been adherent with his home levetiracetam. He was found to be hypocalcemic for which he received IV repletion and mildly hypomagnesemic. The overnight physician has spoken with the hospitalist who has agreed to accept the patient. She is requesting a CIWA score and requesting phenobarbital protocol. 8:27 AM I met with the patient. I scored him on the CIWA scale and it was 9. I ordered him low-dose phenobarbital protocol. He reported that he had gone to withdrawal in the past and been hospitalized. 4:50 PM Patient was hospitalized with the hospitalist team. Quality:[facility] Health Related Social Needs: No Data to Display Discharge Plan Disposition Patient Disposition: Admit to [facility] Discharge Details Clinical Impression: Alcohol intoxication Admit Date/Time: 07/11/23 08:19 Admit Provider: Silvia Swenson Attending Provider: Silvia Swenson Primary Care Provider: Shekhar Lanza ED Provider: Yovany Smith Discharge Data Discharge Date/Time-TO BE ENTERED AT DEPARTURE: 07/11/23 11:21
[2023-07-11] MEDS: Normal Saline Flush 10 ML SYR IVP ×4 (08:44→19:39)
[2023-07-11] MEDS: MAGNESIUM SULFATE 2 GM/50 ML BAG IVPB (09:25)
[2023-07-11] MEDS: Calcium Gluconate 4.65 MEQ/10 ML VIAL 9.3 MG IVP (09:41)
[2023-07-11 09:43] LABS: Ammonia 23 umol/L (11-32)
[2023-07-11 09:55] LABS: Acetaminophen < 2 ug/mL (10-30)
[2023-07-11 10:58] LABS: COVID-19 PCR Negative (Negative); Influenza A PCR Negative (Negative); Influenza B PCR Negative (Negative); RSV PCR Negative (Negative)
[2023-07-11 10:59] LABS: Source Nasopharynx
--- NOTE | 2023-07-11 11:41 | W.PCEDHO ---
Registration Status: ADM IN Primary Language: Preferred Language: Romanian ED Information & Data Chief Complaint AMS/LOC 07/11/23 04:15 Chief Complaint AMS/LOC 07/11/23 04:15 Triage Note BIBA from home, pt admits to 07/11/23 04:15 large amounts of ETOH with history of withdrawl seizures and also non ETOH withdrawl seizures. Pt called family about wanting to stop drinking, then the son watched the pt fall on the ground. EMS arrived and found the pt on the floor. The pt arrived awake and able to answer questions, denies SI and HI. Subjective intoxicated 07/11/23 04:15 Medical / Surgical History (Last Reviewed 05/09/23 @ 21:48 by Fernando Kyle MD) Mood disorder GERD (gastroesophageal reflux disease) Lipid screening Seizure disorder Anxiety disorder Depression (Last Reviewed 05/09/23 @ 21:48 by Fernando Kyle MD) History of cholecystectomy History of appendectomy History of gastric bypass Most Recent Vital Signs Temperature 36.6 C 07/11/23 04:15 Temperature Source Temporal Artery Scan 07/11/23 04:15 Pulse 60 07/11/23 10:25 Pulse 61 07/11/23 10:25 Respiratory Rate 12 07/11/23 10:25 Respiratory Effort Grunting 07/11/23 04:40 Respiratory Depth Normal 07/11/23 04:15 Respiratory Pattern Normal 07/11/23 10:10 Blood Pressure 137/93 H 07/11/23 10:25 Blood Pressure Mean 107 07/11/23 10:25 Pulse Oximetry 95 07/11/23 10:39 Oxygen Delivery Method Room Air 07/11/23 10:39 Oxygen Flow Rate 0 07/11/23 10:39 Pain Level 0 07/11/23 04:15 Allergies No Known Allergies Allergy (Unverified 05/09/23 21:32) Active Medications Generic Name Dose Route Start Last Admin Trade Name Freq PRN Reason Stop Dose Admin Sodium Chloride 0 ml 07/11/23 08:30 07/11/23 08:44 Normal Saline Flush 10 Ml Syr IVP 10 ml BID RICARDO Administration IV IV Catheter Type [Left Peripheral IV Antecubital] IV Catheter Type [Right Diffusics Antecubital] IV Catheter Gauge [Left 20 Antecubital] IV Catheter Gauge [Right 20 Antecubital] Diet Orders Category Date Time Status npo [Nothing Per Oral] [DIET] Nutrition 07/11/23 Breakfast Active Diagnostics 07/11/23 07/11/23 07/11/23 Range/Units 10:09 09:23 06:58 WBC (4.4-10.8) 10^3/uL RBC (4.36-5.78) 10^6/uL Hgb (13.5-17.5) g/dL Hct (40.0-50.0) % MCV (80-95) fL MCH (27.0-33.0) pg MCHC (32.0-36.0) % RDW (11.8-14.1) % Plt Count (130-400) 10^3/uL MPV (8.0-11.0) fL Immature Gran % Neutrophils % Lymphocytes % Monocytes % Eosinophils % Basophils % Nucleated RBC % (0.0-0.3) % Absolute Neutrophils (1.2-6.7) 10^3/uL Absolute Lymphocytes (1.2-3.4) 10^3/uL Absolute Monocytes (0.1-0.8) 10^3/uL Absolute Eosinophils (0.0-0.7) 10^3/uL Absolute Basophils (0.0-0.2) 10^3/uL RBC Morphology PT 12.1 H (9.1-11.1) sec INR 1.2 H (0.9-1.1) Sodium (136-145) mmol/L Potassium (3.5-5.1) mmol/L Chloride (98-107) mmol/L Carbon Dioxide (21.0-32.0) mmol/L Anion Gap (3-11) mmol/L BUN (7-18) mg/dL Creatinine (0.70-1.30) mg/dL Est GFR (CKD-EPI 2020) (mL/min/1.73m2) Glucose (74-106) mg/dL Calcium (8.5-10.1) mg/dL Magnesium (1.8-2.4) mg/dL Total Bilirubin (0.2-1.0) mg/dL AST (15-37) U/L ALT (16-63) U/L Alkaline Phosphatase (46-116) U/L Ammonia 23 22 (11-32) umol/L Troponin I < 50 (< or =60) ng/L Total Protein (6.4-8.2) g/dL Albumin (3.4-5.0) g/dL TSH (0.36-3.74) uIU/mL Free T4 (0.76-1.46) ng/dL Urine Color (Yellow) Urine Clarity (Clear) Urine pH (5-8) Ur Specific [place] (1.005-1.025) Urine Protein (Neg-Trace) mg/dL Urine Ketones (Negative) mg/dL Urine Blood (Negative) Urine Nitrite (Negative) Urine Bilirubin (Negative) Urine Urobilinogen (Up to 0.2) mg/dL Ur Leukocyte Esterase (Negative) Urine Glucose (Negative) mg/dL Urine Opiates Screen (Negative) Urine Methadone Screen (Negative) Acetaminophen < 2 (10-30) ug/mL Ur Barbiturates Screen (Negative) Ur Tricyclics Screen (Negative) Levetiracetam Pending Ur Amphetamines Screen (Negative) U Benzodiazepines Scrn (Negative) Urine Cocaine Screen (Negative) Ur THC Screen (Negative) Ethyl Alcohol (<10) mg/dL COVID-19 Source Nasopharynx SARS-CoV-2 (PCR) Negative (Negative) Influenza Type A (PCR) Negative (Negative) Influenza Type B (PCR) Negative (Negative) RSV (PCR) Negative (Negative) 07/11/23 07/11/23 Range/Units 05:53 04:42 WBC 4.36 L (4.4-10.8) 10^3/uL RBC 3.90 L (4.36-5.78) 10^6/uL Hgb 13.7 (13.5-17.5) g/dL Hct 39.2 L (40.0-50.0) % MCV 101 H (80-95) fL MCH 35.1 H (27.0-33.0) pg MCHC 34.9 (32.0-36.0) % RDW 13.5 (11.8-14.1) % Plt Count 218 (130-400) 10^3/uL MPV 9.6 (8.0-11.0) fL Immature Gran % 0.0 Neutrophils % 15.4 Lymphocytes % 69.5 Monocytes % 12.8 Eosinophils % 0.7 Basophils % 1.6 Nucleated RBC % 0.0 (0.0-0.3) % Absolute Neutrophils 0.67 L (1.2-6.7) 10^3/uL Absolute Lymphocytes 3.03 (1.2-3.4) 10^3/uL Absolute Monocytes 0.56 (0.1-0.8) 10^3/uL Absolute Eosinophils 0.03 (0.0-0.7) 10^3/uL Absolute Basophils 0.07 (0.0-0.2) 10^3/uL RBC Morphology Normal PT (9.1-11.1) sec INR (0.9-1.1) Sodium 144 (136-145) mmol/L Potassium 3.8 (3.5-5.1) mmol/L Chloride 106 (98-107) mmol/L Carbon Dioxide 25.7 (21.0-32.0) mmol/L Anion Gap 12.3 H (3-11) mmol/L BUN 3 L (7-18) mg/dL Creatinine 0.6 L (0.70-1.30) mg/dL Est GFR (CKD-EPI 2020) 122.07 (mL/min/1.73m2) Glucose 96 (74-106) mg/dL Calcium 7.7 L (8.5-10.1) mg/dL Magnesium 1.5 L (1.8-2.4) mg/dL Total Bilirubin 0.5 (0.2-1.0) mg/dL AST 463 H (15-37) U/L ALT 170 H (16-63) U/L Alkaline Phosphatase 178 H (46-116) U/L Ammonia (11-32) umol/L Troponin I < 50 (< or =60) ng/L Total Protein 6.8 (6.4-8.2) g/dL Albumin 3.2 L (3.4-5.0) g/dL TSH 6.51 H (0.36-3.74) uIU/mL Free T4 0.61 L (0.76-1.46) ng/dL Urine Color Yellow (Yellow) Urine Clarity Clear (Clear) Urine pH 6.0 (5-8) Ur Specific [place] 1.010 (1.005-1.025) Urine Protein Negative (Neg-Trace) mg/dL Urine Ketones Negative (Negative) mg/dL Urine Blood Negative (Negative) Urine Nitrite Negative (Negative) Urine Bilirubin Negative (Negative) Urine Urobilinogen 0.2 (Up to 0.2) mg/dL Ur Leukocyte Esterase Negative (Negative) Urine Glucose Negative (Negative) mg/dL Urine Opiates Screen Negative (Negative) Urine Methadone Screen Negative (Negative) Acetaminophen (10-30) ug/mL Ur Barbiturates Screen Negative (Negative) Ur Tricyclics Screen Negative (Negative) Levetiracetam Ur Amphetamines Screen Negative (Negative) U Benzodiazepines Scrn Negative (Negative) Urine Cocaine Screen Negative (Negative) Ur THC Screen Negative (Negative) Ethyl Alcohol 434.5 H (<10) mg/dL COVID-19 Source SARS-CoV-2 (PCR) (Negative) Influenza Type A (PCR) (Negative) Influenza Type B (PCR) (Negative) RSV (PCR) (Negative) Intake and Output - 24 Hour Total 07/11/23 04:01 thru 07/11/23 10:24 Intake Total 1216.3077 Balance 1216.3077 Weight 78.018 kg Intake: IV 1216.3077 Falls Risk Assessment History of Falls Previous History 07/11/23 04:15 Contributing Factors Impairments 07/11/23 04:15 Ambulatory Aids Independent 07/11/23 04:15 Tubes/Lines With any additional score 07/11/23 04:15 Gait Evaluation W/any additional score 07/11/23 04:15 Cognition Cognitive impairment 07/11/23 04:15 Fall Total Score 73 07/11/23 04:15 Level of Risk High Risk 07/11/23 04:15 Problems (Last Reviewed 05/09/23 @ 21:48 by Fernando Kyle MD) Alcohol intoxication (Acute) Notes 07/11/23 07:36 Nursing Notes by Lam Hernandez Nursing Note: LATE ENTRY BIBA FROM HOME, THE PT STATES HE TAKES KEPPRA ON A DAILY BASIS BUT HAS NOT BEEN TALKING HIS MEDS DUE TO HEAVY DRINKING. APORX 15MIN AFTER TRIAGE THE PT WENT UNRESPONSIVE AND WAS POSTURING WITH CLENCHED JAW AND NOT BREATHING, THE PT WOULD HAVE EXTENSIVE JVD AND LONG PERIODS OF APNEA, MD HAD BEEN CALLED TO THE ROOM, THE PT THEN WOULD GASP AND BEGIN TO WAKE, HE WAS ABLE TO STATE WHERE HE WAS, BUT STATES THAT HE TENDS TO SEE SPOTS IN HIS EYES AND WOULD HAVE EPISODES THAT HE STATES HIS SON WITNESSED AND WERE THE SAME IN THE ED. IV ESTABLISHED BUT UNABLE TO DRAW BLOOD, LAB CALLED AND SOME OF THE BLOOD WORK WAS OBTAINED. ns INFUSING. THE PT REMAINED ON NRM 100% DUE TO NUMEROUS EPISODES. WHILE IN CT THE PT WAS UNRESPONSIVE, DID NOT RESPOND TO PAINFULL STIMULI AND WHEN ARM WAS LIFTED IT WOULD FALL ONTO THE PTS FACE WITH NO RESPONSE, THE PTS BREATHING WOULD BE SHALLOW, HE WOULD THEN RESPOND SLOWLY AFTER STERNAL OR TOUCH STIMULATION TO HIS SIDE. THE PT HAD X2 EPISODES IN X-RAY WITNESSED BY STAFF AND THIS NURSE. LAB CALLED TO DRAW THE REST OF THE LABS AFTER HE RECEIVED FLUIDS. PT MADE AWARE OF HIS ETOH LEVEL AND THAT HE WILL NEED TO BE ADMITTED. DURING HIS STAY THE PT DID NOT HAVE ANY ELEVATED CIWA AND WAS ABLE TO CONVERSE WITH STAFF APPROPRIATELY. Initialized on 07/11/23 07:36 - END OF NOTE v v v v v v v v v Sending and/or Receiving Nurses: Please use comment section below to note any information pertinent to the patient hand-off not included above. Information / Comments: Report received from: Cindy Alegria RN
[2023-07-11] MEDS: PHENobarbital 130 MG in Normal Saline 50 ML 100 MG IVPB ×2 (12:08→15:46)
[2023-07-11 13:04] LABS: Lab Add On Test DONE
--- NOTE | 2023-07-11 13:10 | HPE_ITS ---
Date of service: 07/11/23 Time of Service: 12:45 Assessment and Plan Assessment and plan (1) Alcohol withdrawal: Status: Acute Assessment and plan: Continue phenobarbital load and monitor in the ICU for the next 24 hrs. Supplement thiamine, MVI. Check B12/folate levels. (2) Alcohol withdrawal seizure: Status: Acute Assessment and plan: Suspected. CPK wnl. Continue home keppra; phenobarbital load in process. Consider EEG if episodes recur. (3) Alcoholic hepatitis: Status: Acute Assessment and plan: Maddrey score of 5 indicates good prognosis. US abdomen 3 months ago with a nodular fatty liver. Obtainhepatitis studies given transaminitis to ensure no other cause of liver injury. (4) Alcohol intoxication: Status: Acute Assessment and plan: As above (5) Seizure disorder: Assessment and plan: Continue home keppra. (6) Alcohol abuse: Status: Chronic Assessment and plan: As above Treat withdrawal. Supplement B12/folate. Will need a mental health evaluation prior to discharge. (7) Macrocytosis: Status: Acute Assessment and plan: Check B12 and folate levels (8) Grief reaction: Status: Acute Assessment and plan: Would benefit from a psychiatry consult once he is over EtOH withdrawal! (9) Hypomagnesemia: Status: Acute Assessment and plan: Replete; recheck in am (10) Hypocalcemia: Status: Acute Assessment and plan: Repleted. Recheck in am. (11) DVT prophylaxis: Status: Acute Assessment and plan: SCDs avoid chemical DVT ppx in a patient with h/o subdural hematoma who is ambulatory (12) Discharge planning issues: Status: Acute Assessment and plan: Full code Admit to the ICU. Total Critical Care Time 45 minutes History of Present Illness History of Present Illness Chief Complaint: Alcohol withdrawal Narrative: Mr Canales is a 42 year old male with PMHx of alcohol abuse/withdrawa/DTs/seizures, as well as a seizure disorder independent of alcohol withdrawal seizures, on keppra, h/o traumatic subdural hemorrhage, medication noncompliance, who drinks a large bottle of vodka and two bottles of wine daily and whose last drink was yesterday morning, who was brought to [facility] ED by EMS for alcohol withdrawal. He was actually found down on the ground, face down, by EMS in his house and had called his mother previously stating that he would like to detox. On arrival to the ED, the patient's CIWA score was not documented, but he was noted to be withdrawing and having episodes that the ED provider described as unresponsiveness with asynchronous flailing, not appearing as typical tonic clonic activity. Following these episodes, the patient did not appear post-ictal. The patient did receive IV keppra (1500 mg) and was then started on phenobarbital protocol. Admission to the hospitalist service was requested. The patient was admitted to the ICU. He reports feeling shaky and itchy. He denies dizziness, CP, SOB, n/v, headache, hallucinations. He did state that he had not been drinking until recently when his grandfather, who was like father to him, . He also shared with me that he takes care of his 14 year old nephew whom he had adopted since the of his brother (overdose). His mother is currently watching his son. He does state that he thinks he needs to get his mental health in order, denying HI/SI. He would like to get through withdrawal first. He reports he is interested in going to rehab and has a plan. Review of Systems All systems reviewed & are unremarkable except as noted in HPI and below PFSH All Active Problems (Updated 07/11/23 @ 14:17 by Silvia Swenson MD) Alcohol abuse (Chronic) Grief reaction (Acute) Discharge planning issues (Acute) DVT prophylaxis (Acute) Hypocalcemia (Acute) Alcohol withdrawal seizure (Acute) Alcoholic hepatitis (Acute) Macrocytosis (Acute) Alcohol intoxication (Acute) Rhabdomyolysis (Acute) Hypokalemia (Acute) Hypomagnesemia (Acute) Alcohol withdrawal (Acute) H/O subdural hemorrhage (Acute) Seizure (Acute) Vomiting and diarrhea (Acute) Transaminitis (Acute) Tongue laceration (Acute) Hypomagnesemia (Acute) Elevated ETOH level (Acute) History of medication noncompliance (Acute) Medical History Mood disorder GERD (gastroesophageal reflux disease) Lipid screening Seizure disorder Anxiety disorder Depression Surgical History History of cholecystectomy History of appendectomy History of gastric bypass Gastric sleeve Family History (Updated 07/11/23 @ 13:58 by Silvia Swenson MD) Maternal Grandmother Diabetes Maternal Grandfather Diabetes Mother Breast cancer Other Hypertension Social History Smoking/Tobacco Use Status: Never Smoking risk assessment performed?: Yes Alcohol Intake: current Alcohol Intake frequency: 3 or more drinks per day Alcohol type: hard liquor Drug use: Never Substance use type: does not use Housing: apartment Do you feel safe at home: Yes (living in hotel) Do you feel safe in your relationship?: Yes Meds Allergies and Home Medications Allergies Allergy/AdvReac Type Severity Reaction Status Date / Time No Known Allergies Allergy Unverified 05/09/23 21:32 Home Medications Medication Instructions Recorded Confirmed Type omeprazole 40 mg capsule,delayed 40 mg PO DAILY 07/13/20 07/11/23 History release levetiracetam 1,000 mg tablet 1,500 mg (1.5 x 1,000 mg) PO BID 12/13/22 07/11/23 Rx (Keppra) #270 tabs magnesium oxide 400 mg (241.3 mg 400 mg PO DAILY #14 tabs 02/24/23 07/11/23 Rx magnesium) tablet (MgO) potassium chloride 20 mEq 20 meq PO DAILY #7 tabs 02/24/23 07/11/23 Rx tablet,extended release(part/cryst) sertraline 100 mg tablet 100 mg PO DAILY 03/14/23 07/11/23 History trazodone 50 mg tablet 50 mg PO QHS #30 tabs 03/14/23 07/11/23 Rx multivitamin (Daily Multi-Vitamin 1 tab PO DAILY 07/11/23 07/11/23 History tablet) Exam Narrative Exam Narrative: General: a pleasant male, tearful, A&Ox3, minimally tremulous, cooperative, not having convulsive/unresponsive episodes during my visit with him Neurological: A&Ox3, no focal deficits Psychiatric: Appropriate speech pattern/content, tearful Skin: Visible skin intact HEENT: Atraumatic, normocephalic, EOMI, MMM, healing R tongue bite, no submandibular or cervical lymphadenopathy, no goiter or JVD Cardiovascular: RRR, no m/r/g Lungs: CTAB Gastrointestinal: soft, nontender, nondistended Genitourinary: deferred Extremities: no edema BLEs, 2+ pedal pulses B, no c/c Results Imaging Additional studies: CXR: No acute pulmonary findings. XR lumbar spine: No fractures. Degenerative disc disease. CT head/c-spine w/o contrast: No acute intracranial findings on this noninfused CT scan of the brain. No evidence of cervical spine fracture, malalignment, nor acute compromise of the cervical spinal canal. Labs 07/11/23 04:42 07/11/23 04:42 Labs: Laboratory Results - last 24 hr 07/11/23 07/11/23 07/11/23 04:42 05:53 06:58 WBC 4.36 L RBC 3.90 L Hgb 13.7 Hct 39.2 L MCV 101 H MCH 35.1 H MCHC 34.9 RDW 13.5 Plt Count 218 MPV 9.6 Immature Gran % 0.0 Neutrophils % 15.4 Lymphocytes % 69.5 Monocytes % 12.8 Eosinophils % 0.7 Basophils % 1.6 Nucleated RBC % 0.0 Absolute Neutrophils 0.67 L Absolute Lymphocytes 3.03 Absolute Monocytes 0.56 Absolute Eosinophils 0.03 Absolute Basophils 0.07 RBC Morphology Normal PT 12.1 H INR 1.2 H Sodium 144 Potassium 3.8 Chloride 106 Carbon Dioxide 25.7 Anion Gap 12.3 H BUN 3 L Creatinine 0.6 L Est GFR (CKD-EPI 2020) 122.07 Glucose 96 Calcium 7.7 L Magnesium 1.5 L Total Bilirubin 0.5 AST 463 H ALT 170 H Alkaline Phosphatase 178 H Ammonia 22 Troponin I < 50 < 50 Total Protein 6.8 Albumin 3.2 L TSH 6.51 H Free T4 0.61 L Urine Color Yellow Urine Clarity Clear Urine pH 6.0 Ur Specific [place] 1.010 Urine Protein Negative Urine Ketones Negative Urine Blood Negative Urine Nitrite Negative Urine Bilirubin Negative Urine Urobilinogen 0.2 Ur Leukocyte Esterase Negative Urine Glucose Negative Urine Opiates Screen Negative Urine Methadone Screen Negative Acetaminophen Ur Barbiturates Screen Negative Ur Tricyclics Screen Negative Ur Amphetamines Screen Negative U Benzodiazepines Scrn Negative Urine Cocaine Screen Negative Ur THC Screen Negative Ethyl Alcohol 434.5 H COVID-19 Source SARS-CoV-2 (PCR) Influenza Type A (PCR) Influenza Type B (PCR) RSV (PCR) Add-On Test Request 02/21/24 02/21/24 09:23 10:09 WBC RBC Hgb Hct MCV MCH MCHC RDW Plt Count MPV Immature Gran % Neutrophils % Lymphocytes % Monocytes % Eosinophils % Basophils % Nucleated RBC % Absolute Neutrophils Absolute Lymphocytes Absolute Monocytes Absolute Eosinophils Absolute Basophils RBC Morphology PT INR Sodium Potassium Chloride Carbon Dioxide Anion Gap BUN Creatinine Est GFR (CKD-EPI 2020) Glucose Calcium Magnesium Total Bilirubin AST ALT Alkaline Phosphatase Ammonia 23 Troponin I Total Protein Albumin TSH Free T4 Urine Color Urine Clarity Urine pH Ur Specific [place] Urine Protein Urine Ketones Urine Blood Urine Nitrite Urine Bilirubin Urine Urobilinogen Ur Leukocyte Esterase Urine Glucose Urine Opiates Screen Urine Methadone Screen Acetaminophen < 2 Ur Barbiturates Screen Ur Tricyclics Screen Ur Amphetamines Screen U Benzodiazepines Scrn Urine Cocaine Screen Ur THC Screen Ethyl Alcohol COVID-19 Source Nasopharynx SARS-CoV-2 (PCR) Negative Influenza Type A (PCR) Negative Influenza Type B (PCR) Negative RSV (PCR) Negative Add-On Test Request DONE Last Vital Signs Temp 36.9 C 07/11/23 11:59 Pulse 68 07/11/23 11:06 Resp 14 07/11/23 11:10 BP 119/80 07/11/23 11:06 Pulse Ox 94 07/11/23 11:10 PAWSS Have you Been Recently Intoxicated or Drunk Within the Last 30 days?: Yes Have you Ever Experienced Previous Episodes of Alcohol Withdrawal?: Yes Have you ever Experienced Withdrawal Seizures?: Yes Have you ever Experienced Delirium Tremens(DT)s?: Yes Have you ever undergone Alcohol Rehabilitation Treatment (i.e, inpt ot outpatient treatment programs)?: Yes Have you ever Experienced Blackouts?: Yes Have you ever Combined Alcohol with other Downers within the last 90 days?: Yes Have you ever Combined Alcohol with any other Substance of Abuse during the last 90 days?: Yes Positive Blood Alcohol level on Presentation? [PCS.BAL]: Yes Evidence of Increased Autonomic Activity (i.e. HR>120, tremor, sweating, agitation, nausea)?: No Result: 9 Time Spent Time spent with Patient: 40-54 minutes Time was spent: preparing to see the patient(eg.review tests), obtaining and/or reviewing separately otained hiistory, ordering medications,tests, procedures, referring, communicating with other health healthcare risk control consultant, indepentently interpreting results, counseling the patient and care coordination
[2023-07-11] MEDS: Potassium Chloride 20 MEQ TABCR PO (13:26)
[2023-07-11] MEDS: Magnesium Oxide 400 MG TAB PO (13:26)
[2023-07-11] MEDS: Folic Acid 1 MG TAB PO (13:27)
[2023-07-11] MEDS: Multivitamin TAB 1 TAB PO (13:27)
[2023-07-11] MEDS: Sertraline 100 MG TAB PO (13:27)
[2023-07-11] MEDS: Thiamine 100 MG TAB PO (13:27)
[2023-07-11 13:28] LABS: Creatine Kinase 126 U/L (39-308)
--- NOTE | 2023-07-11 13:45 | PHA.REVIEW2 ---
Pharmacy Admission Review Admission Clinical Review Admission Pharmacy Review: Alcohol intoxication (Acute) No Known Allergies Allergy (Unverified 05/09/23 21:32) Resuscitation Status Full Code Height 5 ft 9 in Weight 85.9 kg Pharmacy Admission Review Renal Dosing Renal Dosing: BUN 3 mg/dL (7-18) L 07/11/23 04:42 Creatinine 0.6 mg/dL (0.70-1.30) L 07/11/23 04:42 Medications needing adjustments: Reviewed (CrCl 170.6 mL/min) Anticoagulation Anticoagulation: Hgb 13.7 g/dL (13.5-17.5) 07/11/23 04:42 Hct 39.2 % (40.0-50.0) L 07/11/23 04:42 Plt Count 218 10^3/uL (130-400) 07/11/23 04:42 INR 1.2 (0.9-1.1) H 07/11/23 06:58 Creatinine 0.6 mg/dL (0.70-1.30) L 07/11/23 04:42 DVT Prophylaxis: Intervened (None at this time, will reach out to provider) Relevant Labs Relevant Labs: Sodium 144 mmol/L (136-145) 07/11/23 04:42 Potassium 3.8 mmol/L (3.5-5.1) 07/11/23 04:42 Chloride 106 mmol/L (98-107) 07/11/23 04:42 Magnesium 1.5 mg/dL (1.8-2.4) L 07/11/23 04:42 Electrolytes, C-Reactive P, ESR: Reviewed (Mg 1.5 (has order for magnesium supplement), INR 1.2, AST/ALT 463/170) Cardiac Review Cardiac Review: Troponin I < 50 ng/L (< or =60) 07/11/23 06:58 Blood Pressure 125/97 1301 Blood Pressure 127/91 1201 Blood Pressure 124/83 1111 Blood Pressure 119/80 1106 Blood Pressure 115/76 1101 Blood Pressure 124/79 1056 Blood Pressure 130/79 1050 Blood Pressure 132/81 1045 Blood Pressure 132/91 1040 BP, HR, EF%: Reviewed (HR WNL, BP 125/97) QTc Review QTc: Reviewed (462 07/11/23) IV to PO Switch IV Medications: Reviewed (IV phenobarbital) Home Meds Home Med List reviewed: Reviewed Current Meds Current Medication Order Review: Reviewed Comments: Phenobarbital for alcohol withdrawal IBW = 70.7kg Soft stop: 1060.5mg Hard stop: 1414mg So far has received two of the three loading doses - total of 300mg (as of 1350) Next loading dose is due at 1500 Last CIWA score was 10 at 1339
[2023-07-11] MEDS: PHENobarbital 130 MG/ML VIAL IVP ×2 (13:49→23:34)
[2023-07-11] MEDS: Mylanta Suspension 30 ML CUP PO ×2 (17:00→19:38)
[2023-07-11] MEDS: levETIRAcetam 500 MG TAB 1500 MG PO (19:38)
[2023-07-11] MEDS: traZODone 50 MG TAB PO (23:42)
[2023-07-12] VITALS (23 sets, daily range): BP systolic 109–130; BP diastolic 81–99; PULSE 57–92; RESP 12–19; TEMP 36.5–37.4; O2SAT 90–100
[2023-07-12 06:34] LABS: Abs Immature Grans 0.01 10^3/uL (0.0-0.06); Absolute Basophil Count 0.06 10^3/uL (0.0-0.2); HCT 37.6 % (40.0-50.0); HGB 13.1 g/dL (13.5-17.5); MCH 34.4 pg (27.0-33.0); MCHC 34.8 % (32.0-36.0); MCV 99 fL (80-95); Platelet Count 213 10^3/uL (130-400); RBC 3.81 10^6/uL (4.36-5.78); RDW-SD 46.6 fL; WBC 2.85 10^3/uL (4.4-10.8)
[2023-07-12 06:59] LABS: ALT 139 U/L (16-63); AST 251 U/L (15-37); Albumin 3.4 g/dL (3.4-5.0); Alkaline Phosphatase 169 U/L (46-116); Anion Gap 10.3 mmol/L (3-11); BUN 3 mg/dL (7-18); Bilirubin, Direct 0.3 mg/dL (0.0-0.2); Bilirubin, Total 1.1 mg/dL (0.2-1.0); CO2 25.7 mmol/L (21.0-32.0); CREATININE 0.6 mg/dL (0.70-1.30); Calcium 7.6 mg/dL (8.5-10.1); Chloride 102 mmol/L (98-107); Estimated GFR 122.07 (mL/min/1.73m2); Glucose 74 mg/dL (74-106); Iron 271 ug/dL (65-175); Magnesium 1.7 mg/dL (1.8-2.4); PHOSPHORUS 2.7 mg/dL (2.6-4.7); Potassium 3.7 mmol/L (3.5-5.1); Sodium 138 mmol/L (136-145); Total Iron Binding Capacity 306 ug/dL (250-450); Total Protein 6.7 g/dL (6.4-8.2); Transferrin Sat 89 % (20-55)
[2023-07-12 07:08] LABS: Absolute Eosinophil Count 0.03 10^3/uL (0.0-0.7); Absolute Monocyte Count 0.71 10^3/uL (0.1-0.8); Absolute Neutrophil Count 0.86 10^3/uL (1.2-6.7); Atypical Lymphocytes % 2; Diff Comment Manual Differential; RBC Morphology Normal
[2023-07-12 07:21] LABS: INR 1.1 (0.9-1.1); Prothrombin Time 11.3 sec (9.1-11.1)
[2023-07-12 07:41] LABS: Ferritin 220 ng/mL (26-388); Folate 13.1 ng/mL (8.6-20.0); Vitamin B12 420 pg/mL (193-986)
[2023-07-12] MEDS: Potassium Chloride 20 MEQ TABCR PO (08:37)
[2023-07-12] MEDS: Multivitamin TAB 1 TAB PO (08:37)
[2023-07-12] MEDS: Omeprazole 20 MG CAPCR 40 MG PO (08:37)
[2023-07-12] MEDS: Normal Saline Flush 10 ML SYR IVP ×3 (08:37→22:42)
[2023-07-12] MEDS: Sertraline 100 MG TAB PO (08:38)
[2023-07-12] MEDS: Cyanocobalamin 500 MCG TAB 1000 MCG PO (08:38)
[2023-07-12] MEDS: Thiamine 100 MG TAB PO (08:38)
[2023-07-12] MEDS: Folic Acid 1 MG TAB PO (08:38)
[2023-07-12] MEDS: Magnesium Oxide 400 MG TAB PO (08:38)
[2023-07-12] MEDS: levETIRAcetam 500 MG TAB 1500 MG PO ×2 (08:38→21:23)
--- NOTE | 2023-07-12 09:34 | INITIAL_ITS ---
Date of service: 07/12/23 Time of Service: 09:34 Care Management Initial Assmt Initial Assessment REASON FOR HOSPITALIZATION:: alcohol withdrawal PREVIOUS FUNCTIONAL STATUS/SOCIAL/FAMILY SUPPORTS:: Rasta resides at the [facility] in [facility] with his 14 year old adopted son. His mother is very supportive, lives locally and is staying with his son while he is in the hospital. He does not drive and uses [facility] or his family for transportation. Rasta receives [employer], an adoption stipend and some SSA benefits. He is also working on getting disability through his PCP. Rasta is independent at baseline and does not need any assistive devices for ambulatory support. CURRENT FUNCTIONAL STATUS:: Rasta was sitting up in bed when CM met with him . He was very pleasant and engaged easily with CM. He talked a bit about all of the relatives he has lost recently, in particular his grandfather who was more like a father to him. 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 He also shared that he has been through one program at [facility] . While his sobriety was not long lasting, he hopes to be able to enter another program soon. He is looking into [facility], a program with groups similar to AA but without the strong latter day component. He asked for and has met with a Kaiako Kura Tuarua and reported that he intends to keep in communication with her over the next few days. Rasta is doing well clinically; his CIWA scores have been between 1 and 8 today. He hopes to be able to discharge in the next day or two. ADVANCE DIRECTIVES:: none on file Has patient been provided with info about the portal/API?: Yes Did the patient sign up for the portal?: Yes CODE STATUS:: Full Code INSURANCE COVERAGE / FINANCIAL ISSUES:: Medicaid CURRENT HOME/COMMUNITY SERVICES/EQUIPMENT:: adoption stipend, [employer], SSA benefit and Kaiako Kura Tuarua PRIMARY CARE PHYSICIAN:: Shekhar Lanza POTENTIAL DISCHARGE NEEDS:: follow up with PCP and plan of care and possibly [facility] resources PATIENT/FAMILY EDUCATION NEEDS:: Review of discharge instructions, activity, limitations, follow up plan, discuss [employer] TRANSPORTATION:: via private vehicle vs RCT PLAN:: Anticipate Rasta will be discharged home with no new services when medically cleared. He will follow up with his PCP, Kaiako Kura Tuarua and plan of care and transport with family vs RCT. CM will follow and continue to assess for discharge needs. PFSH All Active Problems Alcohol abuse (Chronic) Grief reaction (Acute) Discharge planning issues (Acute) DVT prophylaxis (Acute) Hypocalcemia (Acute) Alcohol withdrawal seizure (Acute) Alcoholic hepatitis (Acute) Macrocytosis (Acute) Alcohol intoxication (Acute) Rhabdomyolysis (Acute) Hypokalemia (Acute) Hypomagnesemia (Acute) Alcohol withdrawal (Acute) H/O subdural hemorrhage (Acute) Seizure (Acute) Vomiting and diarrhea (Acute) Transaminitis (Acute) Tongue laceration (Acute) Hypomagnesemia (Acute) Elevated ETOH level (Acute) History of medication noncompliance (Acute) Medical History Mood disorder GERD (gastroesophageal reflux disease) Lipid screening Seizure disorder Anxiety disorder Depression Surgical History History of cholecystectomy History of appendectomy History of gastric bypass Gastric sleeve Family History Maternal Grandmother Diabetes Maternal Grandfather Diabetes Mother Breast cancer Other Hypertension Social History Smoking/Tobacco Use Status: Never Smoking risk assessment performed?: Yes Alcohol Intake: current Alcohol Intake frequency: 3 or more drinks per day Alcohol type: hard liquor Drug use: Never Substance use type: does not use Housing: apartment Do you feel safe at home: Yes (living in hotel) Do you feel safe in your relationship?: Yes SDOH(Care Management) Screening Will the Patient Participate in the Screening?: Yes Do you worry about having a steady place to live?: no Problems where you live: no known problems In the past 12 months, have you had to go without electric, gas, oil or water in your home?: no Have you or anyone in your house had to go without enough food to eat?: no Has lack of transportation kept you from medical appointments or from doing things needed for daily living?: no Has anyone in your support network made you feel unsafe for any reason?: no
--- NOTE | 2023-07-12 09:49 | PGE_ITS ---
Date of Service Date of service: 07/12/23 Time of Service: 09:50 Assessment and Plan Assessment and plan (1) Alcohol withdrawal: Status: Acute Assessment and plan: Continue phenobarbital as needed for symptoms of alcohol withdrawal. Stable for transfer out of the ICU. Supplement thiamine, MVI. Replete B12. Advance diet. (2) Alcohol withdrawal seizure: Status: Acute Assessment and plan: Suspected. CPK wnl. Continue home keppra; use phenobarbital to treat alcohol withdrawal. Consider EEG if episodes recur. (3) Alcoholic hepatitis: Status: Acute Assessment and plan: Maddrey score of 5 indicates good prognosis. US abdomen 3 months ago with a nodular fatty liver. Hepatitis studies are still pending. (4) Alcohol intoxication: Status: Acute Assessment and plan: As above (5) Seizure disorder: Assessment and plan: Continue home keppra. (6) Alcohol abuse: Status: Chronic Assessment and plan: As above Treat withdrawal. Supplement B12, thiamine, multivitamins. Consult psychiatry for what appears to be a grief reaction. (7) Macrocytosis: Status: Acute Assessment and plan: B12 low - replete. (8) Grief reaction: Status: Acute Assessment and plan: C/s psychiatry. (9) Hypomagnesemia: Status: Acute Assessment and plan: Replete; recheck in am (10) Hypocalcemia: Status: Acute Assessment and plan: Repleted. Recheck in am. (11) DVT prophylaxis: Status: Acute Assessment and plan: SCDs avoid chemical DVT ppx in a patient with h/o subdural hematoma who is ambulatory (12) Discharge planning issues: Status: Acute Assessment and plan: Full code Transfer out of the ICU. Discussed with Dr Engel. Subjective Subjective Interval history since last seen: Mr. Jenkins is feeling quite a bit better today. He is a little bit tremulous this morning still, and he just now this morning noticed that he is feeling like his skin is itching and crawling again. He denies headache, dizziness, chest pain, shortness of breath, nausea currently (he did have some last night, but it resolved), and he feels ready to talk to mental health today. He already met with a catalyst recovery operator yesterday. Exam Narrative Exam Narrative: General: a pleasant male, appears upbeat. A&Ox3, moderately tremulous, cooperative, not having convulsive/unresponsive episodes during my visit with him HEENT: EOMI, MMM Cardiovascular: RRR, no m/r/g Lungs: CTAB Gastrointestinal: soft, nontender, nondistended Extremities: no edema BLEs, 2+ pedal pulses B, no c/c Objective Last Vital Signs Temp 37.0 C 07/12/23 09:30 Pulse 64 07/12/23 09:00 Resp 13 07/12/23 09:00 BP 118/92 H 07/12/23 09:00 Pulse Ox 96 07/12/23 09:00 Laboratory Results - last 24 hr 07/11/23 07/11/23 07/12/23 09:23 10:09 05:28 WBC 2.85 L RBC 3.81 L Hgb 13.1 L Hct 37.6 L MCV 99 H MCH 34.4 H MCHC 34.8 RDW 13.0 Plt Count 213 MPV 10.0 Immature Gran % See Differential Neutrophils % 30.0 Lymphocytes % 40.0 Atypical Lymphs % 2 Monocytes % 25.0 Eosinophils % 1.0 Basophils % 2.0 Nucleated RBC % 0.0 Absolute Neutrophils 0.86 L Absolute Lymphocytes 1.20 Absolute Monocytes 0.71 Absolute Eosinophils 0.03 Absolute Basophils 0.06 RBC Morphology Normal PT 11.3 H INR 1.1 Sodium 138 Potassium 3.7 Chloride 102 Carbon Dioxide 25.7 Anion Gap 10.3 BUN 3 L Creatinine 0.6 L Est GFR (CKD-EPI 2020) 122.07 Glucose 74 Calcium 7.6 L Phosphorus 2.7 Magnesium 1.7 L Iron 271 H TIBC 306 Transferrin % Sat 89 H Ferritin 220 Total Bilirubin 1.1 H Conjugated Bilirubin 0.3 H AST 251 H ALT 139 H Alkaline Phosphatase 169 H Ammonia 23 Creatine Kinase 126 Total Protein 6.7 Albumin 3.4 Vitamin B12 420 Folate 13.1 Acetaminophen < 2 COVID-19 Source Nasopharynx SARS-CoV-2 (PCR) Negative Influenza Type A (PCR) Negative Influenza Type B (PCR) Negative RSV (PCR) Negative Add-On Test Request DONE PAWSS Have you Been Recently Intoxicated or Drunk Within the Last 30 days?: Yes Have you Ever Experienced Previous Episodes of Alcohol Withdrawal?: Yes Have you ever Experienced Withdrawal Seizures?: Yes Have you ever Experienced Delirium Tremens(DT)s?: Yes Have you ever undergone Alcohol Rehabilitation Treatment (i.e, inpt ot outpatient treatment programs)?: Yes Have you ever Experienced Blackouts?: Yes Have you ever Combined Alcohol with other Downers within the last 90 days?: No Have you ever Combined Alcohol with any other Substance of Abuse during the last 90 days?: No Positive Blood Alcohol level on Presentation? [PCS.BAL]: Yes Evidence of Increased Autonomic Activity (i.e. HR>120, tremor, sweating, agitation, nausea)?: Yes Result: 8 Time Spent with Patient Time Spent with Patient: 35-49 minutes Time was spent: preparing to see the patient(eg.review tests), obtaining and/or reviewing separately otained hiistory, ordering medications,tests, procedures, referring, communicating with other health insurance healthcare representative, indepentently interpreting results, counseling the patient and care coordination
[2023-07-12] MEDS: PHENobarbital 130 MG/ML VIAL IVP ×3 (10:43→22:42)
[2023-07-12] MEDS: MAGNESIUM SULFATE 2 GM/50 ML BAG IVPB (10:50)
[2023-07-12] MEDS: Cyanocobalamin 1000 MCG/ML VIAL IM/SC (14:02)
[2023-07-12 19:42] LABS: HBs Antibody, Qual Positive (See Note); HBs Antibody, Quant 602.6 mIU/mL (See Note); Hepatitis B Core Antibody Negative (Negative); Hepatitis B surface Ag Negative (Negative); Hepatitis C Ab w Rflx HCV PCR Negative (Negative)
[2023-07-12] MEDS: traZODone 50 MG TAB PO (21:23)
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
[2023-07-13 03:23] VITALS: BP 105/72; PULSE 69; RESP 16; TEMP 36.7; O2SAT 97
[2023-07-13 07:15] LABS: Abs Immature Grans 0.01 10^3/uL (0.0-0.06); Absolute Basophil Count 0.05 10^3/uL (0.0-0.2); Absolute Eosinophil Count 0.09 10^3/uL (0.0-0.7); Absolute Lymphocyte Count 1.21 10^3/uL (1.2-3.4); Absolute Monocyte Count 0.39 10^3/uL (0.1-0.8); Absolute Neutrophil Count 0.97 10^3/uL (1.2-6.7); Basophils % 1.8; Eosinophils % 3.3; HCT 41.1 % (40.0-50.0); HGB 14.5 g/dL (13.5-17.5); Immature Grans % 0.4; Lymphocytes % 44.5; MCH 34.9 pg (27.0-33.0); MCHC 35.3 % (32.0-36.0); MCV 99 fL (80-95); MPV 10.4 fL (8.0-11.0); Monocytes % 14.3; Neutrophils % 35.7; Platelet Count 212 10^3/uL (130-400); RBC 4.16 10^6/uL (4.36-5.78); WBC 2.72 10^3/uL (4.4-10.8)
[2023-07-13 07:27] LABS: Diff Comment Diff Reviewed; RBC Morphology Normal
[2023-07-13 07:30] LABS: Anion Gap 13.9 mmol/L (3-11); BUN 4 mg/dL (7-18); CO2 23.1 mmol/L (21.0-32.0); CREATININE 0.6 mg/dL (0.70-1.30); Calcium 8.7 mg/dL (8.5-10.1); Chloride 102 mmol/L (98-107); Estimated GFR 122.07 (mL/min/1.73m2); Glucose 91 mg/dL (74-106); Potassium 3.4 mmol/L (3.5-5.1); Sodium 139 mmol/L (136-145)
[2023-07-13 08:02] VITALS: BP 102/68; PULSE 60; RESP 14; TEMP 36.1; O2SAT 96
[2023-07-13] MEDS: levETIRAcetam 500 MG TAB 1500 MG PO ×2 (08:03→20:27)
[2023-07-13] MEDS: Cyanocobalamin 500 MCG TAB 1000 MCG PO (08:04)
[2023-07-13] MEDS: Folic Acid 1 MG TAB PO (08:04)
[2023-07-13] MEDS: Magnesium Oxide 400 MG TAB PO (08:04)
[2023-07-13] MEDS: Omeprazole 20 MG CAPCR 40 MG PO (08:04)
[2023-07-13] MEDS: Thiamine 100 MG TAB PO (08:04)
[2023-07-13] MEDS: Sertraline 100 MG TAB PO (08:04)
[2023-07-13] MEDS: Multivitamin TAB 1 TAB PO (08:04)
[2023-07-13] MEDS: Normal Saline Flush 10 ML SYR IVP ×2 (08:05→21:55)
[2023-07-13] MEDS: Potassium Chloride 20 MEQ TABCR 40 MEQ PO (08:07)
--- NOTE | 2023-07-13 08:32 | PDOC.CMPRO ---
Date of service: 07/13/23 Time of Service: 08:32 Care Management Progress Note Progress Note Text Progress Note Text: S/O:Rasta was lying in bed when CM met with him. He had been asleep most of the day and CM had to gently wake him. Not surprisingly, Rasta informed CM that he is very tired today. He also stated that he blood pressure is low. His SBP has been running between 110 and 130. Today they have been between 100-110. Last night Rasta scored 13 on the CIWA scale and required a dose of phenobarbital. That may have contributed to his sleepiness. He reported feeling well other than sleepy today and has been scoring 0-3 on Ciwa scale. He will follow up with his Shirt Folding Machine Operator after discharge. A: Rasta is a 42 year old man admitted on 07/11/23 with alcohol withdrawal P:Anticipate Rasta will be discharged home with no new services when medically cleared. He will follow up with his PCP, Shirt Folding Machine Operator and plan of care and transport with family vs [facility]. CM will follow and continue to assess for discharge needs. SDOH(Care Management) Screening Will the Patient Participate in the Screening?: Yes Do you worry about having a steady place to live?: no Problems where you live: no known problems In the past 12 months, have you had to go without electric, gas, oil or water in your home?: no Have you or anyone in your house had to go without enough food to eat?: no Has lack of transportation kept you from medical appointments or from doing things needed for daily living?: no Has anyone in your support network made you feel unsafe for any reason?: no
[2023-07-13 10:32] LABS: Levetiracetam 23.3 mcg/mL
[2023-07-13 11:32] VITALS: BP 103/69; PULSE 70; RESP 16; TEMP 36; O2SAT 99
[2023-07-13 14:46] VITALS: BP 100/67; PULSE 70; RESP 14; TEMP 36.1; O2SAT 98
--- NOTE | 2023-07-13 16:58 | PGE_ITS ---
Date of Service Date of service: 07/13/23 Time of Service: 16:58 Assessment and Plan Assessment and plan (1) Alcohol withdrawal: Status: Acute Assessment and plan: Continue phenobarbital as needed for symptoms of alcohol withdrawal. Supplement thiamine, MVI. Replete B12. Itching might be a symptom of withdrawal for him, however he has no other sx of withdrawal right now. Will try atarax. (2) Alcohol withdrawal seizure: Status: Acute Assessment and plan: Suspected. CPK wnl. Continue home keppra; use phenobarbital to treat alcohol withdrawal. Consider EEG if episodes recur. (3) Alcoholic hepatitis: Status: Acute Assessment and plan: Maddrey score of 5 indicates good prognosis. US abdomen 3 months ago with a nodular fatty liver. Hepatitis studies are still pending. (4) Alcohol intoxication: Status: Acute Assessment and plan: As above (5) Seizure disorder: Assessment and plan: Continue home keppra. (6) Alcohol abuse: Status: Chronic Assessment and plan: As above Treat withdrawal. Supplement B12, thiamine, multivitamins. Consult psychiatry for what appears to be a grief reaction. (7) Macrocytosis: Status: Acute Assessment and plan: B12 low - replete. (8) Grief reaction: Status: Acute Assessment and plan: Worsening of depression per psychiatry evaluation, who recommended increase of sertraline to 150 mg and trazadone to 100 mg HS. Both were done. (9) Hypomagnesemia: Status: Resolved Assessment and plan: Recheck in am (10) Hypocalcemia: Status: Resolved Assessment and plan: Recheck in am. (11) Hypokalemia: Status: Acute Assessment and plan: Replete and recheck in am. (12) DVT prophylaxis: Status: Acute Assessment and plan: SCDs avoid chemical DVT ppx in a patient with h/o subdural hematoma who is ambulatory (13) Discharge planning issues: Status: Acute Assessment and plan: Full code Anticipate discharge home tomorrow Subjective Subjective Interval history since last seen: SOmnolent today. Did have to receive phenobarbital last night. Starting to feel itchy in his arms, thighs, chest. Phenobarbital helps the itching. Benadryl makes itching worse. Has never tried atarax but willing to try it. No dizziness, headache, CP, SOB, n/v, hallucinations. Evaluated by psychiatry: recommended increasing sertraline to 150 mg daily and trazadone to 100 mg HS. Exam Narrative Exam Narrative: General: a pleasant male, somnolent today, A&Ox3, not tremulous HEENT: EOMI, MMM Cardiovascular: RRR, no m/r/g Lungs: CTAB Gastrointestinal: soft, nontender, nondistended Extremities: no edema BLEs, 2+ pedal pulses B, no c/c Objective Last Vital Signs Temp 36.1 C L 07/13/23 14:46 Pulse 70 07/13/23 14:46 Resp 14 07/13/23 14:46 BP 100/67 07/13/23 14:46 Pulse Ox 98 07/13/23 14:46 Laboratory Results - last 24 hr 07/11/23 07/12/23 07/13/23 06:58 10:27 06:35 WBC 2.72 L RBC 4.16 L Hgb 14.5 Hct 41.1 MCV 99 H MCH 34.9 H MCHC 35.3 RDW 13.0 Plt Count 212 MPV 10.4 Immature Gran % 0.4 Neutrophils % 35.7 Lymphocytes % 44.5 Monocytes % 14.3 Eosinophils % 3.3 Basophils % 1.8 Nucleated RBC % 0.0 Absolute Neutrophils 0.97 L Absolute Lymphocytes 1.21 Absolute Monocytes 0.39 Absolute Eosinophils 0.09 Absolute Basophils 0.05 RBC Morphology Normal Sodium 139 Potassium 3.4 L Chloride 102 Carbon Dioxide 23.1 Anion Gap 13.9 H BUN 4 L Creatinine 0.6 L Est GFR (CKD-EPI 2020) 122.07 Glucose 91 Calcium 8.7 Magnesium 2.0 Levetiracetam 23.3 Hep Bs Antigen Negative Hep Bs Antibody Positive Hep Bs Antibody, Quant 602.6 Hep B Core Total Ab Negative Hepatitis C Antibody Negative PAWSS Have you Been Recently Intoxicated or Drunk Within the Last 30 days?: Yes Have you Ever Experienced Previous Episodes of Alcohol Withdrawal?: Yes Have you ever Experienced Withdrawal Seizures?: Yes Have you ever Experienced Delirium Tremens(DT)s?: Yes Have you ever undergone Alcohol Rehabilitation Treatment (i.e, inpt ot outpatient treatment programs)?: Yes Have you ever Experienced Blackouts?: Yes Have you ever Combined Alcohol with other Downers within the last 90 days?: No Have you ever Combined Alcohol with any other Substance of Abuse during the last 90 days?: No Positive Blood Alcohol level on Presentation? [PCS.BAL]: Yes Evidence of Increased Autonomic Activity (i.e. HR>120, tremor, sweating, agitation, nausea)?: Yes Result: 8 Time Spent with Patient Time Spent with Patient: 25-34 minutes Time was spent: preparing to see the patient(eg.review tests), obtaining and/or reviewing separately otained hiistory, ordering medications,tests, procedures, referring, communicating with other health livestock caretaker, indepentently interpreting results, counseling the patient and care coordination
[2023-07-13] MEDS: hydrOXYzine HCL 25 MG TAB PO (19:24)
[2023-07-13 19:54] VITALS: BP 111/77; PULSE 71; RESP 14; TEMP 36.4; O2SAT 99
[2023-07-13] MEDS: traZODone 50 MG TAB 100 MG PO (21:56)
[2023-07-13 23:54] VITALS: BP 97/59; PULSE 65; RESP 14; TEMP 36; O2SAT 97
[2023-07-14 03:10] VITALS: BP 100/68; PULSE 65; RESP 16; TEMP 36.8; O2SAT 97
[2023-07-14 07:10] LABS: Abs Immature Grans 0.01 10^3/uL (0.0-0.06); Absolute Basophil Count 0.06 10^3/uL (0.0-0.2); Absolute Eosinophil Count 0.14 10^3/uL (0.0-0.7); Absolute Lymphocyte Count 1.44 10^3/uL (1.2-3.4); Absolute Monocyte Count 0.49 10^3/uL (0.1-0.8); Absolute Neutrophil Count 1.46 10^3/uL (1.2-6.7); Basophils % 1.7; Eosinophils % 3.9; HCT 42.7 % (40.0-50.0); HGB 14.5 g/dL (13.5-17.5); Immature Grans % 0.3; MCH 34.5 pg (27.0-33.0); MCV 102 fL (80-95); MPV 10.4 fL (8.0-11.0); Monocytes % 13.6; Neutrophils % 40.5; Platelet Count 208 10^3/uL (130-400); RDW 13.2 % (11.8-14.1); RDW-SD 49.1 fL
[2023-07-14 07:15] VITALS: BP 96/61; PULSE 71; RESP 16; TEMP 36.5; O2SAT 96
[2023-07-14 07:27] LABS: ALT 107 U/L (16-63); AST 142 U/L (15-37); Albumin 3.5 g/dL (3.4-5.0); Alkaline Phosphatase 166 U/L (46-116); Anion Gap 10.3 mmol/L (3-11); BUN 5 mg/dL (7-18); Bilirubin, Direct 0.3 mg/dL (0.0-0.2); Bilirubin, Total 0.9 mg/dL (0.2-1.0); CO2 24.7 mmol/L (21.0-32.0); CREATININE 0.7 mg/dL (0.70-1.30); Calcium 9.1 mg/dL (8.5-10.1); Chloride 102 mmol/L (98-107); Estimated GFR 116.52 (mL/min/1.73m2); Glucose 80 mg/dL (74-106); Magnesium 1.8 mg/dL (1.8-2.4); Potassium 4.7 mmol/L (3.5-5.1); Sodium 137 mmol/L (136-145); Total Protein 7.3 g/dL (6.4-8.2)
[2023-07-14 07:33] VITALS: BP 110/76
[2023-07-14] MEDS: Normal Saline Flush 10 ML SYR IVP (09:04)
[2023-07-14] MEDS: Sertraline 100 MG TAB 150 MG PO (09:04)
[2023-07-14] MEDS: Cyanocobalamin 500 MCG TAB 1000 MCG PO (09:04)
[2023-07-14] MEDS: Thiamine 100 MG TAB PO (09:05)
[2023-07-14] MEDS: levETIRAcetam 500 MG TAB 1500 MG PO (09:05)
[2023-07-14] MEDS: Potassium Chloride 20 MEQ TABCR 40 MEQ PO (09:05)
[2023-07-14] MEDS: Omeprazole 20 MG CAPCR 40 MG PO (09:06)
[2023-07-14] MEDS: Multivitamin TAB 1 TAB PO (09:06)
[2023-07-14] MEDS: Folic Acid 1 MG TAB PO (09:06)
[2023-07-14] MEDS: Magnesium Oxide 400 MG TAB PO (09:06)
[2023-07-14] MEDS: hydrOXYzine HCL 25 MG TAB PO (10:10)
--- NOTE | 2023-07-14 11:10 | W.PM.DS.N ---
Date of service: 07/14/23 Time of Service: 11:10 DS: Diagnosis Discharge Diagnosis (1) Alcohol withdrawal: Status: Acute (2) Alcohol withdrawal seizure: Status: Acute (3) Alcoholic hepatitis: Status: Acute (4) Alcohol intoxication: Status: Acute (5) Seizure disorder: (6) Alcohol abuse: Status: Chronic (7) Macrocytosis: Status: Acute (8) Grief reaction: Status: Acute (9) Hypomagnesemia: Status: Resolved (10) Hypocalcemia: Status: Resolved (11) Hypokalemia: Status: Acute Discharge Plan Disposition Patient Disposition: Home Condition: Stable Discharge Details Reason For Visit: Alcohol intoxication Admit Date/Time: 07/11/23 08:19 Admit Provider: Silvia Swenson Attending Provider: Silvia Swenson Primary Care Provider: Shekhar Lanza Hospital Course Hospital Course: Mr Canales is a 42 year old male with history of alcohol abuse/withdrawa/DTs/seizures, as well as a seizure disorder independent of alcohol withdrawal seizures, on keppra, history of traumatic subdural hemorrhage, medication noncompliance, who drinks a large bottle of vodka and two bottles of wine daily and whose last drink was day prior to presentation, who was brought to [facility] ED by EMS for alcohol withdrawal. He was actually found down on the ground, face down, by EMS in his house and had called his mother previously stating that he would like to detox. On arrival to the ED, the patient's CIWA score was not documented, but he was noted to be withdrawing and having episodes that the ED provider described as unresponsiveness with asynchronous flailing, not appearing as typical tonic clonic activity. Following these episodes, the patient did not appear post-ictal. The patient did receive IV keppra (1500 mg) and was then started on phenobarbital protocol. He was admitted to the hospitalist service to the ICU. He responded well to treatment. He was safely re-ambulated and eating and drinking well. He stabilized and is now safe for discharge to home. His antidepressants were adjusted and new prescriptions sent to his pharmacy. He is motivated to abstain from alcohol. he is discharged to home and will follow up with close outpatient follow up with PCP and acid recovery operator. discussed with Dr Swenson Home Meds and New Rx's Prescriptions: New hydroxyzine HCl 25 mg Tablet 25 mg PO QID PRN PRNQty: 10 0RF thiamine mononitrate (vit B1) [Vitamin B-1 (mononitrate)] 100 mg Tablet 100 mg PO QAM Qty: 30 0RF Continued levetiracetam [Keppra] 1,000 mg tablet 1,500 mg PO BID Qty: 270 3RF Patient Comments: pt states ran out and last time he took was about 3 days ago 05/09/23 MG magnesium oxide [MgO] 400 mg (241.3 mg magnesium) tablet 400 mg PO DAILY Qty: 14 0RF potassium chloride 20 mEq tablet,ER particles/crystals 20 meq PO DAILY Qty: 7 0RF omeprazole 40 mg Capsule,Delayed Release(Dr/Ec) 40 mg PO DAILY multivitamin [Daily Multi-Vitamin] Tablet 1 tab PO DAILY Changed trazodone 50 mg tablet 100 mg PO QHS Qty: 60 5RF sertraline 100 mg tablet 150 mg PO DAILY Qty: 0 0RF Discharge Instructions Instructions: Depression (DC), Abuse of Alcohol (DC) Additional Instructions: take medication as prescribed utilize resources provided to assist with alcohol cessation Referrals: Shekhar Lanza [Primary Care Provider] - Activity:: Activity as Tolerated Equipment/Supplies:: No Equipment Needed Diet:: As Tolerated Discharge Orders Discharge Orders: Discharge Order (Routine); Ordered 07/14/23 Ordered By: Padmini Fung DS: Summary Time Spent with Patient providing and/or coordinating discharge services: Less than 30 minutes Status at Discharge Functional status at discharge: independent ambulation Overall status at discharge: patient is progressing back to baseline Mental Status: mental status grossly normal Speech and Movement: speech and movement normal Mood: congruent mood Affect: normal affect Quality:SDOH Health Related Social Needs: No Data to Display Exam Const General: cooperative and anxious Orientation: alert, awake and oriented x3 HENMT Head: normal to inspection Face and sinus: normal facial exam Eyes General: appearance normal, both eyes and all related structures Sclera: sclerae normal EOM: EOM intact bilaterally Neck Neck: normal visual inspection Chest Chest: normal inspection of the chest Resp Effort & Inspection: normal respiratory effort and able to speak in complete sentences Cardio Rhythm: regular rhythm GI Inspection: normal to inspection Palpation: soft, not firm, not rigid and nontender Auscultation: normal bowel sounds Skin General skin exam: no rashes or lesions noted Neuro General: patient alert, patient awake, patient oriented x3, moves all extremities, no meningeal signs and other (mild shaking, tremulous) Cranial Nerves: CN's II-XI intact bilaterally Cognition: normal cognition Speech: speech normal Motor: muscle tone normal throughout and strength 5/5 throughout Sensory Exam: no sensory deficits noted Extrem General: normal to inspection, full ROM, capillary refill normal, no calf tenderness bilaterally and no edema Psych Appearance: grossly normal Mental Status: mental status grossly normal Speech and Movement: speech and movement normal Mood: congruent mood Affect: normal affect DS: Data Vitals/I&O Vitals and I&O: Vital Signs Temperature 36.5 C 07/14/23 07:15 Temperature Source Tympanic 07/14/23 07:15 Pulse 71 07/14/23 07:15 Pulse Rhythm Regular 07/14/23 09:00 Pulse 82 07/12/23 10:00 Respiratory Rate 16 07/14/23 07:15 Respiratory Effort Normal, Non-Labored 07/14/23 09:00 Respiratory Depth Normal 07/14/23 09:00 Respiratory Pattern Normal 07/14/23 09:00 Blood Pressure 110/76 07/14/23 07:33 Blood Pressure Mean 101 07/12/23 09:00 Blood Pressure Position Sitting 07/12/23 09:30 Pulse Oximetry 96 07/14/23 07:15 Oxygen Delivery Method Room Air 07/14/23 07:15 Oxygen Flow Rate 0 07/14/23 07:15 Pain Level 0 07/14/23 07:15 Comment RN informed of BP 07/14/23 07:15 Comment ra 07/11/23 22:25 Intake & Output 07/13/23 07/13/23 07/14/23 11:59 23:59 11:59 Intake Total Output Total 700 / 1300 600 / 1300 575 / 575 Balance -690 / -1290 -600 / -1290 -555 / -555 Weight 80.2 kg 81 kg Intake: IV Output: Urine 700 / 1300 600 / 1300 575 / 575 Other: Urine Color Yellow Yellow Straw Urine Appearance Clear Clear Clear Urine Odor Normal None Normal Stool Size Moderate Stool Characteristics Formed Voiding Methods Urinal Toilet Urinal Data Completed and Pending Labs on day of discharge: Labs from last 24 hours 07/14/23 07/11/23 06:15 06:58 WBC 3.60 L RBC 4.20 L Hgb 14.5 Hct 42.7 MCV 102 H MCH 34.5 H MCHC 34.0 RDW 13.2 Plt Count 208 MPV 10.4 Immature Gran % 0.3 Neutrophils % 40.5 Lymphocytes % 40.0 Monocytes % 13.6 Eosinophils % 3.9 Basophils % 1.7 Nucleated RBC % 0.0 Absolute Neutrophils 1.46 Absolute Lymphocytes 1.44 Absolute Monocytes 0.49 Absolute Eosinophils 0.14 Absolute Basophils 0.06 Sodium 137 Potassium 4.7 D Chloride 102 Carbon Dioxide 24.7 Anion Gap 10.3 BUN 5 L Creatinine 0.7 Est GFR (CKD-EPI 2020) 116.52 Glucose 80 Calcium 9.1 Magnesium 1.8 Total Bilirubin 0.9 Conjugated Bilirubin 0.3 H AST 142 H ALT 107 H Alkaline Phosphatase 166 H Total Protein 7.3 Albumin 3.5 Levetiracetam 23.3 PFSH All Active Problems (Updated 07/13/23 @ 17:03 by Silvia Swenson MD) Alcohol abuse (Chronic) Grief reaction (Acute) Discharge planning issues (Acute) DVT prophylaxis (Acute) Alcohol withdrawal seizure (Acute) Alcoholic hepatitis (Acute) Macrocytosis (Acute) Alcohol intoxication (Acute) Rhabdomyolysis (Acute) Hypokalemia (Acute) Hypomagnesemia (Acute) Alcohol withdrawal (Acute) H/O subdural hemorrhage (Acute) Seizure (Acute) Vomiting and diarrhea (Acute) Transaminitis (Acute) Tongue laceration (Acute) Elevated ETOH level (Acute) History of medication noncompliance (Acute) Medical History Mood disorder GERD (gastroesophageal reflux disease) Lipid screening Seizure disorder Anxiety disorder Depression Surgical History History of cholecystectomy History of appendectomy History of gastric bypass Gastric sleeve Family History Maternal Grandmother Diabetes Maternal Grandfather Diabetes Mother Breast cancer Other Hypertension Social History Smoking/Tobacco Use Status: Never Smoking risk assessment performed?: Yes Alcohol Intake: current Alcohol Intake frequency: 3 or more drinks per day Alcohol type: hard liquor Drug use: Never Substance use type: does not use Housing: apartment Do you feel safe at home: Yes (living in hotel) Do you feel safe in your relationship?: Yes Time Spent with Patient Time Spent with Patient: <45 minutes Time was spent: preparing to see the patient(eg.review tests), obtaining and/or reviewing separately otained hiistory, ordering medications,tests, procedures, indepentently interpreting results and counseling the patient
[2023-07-14 11:11] VITALS: BP 104/69; PULSE 70; RESP 16; TEMP 36.8; O2SAT 96
== END 2023-07-14 12:31 | disposition home or self-care (01) | DRG 897 ==
LOC: ER 09:34 → ICU 10:18 → MS 07-12 11:04
PROVIDERS: Emergency Medicine Emergency Medical Services; Admitting Provider Internal Medicine; Emergency Provider Emergency Medicine; PCP Physician Assistant; Visit Provider Internal Medicine
DX: F10.139 Alcohol abuse with withdrawal, unspecified (principal); R56.9 Unspecified convulsions; K70.10 Alcoholic hepatitis without ascites; E83.42 Hypomagnesemia; E83.51 Hypocalcemia; E87.6 Hypokalemia; D75.89 Other specified diseases of blood and blood-forming organs; K21.9 Gastro-esophageal reflux disease without esophagitis; F43.23 Adjustment disorder with mixed anxiety and depressed mood; Z98.84 Bariatric surgery status; F10.129 Alcohol abuse with intoxication, unspecified; Y90.8 Blood alcohol level of 240 mg/100 ml or more
CPT/HCPCS: 00123; 36415; 80048; 80053; 80076; 80307; 82550; 86704; 86706; 86803; 87340; 87637; 93005; 96365; 96366; 96367; 96368; 96375; 99291; 70450; 71046; 72100; 72125; 80177; 80320; 80329; 81003; 82140; 82607; 82728; 82746; 83540; 83550; 83735; 84100; 84439; 84443; 84484; 85025; 85610; 93010; 99232; 99238; J0612; J1953; J2560; J3411; J3420; J3475

== ENCOUNTER 2023-08-31 09:22 | Outpatient (REF) | payer MEDICAID, SELFPAY ==
[2023-08-31 15:14] LABS: ALT 26 U/L (16-63); AST 31 U/L (15-37); Albumin 4.2 g/dL (3.4-5.0); Alkaline Phosphatase 75 U/L (46-116); BUN 5 mg/dL (7-18); Bilirubin, Direct 0.2 mg/dL (0.0-0.2); Bilirubin, Total 0.7 mg/dL (0.2-1.0); CREATININE 0.9 mg/dL (0.70-1.30); Calcium 9.1 mg/dL (8.5-10.1); Chloride 106 mmol/L (98-107); Estimated GFR 108.01 (mL/min/1.73m2); Glucose 71 mg/dL (74-106); Potassium 3.5 mmol/L (3.5-5.1); Sodium 145 mmol/L (136-145); Total Protein 6.8 g/dL (6.4-8.2)
== END 2023-08-31 09:23 | disposition home or self-care (01) ==
LOC: NCHCN 09:22
PROVIDERS: PCP Physician Assistant; Visit Provider Physician Assistant
DX: F10.20 Alcohol dependence, uncomplicated (principal)
CPT/HCPCS: 80048; 80076

== ENCOUNTER 2023-11-30 15:05 | Outpatient (REF) | payer MEDICAID, SELFPAY ==
[2023-11-30 16:12] LABS: HCT 42.8 % (40.0-50.0); HGB 14.5 g/dL (13.5-17.5); MCH 31.5 pg (27.0-33.0); MCHC 33.9 % (32.0-36.0); MCV 93 fL (80-95); MPV 11.2 fL (8.0-11.0); Platelet Count 184 10^3/uL (130-400); RBC 4.61 10^6/uL (4.36-5.78); RDW 12.5 % (11.8-14.1); RDW-SD 42.8 fL
[2023-11-30 16:52] LABS: Calculated LDL 73 mg/dL (<100); Cholesterol 141 mg/dL (<200); HDL Cholesterol 56 mg/dL (40-60); TSH 1.72 uIU/Ml (0.36-3.74); Triglyceride 61 mg/dL (<150)
[2023-11-30 17:13] LABS: FREE T4 0.71 ng/dL (0.76-1.46)
[2023-12-05 00:37] LABS: Testosterone, Total 912 ng/dL (240-950)
== END 2023-11-30 15:06 | disposition home or self-care (01) ==
LOC: NCHCN 15:05
PROVIDERS: PCP Physician Assistant; Visit Provider Physician Assistant
DX: R53.83 Other fatigue (principal)
CPT/HCPCS: 80061; 84403; 85027; 84439; 84443

== ENCOUNTER → 2023-12-06 01:46 | Outpatient (CLI) | payer MEDICAID, SELFPAY ==
--- NOTE | 2023-12-06 09:49 | DI.RAD_ITS ---
Exam(s) XR LUMBAR SPINE COMPLETE EXAM: XR LUMBAR SPINE COMPLETE CLINICAL HISTORY: LOW BACK PAIN, M54.50. TECHNIQUE: 2D digital imaging was performed. COMPARISON: CT ABD PELVIS WITH CONTRAST from 08/10/[address] CHEST PE CTA from 07/13/2020 CR,XR XR LUMBAR SPINE AP, LAT from 07/11/2023 FINDINGS: Five views. No evidence of fracture, listhesis, nor pars interarticularis defects. Again noted is advanced disc space narrowing at L4-5 level and moderate disc space narrowing at L5-S1 . Disc spaces above this level remain unremarkable. Some degenerative changes at L5-S1 level facet joints. Sacroiliac joints appear unremarkable. There is no scoliosis. IMPRESSION: As above but with out significant radiographic change compared to 07/11/2023. DATA REPOSITORY: RADIATION DOSE DELIVERED:
== END ==
PROVIDERS: PCP Physician Assistant; Visit Provider Physician Assistant
DX: M54.59 Other low back pain (principal); M51.37 Other intervertebral disc degeneration, lumbosacral region; M47.817 Spondylosis without myelopathy or radiculopathy, lumbosacral region
CPT/HCPCS: 72110

== ENCOUNTER 2024-05-26 17:00 | Outpatient (REF) | payer MEDICAID, SELFPAY ==
[2024-05-26 16:47] LABS: ALT 32 U/L (16-63); AST 30 U/L (15-37); Albumin 3.8 g/dL (3.4-5.0); Alkaline Phosphatase 90 U/L (46-116); Bilirubin, Direct 0.1 mg/dL (0.0-0.2); Bilirubin, Total 0.23 mg/dL (0.2-1.0); Total Protein 6.9 g/dL (6.4-8.2)
== END 2024-05-26 17:01 | disposition home or self-care (01) ==
LOC: NCHCN 17:00
PROVIDERS: PCP Physician Assistant; Visit Provider Physician Assistant
DX: F10.20 Alcohol dependence, uncomplicated (principal)
CPT/HCPCS: 80076

== ENCOUNTER 2024-07-08 08:26 | Emergency (ER) | payer MEDICAID, SELFPAY ==
[2024-07-08 08:37] VITALS: BP 132/95; PULSE 142; RESP 12; TEMP 36.6; O2SAT 97
--- NOTE | 2024-07-08 08:44 | W.ED.GENAD ---
Discharge Plan Disposition Patient Disposition: Against Medical Advice Condition: Stable Discharge Details Clinical Impression: History of recent dental procedure, Psychogenic nonepileptic seizure, Left against medical advice Primary Care Provider: Shekhar Lanza ED Provider: Pantera Mclaughlin Home Meds and New Rx's Prescriptions: No Action lisdexamfetamine [Vyvanse] 30 mg capsule 30 mg PO DAILY levetiracetam [Keppra] 1,000 mg tablet 1,500 mg PO BID Qty: 270 3RF Patient Comments: pt states ran out and last time he took was about 3 days ago 05/09/23 MG Vivitrol 380 mg suspension,extended rel recon 380 mg IM QMONTH Qty: 1 0RF acamprosate 333 mg tablet,delayed release (DR/EC) 666 mg PO BID Qty: 1 0RF Rx Instructions: administer with mid-day and evening meals magnesium oxide [MgO] 400 mg (241.3 mg magnesium) tablet 400 mg PO DAILY Qty: 14 0RF potassium chloride 20 mEq tablet,ER particles/crystals 20 meq PO DAILY Qty: 7 0RF propranolol 40 mg tablet 40 mg PO DAILY PRN Patient Comments: TAKE ONE TABLET BY MOUTH THREE TIMES A DAY NEEDED FOR ANXIETY omeprazole 40 mg Capsule,Delayed Release(Dr/Ec) 40 mg PO DAILY multivitamin [Daily Multi-Vitamin] Tablet 1 tab PO DAILY thiamine mononitrate (vit B1) [Vitamin B-1 (mononitrate)] 100 mg Tablet 100 mg PO QAM Qty: 30 0RF trazodone 50 mg tablet 100 mg PO QHS Qty: 60 5RF sertraline 150 mg capsule 150 mg PO DAILY Qty: 30 0RF HPI General Date/Time Provider Initiated Documentation: 07/08/24 08:39. HPI Narrative: 43 year-old male presents to ED today by POV/ambulating with a chief complaint of recent dental extraction - tooth #19, not given antibiotics by dentist, having pain, dry mouth, feels he may have a dry-socket with onset yesterday of symptoms- extraction was on Sunday. Quality described as dental pain, no radiation to fever, chills, trismus, vocal changes, excessive drooling, chest pain, palpitations, nausea/vomiting. Severity is described as moderate. Palliating factors include nothing specific attempted- has not called dental office. Provoking factors include chronic dental caries. Events leading up to the incident/Associated Symptoms: Patient denies history of IVDU. Patient not anticoagulated. Related Data Home Medications ?Medication ?Instructions ?Recorded ?Confirmed omeprazole 40 mg capsule,delayed 40 mg PO DAILY 07/13/20 07/08/24 release magnesium oxide 400 mg (241.3 mg 400 mg PO DAILY #14 tabs 02/24/23 07/08/24 magnesium) tablet (MgO) potassium chloride 20 mEq 20 meq PO DAILY #7 tabs 02/24/23 07/08/24 tablet,extended release(part/cryst) multivitamin (Daily Multi-Vitamin 1 tab PO DAILY 07/11/23 07/08/24 tablet) sertraline 150 mg capsule 150 mg PO DAILY #30 caps 07/14/23 07/08/24 thiamine mononitrate (vit B1) 100 100 mg PO QAM #30 tabs 07/14/23 07/08/24 mg tablet (Vitamin B-1 (mononitrate)) trazodone 50 mg tablet 100 mg (2 x 50 mg) PO QHS #60 tabs 07/14/23 07/08/24 acamprosate 333 mg tablet,delayed 666 mg (2 x 333 mg) PO BID #1 tab 03/06/24 07/08/24 release levetiracetam 1,000 mg tablet 1,500 mg (1.5 x 1,000 mg) PO BID 03/06/24 07/08/24 (Keppra) #270 tabs lisdexamfetamine 30 mg capsule 30 mg PO DAILY 03/06/24 07/08/24 (Vyvanse) naltrexone microspheres 380 mg 380 mg IM QMONTH #1 ea 03/06/24 07/08/24 intramuscular suspension,extended release (Vivitrol) propranolol 40 mg tablet 40 mg PO DAILY PRN 07/08/24 07/08/24 Previous Rx's ?Medication ?Instructions ?Recorded magnesium oxide 400 mg (241.3 mg 400 mg PO DAILY #14 tabs 02/24/23 magnesium) tablet (MgO) potassium chloride 20 mEq 20 meq PO DAILY #7 tabs 02/24/23 tablet,extended release(part/cryst) sertraline 150 mg capsule 150 mg PO DAILY #30 caps 07/14/23 thiamine mononitrate (vit B1) 100 100 mg PO QAM #30 tabs 07/14/23 mg tablet (Vitamin B-1 (mononitrate)) trazodone 50 mg tablet 100 mg (2 x 50 mg) PO QHS #60 tabs 07/14/23 acamprosate 333 mg tablet,delayed 666 mg (2 x 333 mg) PO BID #1 tab 03/06/24 release levetiracetam 1,000 mg tablet 1,500 mg (1.5 x 1,000 mg) PO BID 03/06/24 (Keppra) #270 tabs naltrexone microspheres 380 mg 380 mg IM QMONTH #1 ea 03/06/24 intramuscular suspension,extended release (Vivitrol) Allergies Allergy/AdvReac Type Severity Reaction Status Date / Time No Known Allergies Allergy Verified 07/08/24 08:42 General Stated Complaint: DentalOral EMIL: 4 Review of Systems All systems reviewed & are unremarkable except as noted in HPI and below Exam Narrative Exam Narrative: GENERAL APPEARANCE: Well-nourished, non-toxic, awake and alert, atraumatic, no acute distress. SKIN: Warm, pink, dry, intact, without rashes/lesions/ulcerations. HEAD: Normocephalic, atraumatic, normal hair distribution for gender/age. EYES: Normal conjunctiva, no exudates on lids/lashes. ENT: Nares patent, no circumoral cyanosis, no facial swelling, tooth #19 recent extraction, no evidence of gingival or dental abscess in this area, patient has questionable thrush on his tongue, benign posterior oropharynx, no trismus, no vocal changes, managing secretions effectively NECK: Supple, trachea midline, painless cervical ROM. LUNGS/CHEST: Non-labored respirations, normal A/P diameter, symmetrical expansion, no chest wall deformity HEART (CV/PV): Regular rate and tachycardic, R radial pulse 2+, no peripheral edema, no JVD. ABDOMEN: Soft, non-distended, no guarding. MSK: Normal ROM, no swelling/deformity to bilateral UEs or LEs, moving all extremities without weakness, no cyanosis, spine midline without tenderness, normal curvature. NEURO: Mental Status AAOx4 - alert to person, place, time, events No facial droop, no forehead involvement. Motor: No focal weakness - strength 5/5 in bilateral UEs and LEs, proximal and distal, symmetric. Sensory: sensation intact to light touch globally. Gait normal: patient ambulated without ataxia into ED room. PSYCH: euthymic, cooperative, pleasant, appropriate speech Course Vital Signs Vital signs: Vital Signs Temperature 36.6 C 07/08/24 08:37 Pulse 142 H 07/08/24 08:37 Respiratory Rate 12 07/08/24 08:37 Blood Pressure 132/95 H 07/08/24 08:37 Pulse Oximetry 97 07/08/24 08:37 Temperature 36.6 C 07/08/24 08:37 Temperature Source Oral 07/08/24 08:37 Pulse 142 H 07/08/24 08:37 Respiratory Rate 12 07/08/24 08:37 Blood Pressure 132/95 H 07/08/24 08:37 Blood Pressure Position Sitting 07/08/24 08:37 Pulse Oximetry 97 07/08/24 08:37 Oxygen Delivery Method Room Air 07/08/24 08:37 Oxygen Flow Rate 0 07/08/24 08:37 Pain Level 10 07/08/24 08:40 Medical Decision Making This dictation utilizes [id number] dictation software and may contain unedited grammatical errors. 43 year-old male presents to ED today by POV/ambulating with a chief complaint of recent dental extraction - tooth #19, not given antibiotics by dentist, having pain, dry mouth, feels he may have a dry-socket with onset yesterday of symptoms- extraction was on Sunday. Quality described as dental pain, no radiation to fever, chills, trismus, vocal changes, excessive drooling, chest pain, palpitations, nausea/vomiting. Severity is described as moderate. Palliating factors include nothing specific attempted- has not called dental office. Provoking factors include chronic dental caries. Events leading up to the incident/Associated Symptoms: Patient denies history of IVDU. Patients' medical history: Mood disorder, seizure disorder, anxiety disorder, alcohol withdrawal seizure, seizure disorder, history of medication noncompliance, history of subdural hemorrhage. Family and social history: Denies IVDU. Pertinent exam findings / vital signs include tooth #19 recent extraction, no evidence of gingival or dental abscess in this area, patient has questionable thrush on his tongue, benign posterior oropharynx, no trismus, no vocal changes, managing secretions effectively, tachycardic to 142 in triage. Differential / pathologies of concern include dental infection, dental pain, unlikely abscess or deep space infection, question endocarditis with tachycardia and recent dental procedure, sepsis. Diagnostic studies of: -CBC, CMP, lactate, troponin, EKG. -EKG shows sinus tachycardia at 129 bpm with P waves followed by narrow complex QRS with normal axis, no ST elevations or diffuse depressions, no T wave abnormalities, good R wave progression, normal QT QTc -Patient left AMA without lab results- verbally abusive toward staff. Interventions of: -PO Tylenol, Toradol. Had asked for STAT [place] diazepam to abort his seizure activity when he stopped voluntarily to use profanity directed toward provider. ED Course/Assessment/Plan: 43-year-old male had recent dental extraction on Sunday, began having symptoms of possible dry socket or infection or gingival swelling the past 1 day. I did state he was tachycardic on arrival he did have mild concern for possible endocarditis but he denies IVDU and initial interview, workup began for sepsis is also rule out any cardiac enzyme elevation with lower suspicion for endocarditis at this time, provided p.o. Tylenol and Toradol. 0930: catering staff member called the staff emergency to room 11 where the patient was, he was having seizure-like activity on the floor of the room, he does have seizure disorder but also alcohol withdrawal seizure and his history. He does take Keppra-I asked the nursing staff to retrieve rectal Diastat due to the patient's history of seizure and alcohol withdrawal seizure, he abruptly stopped his seizure activity he told me to fuck off. And that he did not want myself as his provider and told me to leave the room, clearly this is not seizure activity. 0940: Patient was resting comfortably in chair I informed him that we would not be switching providers on patient's plan for dental plan complaint with clear pseudoseizure activity. I told the patient that I was calmly offering to treat him, I did not deny that he has seizure history but also has seizure due to alcohol withdrawal in his chart. He stated that he did not want to speak to me anymore and he was leaving AGAINST MEDICAL ADVICE I told him that we are not diagnosing possible infection due to his tachycardia, including but not limited to sepsis with possibility of sepsis and . The patient acknowledged these risks and stated he was going to his doctor, this discussion was witnessed by catering staff member Kate Schultz. Patient refused to sign AGAINST MEDICAL ADVICE paperwork. Findings not consistent with seizure, status epilepticus. Disposition of History of Recent Dental Procedure, Psychogenic nonepileptic seizure, left AGAINST MEDICAL ADVICE Patient verbalized understanding of the plan and return to ED criteria and engaged in shared decision making. Medical Records Medical records reviewed: Yes I reviewed the patient's medical records. Quality:SDOH Health Related Social Needs: No Data to Display PFSH All Active Problems (Updated 07/08/24 @ 09:48 by JENNIFER Morales) Left against medical advice (Acute) Psychogenic nonepileptic seizure (Acute) History of recent dental procedure (Acute) Encounter for screening colonoscopy (Acute) Grief reaction (Acute) Alcohol withdrawal seizure (Acute) Alcoholic hepatitis (Acute) Macrocytosis (Acute) Alcohol intoxication (Acute) Rhabdomyolysis (Acute) Hypokalemia (Acute) Hypomagnesemia (Acute) Alcohol withdrawal (Acute) H/O subdural hemorrhage (Acute) History of medication noncompliance (Acute) Elevated ETOH level (Acute) Alcohol abuse (Chronic) Tongue laceration (Acute) Transaminitis (Acute) Vomiting and diarrhea (Acute) Seizure (Acute) Medical History (Updated 07/08/24 @ 09:48 by JENNIFER Morales) Mood disorder GERD (gastroesophageal reflux disease) Lipid screening Seizure disorder Medically managed. Last seizure per patient was a 1.5 years ago. Anxiety disorder Depression Surgical History (Updated 07/08/24 @ 09:48 by JENNIFER Moarles) History of cholecystectomy History of appendectomy History of gastric bypass Gastric sleeve Family History Maternal Grandmother Diabetes Maternal Grandfather Diabetes Mother Breast cancer Other Hypertension Social History (Updated 04/16/24 @ 09:12 by JENNIFER Higgins) Smoking/Tobacco Use Status: Never Smoking risk assessment performed?: Yes Alcohol Intake: former Year quit: 2022 Drug use: Never Substance use type: does not use Housing: apartment Do you feel safe at home: Yes (living in hotel) Do you feel safe in your relationship?: Yes
--- NOTE | 2024-07-08 08:45 | RT.EKG_ITS ---
APPROVED REPORT Exam: Resting ECG Reason for Exam: tachycardia Patient Location: E HR:129 bpm ECG Measurements Heart Rate 129 AXIS CA 137 P 44 QRSd 85 QRS -6 QT 294 T 63 QTc 432 Conclusion Sinus tachycardia 129 normal axis no stemi
[2024-07-08] MEDS: Ketorolac 10 MG TAB PO (09:20)
[2024-07-08] MEDS: Acetaminophen 500 MG TAB 1000 MG PO (09:20)
[2024-07-08 09:52] VITALS: BP 130/93; PULSE 153; RESP 16; TEMP 36.7; O2SAT 96
--- NOTE | 2024-07-08 09:54 | NUR.NOTE ---
Pt. became unresponsive, but still breathing with a good carotid pulse. Pt lowered to the floor from the recliner and he started convulsing, head protected during this episode. No loss of bowel or bladder during this time. Episode lasted approx 2-3 minutes and then patient became verbal answering questions appropriately. Patient refused any further care and left AMA (form not signed). Patient stated he was going to follow up with his own PCP, Dr. Lanza. Repeat VS obtained and patient was still tachycardic.
== END 2024-07-08 10:40 | disposition left against medical advice (07) ==
PROVIDERS: Emergency Provider Physician Assistant; PCP Physician Assistant
DX: K08.89 Other specified disorders of teeth and supporting structures (principal); F44.5 Conversion disorder with seizures or convulsions; Z53.21 Procedure and treatment not carried out due to patient leaving prior to being seen by health care provider
CPT/HCPCS: 80053; 93005; 99283; 83605; 84484; 85025; 93010

== ENCOUNTER 2024-09-08 01:56 | Outpatient (CLI) | payer MEDICAID, SELFPAY ==
--- NOTE | 2024-09-08 | DI.MRI_ITS ---
Exam(s) MR LUMBAR SPINE WO EXAM: MR LUMBAR SPINE WO CLINICAL HISTORY: Lumbar DDD, M51.369; LBP. TECHNIQUE: Multiplanar multisequence MRI of the Lumbar spine was performed. COMPARISON: CR XR LUMBAR SPINE COMPLETE from 12/06/2023 FINDINGS: Bones: The last intervertebral disc space is designated the L5/S1 level for the numbering purpose of this examination. The vertebral body heights are well maintained. Alignment is satisfactory. Degene rative disc disease is seen at L4-5. Findings include disc space narrowing and endplate signal cano es. Cord: The conus tip ends at the T12 level. It is of normal size and signal intensity. T12-L1: No disc herniations or bulges are present. No central spinal canal or neural foraminal stenos is. L1-2: No disc herniations or bulges are present. No central spinal canal or neural foraminal stenosis . L2-3: No disc herniations or bulges are present. No central spinal canal or neural foraminal stenosis . L3-4: No disc herniations or bulges are present. No central spinal canal or neural foraminal stenosis .Mild degenerative changes of the facets are present. L4-5: There is a diffuse disc bulge present. There is no significant central spinal canal stenosis. There is moderate narrowing of the right neural foramen. There is also moderate left neural foramin al stenosis.Mild degenerative changes of the facets are present. L5-S1: There is a mild diffuse disc bulge. No significant central spinal canal stenosis or left neur al foraminal stenosis is seen. There is very mild right neural foraminal stenosis. Soft tissues: The visualized SI joints and sacrum are well maintained. The paraspinal soft tissues ar e unremarkable. IMPRESSION: 1. Degenerative changes seen at L4-L5 resulting in moderate bilateral neural foraminal stenosis. 2. Degenerative changes at L5-S1 resulting in mild right neural foraminal stenosis. DATA REPOSITORY:
== END 2024-09-08 02:16 ==
LOC: DI 01:56
PROVIDERS: PCP Physician Assistant; Visit Provider Orthopaedic Surgery
DX: M51.370 Other intervertebral disc degeneration, lumbosacral region with discogenic back pain only (principal); M99.63 Osseous and subluxation stenosis of intervertebral foramina of lumbar region
CPT/HCPCS: 72148

== ENCOUNTER 2024-10-24 10:05 | Day surgery (SDC) | payer MEDICAID, SELFPAY ==
--- NOTE | 2024-10-23 16:03 | W.PM.DSUDISC ---
Date of service: 10/24/24 Discharge Plan Disposition Patient Disposition: Home Condition: Good Discharge Details Reason For Visit: Screening colonoscopy Attending Provider: David Elizabeth Primary Care Provider: Shekhar Lanza Home Meds and New Rx's Prescriptions: Continued lisdexamfetamine [Vyvanse] 30 mg capsule 30 mg PO DAILY levetiracetam [Keppra] 1,000 mg tablet 1,500 mg PO BID Qty: 270 3RF Patient Comments: pt states ran out and last time he took was about 3 days ago 05/09/23 MG Vivitrol 380 mg suspension,extended rel recon 380 mg IM QMONTH Qty: 1 0RF acamprosate 333 mg tablet,delayed release (DR/EC) 666 mg PO BID Qty: 1 0RF Rx Instructions: administer with mid-day and evening meals tadalafil 20 mg tablet 20 mg PO DAILY PRN Rx Instructions: administer approximately 30min before sexual activity; do not use more than 1 dose per 24hrs methylphenidate HCl [Ritalin] 10 mg tablet 10 mg PO DAILY sertraline 100 mg tablet 100 mg PO DAILY magnesium oxide [MgO] 400 mg (241.3 mg magnesium) tablet 400 mg PO DAILY Qty: 14 0RF potassium chloride 20 mEq tablet,ER particles/crystals 20 meq PO DAILY Qty: 7 0RF propranolol 40 mg tablet 40 mg PO DAILY PRN Patient Comments: TAKE ONE TABLET BY MOUTH THREE TIMES A DAY NEEDED FOR ANXIETY omeprazole 40 mg Capsule,Delayed Release(Dr/Ec) 40 mg PO DAILY multivitamin [Daily Multi-Vitamin] Tablet 1 tab PO DAILY thiamine mononitrate (vit B1) [Vitamin B-1 (mononitrate)] 100 mg Tablet 100 mg PO QAM Qty: 30 0RF trazodone 50 mg tablet 100 mg PO QHS Qty: 60 5RF Discontinued polyethylene glycol 3350 17 gram/dose powder 238 g PO ONCE Qty: 238 0RF Rx Instructions: take per colonoscopy instructions bisacodyl [Dulcolax (bisacodyl)] 5 mg tablet,delayed release (DR/EC) 5 mg PO ONCE Qty: 4 0RF Rx Instructions: take per colonoscopy instructions Discharge Instructions Additional Instructions: Rasta, is very nice meeting you today, and I hope you feel well after the procedure. Things went very smoothly. There are 2 small lipomas in your ascending colon. These are benign fat tissue tumors, the pose no risk to your health or wellbeing. They do not need to be treated. With regards to adenomatous polyps, which are the worrisome precursors of cancers, I did not see any of those at all today. Because you have 2 second-degree relatives with history of colon cancer, I recommend a 5-year screening intervals for you. If you need anything or have any questions at all, please do not hesitate to ask. 1. If tolerated, consume a soft, low fiber diet for 1-2 days. [address] Do not drive, drink alcohol, operate machinery, make critical decisions, or do activities that require coordination or balance for 24 hours. 3. Because air was put into your colon during the procedure, expelling air from your rectum (passing gas or farting) is normal. 4. You may not have a bowel movement for 1-3 days because of the colonoscopy prep. This is normal. 5. Go directly to the emergency room if you notice any of the following: Develop chills (warm to touch), or if you have a thermometer and your temperature is above 101 Difficulty breathing or difficultly swallowing Persistent vomiting Severe abdominal pain, other than gas cramps Severe chest pain Black, tarry stools Any bleeding ? exceeding one tablespoon 6. Call your physician if the site where your intravenous was started becomes red, swollen, painful, and warm to touch. 7. Your physician has reviewed your pre-procedure medications. Please continue to take those medications as previously ordered. You will be given specific information/education regarding any changes to your medications before leaving. Stand Alone Forms: Anesthesia Discharge Inst., David Dela Cruz (DSU) Activity:: Activity as Tolerated Diet:: As Tolerated Discharge Orders Discharge Orders: Discharge Order (Routine); Ordered 10/23/24 Ordered By: David Elizabeth DS: Diagnosis Discharge Diagnosis (1) Encounter for screening colonoscopy: Status: Acute Asessment and Plan: negative screening colonoscopy
--- NOTE | 2024-10-23 16:06 | W.COLOREPORT ---
Date of service: 10/24/24 Time of Service: 13:00 Colonoscopy Report Date of procedure: 10/24/24 Pre-op diagnosis general: Screening colonoscopy Post-op diagnosis procedure note: other (Ascending colon lipomas) Procedure: Colonoscopy Surgeon: David Elizabeth Anesthesia Type: General:No Airway Estimated blood loss (mL): 0 Pathology: none sent Complications: None Disposition: same day Indications: Rasta is a 44-year-old male who needs a screening colonoscopy Prep: Miralax/Dulcolax Procedure Start Time: 12:36 Procedure End Time: 12:53 Retraction Time: 12 Findings: 0.25 cm lipoma in the ascending colon x 2 Procedure Description: After the induction of anesthesia, and with the patient in left lateral decubitus position, I began by performing an external anorectal exam.? Perineum and skin were normal, as was the anal verge.? There was no evidence of external hemorrhoids.? Next, I performed a digital rectal exam.? I did not appreciate any abnormal findings.? Next, I advanced a colonoscope into the rectal vault.? I performed retroflexion.? This appeared normal.? Using insufflation, I then advanced the colonoscope beyond the rectal folds and into the sigmoid colon before advancing towards the cecum.? The scope was noted to be in the cecum by identification of the ileocecal valve and appendiceal orifice.? I then began withdrawing the colonoscope using repeated irrigation as necessary for full evaluation of the colonic mucosa. Within the proximal ascending colon was a 0.5 cm lipoma. Narrowband imaging was used to examine the overlying mucosa. It was all totally normal and healthy appearing. A few centimeters away from this was another 0.25 cm lipoma. I continued withdrawing the colonoscope along the length of the ascending, transverse, descending colon. This was all totally normal. The sigmoid segment was normal. I did not see any diverticulosis. The scope was withdrawn to the level of the rectum, great care was taken to examine portions of the rectal folds.? Finally, the scope was withdrawn and the patient was brought to the same-day surgery recovery unit as the anesthetic wore off. ?The findings and instructions were shared with the patient prior to discharge. [place] Bowel Prep [place] Bowel Prep Right Colon: 2 Left Colon: 3 Transverse Colon: 2 Total Score: 7
--- NOTE | 2024-10-24 07:58 | W.ANESPRE ---
General Info Height: 5 ft 9 in Weight: 77.734 kg Body Mass Index (BMI): 25.2 Surgical Procedure: Operation Date: 10/24/24 11:20 Proposed Procedure Side Surgeon juancarlos Elizabeth MD Meds Allergies and Home Medications Allergies Allergy/AdvReac Type Severity Reaction Status Date / Time No Known Allergies Allergy Verified 10/21/24 14:42 Home Medication ?Medication ?Instructions ?Recorded omeprazole 40 mg capsule,delayed 40 mg PO DAILY 07/13/20 release magnesium oxide 400 mg (241.3 mg 400 mg PO DAILY #14 tabs 02/24/23 magnesium) tablet (MgO) potassium chloride 20 mEq 20 meq PO DAILY #7 tabs 02/24/23 tablet,extended release(part/cryst) multivitamin (Daily Multi-Vitamin 1 tab PO DAILY 07/11/23 tablet) thiamine mononitrate (vit B1) 100 100 mg PO QAM #30 tabs 07/14/23 mg tablet (Vitamin B-1 (mononitrate)) trazodone 50 mg tablet 100 mg (2 x 50 mg) PO QHS #60 tabs 07/14/23 acamprosate 333 mg tablet,delayed 666 mg (2 x 333 mg) PO BID #1 tab 03/06/24 release levetiracetam 1,000 mg tablet 1,500 mg (1.5 x 1,000 mg) PO BID 03/06/24 (Keppra) #270 tabs lisdexamfetamine 30 mg capsule 30 mg PO DAILY 03/06/24 (Vyvanse) naltrexone microspheres 380 mg 380 mg IM QMONTH #1 ea 03/06/24 intramuscular suspension,extended release (Vivitrol) propranolol 40 mg tablet 40 mg PO DAILY PRN 07/08/24 methylphenidate HCl 10 mg tablet 10 mg PO DAILY 09/11/24 (Ritalin) sertraline 100 mg tablet 100 mg PO DAILY 09/11/24 tadalafil 20 mg tablet 20 mg PO DAILY PRN 09/11/24 Current Visit Medications: Current Medications Generic Name Dose Route Start Last Admin Trade Name Freq PRN Reason Stop Dose Admin Ringer's Solution 1,000 mls @ 80 mls/hr 10/24/24 06:00 IV 10/24/24 23:59 INFUSION RICARDO IV Miscellaneous Supplies 1 each 10/24/24 06:00 Iv Access IV 10/24/24 23:59 DIRECTED RICARDO Ondansetron HCl 4 mg 10/23/24 16:06 Ondansetron 4 Mg/2 Ml Vial IVP 11/22/24 16:05 Q4H PRN PRN Nausea / Vomiting Sodium Chloride 0 ml 10/24/24 06:00 Normal Saline Flush 10 Ml Syr IV 10/24/24 23:59 PRN PRN Sodium Chloride 0 ml 10/24/24 06:00 Normal Saline 10 Ml Vial IJ 10/24/24 23:59 DIRECTED PRN Sterile Water 0 ml 10/24/24 06:00 Water,Injection,Sterile 10 Ml Vial IJ 10/24/24 23:59 DIRECTED PRN PFSH Active Problems Active Problems: Problem Status Onset Code Erectile disorder Acute N52.9 Chronic depression Acute F32.A ADD (attention deficit disorder) Acute F98.8 Encounter for screening colonoscopy Acute Z12.11 Grief reaction Acute F43.21 Hypocalcemia Resolved E83.51 Alcohol withdrawal seizure Acute F10.939, R56.9 Alcoholic hepatitis Acute K70.10 Macrocytosis Acute D75.89 Alcohol intoxication Acute F10.929 Rhabdomyolysis Acute M62.82 Hypokalemia Acute E87.6 Hypomagnesemia Acute E83.42 Alcohol withdrawal Acute F10.939 H/O subdural hemorrhage Acute Z86.79 History of medication noncompliance Acute Z91.148 Elevated ETOH level Acute R78.0 Hypomagnesemia Resolved E83.42 Alcohol abuse Chronic F10.10 Tongue laceration Acute S01.512A Transaminitis Acute R74.01 Vomiting and diarrhea Acute R11.10, R19.7 Seizure Acute R56.9 Medical History Medical History Euthyroid sick syndrome Mood disorder GERD (gastroesophageal reflux disease) Lipid screening Seizure disorder Medically managed. Last seizure per patient was a 1.5 years ago. Anxiety disorder Depression Surgical History Surgical History History of cholecystectomy History of appendectomy History of gastric bypass Gastric sleeve Tobacco Smoking/Tobacco Use Status: Never Passive smoking exposure: No Alcohol Alcohol Intake: former Year quit: 2022 Substance Use Substance use: Never Substance use type: does not use Vital Signs and Lab Results Lab Results Blood Type / Crossmatch: No Data to Display Complete Blood Count: No Data to Display Complete Metabolic Panel: No Data to Display Liver Function Panel: No Data to Display Coagulation Panel: No Data to Display Cardiac Panel: No Data to Display Arterial Blood Gas: No Data to Display Venous Blood Gas: No Data to Display Pancreas Panel: No Data to Display Thyroid Panel: No Data to Display Infectious Disease: No Data to Display Blood Cultures: No Data to Display Toxicology Panel: No Data to Display Anesthesia Assessment and Plan Anesthesia History Personal History: No History of Anesthesia Complications Family History: No Family History of Anesthesia Complications Implantable Cardiac Device Does patient have a Pacemaker or an ICD?: No Anesthesia Plan Resuscitation Status: Full Code Anesthesia Technique: General Anesthesia Airway Planned: Natural Airway Monitors Used: Standard Monitors Preoperative Comments:: 44 yo male with NKDA for colo. Sig PMHx: GERD (omeprazole), Sz (levetiracetam. followed by neuro here), sub dural, depression/anxiety (sertraline). EtOH abuse (Acamprosate, naltrexone) ECG: sinus tach.
[2024-10-24 10:20] VITALS: BP 118/84; PULSE 71; RESP 18; TEMP 36.1; O2SAT 100
[2024-10-24] MEDS: Lactated Ringers 1,000 ML 80 ML IV (10:36)
--- NOTE | 2024-10-24 11:53 | ANES.PREOP_ITS ---
General Info Date of Service Date Performed: 10/24/24 Height: 5 ft 9 in Weight: 79.3 kg Body Mass Index (BMI): 25.8 Surgical Procedure: Operation Date: 10/24/24 11:20 Proposed Procedure Side Surgeon juancarlos Elizabeth MD Meds Allergies and Home Medications Allergies Allergy/AdvReac Type Severity Reaction Status Date / Time No Known Allergies Allergy Verified 10/24/24 10:17 Home Medication ?Medication ?Instructions ?Recorded omeprazole 40 mg capsule,delayed 40 mg PO DAILY 07/13/20 release magnesium oxide 400 mg (241.3 mg 400 mg PO DAILY #14 tabs 02/24/23 magnesium) tablet (MgO) potassium chloride 20 mEq 20 meq PO DAILY #7 tabs 02/24/23 tablet,extended release(part/cryst) multivitamin (Daily Multi-Vitamin 1 tab PO DAILY 07/11/23 tablet) thiamine mononitrate (vit B1) 100 100 mg PO QAM #30 tabs 07/14/23 mg tablet (Vitamin B-1 (mononitrate)) trazodone 50 mg tablet 100 mg (2 x 50 mg) PO QHS #60 tabs 07/14/23 acamprosate 333 mg tablet,delayed 666 mg (2 x 333 mg) PO BID #1 tab 03/06/24 release levetiracetam 1,000 mg tablet 1,500 mg (1.5 x 1,000 mg) PO BID 03/06/24 (Keppra) #270 tabs lisdexamfetamine 30 mg capsule 30 mg PO DAILY 03/06/24 (Vyvanse) naltrexone microspheres 380 mg 380 mg IM QMONTH #1 ea 03/06/24 intramuscular suspension,extended release (Vivitrol) propranolol 40 mg tablet 40 mg PO DAILY PRN 07/08/24 methylphenidate HCl 10 mg tablet 10 mg PO DAILY 09/11/24 (Ritalin) sertraline 100 mg tablet 100 mg PO DAILY 09/11/24 tadalafil 20 mg tablet 20 mg PO DAILY PRN 09/11/24 Current Visit Medications: Current Medications Generic Name Dose Route Start Last Admin Trade Name Freq PRN Reason Stop Dose Admin Ringer's Solution 1,000 mls @ 80 mls/hr 10/24/24 06:00 10/24/24 10:36 IV 10/24/24 23:59 80 mls/hr INFUSION RICARDO Administration IV Miscellaneous Supplies 1 each 10/24/24 06:00 Iv Access IV 10/24/24 23:59 DIRECTED RICARDO Ondansetron HCl 4 mg 10/23/24 16:06 Ondansetron 4 Mg/2 Ml Vial IVP 11/22/24 16:05 Q4H PRN PRN Nausea / Vomiting Sodium Chloride 0 ml 10/24/24 06:00 Normal Saline Flush 10 Ml Syr IV 10/24/24 23:59 PRN PRN Sodium Chloride 0 ml 10/24/24 06:00 Normal Saline 10 Ml Vial IJ 10/24/24 23:59 DIRECTED PRN Sterile Water 0 ml 10/24/24 06:00 Water,Injection,Sterile 10 Ml Vial IJ 10/24/24 23:59 DIRECTED PRN PFSH Active Problems Active Problems: Problem Status Onset Code Erectile disorder Acute N52.9 Chronic depression Acute F32.A ADD (attention deficit disorder) Acute F98.8 Encounter for screening colonoscopy Acute Z12.11 Grief reaction Acute F43.21 Hypocalcemia Resolved E83.51 Alcohol withdrawal seizure Acute F10.939, R56.9 Alcoholic hepatitis Acute K70.10 Macrocytosis Acute D75.89 Alcohol intoxication Acute F10.929 Rhabdomyolysis Acute M62.82 Hypokalemia Acute E87.6 Hypomagnesemia Acute E83.42 Alcohol withdrawal Acute F10.939 H/O subdural hemorrhage Acute Z86.79 History of medication noncompliance Acute Z91.148 Elevated ETOH level Acute R78.0 Hypomagnesemia Resolved E83.42 Alcohol abuse Chronic F10.10 Tongue laceration Acute S01.512A Transaminitis Acute R74.01 Vomiting and diarrhea Acute R11.10, R19.7 Seizure Acute R56.9 Medical History Medical History Euthyroid sick syndrome Mood disorder GERD (gastroesophageal reflux disease) Lipid screening Seizure disorder Medically managed. Last seizure per patient was a 1.5 years ago. Anxiety disorder Depression Surgical History Surgical History History of cholecystectomy History of appendectomy History of gastric bypass Gastric sleeve Tobacco Smoking/Tobacco Use Status: Never Passive smoking exposure: No Alcohol Alcohol Intake: former Year quit: 2022 Substance Use Substance use: Never Substance use type: does not use Vital Signs and Lab Results Vital Signs Most Recent Vital Signs in EMR: Most Recent Vital Signs Temp Pulse Resp BP Pulse Ox 36.1 C L 71 18 118/84 100 10/24/24 10:20 10/24/24 10:20 10/24/24 10:20 10/24/24 10:20 10/24/24 10:20 Lab Results Blood Type / Crossmatch: 2 No Data to Display Complete Blood Count: 2 No Data to Display Complete Metabolic Panel: 2 No Data to Display Liver Function Panel: 2 No Data to Display Coagulation Panel: 2 No Data to Display Cardiac Panel: 2 No Data to Display Arterial Blood Gas: 2 No Data to Display Venous Blood Gas: 2 No Data to Display Pancreas Panel: 2 No Data to Display Thyroid Panel: 2 No Data to Display Infectious Disease: 2 No Data to Display Blood Cultures: 2 No Data to Display Toxicology Panel: 2 No Data to Display Imaging and Studies Imaging and Studies Study information below may be from another EMR and interpreted by another provider. Please see original notes in EMR for more complete details. EKG Summary: EKG PATIENT NAME: Rasta Canales UNIT #: [id number] ORDERING PROVIDER: Pantera Mclaughlin PRIMARY CARE PROVIDER: DARION ALEXANDER DATE/TIME OF SERVICE: 07/08/24924 : 1980 PERFORMING LOCATION: ER APPROVED REPORT Exam: Resting ECG Reason for Exam: tachycardia Patient Location: E HR:129 bpm ECG Measurements Heart Rate 129 AXIS WA 137 P 44 QRSd 85 QRS -6 QT 294 T63 QTc 432 Conclusion Sinus tachycardia 129 normal axis no stemi - <Electronically signed by Shayy Valerio M.D. in [place]> E-Sign Date: 07/08/24 E-Sign Time: 1659 ADDENDUM APPROVED REPORT Exam: Resting ECG Reason for Exam: tachycardia Patient Location: E HR:129 bpm ECG Measurements Heart Rate 129 AXIS WA 137 P 44 QRSd 85 QRS -6 QT 294 T63 QTc 432 Conclusion Sinus tachycardia 129 normal axis no stemi I have reviewed and I agree with the emergency room physician's ECG interpretation. Electronically signed by: <Electronically signed by Veronica Allen M.D. in [place]> 07/10/24 0841 Cosigned by: Anesthesia Assessment and Plan Anesthesia History Personal History: No History of Anesthesia Complications Family History: No Family History of Anesthesia Complications Exercise Tolerance Exercise Tolerance: Metabolic Equivalents>4 Pertinent Negatives Pertinent Negatives: No Symptoms of GERD, No Major Cardiovascular Symptoms or Complaints and No Major Pulmonary Symptoms or Complaints Cardiac & Pulmonary Exam Cardiac Exam: Normal S1/S2 Heart Sounds Pulmonary Exam: Clear Bilateral Breath Sounds Implantable Cardiac Device Does patient have a Pacemaker or an ICD?: No Airway Exam Known Difficult Airway: No Mallampati Class: 2 Mouth Opening: Normal (> 3cm) Thyromental Distance: Greater than 3 cm Neck Range of Motion: Full ROM Neck Circumference: Normal Teeth Condition: Normal Dentition Tooth Numberin 1. broken ASA Classification ASA Score: ASA 2 Emergency Case?: No NPO Status NPO Status: NPO Clears >2 hours, Solids >8 hours Anesthesia Plan Resuscitation Status: Full Code Anesthesia Technique: General Anesthesia Airway Planned: Natural Airway Monitors Used: Standard Monitors Preoperative Comments:: On Nehemias, last seizure 10/03 weekend due to not taking his medications. No seizures since, reports aura and tonic clonic activity.
[2024-10-24 11:55] VITALS: BMI 25.8
[2024-10-24 12:56] VITALS: BP 99/69; PULSE 66; RESP 16; TEMP 36; O2SAT 99
[2024-10-24 13:20] VITALS: BP 114/82; PULSE 73; RESP 16; TEMP 35.9; O2SAT 99
--- NOTE | 2024-10-24 13:43 | W.ANESPOSTOP ---
Postoperative Evaluation Date, Time and Location Date Performed: 10/24/24 Time Performed: 13:32 Patient Location: Day Surgery Unit Vital Signs Most Recent Imported Vital Signs: Most Recent Vital Signs Temp Pulse Resp BP Pulse Ox 35.9 C L 73 16 114/82 99 10/24/24 13:20 10/24/24 13:20 10/24/24 13:20 10/24/24 13:20 10/24/24 13:20 Pain Score Most Recent Pain Score: Most Recent Pain Score Pain Level 0 10/24/24 13:20 Assessment Mental Status: Awake (Alert & Oriented to Patient Baseline) Airway and Respiratory Function: Patent airway with normal (patient baseline) respiratory exam Cardiovascular Function: Hemodynamically Stable Hydration Status: Adequately Hydrated Nausea & Vomiting: No Nausea or Vomiting Pain: Pt. Denies Any Pain Peripheral Nerve Block: Patient did not receive a nerve block
== END 2024-10-24 13:31 | disposition home or self-care (01) ==
LOC: SUR 10:05
PROVIDERS: PCP Physician Assistant; Visit Provider Surgery
PROC: 0DJD8ZZ Inspection of Lower Intestinal Tract, Via Natural or Artificial Opening Endoscopic (ICD-10-PCS; CPT 45378; principal; 2024-10-24 11:15)
DX: Z12.11 Encounter for screening for malignant neoplasm of colon (principal); K63.89 Other specified diseases of intestine
CPT/HCPCS: 45378; J2704